=== PATIENT | female | born 1940 | race Caucasian/White ===

== ENCOUNTER 2019-03-26 15:36 | Inpatient (IN) | payer MEDICARE, MEDICAID, SELFPAY ==
[2019-03-14 10:01] VITALS: BMI 40.1
[2019-03-14 10:40] VITALS: BP 137/57; PULSE 67; RESP 18; TEMP 37.2; O2SAT 97
[2019-03-26] VITALS (13 sets, daily range): BP systolic 131–166; BP diastolic 44–82; PULSE 61–86; RESP 15–20; TEMP 36.3–37.1; O2SAT 92–100; BMI 40.1
--- NOTE | ~2019-03-26 | XR_ITS ---
EXAMINATION: XR knee RT 2V EXAM DATE: 03/26/2019 15:48 INDICATION: Postoperative total right knee replacement. TECHNIQUE: Portable frontal, crosstable lateral projections right knee obtained immediately followin g arthroplasty. Procedure performed by Stuart Beltrán MD. FINDINGS: Lateral projection is slightly obliqued. Patient is status post total knee arthroplasty. T he orthopedic hardware is in expected position. There are trena overlying the anterior aspect of t he knee. There is small amount of subcutaneous gas, gas within the knee joint space. Overlying soft tissue swelling. Correlate with procedure note. IMPRESSION: Status post total right knee arthroplasty. Reviewed, dictated and finalized at location A. COUNSELOR
[2019-03-26] MEDS: LACTATED RINGERS 1,000 ML 30 ML IV CONT ×2 (10:35→15:32)
[2019-03-26] MEDS: IBUPROFEN IV 800 MG/200 ML 800 MG/200 ML BAG 400 MG IVPB (10:35)
--- NOTE | 2019-03-26 11:19 | P.PNAN_ITS ---
Anes - Initial Pre Proc Eval Procedure: Operation Date: 03/26/19 12:00 Proposed Procedures p Right Total Knee Arthroplasty - Stuart Beltrán MD Date/Time: 03/26/19 11:19 Surgeon: Stuart Beltrán MD Pre Op Diagnosis: Right Knee DJD Patient Data Age: 78 Gender: F Height: 1.57 m Weight: 97.9 kg Last Vital Signs Temp 37.1 C 03/26/19 10:13 Pulse 77 03/26/19 10:13 Resp 18 03/26/19 10:13 BP 151/68 H 03/26/19 10:13 Pulse Ox 99 03/26/19 10:13 Allergies Allergy/AdvReac Type Severity Reaction Status Date / Time No Known Allergies Allergy Verified 03/26/19 10:40 Home Medications Medication Instructions Recorded Confirmed Type pantoprazole 40 mg tablet,delayed 40 mg PO BID #180 tablet 01/08/19 03/26/19 Rx release chlorthalidone 25 mg tablet 25 mg PO DAILY #90 tablet 02/25/19 03/26/19 Rx acetaminophen 325 mg capsule 325 mg PO Q6H PRN 03/14/19 03/26/19 History atorvastatin 40 mg tablet 40 mg PO HS 03/14/19 03/26/19 History cholecalciferol (vitamin D3) 2,000 unit PO DAILY 03/14/19 03/26/19 History cyanocobalamin (vitamin B-12) 1,000 mcg PO DAILY 03/14/19 03/26/19 History ferrous sulfate 325 mg (65 mg 325 mg PO TID 03/14/19 03/26/19 History iron) tablet,delayed release levothyroxine 25 mcg tablet 25 mcg PO DAILY 03/14/19 03/26/19 History nifedipine 60 mg PO BID 03/14/19 03/26/19 History ramipril 10 mg capsule 10 mg PO DAILY 03/14/19 03/26/19 History tramadol 50 mg tablet 50 mg PO Q6H PRN 03/14/19 03/26/19 History ECG: SINUS RHYTHM SUPRAVENTRICULAR BIGEMINY NONSPECIFIC ST & T-WAVE ABNORMALITY- INF/LAT LEADS BASELINE ARTIFACT- I, III, AVR, AVL, AVF ABNORMAL ECG Patient hx anesthesia problems: none Family hx anesthesia problems: none [facility] Past Medical History Medical History (Updated 03/25/19 @ 15:41 by Kwame Allen DO) Anemia CKD (chronic kidney disease), stage III Degenerative joint disease of knee Essential (primary) hypertension Hypothyroidism, unspecified Pure hypercholesterolemia Reflux esophagitis Right knee pain Social History Social History Smoking status: Never smoker Alcohol intake: never Anes - Eval Final PreProcedure Day of Procedure 03/26/19 11:19 Patient weight: obese Heart: regular rate and rhythm Lungs: clear to auscultation and normal air movement Airway: Mallampati scale class III Neurological: alert and oriented Last oral intake: >/= 8 hours ASA classification: III Emergent: no Anesthetic plan: proceed Anesthesia type and monitoring: general LMA and standard monitoring Informed Consent: The patient's anesthetic plan and its attendant risks and benefits were discussed with the patient/family/POA. Questions were solicited and answers provided to the satisfaction of the patient/family/POA.
--- NOTE | 2019-03-26 11:48 | WPDANESEPPF ---
Anes - Initial Pre Proc Eval Procedure: Operation Date: 03/26/19 12:00 Proposed Procedures p Right Total Knee Arthroplasty - Stuart Beltrán MD Date/Time: 03/26/19 11:48 Surgeon: Stuart Beltrán MD Pre Op Diagnosis: Right Knee DJD Patient Data Age: 78 Gender: F Height: 1.57 m Weight: 97.9 kg Last Vital Signs Temp 37.1 C 03/26/19 10:13 Pulse 77 03/26/19 10:13 Resp 18 03/26/19 10:13 BP 151/68 H 03/26/19 10:13 Pulse Ox 99 03/26/19 10:13 Allergies Allergy/AdvReac Type Severity Reaction Status Date / Time No Known Allergies Allergy Verified 03/26/19 10:40 Home Medications Medication Instructions Recorded Confirmed Type pantoprazole 40 mg tablet,delayed 40 mg PO BID #180 tablet 01/08/19 03/26/19 Rx release chlorthalidone 25 mg tablet 25 mg PO DAILY #90 tablet 02/25/19 03/26/19 Rx acetaminophen 325 mg capsule 325 mg PO Q6H PRN 03/14/19 03/26/19 History atorvastatin 40 mg tablet 40 mg PO HS 03/14/19 03/26/19 History cholecalciferol (vitamin D3) 2,000 unit PO DAILY 03/14/19 03/26/19 History cyanocobalamin (vitamin B-12) 1,000 mcg PO DAILY 03/14/19 03/26/19 History ferrous sulfate 325 mg (65 mg 325 mg PO TID 03/14/19 03/26/19 History iron) tablet,delayed release levothyroxine 25 mcg tablet 25 mcg PO DAILY 03/14/19 03/26/19 History nifedipine 60 mg PO BID 03/14/19 03/26/19 History ramipril 10 mg capsule 10 mg PO DAILY 03/14/19 03/26/19 History tramadol 50 mg tablet 50 mg PO Q6H PRN 03/14/19 03/26/19 History Patient hx anesthesia problems: none Family hx anesthesia problems: none [facility] Past Medical History Medical History (Updated 03/25/19 @ 15:41 by Kwame Allen DO) Anemia CKD (chronic kidney disease), stage III Degenerative joint disease of knee Essential (primary) hypertension Hypothyroidism, unspecified Pure hypercholesterolemia Reflux esophagitis Right knee pain Social History Social History Smoking status: Never smoker Alcohol intake: never Anes - Eval Final PreProcedure Day of Procedure 03/26/19 11:48 Patient weight: obese Heart: regular rate and rhythm Lungs: clear to auscultation and normal air movement Airway: Mallampati scale class II Neurological: alert and oriented Last oral intake: >/= 8 hours ASA classification: III Emergent: no Anesthetic plan: proceed Anesthesia type and monitoring: general LMA and standard monitoring Informed Consent: The patient's anesthetic plan and its attendant risks and benefits were discussed with the patient/family/POA. Questions were solicited and answers provided to the satisfaction of the patient/family/POA.
--- NOTE | 2019-03-26 11:49 | WPDANESPNB ---
Anes - Peripheral Nerve Block Date/Time: 03/26/19 11:49 I have discussed with the patient/family/POA the placement of a peripheral nerve block for post-operative pain management, including associated risks, benefits, complications, and side effects. Alternative methods of post-operative analgesia were detailed. Questions were solicited and answers provided to the satisfaction of the patient/family/POA. Time-Out: A pre-procedural Time-Out was completed immediately before starting the procedure and confirmed: Patient Identification, Site, Procedure, Patient Position and the Availability of Requisite Equipment. Clinical Indications: Acute post-operative pain management requested by the operative surgeon. Nerve Block Insertion Note Anes-nerve block: femoral right Patient position: supine Skin prep: chlorhexidine Needle: 22 gauge, stimulating, insulated echogenic needle. Needle length: 80 mm Technique: nerve stimulation lost at (mA) (0.3) and ultrasound Injectate: bupivacaine 0.5% with epi 5 mcg/ml (30cc) Observations: tolerated well Complications: none Procedure start time:: 1227 Procedure end time:: 1233
--- NOTE | 2019-03-26 12:20 | WPDHPUPDATE1 ---
History and Physical Update Update Date/Time: 03/26/19 12:20 History and Physical has been reviewed, including an updated exam of the patient. There are NO changes in the patient's condition. Risks, benefits, and alternatives have been discussed and questions answered. Patient agrees to proceed with procedure.
[2019-03-26] MEDS: ceFAZolin 2 GM/D5W 50 ML 2 GM/50 ML BAG IVPB ×2 (12:33→20:20)
[2019-03-26] MEDS: ONDANSETRON INJ 4 MG/2 ML VIAL IV PUSH ×2 (15:32→16:23)
--- NOTE | 2019-03-26 15:34 | PM.OP ---
Procedure Note - Brief Procedure Note - Brief Date of procedure: 03/26/19 Pre-op diagnosis: Right Knee DJD Post-op diagnosis: same Procedure performed: R TKA Anesthesia: GETA Surgeon: Stuart Beltrán MD Estimated blood loss (mL): 50 Drains: No Complications: No immediate complications Condition: stable Disposition: PACU
--- NOTE | 2019-03-26 16:18 | OP_ITS ---
DATE OF PROCEDURE: 03/26/2019 PREOPERATIVE DIAGNOSIS: Right knee DJD. POSTOPERATIVE DIAGNOSIS: Right knee DJD. PROCEDURE: Right total knee arthroplasty. ANESTHESIA: General. COMPLICATIONS: None. INDICATIONS: This is a 78-year-old female with end-stage right knee DJD. She was indicated for right total knee arthroplasty. DESCRIPTION OF PROCEDURE: The patient was taken to the operating room in stable condition and placed in supine position. General anesthesia induced and then the right lower extremity was prepped and draped sterilely from the toes to the thigh. There was a flexion contracture of approximately 20 degrees. Tourniquet was inflated. A midline incision was performed. Medial patellar arthrotomy was performed. There was severe arthrosis in all 3 compartments of the knee joint. IM nilo was placed in the femur. Distal femoral cut was made removing approximately 12 mm of bone from the high side due to flexion contracture. The knee was sized to 62.5, so cutting block was placed in line with Whitesides line and the transepicondylar axis. Anterior, posterior, and chamfer cuts were made to the femur. The cuts were flushed. Next, the IM nilo was placed in the tibia. Transtibial cut was made removing approximately 10 mm of bone from the high side of the tibia. The cut was then planed with a planer and it was very flushed. Posterior osteophytes were removed from the femur with an osteotome. A 71 tibial trial was placed in one-third medial aspect of the tibial tubercle, and then a 62.5 femoral trial was placed. A 10 CR poly trial was placed. The knee came out to full extension. There was no flexion contracture. There was good patellar tracking. There was no tilt. There was good stability in varus-valgus stress in both flexion and extension. There was no excessive rollback in flexion. The trial instrumentation was removed, and then a Biomet 71 tibial component and a 62.5 femoral component were both cemented into place and then a 10 CR poly component was secured into place. The knee came out to full extension until the cement was hardened, excess cement was removed from the periphery of the implant. The knee was well stable in varus-valgus stress and good anterior-posterior stability as well. There was no excessive rollback in flexion and there was good patellar tracking. The knee came out to full extension as well. The knee joint then was irrigated thoroughly with sterile Betadine sterile water for approximately 3 minutes, and then washed out and the tourniquet was deflated. Bleeders were cauterized. The arthrotomy was approximated with #1 Vicryl suture, subcutaneous tissues with 2-0 Vicryl and the skin with trena, and then a Prevena wound system was placed on the skin and activated and it collapsed well. The patient then was extubated and sent to recovery. Silvia I MT: Mickey
[2019-03-26] MEDS: FAMOTIDINE 20 MG/2 ML VIAL IV PUSH (16:56)
[2019-03-26] MEDS: SODIUM CHLORIDE 0.9% IV 1,000 ML 125 ML IV CONT (17:40)
[2019-03-26] MEDS: DOCUSATE SODIUM 100 MG CAPSULE PO (18:07)
[2019-03-26] MEDS: FERROUS SULFATE 324 MG TABLET PO (18:07)
--- NOTE | 2019-03-26 18:17 | ADMGEN ---
This patient, Nadiya Grimes, was admitted to [facility] Room 313-01 on 03/26/2019 @ 1700. Patient/family oriented to hospital policies and general routines including ID bracelet, bed and alarms, visiting hours, pain management, procedures, bathroom and other care routines, personal items, smoking policy, room service/diet, and visiting hours. Valuables list has been completed. Information on how to activate the Rapid Response Team has been discussed. Patient/Family are encouraged to report perceived risks to care and to ask questions if they do not understand what they are told or what they should do.
[2019-03-26 18:45] LABS: Estimated CRCL calculation 26 ml/min; Estimated Glomerular Filt Rate 27
[2019-03-26] MEDS: ATORVASTATIN 40 MG TABLET PO (20:23)
[2019-03-26] MEDS: FAMOTIDINE 20 MG TABLET PO (20:23)
[2019-03-26] MEDS: PANTOPRAZOLE 40 MG TABLET PO (20:24)
[2019-03-26] MEDS: NIFEdipine 30 MG TAB.ER.24 60 MG PO (20:24)
[2019-03-26] MEDS: MORPHINE SULFATE 4 MG/ML INJ IV PUSH (23:56)
[2019-03-27] VITALS (13 sets, daily range): BP systolic 92–134; BP diastolic 24–55; PULSE 64–114; RESP 16–20; TEMP 36.4–38.1; O2SAT 92–100
[2019-03-27] MEDS: SODIUM CHLORIDE 0.9% IV 1,000 ML 125 ML IV CONT (02:50)
[2019-03-27] MEDS: ceFAZolin 2 GM/D5W 50 ML 2 GM/50 ML BAG IVPB ×2 (03:54→12:33)
[2019-03-27] MEDS: MORPHINE SULFATE 4 MG/ML INJ IV PUSH (04:00)
[2019-03-27 06:11] LABS: Basophils Percent Auto 0.1 % (0.2-1.2); Hematocrit 26.3 % (37.0-47.0); Hemoglobin 7.9 g/dL (12.0-15.0); Immature Granulocyte Absolute 0.08 K/mm3 (0.00-0.031); Immature Granulocyte Percent A 0.5 % (0-0.5); Lymphocytes Absolute Auto 1.04 K/mm3 (0.9-3.2); Lymphocytes Percent Auto 6.9 % (18.3-44.2); Mean Corpuscular Hemoglobin 26.6 pg (26-34); Mean Corpuscular Volume 88.6 fl (80-100); Mean Platelet Volume 10.2 fl (7.4-10.4); Monocytes Absolute Auto 1.3 K/mm3 (0.1-0.6); Monocytes Percent Auto 8.8 % (2.6-8.5); Neutrophils Absolute Auto 12.6 K/mm3 (1.3-6.7); Neutrophils Percent Auto 83.7 % (45.5-73.1); Platelet Count Result 344 k/mm3 (150-375); Red Blood Count 2.97 M/mm3 (4.2-5.4); Red Cell Distribution Width 14.8 % (11.5-14.5)
[2019-03-27 06:22] LABS: Blood Urea Nitrogen 24 mg/dL (7-17); Calcium 8.5 mg/dL (8.4-10.2); Carbon Dioxide 24 mmol/L (22-30); Chloride 102 mmol/L (98-107); Estimated CRCL calculation 26 ml/min; Estimated Glomerular Filt Rate 27; Glucose 137 mg/dL (65-105); Potassium 4.2 mmol/L (3.4-5.0); Sodium 135 mmol/L (137-145)
--- NOTE | 2019-03-27 07:45 | WPDANESPN ---
Anes - Prog Note Post-Op Date/Time: 03/27/19 07:45 Cardiovascular status: normal Respiratory status: normal Airway patency: baseline Mental status: baseline Post-Op hydration status: normal Vital Signs: Last Vital Signs Temp 97.5 F L 03/27/19 06:00 Pulse 67 03/27/19 06:00 Resp 20 03/27/19 06:00 BP 96/55 L 03/27/19 06:00 Pulse Ox 100 03/27/19 06:00 Pain Score (VAS): pt having pain to posterior knee. good relief to top and sides. pt distressed due to heaviness of knee and limited motor control. reassured pt & spoke at length regarding FNB and pain management, what to expect etc. pt v/u I/O: Intake & Output 03/26/19 03/27/19 03/27/19 23:59 07:59 15:59 Intake Total 250 1550 Output Total 600 Balance 250 950 Laboratory Tests 03/27/19 05:44 03/27/19 05:44 03/26/19 03/27/19 03/27/19 18:03 05:44 05:44 WBC 15.0 H RBC 2.97 L Hgb 7.9 L Hct 26.3 L MCV 88.6 MCH 26.6 MCHC 30.0 L RDW 14.8 H Plt Count 344 MPV 10.2 Immature Gran % (Auto) 0.5 Neut % (Auto) 83.7 H Lymph % (Auto) 6.9 L [place] % (Auto) 8.8 H Eos % (Auto) 0.0 Baso % (Auto) 0.1 L Lymph # (Auto) 1.04 [place] # (Auto) 1.3 H Eos # (Auto) 0.0 Baso # (Auto) 0.0 Abs Immat Gran (auto) 0.08 H Absolute Neuts (auto) 12.6 H Absolute Nucleated RBC 0.0 Nucleated RBC % 0.0 Sodium 135 L Potassium 4.2 Chloride 102 Carbon Dioxide 24 BUN 24 H Creatinine 1.80 H 1.80 H Estim Creat Clear Calc 26 26 Estimated GFR 27 L 27 L Glucose 137 H Calcium 8.5 Transferrin Vitamin B12 Folate 03/27/19 03/27/19 05:44 05:44 WBC RBC Hgb Hct MCV MCH MCHC RDW Plt Count MPV Immature Gran % (Auto) Neut % (Auto) Lymph % (Auto) [place] % (Auto) Eos % (Auto) Baso % (Auto) Lymph # (Auto) [place] # (Auto) Eos # (Auto) Baso # (Auto) Abs Immat Gran (auto) Absolute Neuts (auto) Absolute Nucleated RBC Nucleated RBC % Sodium Potassium Chloride Carbon Dioxide BUN Creatinine Estim Creat Clear Calc Estimated GFR Glucose Calcium Transferrin 297 Vitamin B12 Pending Folate Pending Post-procedural complaints: nausea and vomiting Patient Feedback: Patient satisfied with anesthetic care.
--- NOTE | 2019-03-27 08:16 | PM.IMCN ---
Assessment and Plan Assessment and plan (1) S/P right knee arthroscopy: Code(s): Z98.890 - Other specified postprocedural states Status: Acute Assessment and Plan: Status post right total knee arthroplasty completed on 03/26/[address] Beltrán. Patient is still having a lot of pain today rated 9/10. After therapy this morning her pain was 10/10 and slowly improving. The patient and her sister have concerns with her being discharged home with home health and would like to talk with care coordination about a possible SNF placement. Continue monitoring the patient's symptoms. Pain management per Dr. Beltrán Discharge planning per Dr. Beltrán Post-op care per Dr. Beltrán DVT Prophylaxis per Dr. Beltrán (2) Iron deficiency anemia: Code(s): D50.9 - Iron deficiency anemia, unspecified Status: Acute Assessment and Plan: On review of patient's prior labs her hemoglobin is usually around 10 and her hematocrit is normally around 32-35. She does have a history of iron deficiency anemia in takes oral iron 3 times per day. She has had IV iron infusions in the past, and follows up with Dr. Richards but she has not needed an iron transfusion in while. Hemoglobin this morning was 7.9 and hematocrit was 26.3%. Most likely low secondary to her surgery yesterday. I am checking her iron panel, vitamin B12 and folic acid levels. She she may need a dose of IV iron while here. Will recheck H&H at 1:00 p.m.. Will monitor her H&H and consider IV blood transfusion if it continues to lower. (3) Essential (primary) hypertension: Code(s): I10 - Essential (primary) hypertension Status: Acute Assessment and Plan: Patient's blood pressure has been normal since surgery. This morning her blood pressure was 96/55. This could be from pain medications or from low H&H. We will continue monitoring her blood pressure, continue IV fluid hydration, and monitoring her H&H levels. (4) CKD (chronic kidney disease), stage III: Code(s): N18.3 - Chronic kidney disease, stage 3 (moderate) Status: Acute Assessment and Plan: From prior labs her creatinine was 1.4. Prior to surgery her creatinine is 1.8 in it stayed stable this morning after surgery as well. This could be her baseline. We will continue her IV fluids at this time and monitoring her renal function, urine output postop. (5) Pure hypercholesterolemia: Code(s): E78.00 - Pure hypercholesterolemia, unspecified Status: Acute Assessment and Plan: Will continue her statin medication. (6) Hypothyroidism, unspecified: Code(s): E03.9 - Hypothyroidism, unspecified Status: Acute Assessment and Plan: Her TSH this morning. Continue her levothyroxine. HPI Data of Consult Consult date: 03/27/19 Requesting Physician: Stuart Beltrán MD Primary Care Provider: Frank Ha DO Consult Narrative Narrative: Nadiya Grimes is a 78 year old female with a history of arthritis to bilateral knees, hypertension, high cholesterol, iron deficiency anemia, who presented after the patient had a scheduled right total knee arthroplasty on 03/26/2019. The patient reports having knee issues for a while and pain was not very well controlled prior to surgery. Currently, she is postop day 1 and still having a lot of discomfort to her right knee. Currently right knee discomfort is a 9/10 but she reports it is coming down . She has not really been able to eat anything since her surgery secondary to nausea and a few episodes of vomiting last night and earlier this morning. Today she is feeling better and tolerating liquids and Sloan crackers. She denies any na
[2019-03-27 08:27] LABS: Transferrin 297 mg/dL (206-381)
[2019-03-27] MEDS: DIAZEPAM 5 MG TABLET PO ×2 (08:59→21:35)
[2019-03-27] MEDS: ONDANSETRON INJ 4 MG/2 ML VIAL IV PUSH (08:59)
[2019-03-27] MEDS: FAMOTIDINE 20 MG TABLET PO ×2 (09:00→21:35)
[2019-03-27] MEDS: PANTOPRAZOLE 40 MG TABLET PO ×2 (09:00→21:35)
[2019-03-27 10:11] LABS: Folic Acid 4.1 ng/mL (2.76->20)
[2019-03-27] MEDS: CHLORTHALIDONE 25 MG TABLET PO (10:53)
[2019-03-27] MEDS: NIFEdipine 30 MG TAB.ER.24 60 MG PO (10:54)
[2019-03-27] MEDS: ramipriL 5 MG CAPSULE 10 MG PO (10:54)
[2019-03-27 12:58] LABS: Hematocrit 23.7 % (37.0-47.0); Hemoglobin 7.2 g/dL (12.0-15.0)
[2019-03-27 13:36] LABS: Iron 13 ug/dL (37-170)
[2019-03-27 13:47] LABS: Percent Iron Saturation 4 % (20-50)
--- NOTE | 2019-03-27 17:26 | WPDPN ---
Progress Note: A&P Additional Plan L TKA POD 1 DOING WELL. WILL MOST LIKELY NEED REHAB VS SNF. CONT PT. Exam Psych: Other: L KNEE DRESSING DRY NV INTCT NEG HOMANS SIGN CALF SOFT. Objective Data Vital Signs Vital Signs: Vital Signs - 24 hr 03/26/19 17:45 03/26/19 18:45 03/26/19 22:00 Temperature 36.3 C L 36.4 C L Pulse Rate 80 74 61 Respiratory Rate 18 18 20 Blood Pressure 135/61 131/68 134/44 L Pulse Oximetry 100 100 96 03/27/19 02:05 03/27/19 06:00 03/27/19 10:50 Temperature 36.4 C L 36.4 C L Pulse Rate 67 67 71 Respiratory Rate 18 20 18 Blood Pressure 115/40 L 96/55 L 104/44 L Pulse Oximetry 96 100 95 03/27/19 14:00 Temperature 36.7 C Pulse Rate 114 H Respiratory Rate 16 Blood Pressure 92/53 L Pulse Oximetry 99 Intake/Output Intake/Output: Intake & Output 03/24/19 03/25/19 03/26/19 03/27/19 23:59 23:59 23:59 23:59 Intake Total 500 1550 Output Total 600 Balance 500 950 Meds/Results Medications: Active Medications Generic Name Dose Route Start Last Admin Trade Name Freq PRN Reason Stop Dose Admin Acetaminophen 1,000 mg 03/26/19 15:35 Tylenol Tablet PO Q6H PRN Mild Pain (1-3) Acetaminophen 325 mg 03/26/19 15:41 Tylenol Tablet PO Q6H PRN Pain Atorvastatin Calcium 40 mg 03/26/19 21:00 03/26/19 20:23 Lipitor PO 40 mg HS SHAMA Administration Celecoxib 200 mg 03/26/19 17:00 Celebrex PO BIDWM SHAMA Chlorthalidone 25 mg 03/27/19 09:00 03/27/19 10:53 [place] PO 25 mg DAILY SHAMA Administration Cyanocobalamin 1,000 mcg 03/27/19 09:00 03/27/19 10:54 Vitamin B-12 Tab PO Not Given DAILY SHAMA Diazepam 5 mg 03/26/19 15:35 03/27/19 08:59 Valium Po PO 5 mg Q8H PRN Administration Spasms Docusate Sodium 100 mg 03/26/19 17:00 03/27/19 10:54 Colace Cap PO Not Given BID SHAMA Famotidine 20 mg 03/26/19 21:00 03/27/19 09:00 Pepcid PO 20 mg Q12HR SHAMA Administration Ferrous Sulfate 324 mg 03/26/19 17:00 03/27/19 12:35 Ferrous Sulfate PO Not Given TIDWM SHAMA Sodium Chloride 1,000 mls @ 125 mls/hr 03/26/19 15:35 03/27/19 05:27 Normal Saline Iv IV CONT 125 mls/hr .Q8H SHAMA Infusion Sodium Chloride 250 mls @ 30 mls/hr 03/27/19 14:05 Normal Saline Iv IV CONT 03/27/19 22:24 .Q8H20M STA Levothyroxine Sodium 25 mcg 03/27/19 06:30 03/27/19 09:11 Synthroid PO Not Given 0630 SHAMA Morphine Sulfate 4 mg 03/26/19 15:35 03/27/19 04:00 Morphine Sulfate Inj IV PUSH 4 mg Q2H PRN Administration Breakthrough pain rated 7-10 Naloxone HCl 0.1 mg 03/26/19 15:35 Narcan IV PUSH Q2M PRN Opiate Reversal Nifedipine 60 mg 03/26/19 21:00 03/27/19 10:54 Procardia Xl PO 60 mg Q12HR SHAMA Administration Ondansetron HCl 4 mg 03/25/19 15:41 03/27/19 08:59 Zofran Inj IV PUSH 4 mg ONCE PRN Administration Nausea Oxycodone/Acetaminophen 1 tablet 03/26/19 15:35 03/27/19 10:52 Percocet 5-325 Mg PO 1 tablet Q4H PRN Administration Pain Rated 4-6 Pantoprazole Sodium 40 mg 03/26/19 21:00 03/27/19 09:00 Protonix PO 40 mg Q12HR SHAMA Administration Ramipril 10 mg 03/27/19 09:00 03/27/19 10:54 Altace PO 10 mg DAILY SHAMA Administration Rivaroxaban 10 mg 03/26/19 22:00 03/27/19 08:00 Xarelto PO 04/06/19 17:01 Not Given DAILY@17 SHAMA Tramadol HCl 50 mg 03/26/19 15:41 Ultram PO Q6H PRN Pain Vitamin D 2,000 unit 03/27/19 09:00 03/27/19 10:54 Vitamin D PO Not Given DAILY SHAMA Radiology Results: ITS Impressions Knee X-Ray 03/26/19 17:39 IMPRESSION: Status post total right knee arthroplasty. Labs Labs: Laboratory Results - last 24 hr 03/26/19 03/27/19 03/27/19 18:03 05:44 05:44 WBC 15.0 H RBC 2.97 L Hgb 7.9 L Hct 26.3 L MCV 88.6 MCH 26.6 MCHC 30.0 L RDW 14.8 H Plt Count 344 MPV 10.2 Immat
[2019-03-27] MEDS: DOCUSATE SODIUM 100 MG CAPSULE PO (17:47)
[2019-03-27] MEDS: RIVAROXABAN 10 MG TABLET PO (17:47)
[2019-03-27] MEDS: SODIUM CHLORIDE 0.9% IV 250 ML 30 ML IV CONT (18:34)
[2019-03-27] MEDS: ATORVASTATIN 40 MG TABLET PO (21:35)
[2019-03-28 00:30] VITALS: BP 103/45; PULSE 75; RESP 18; TEMP 36.7; O2SAT 93
[2019-03-28 01:30] VITALS: BP 110/44; PULSE 70; RESP 18; TEMP 37.2; O2SAT 90
[2019-03-28 02:04] VITALS: BP 114/43; PULSE 70; RESP 18; TEMP 37; O2SAT 90
[2019-03-28 03:23] LABS: Hematocrit 26.7 % (37.0-47.0); Hemoglobin 8.4 g/dL (12.0-15.0); Mean Corpuscular HGB Conc 31.5 g/dl (32-36); Mean Corpuscular Hemoglobin 27.4 pg (26-34); Mean Platelet Volume 9.8 fl (7.4-10.4); Platelet Count Result 215 k/mm3 (150-375); Red Blood Count 3.07 M/mm3 (4.2-5.4); Red Cell Distribution Width 15.6 % (11.5-14.5); White Blood Count 10.8 K/mm3 (4.5-10.0)
[2019-03-28 03:39] LABS: Blood Urea Nitrogen 28 mg/dL (7-17); Calcium 7.9 mg/dL (8.4-10.2); Carbon Dioxide 24 mmol/L (22-30); Chloride 105 mmol/L (98-107); Estimated CRCL calculation 22 ml/min; Estimated Glomerular Filt Rate 23; Glucose 116 mg/dL (65-105); Sodium 136 mmol/L (137-145)
[2019-03-28] MEDS: DIAZEPAM 5 MG TABLET PO (04:35)
[2019-03-28 06:00] VITALS: BP 110/53; PULSE 68; RESP 20; TEMP 37.2; O2SAT 94
[2019-03-28] MEDS: LEVOTHYROXINE SODIUM 25 MCG TABLET PO (06:04)
--- NOTE | 2019-03-28 09:17 | PM.PNORT ---
Progress Note: A&P Assessment and Plan (1) S/P right knee arthroscopy: Code(s): Z98.890 - Other specified postprocedural states Status: Acute Assessment and Plan: POD #2: RIGHT TKA Continue PT/OT. WBAT with walker. Slow progress. Fall Risk. Continue pain control. Ice. No pillows under knee. Continue DVT prophylaxis. SCDs. Icentive spirometry. Monitor wound VAC dressing. To be changed by Dr. Beltrán prior to discharge. Dispo: Acute Rehab for further PT/OT. Subjective Subjective Date/Time Seen: 03/28/19 09:17 Post Op day: 2 Principal diagnosis: Right Knee DJD Interval history: Up in chair. No new complaints. Pain controlled. Tolerating diet. Review of Systems Review of Systems: All systems reviewed & are unremarkable except as noted in HPI and below Constitutional: Constitutional: Denies fever(s) and Denies headache(s) ENT: Denies headache(s) Cardiovascular: Cardiovascular: Denies chest pain, Denies diaphoresis, Denies palpitations and Denies dyspnea Respiratory: Respiratory: Denies dyspnea Gastrointestinal: Gastrointestinal: Denies abdominal pain, Denies constipation, Denies nausea and Denies vomiting Genitourinary: Genitourinary: Reports nocturia and Denies dysuria Musculoskeletal: Musculoskeletal: Reports arthralgias (Right Knee ) and Reports joint swelling (Right Knee ) Neurologic: Denies headache(s) Endocrine: Endocrine: Denies palpitations Exam Const: General: comfortable and no acute distress Resp: Effort & Inspection: normal respiratory effort Cardio: Rate: regular rate Rhythm: regular rhythm GI: GI Palp: Yes Soft to palpation, No Tenderness to palpation present (GI) and No Guarding due to palpation present (GI) Skin: Wounds: wounds noted Other: Incision c/d/i. No surrounding redness/warmth. No hematoma. Mild ecchymosis. No wound dehiscence Neuro: Cognition (Neuro): normal cognition Other: NV intact aside from block RLE. Moves toes. Sensation intact to light touch. +ankle dorsiflexion/plantarflexion. Extrem: Right upper extremity: normal to inspection, full ROM and normal capillary refill Left upper extremity: normal to inspection, full ROM and normal capillary refill Right lower extremity: normal to inspection, full ROM (ROM limited due to recent surgical intervention ) and knee Details: tenderness (diffuse, mild ), swelling (diffuse, mild ) and abnormal ROM (limited due to recent surgical intervention- difficulty with extension- block still intact ) Left lower extremity: normal to inspection Psych: Mental Status: mental status grossly normal Affect: normal affect Objective Data Vital Signs Vital Signs: Vital Signs - 24 hr 03/27/19 10:50 03/27/19 14:00 03/27/19 18:37 Temperature 36.7 C 36.9 C Pulse Rate 71 114 H 75 Respiratory Rate 18 16 16 Blood Pressure 104/44 L 92/53 L 112/24 L Pulse Oximetry 95 99 95 03/27/19 18:59 03/27/19 19:59 03/27/19 20:59 Temperature 36.8 C 38.1 C H 37.3 C Pulse Rate 65 73 77 Respiratory Rate 20 20 20 Blood Pressure 98/40 L 104/40 L 106/45 L Pulse Oximetry 95 92 99 03/27/19 21:59 03/27/19 22:00 03/27/19 23:10 Temperature 37.3 C 37.3 C 36.7 C Pulse Rate 77 77 108 H Respiratory Rate 20 20 20 Blood Pressure 120/37 L 120/37 L 134/44 L Pulse Oximetry 94 94 93 03/27/19 23:16 03/27/19 23:30 03/28/19 00:30 Temperature 36.7 C 36.7 C 36.7 C Pulse Rate 75 64 75 Respiratory Rate 18 18 18 Blood Pressure 134/44 L 109/33 L 103/45 L Pulse Oximetry 92 92 93 03/28/19 01:30 03/28/19 02:04 03/28/19 06:00 Temperature 37.2 C 37.0 C 37.2 C Pulse Rate 70 70 68 Respiratory Rate 18 18 20 Blood Pressure 110/44 L 114/43 L 110/53 L Pulse Oximetry 90 90 94 Intake/Output Intake/Output: Intake & Output 03/25/19 03/26/19 03/27/19 03/28/19 23:59 23:59 23:59 23:59 Intake Total 500 3636 299 Output Total 900 250 Balance 500 2736 49 Meds/Results Medications: Active Medications Generic Name Dose Route Start Las
[2019-03-28] MEDS: CYANOCOBALAMIN 1,000 MCG TABLET 1000 MCG PO (10:48)
[2019-03-28] MEDS: FAMOTIDINE 20 MG TABLET PO ×2 (10:48→21:31)
[2019-03-28] MEDS: CHOLECALCIFEROL 1,000 UNIT TABLET 2000 UNITS PO (10:48)
[2019-03-28] MEDS: ramipriL 5 MG CAPSULE 10 MG PO (10:48)
[2019-03-28] MEDS: FERROUS SULFATE 324 MG TABLET PO ×3 (10:48→18:27)
[2019-03-28] MEDS: PANTOPRAZOLE 40 MG TABLET PO ×2 (10:48→21:31)
[2019-03-28] MEDS: DOCUSATE SODIUM 100 MG CAPSULE PO ×2 (10:48→18:27)
[2019-03-28] MEDS: CHLORTHALIDONE 25 MG TABLET PO (10:48)
[2019-03-28] MEDS: NIFEdipine 30 MG TAB.ER.24 60 MG PO ×2 (10:49→21:31)
[2019-03-28] MEDS: CYANOCOBALAMIN INJ 1,000 MCG/ML VIAL 1000 MCG IM (10:52)
--- NOTE | 2019-03-28 14:12 | PM.IMPN ---
Progress Note: A&P Assessment and Plan (1) S/P right knee arthroscopy: Code(s): Z98.890 - Other specified postprocedural states Status: Acute Assessment and Plan: Status post right total knee arthroplasty completed on 03/26/[address] Beltrán. Patients pain is improved today and she was doing better with PT/OT. I talked to the patient's PT who evaluated her this morning and stated that she did not do very well secondary to pain and only took 5 steps with assistance. We are currently working [facility]. Continue monitoring the patient's symptoms. Pain management per Dr. Beltrán Discharge planning per Dr. Beltrán Post-op care per Dr. Beltrán DVT Prophylaxis per Dr. Beltrán (2) Iron deficiency anemia: Code(s): D50.9 - Iron deficiency anemia, unspecified Status: Acute Assessment and Plan: On review of patient's prior labs her hemoglobin is usually around 10 and her hematocrit is normally around 32-35. She does have a history of iron deficiency anemia in takes oral iron 3 times per day. She has had IV iron infusions in the past, and follows up with Dr. Richards but she has not needed an iron transfusion in while. Post Op her hemoglobin this morning was 7.9 and hematocrit was 26.3% and repeat Hgb was lower at 7.2 and Hct 23.7. Most likely low secondary to her surgery along with iron deficiency anemia. She received 2 Units of PRBCs yesterday. Iron panel was consistent with iron deficiency anemia. She received IV Venofer 300 mg yesterday, today and will receive a 3rd dose tomorrow along with her p.o. ferrous sulfate. Vitamin B12 was low at 195. She was given IM Cyanocobalamin 1000 mg today and will receive it tomorrow along iwth her PO Cyanocobalamin 500 mg. Will increase her dosing to 1000 mg PO daily once discharged. Folic acid level was normal. Today, Hgb was 8.4 and Hct 26.7%. Improved after 2 Units of PRBCs. Stable. Will monitor her H&H. Transfuse as needed. (3) Essential (primary) hypertension: Code(s): I10 - Essential (primary) hypertension Status: Acute Assessment and Plan: Patient's blood pressure has been normal since surgery. This morning her blood pressure was 110/53. Stable. We will continue monitoring her blood pressure, continue IV fluid hydration, and monitoring her H&H levels. (4) CKD (chronic kidney disease), stage III: Code(s): N18.3 - Chronic kidney disease, stage 3 (moderate) Status: Acute Assessment and Plan: From prior labs her creatinine was 1.4. Creatinine is 2.10 today. I am unsure of her baseline Creatinine. Will recheck in the morning. Her IV fluids were discontinued since she is eating and drinking better. Monitoring her renal function, urine output postop. (5) Pure hypercholesterolemia: Code(s): E78.00 - Pure hypercholesterolemia, unspecified Status: Acute Assessment and Plan: Will continue her statin medication. (6) Hypothyroidism, unspecified: Code(s): E03.9 - Hypothyroidism, unspecified Status: Acute Assessment and Plan: Her TSH this morning was normal. Continue her levothyroxine. Time Spent With Patient Time with patient: 25 - 35 minutes Subjective Date/time seen: 03/28/19 14:12 Interval history: Date of service 03/28/2019: The patient reports feeling better today and doing better with therapy. She is feeling better after receiving 2 units of blood yesterday. He denies any bright red blood, black or tarry stools. She is eating much better today without any nausea. She is passing gas but has not had a bowel movement. She denies any fevers, chills, alma
[2019-03-28 14:58] VITALS: BP 109/45; PULSE 67; RESP 18; TEMP 37.4; O2SAT 98
[2019-03-28] MEDS: MORPHINE SULFATE 4 MG/ML INJ IV PUSH (18:26)
[2019-03-28] MEDS: RIVAROXABAN 10 MG TABLET PO (18:27)
[2019-03-28] MEDS: ATORVASTATIN 40 MG TABLET PO (21:31)
[2019-03-28 22:00] VITALS: BP 105/48; PULSE 73; RESP 18; TEMP 36.9; O2SAT 88
[2019-03-29] MEDS: DIAZEPAM 5 MG TABLET PO (05:28)
[2019-03-29] MEDS: LEVOTHYROXINE SODIUM 25 MCG TABLET PO (05:28)
[2019-03-29 05:59] LABS: Hematocrit 28.9 % (37.0-47.0); Hemoglobin 8.8 g/dL (12.0-15.0); Mean Corpuscular HGB Conc 30.4 g/dl (32-36); Mean Corpuscular Volume 88.7 fl (80-100); Mean Platelet Volume 10.3 fl (7.4-10.4); Platelet Count Result 232 k/mm3 (150-375); Red Blood Count 3.26 M/mm3 (4.2-5.4); Red Cell Distribution Width 16.3 % (11.5-14.5); White Blood Count 13.3 K/mm3 (4.5-10.0)
[2019-03-29 06:00] VITALS: BP 115/49; PULSE 71; RESP 18; TEMP 37.3; O2SAT 91
[2019-03-29 07:43] LABS: Blood Urea Nitrogen 32 mg/dL (7-17); Calcium 8.5 mg/dL (8.4-10.2); Carbon Dioxide 25 mmol/L (22-30); Chloride 103 mmol/L (98-107); Estimated CRCL calculation 23 ml/min; Estimated Glomerular Filt Rate 24; Glucose 113 mg/dL (65-105); Potassium 3.9 mmol/L (3.4-5.0); Sodium 136 mmol/L (137-145)
[2019-03-29 09:17] LABS: Add Urine Microscopic? YES; Amorphous Sediment Urine Few; Appearance Urine Cloudy (Clear); Bacteria Urine Trace /hpf; Bilirubin Urine Negative (Negative); Blood Urine 2+ (Negative); Color Urine Yellow (Yellow); Glucose Urine UA Negative (Negative); Hyaline Casts Urine 15-19 /lpf; Ketones Urine Negative (Negative); Leukocyte Esterase Ur 2+ LEU/UL (Negative); Mucus Urine Few /lpf; Nitrate Urine Negative (Negative); Protein Urine 2+ mg/dL (Negative); RBC Urine 21-50 /hpf (0-2); Specific Grav Ur 1.018 (1.001-1.035); Squamous Epithelial Cell Urine Many /hpf (Few); Transitional Epi Cells Urine Rare /hpf (None Seen); Urobilinogen Urine Negative mg/dL (<2.0); WBC Urine >75 /hpf
[2019-03-29] MEDS: PANTOPRAZOLE 40 MG TABLET PO ×2 (09:26→20:24)
[2019-03-29] MEDS: ramipriL 5 MG CAPSULE 10 MG PO (09:26)
[2019-03-29] MEDS: NIFEdipine 30 MG TAB.ER.24 60 MG PO ×2 (09:26→20:23)
[2019-03-29] MEDS: FERROUS SULFATE 324 MG TABLET PO ×3 (09:26→18:08)
[2019-03-29] MEDS: FAMOTIDINE 20 MG TABLET PO ×2 (09:26→20:24)
[2019-03-29] MEDS: DOCUSATE SODIUM 100 MG CAPSULE PO ×2 (09:26→18:08)
[2019-03-29] MEDS: CHLORTHALIDONE 25 MG TABLET PO (09:26)
[2019-03-29] MEDS: CHOLECALCIFEROL 1,000 UNIT TABLET 2000 UNITS PO (09:26)
[2019-03-29] MEDS: CYANOCOBALAMIN INJ 1,000 MCG/ML VIAL 1000 MCG IM (09:26)
[2019-03-29] MEDS: CYANOCOBALAMIN 1,000 MCG TABLET 1000 MCG PO (09:26)
--- NOTE | 2019-03-29 10:54 | PM.PNORT ---
Progress Note: A&P Assessment and Plan (1) S/P right knee arthroscopy: Code(s): Z98.890 - Other specified postprocedural states Status: Acute Assessment and Plan: POD #3: RIGHT TKA Continue PT/OT. WBAT with walker. Slow progress. Fall Risk. Continue pain control. Ice. No pillows under knee. Continue DVT prophylaxis. SCDs. Icentive spirometry. Monitor wound VAC dressing. To be changed by Dr. Beltrán prior to discharge. Dispo: Acute Rehab for further PT/OT. Subjective Subjective Date/Time Seen: 03/29/19 10:54 Post Op day: 3 Principal diagnosis: Right TKA Interval history: POD #3: Right TKA Patient doing well. Pain well-controlled. Slow progress with PT/OT. Will benefit from Acute Rehab Review of Systems Review of Systems: All systems reviewed & are unremarkable except as noted in HPI and below Constitutional: Constitutional: Denies fever(s) and Denies headache(s) ENT: Denies headache(s) Cardiovascular: Cardiovascular: Denies chest pain, Denies diaphoresis, Denies palpitations and Denies dyspnea Respiratory: Respiratory: Denies dyspnea Gastrointestinal: Gastrointestinal: Denies abdominal pain, Denies constipation, Denies nausea and Denies vomiting Genitourinary: Genitourinary: Reports nocturia and Denies dysuria Musculoskeletal: Musculoskeletal: Reports arthralgias (Right Knee ) and Reports joint swelling (Right Knee ) Neurologic: Denies headache(s) Endocrine: Endocrine: Denies palpitations Exam Const: General: comfortable and no acute distress Resp: Effort & Inspection: normal respiratory effort Cardio: Rate: regular rate Rhythm: regular rhythm GI: GI Palp: Yes Soft to palpation, No Tenderness to palpation present (GI) and No Guarding due to palpation present (GI) Skin: Wounds: wounds noted Other: Incision c/d/i. No surrounding redness/warmth. No hematoma. Mild ecchymosis. No wound dehiscence Neuro: Cognition (Neuro): normal cognition Other: NV intact. Moves toes. Sensation intact to light touch. +ankle dorsiflexion/plantarflexion. Extrem: Right upper extremity: normal to inspection, full ROM and normal capillary refill Left upper extremity: normal to inspection, full ROM and normal capillary refill Right lower extremity: normal to inspection, full ROM (ROM limited due to recent surgical intervention ) and knee Details: tenderness (diffuse, mild ), swelling (diffuse, mild ) and abnormal ROM (limited due to recent surgical intervention- difficulty with extension-improving ) Left lower extremity: normal to inspection Psych: Mental Status: mental status grossly normal Affect: normal affect Objective Data Vital Signs Vital Signs: Vital Signs - 24 hr 03/28/19 14:58 03/28/19 22:00 03/29/19 06:00 Temperature 37.4 C 36.9 C 37.3 C Pulse Rate 67 73 71 Respiratory Rate 18 18 18 Blood Pressure 109/45 L 105/48 L 115/49 L Pulse Oximetry 98 88 L 91 Intake/Output Intake/Output: Intake & Output 03/26/19 03/27/19 03/28/19 03/29/19 23:59 23:59 23:59 23:59 Intake Total 500 3636 1484 790 Output Total 900 250 Balance 500 2736 1234 790 Meds/Results Medications: Active Medications Generic Name Dose Route Start Last Admin Trade Name Freq PRN Reason Stop Dose Admin Acetaminophen 325 mg 03/27/19 19:28 Tylenol Tablet PO Q6H PRN Mild Pain (1-3) Atorvastatin Calcium 40 mg 03/26/19 21:00 03/28/19 21:31 Lipitor PO 40 mg HS SHAMA Administration Celecoxib 200 mg 03/26/19 17:00 Celebrex PO BIDWM SHAMA Chlorthalidone 25 mg 03/27/19 09:00 03/29/19 09:26 Hygroton PO 25 mg DAILY SHAMA Administration Cyanocobalamin 1,000 mcg 03/27/19 09:00 03/29/19 09:26 Vitamin B-12 Tab PO 1,000 mcg DAILY SHAMA Administration Cyanocobalamin 1,000 mcg 03/28/19 09:00 03/29/19 09:26 Vitamin B-12 Inj IM 1,000 mcg DAILY SHAMA Administration Diazepam 5 mg 03/26/19 15:35 03/29/19 05:28 Valium Po PO 5 mg Q8H PRN Ad
[2019-03-29 14:38] VITALS: BP 108/49; PULSE 78; RESP 18; TEMP 36.4; O2SAT 96
--- NOTE | 2019-03-29 17:28 | PM.IMPN ---
Progress Note: A&P Assessment and Plan (1) S/P right knee arthroscopy: Code(s): Z98.890 - Other specified postprocedural states Status: Acute Assessment and Plan: Status post right total knee arthroplasty completed on 03/26/[address] Beltrán. Patients pain is improved today and she was doing better with PT/OT. We are currently working on getting the patient into a [facility] facility versus acute rehab upon discharge. We are still waiting for a insurance authorization for discharge. Continue monitoring the patient's symptoms. Pain management per Dr. Beltrán Discharge planning per Dr. Beltrán Post-op care per Dr. Beltrán DVT Prophylaxis per Dr. Beltrán (2) Iron deficiency anemia: Code(s): D50.9 - Iron deficiency anemia, unspecified Status: Acute Assessment and Plan: On review of patient's prior labs her hemoglobin is usually around 10 and her hematocrit is normally around 32-35. She does have a history of iron deficiency anemia in takes oral iron 3 times per day. She has had IV iron infusions in the past, and follows up with Dr. Richards but she has not needed an iron transfusion in while. Post Op her hemoglobin this morning was 7.9 and hematocrit was 26.3% and repeat Hgb was lower at 7.2 and Hct 23.7. Most likely low secondary to her surgery along with iron deficiency anemia. She received 2 Units of PRBCs yesterday. Iron panel was consistent with iron deficiency anemia. She received IV Venofer 300 mg x3 (last dose was today) will continue with her p.o. ferrous sulfate at this time. Vitamin B12 was low at 195. She was given IM Cyanocobalamin 1000 mg (2/3) today along with her PO Cyanocobalamin 500 mg. Will increase her dosing to 1000 mg PO daily once discharged. Folic acid level was normal. Today, Hgb was 8.8 and Hct 28.9%. Improved. Will monitor her H&H. Transfuse as needed. (3) Leukocytosis: Code(s): D72.829 - Elevated white blood cell count, unspecified Status: Acute Assessment and Plan: The patient had normal leukocytosis after surgery. Yesterday the patient's leukocytosis decreased to almost normal. This morning the patient's leukocytosis increased to 13,300. I ordered a urinalysis which showed cloudy urine, 2+ leukocyte esterase, greater than 75 WBCs, many squamous cells and few mucus. I talked to the patient who denies any urinary symptoms in all, fever, chills. She states prior to her surgery she was diagnosed with a urinary tract infection and was given oral antibiotics which she took but caused her to have nausea and abdominal pain. She states at this time she does not want to take any antibiotics and would like to wait until the urine culture results return. Will continue monitoring for the patient's symptoms and monitor urine culture results. (4) Essential (primary) hypertension: Code(s): I10 - Essential (primary) hypertension Status: Acute Assessment and Plan: Patient's blood pressure has been normal since surgery. This morning her blood pressure was 108/49. Stable. We will continue monitoring her blood pressure, continue IV fluid hydration, and monitoring her H&H levels. (5) CKD (chronic kidney disease), stage III: Code(s): N18.3 - Chronic kidney disease, stage 3 (moderate) Status: Acute Assessment and Plan: From prior labs her creatinine was 1.4. Creatinine is 2.00 today. I called patient's primary care provider which shows that her creatinine normally ranges between 1.4-1.7. I informed the patient that her creatinine is slightly elevated, her urine is a little bit dark and that she needs to drink more fluids. At this time she denies any IV fluids and would like to try drinking more water today. I will recheck her creatinine in the
[2019-03-29] MEDS: RIVAROXABAN 10 MG TABLET PO (18:08)
[2019-03-29] MEDS: ATORVASTATIN 40 MG TABLET PO (20:24)
[2019-03-29 22:00] VITALS: BP 114/48; PULSE 76; RESP 20; TEMP 36.6; O2SAT 96
[2019-03-30 06:00] VITALS: BP 122/48; PULSE 70; RESP 20; TEMP 36.6; O2SAT 96
[2019-03-30] MEDS: LEVOTHYROXINE SODIUM 25 MCG TABLET PO (06:24)
[2019-03-30 06:25] LABS: Basophils Percent Auto 0.1 % (0.2-1.2); Eosinophils Absolute Auto 0.1 K/mm3 (0-0.3); Eosinophils Percent Auto 0.7 % (0-4.4); Hematocrit 27.5 % (37.0-47.0); Hemoglobin 8.5 g/dL (12.0-15.0); Immature Granulocyte Absolute 0.07 K/mm3 (0.00-0.031); Immature Granulocyte Percent A 0.6 % (0-0.5); Lymphocytes Absolute Auto 1.04 K/mm3 (0.9-3.2); Lymphocytes Percent Auto 9.3 % (18.3-44.2); Mean Corpuscular HGB Conc 30.9 g/dl (32-36); Mean Corpuscular Hemoglobin 26.9 pg (26-34); Mean Platelet Volume 10.1 fl (7.4-10.4); Monocytes Absolute Auto 1.6 K/mm3 (0.1-0.6); Monocytes Percent Auto 14.6 % (2.6-8.5); Neutrophils Absolute Auto 8.4 K/mm3 (1.3-6.7); Neutrophils Percent Auto 74.7 % (45.5-73.1); Platelet Count Result 274 k/mm3 (150-375); Red Blood Count 3.16 M/mm3 (4.2-5.4); Red Cell Distribution Width 16.1 % (11.5-14.5); White Blood Count 11.2 K/mm3 (4.5-10.0)
[2019-03-30 06:51] LABS: Blood Urea Nitrogen 38 mg/dL (7-17); Calcium 8.5 mg/dL (8.4-10.2); Carbon Dioxide 23 mmol/L (22-30); Chloride 100 mmol/L (98-107); Estimated CRCL calculation 21 ml/min; Estimated Glomerular Filt Rate 22; Glucose 103 mg/dL (65-105); Potassium 3.9 mmol/L (3.4-5.0); Sodium 134 mmol/L (137-145)
[2019-03-30] MEDS: SODIUM CHLORIDE 0.9% IV 1,000 ML 100 ML IV CONT (09:59)
[2019-03-30] MEDS: CYANOCOBALAMIN INJ 1,000 MCG/ML VIAL 1000 MCG IM (10:01)
[2019-03-30] MEDS: ramipriL 5 MG CAPSULE 10 MG PO (10:01)
[2019-03-30] MEDS: FERROUS SULFATE 324 MG TABLET PO ×2 (10:02→17:31)
[2019-03-30] MEDS: CYANOCOBALAMIN 1,000 MCG TABLET 1000 MCG PO (10:02)
[2019-03-30] MEDS: CHOLECALCIFEROL 1,000 UNIT TABLET 2000 UNITS PO (10:02)
[2019-03-30] MEDS: CHLORTHALIDONE 25 MG TABLET PO (10:02)
[2019-03-30] MEDS: PANTOPRAZOLE 40 MG TABLET PO ×2 (10:03→20:13)
[2019-03-30] MEDS: NIFEdipine 30 MG TAB.ER.24 60 MG PO ×2 (10:03→20:13)
[2019-03-30] MEDS: FAMOTIDINE 20 MG TABLET PO ×2 (10:03→20:13)
[2019-03-30] MEDS: DOCUSATE SODIUM 100 MG CAPSULE PO ×2 (10:05→17:40)
--- NOTE | 2019-03-30 13:28 | PM.PNORT ---
Subjective Subjective Date/Time Seen: 03/30/19 13:28 Post Op day: 4 Interval history: Objective Data Vital Signs Vital Signs: Vital Signs - 24 hr 03/29/19 14:38 03/29/19 22:00 03/30/19 06:00 Temperature 36.4 C 36.6 C 36.6 C Pulse Rate 78 76 70 Respiratory Rate 18 20 20 Blood Pressure 108/49 L 114/48 L 122/48 L Pulse Oximetry 96 96 96 Intake/Output Intake/Output: Intake & Output 03/27/19 03/28/19 03/29/19 03/30/19 23:59 23:59 23:59 23:59 Intake Total 3636 1484 1615 300 Output Total 900 250 300 550 Balance 2736 1234 1315 -250 Meds/Results Medications: Active Medications Generic Name Dose Route Start Last Admin Trade Name Freq PRN Reason Stop Dose Admin Acetaminophen 325 mg 03/27/19 19:28 Tylenol Tablet PO Q6H PRN Mild Pain (1-3) Atorvastatin Calcium 40 mg 03/26/19 21:00 03/29/19 20:24 Lipitor PO 40 mg HS SHAMA Administration Celecoxib 200 mg 03/26/19 17:00 Celebrex PO BIDWM SHAMA Chlorthalidone 25 mg 03/27/19 09:00 03/30/19 10:02 Hygroton PO 25 mg DAILY SHAMA Administration Cyanocobalamin 1,000 mcg 03/27/19 09:00 03/30/19 10:02 Vitamin B-12 Tab PO 1,000 mcg DAILY SHAMA Administration Cyanocobalamin 1,000 mcg 03/28/19 09:00 03/30/19 10:01 Vitamin B-12 Inj IM 1,000 mcg DAILY SHAMA Administration Diazepam 5 mg 03/26/19 15:35 03/29/19 05:28 Valium Po PO 5 mg Q8H PRN Administration Spasms Docusate Sodium 100 mg 03/26/19 17:00 03/30/19 10:05 Colace Cap PO 100 mg BID SHAMA Administration Famotidine 20 mg 03/26/19 21:00 03/30/19 10:03 Pepcid PO 20 mg Q12HR SHAMA Administration Ferrous Sulfate 324 mg 03/26/19 17:00 03/30/19 10:02 Ferrous Sulfate PO 324 mg TIDWM SHAMA Administration Iron Sucrose 300 mg/ Sodium 115 mls @ 76.667 mls/hr 03/28/19 09:00 03/30/19 10:06 Chloride IVPB 77 mls/hr Q24H SHAMA Administration Dextrose/Lactated Ringer's 1,000 mls @ 100 mls/hr 03/29/19 17:50 Dextrose 5%/Lactated Ringers IV CONT .Q10H SHAMA Sodium Chloride 1,000 mls @ 100 mls/hr 03/30/19 07:25 03/30/19 09:59 Normal Saline Iv IV CONT 100 mls/hr .Q10H [facility]AMA Administration Levothyroxine Sodium 25 mcg 03/27/19 06:30 03/30/19 06:24 Synthroid PO 25 mcg 0630 [facility] Administration Morphine Sulfate 4 mg 03/26/19 15:35 03/28/19 18:26 Morphine Sulfate Inj IV PUSH 4 mg Q2H PRN Administration Breakthrough pain rated 7-10 Naloxone HCl 0.1 mg 03/26/19 15:35 Narcan IV PUSH Q2M PRN Opiate Reversal Nifedipine 60 mg 03/26/19 21:00 03/30/19 10:03 Procardia Xl PO 60 mg Q12HR [facility] Administration Ondansetron HCl 4 mg 03/25/19 15:41 03/27/19 08:59 Zofran Inj IV PUSH 4 mg ONCE PRN Administration Nausea Oxycodone/Acetaminophen 1 tablet 03/26/19 15:35 03/30/19 06:24 Percocet 5-325 Mg PO 1 tablet Q4H PRN Administration Pain Rated 4-6 Pantoprazole Sodium 40 mg 03/26/19 21:00 03/30/19 10:03 Protonix PO 40 mg Q12HR [facility] Administration Ramipril 10 mg 03/27/19 09:00 03/30/19 10:01 Altace PO 10 mg DAILY [facility] Administration Rivaroxaban 10 mg 03/26/19 22:00 03/29/19 18:08 Xarelto PO 04/06/19 17:01 10 mg DAILY@17 [facility] Administration Tramadol HCl 50 mg 03/26/19 19:32 Ultram PO Q6H PRN PAIN 4-6 Vitamin D 2,000 unit 03/27/19 09:00 03/30/19 10:02 Vitamin D PO 2,000 unit DAILY SHAMA Administration Radiology Results: ITS Impressions Knee X-Ray 03/26/19 17:39 IMPRESSION: Status post total right knee arthroplasty. Labs Labs: Laboratory Results - last 24 hr 03/30/19 03/30/19 05:52 05:52 WBC 11.2 H RBC 3.16 L Hgb 8.5 L Hct 27.5 L MCV 87.0 MCH 26.9 MCHC 30.9 L RDW 16.1 H Plt Count 274 MPV 10.1 Immature Gran % (Auto) 0.6 H Neut % (Auto) 74.7 H Lymph % (Auto) 9.3 L [place] % (Auto) 14.6 H Eos % (Auto) 0.7 Baso % (Auto)
--- NOTE | 2019-03-30 13:30 | PM.PNORT ---
Progress Note: A&P Additional Plan POD 4 IMPROVING. CONTINUE PT. Subjective Subjective Date/Time Seen: 03/30/19 13:30 Interval history: POD 4 DOING WELL. IMPROVING WITH PT. STILL WITH SLOW PROGRESS. 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 Objective Data Vital Signs Vital Signs: Vital Signs - 24 hr 03/29/19 14:38 03/29/19 22:00 03/30/19 06:00 Temperature 36.4 C 36.6 C 36.6 C Pulse Rate 78 76 70 Respiratory Rate 18 20 20 Blood Pressure 108/49 L 114/48 L 122/48 L Pulse Oximetry 96 96 96 Intake/Output Intake/Output: Intake & Output 03/27/19 03/28/19 03/29/19 03/30/19 23:59 23:59 23:59 23:59 Intake Total 3636 1484 1615 300 Output Total 900 250 300 550 Balance 2736 1234 1315 -250 Meds/Results Medications: Active Medications Generic Name Dose Route Start Last Admin Trade Name Freq PRN Reason Stop Dose Admin Acetaminophen 325 mg 03/27/19 19:28 Tylenol Tablet PO Q6H PRN Mild Pain (1-3) Atorvastatin Calcium 40 mg 03/26/19 21:00 03/29/19 20:24 Lipitor PO 40 mg HS SHAMA Administration Celecoxib 200 mg 03/26/19 17:00 Celebrex PO BIDWM SHAMA Chlorthalidone 25 mg 03/27/19 09:00 03/30/19 10:02 Hygroton PO 25 mg DAILY SHAMA Administration Cyanocobalamin 1,000 mcg 03/27/19 09:00 03/30/19 10:02 Vitamin B-12 Tab PO 1,000 mcg DAILY SHAMA Administration Cyanocobalamin 1,000 mcg 03/28/19 09:00 03/30/19 10:01 Vitamin B-12 Inj IM 1,000 mcg DAILY SHAMA Administration Diazepam 5 mg 03/26/19 15:35 03/29/19 05:28 Valium Po PO 5 mg Q8H PRN Administration Spasms Docusate Sodium 100 mg 03/26/19 17:00 03/30/19 10:05 Colace Cap PO 100 mg BID SHAMA Administration Famotidine 20 mg 03/26/19 21:00 03/30/19 10:03 Pepcid PO 20 mg Q12HR SHAMA Administration Ferrous Sulfate 324 mg 03/26/19 17:00 03/30/19 10:02 Ferrous Sulfate PO 324 mg TIDWM SHAMA Administration Iron Sucrose 300 mg/ Sodium 115 mls @ 76.667 mls/hr 03/28/19 09:00 03/30/19 10:06 Chloride IVPB 77 mls/hr Q24H SHAMA Administration Dextrose/Lactated Ringer's 1,000 mls @ 100 mls/hr 03/29/19 17:50 Dextrose 5%/Lactated Ringers IV CONT .Q10H SHAMA Sodium Chloride 1,000 mls @ 100 mls/hr 03/30/19 07:25 03/30/19 09:59 Normal Saline Iv IV CONT 100 mls/hr .Q10H [facility] Administration Levothyroxine Sodium 25 mcg 03/27/19 06:30 03/30/19 06:24 Synthroid PO 25 mcg 0630 [facility] Administration Morphine Sulfate 4 mg 03/26/19 15:35 03/28/19 18:26 Morphine Sulfate Inj IV PUSH 4 mg Q2H PRN Administration Breakthrough pain rated 7-10 Naloxone HCl 0.1 mg 03/26/19 15:35 Narcan IV PUSH Q2M PRN Opiate Reversal Nifedipine 60 mg 03/26/19 21:00 03/30/19 10:03 Procardia Xl PO 60 mg Q12HR [facility] Administration Ondansetron HCl 4 mg 03/25/19 15:41 03/27/19 08:59 Zofran Inj IV PUSH 4 mg ONCE PRN Administration Nausea Oxycodone/Acetaminophen 1 tablet 03/26/19 15:35 03/30/19 06:24 Percocet 5-325 Mg PO 1 tablet Q4H PRN Administration Pain Rated 4-6 Pantoprazole Sodium 40 mg 03/26/19 21:00 03/30/19 10:03 Protonix PO 40 mg Q12HR [facility] Administration Ramipril 10 mg 03/27/19 09:00 03/30/19 10:01 Altace PO 10 mg DAILY [facility] Administration Rivaroxaban 10 mg 03/26/19 22:00 03/29/19 18:08 Xarelto PO 04/06/19 17:01 10 mg DAILY@17 [facility] Administration Tramadol HCl 50 mg 03/26/19 19:32 Ultram PO Q6H PRN PAIN 4-6 Vitamin D 2,000 unit 03/27/19 09:00 03/30/19 10:02 Vitamin D PO 2,000 unit DAILY SHAMA Administration Radiology Results: ITS Impressions Knee X-Ray 03/26/19 17:39 IMPRESSION: Status post total right knee arthroplasty. Labs Labs: Laboratory Results - last 24 hr 03/30/19 03/30/19 05:52 05:52 WBC 11.2 H RBC 3.16 L Hgb 8.5 L Hct 27.5 L MCV 87.0 MCH 26.9
[2019-03-30 14:37] VITALS: BP 128/41; PULSE 58; RESP 16; TEMP 36.6; O2SAT 97
--- NOTE | 2019-03-30 15:41 | PM.IMPN ---
Progress Note: A&P Assessment and Plan (1) Discharge planning issues: Code(s): Z02.9 - Encounter for administrative examinations, unspecified Status: Acute Assessment and Plan: The patient has been medically stable for the last few days. We are currently waiting on the patient's insurance company to authorize her placement into a half-way rehab versus an acute rehab facility. Will continue waiting for her insurance authorization. (2) S/P right knee arthroscopy: Code(s): Z98.890 - Other specified postprocedural states Status: Acute Assessment and Plan: Status post right total knee arthroplasty completed on 03/26/[address] Beltrán. Patient is doing better with PT/OT. We are currently working on getting the patient into a half-way rehab facility versus acute rehab upon discharge. We are still waiting for a insurance authorization for discharge. Continue monitoring the patient's symptoms. Pain management per Dr. Beltrán Discharge planning per Dr. Beltrán Post-op care per Dr. Beltrán DVT Prophylaxis per Dr. Beltrán (3) Iron deficiency anemia: Code(s): D50.9 - Iron deficiency anemia, unspecified Status: Acute Assessment and Plan: On review of patient's prior labs her hemoglobin is usually around 10 and her hematocrit is normally around 32-35. She does have a history of iron deficiency anemia in takes oral iron 3 times per day. She has had IV iron infusions in the past, and follows up with Dr. Richards but she has not needed an iron transfusion in while. Post Op day 1 (03/27/2019) her hemoglobin was 7.9 and hematocrit was 26.3% and repeat Hgb was lower at 7.2 and Hct 23.7. Most likely low secondary to her surgery along with iron deficiency anemia. She received 2 Units of PRBCs at this time. Iron panel was consistent with iron deficiency anemia. She received IV Venofer 300 mg x3 (last dose was today) will continue with her p.o. ferrous sulfate at this time. Vitamin B12 was low at 195. She was given IM Cyanocobalamin 1000 mg (3/) today along with her PO Cyanocobalamin 500 mg. Will increase her dosing to 1000 mg PO daily. Folic acid level was normal. Today, Hgb was 8.5 and Hct 27.5%. Stable. Will monitor her H&H. Transfuse as needed. (4) Leukocytosis: Code(s): D72.829 - Elevated white blood cell count, unspecified Status: Acute Assessment and Plan: The patient had normal leukocytosis after surgery. Yesterday morning the patient's leukocytosis increased to 13,300 but is improved to 11,200 today. I ordered a urinalysis which showed cloudy urine, 2+ leukocyte esterase, greater than 75 WBCs, many squamous cells and few mucus. I talked to the patient who denies any urinary symptoms in all, fever, chills. The patient's urinary culture came back negative for a UTI. Will continue monitoring for the patient's leukocytosis. (5) Essential (primary) hypertension: Code(s): I10 - Essential (primary) hypertension Status: Acute Assessment and Plan: Patient's blood pressure has been normal since surgery. This morning her blood pressure was 122/48. Stable. We will continue monitoring her blood pressure, and monitoring her H&H levels. (6) CKD (chronic kidney disease), stage III: Code(s): N18.3 - Chronic kidney disease, stage 3 (moderate) Status: Acute Assessment and Plan: I called patient's primary care provider which shows that her creatinine normally ranges between 1.4-1.7. Creatinine is 2.20 today. Due to the elevation in her creatinine I am going to start IV fluids 1 Liter administration today for some dehydration. I also to the patient to drink more water and her friend is going to bring some fl
[2019-03-30] MEDS: RIVAROXABAN 10 MG TABLET PO (17:38)
[2019-03-30] MEDS: ATORVASTATIN 40 MG TABLET PO (20:13)
[2019-03-30 22:00] VITALS: BP 131/53; PULSE 73; RESP 16; TEMP 37.3; O2SAT 92
[2019-03-31 06:00] VITALS: BP 129/55; PULSE 69; RESP 16; TEMP 36.7; O2SAT 93
[2019-03-31] MEDS: LEVOTHYROXINE SODIUM 25 MCG TABLET PO (06:06)
[2019-03-31 06:22] LABS: Basophils Percent Auto 0.3 % (0.2-1.2); Eosinophils Absolute Auto 0.1 K/mm3 (0-0.3); Eosinophils Percent Auto 1.1 % (0-4.4); Hematocrit 29.6 % (37.0-47.0); Hemoglobin 9.1 g/dL (12.0-15.0); Immature Granulocyte Percent A 0.9 % (0-0.5); Lymphocytes Absolute Auto 0.91 K/mm3 (0.9-3.2); Lymphocytes Percent Auto 8.2 % (18.3-44.2); Mean Corpuscular HGB Conc 30.7 g/dl (32-36); Mean Corpuscular Hemoglobin 27.5 pg (26-34); Mean Corpuscular Volume 89.4 fl (80-100); Mean Platelet Volume 10.4 fl (7.4-10.4); Monocytes Absolute Auto 1.6 K/mm3 (0.1-0.6); Monocytes Percent Auto 14.1 % (2.6-8.5); Neutrophils Absolute Auto 8.4 K/mm3 (1.3-6.7); Neutrophils Percent Auto 75.4 % (45.5-73.1); Platelet Count Result 338 k/mm3 (150-375); Red Blood Count 3.31 M/mm3 (4.2-5.4); Red Cell Distribution Width 16.3 % (11.5-14.5); White Blood Count 11.1 K/mm3 (4.5-10.0)
[2019-03-31 06:47] LABS: Blood Urea Nitrogen 36 mg/dL (7-17); Calcium 8.5 mg/dL (8.4-10.2); Carbon Dioxide 24 mmol/L (22-30); Chloride 102 mmol/L (98-107); Estimated CRCL calculation 23 ml/min; Estimated Glomerular Filt Rate 24; Glucose 106 mg/dL (65-105); Potassium 3.9 mmol/L (3.4-5.0); Sodium 135 mmol/L (137-145)
[2019-03-31] MEDS: FERROUS SULFATE 324 MG TABLET PO ×3 (08:53→18:35)
[2019-03-31] MEDS: CHOLECALCIFEROL 1,000 UNIT TABLET 2000 UNITS PO (08:53)
[2019-03-31] MEDS: CYANOCOBALAMIN 1,000 MCG TABLET 1000 MCG PO (08:54)
[2019-03-31] MEDS: CHLORTHALIDONE 25 MG TABLET PO (08:54)
[2019-03-31] MEDS: DOCUSATE SODIUM 100 MG CAPSULE PO ×2 (08:56→18:35)
[2019-03-31] MEDS: PANTOPRAZOLE 40 MG TABLET PO ×2 (08:56→21:10)
[2019-03-31] MEDS: NIFEdipine 30 MG TAB.ER.24 60 MG PO ×2 (08:56→21:10)
[2019-03-31] MEDS: FAMOTIDINE 20 MG TABLET PO ×2 (08:57→21:10)
[2019-03-31] MEDS: ramipriL 5 MG CAPSULE 10 MG PO (08:57)
[2019-03-31] MEDS: DEXTROSE 5%/LACTATED RINGERS 1,000 ML 100 ML IV CONT (08:59)
[2019-03-31 09:43] VITALS: O2SAT 95
--- NOTE | 2019-03-31 12:40 | PM.IMPN ---
Progress Note: A&P Assessment and Plan (1) Discharge planning issues: Code(s): Z02.9 - Encounter for administrative examinations, unspecified Status: Acute Assessment and Plan: The patient has been medically stable for the last few days. We are currently waiting on the patient's insurance company to authorize her placement into a care home rehab versus an acute rehab facility. Will continue waiting for her insurance authorization. (2) S/P right knee arthroscopy: Code(s): Z98.890 - Other specified postprocedural states Status: Acute Assessment and Plan: Status post right total knee arthroplasty completed on 03/26/[address] Beltrán. Patient is doing better with PT/OT. We are currently working on getting the patient into a care home rehab facility versus acute rehab upon discharge. We are still waiting for a insurance authorization for discharge. Continue monitoring the patient's symptoms. Pain management per Dr. Beltrán Discharge planning per Dr. Beltrán Post-op care per Dr. Beltrná DVT Prophylaxis per Dr. Beltrán (3) Iron deficiency anemia: Code(s): D50.9 - Iron deficiency anemia, unspecified Status: Acute Assessment and Plan: On review of patient's prior labs her hemoglobin is usually around 10 and her hematocrit is normally around 32-35. She does have a history of iron deficiency anemia in takes oral iron 3 times per day. She has had IV iron infusions in the past, and follows up with Dr. Richards but she has not needed an iron transfusion in while. Post Op day 1 (03/27/2019) her hemoglobin was 7.9 and hematocrit was 26.3% and repeat Hgb was lower at 7.2 and Hct 23.7. Most likely low secondary to her surgery along with iron deficiency anemia. She received 2 Units of PRBCs at this time. Iron panel was consistent with iron deficiency anemia. She received IV Venofer 300 mg x3. Will continue with her p.o. ferrous sulfate at this time. Vitamin B12 was low at 195. She was given IM Cyanocobalamin 1000 mg (3/) today along with her PO Cyanocobalamin 500 mg. Will increase her dosing to 1000 mg PO daily. Folic acid level was normal. Today, Hgb was 9.1 and Hct 29.6%. Stable. Will monitor her H&H. Transfuse as needed. (4) Leukocytosis: Code(s): D72.829 - Elevated white blood cell count, unspecified Status: Acute Assessment and Plan: The patient had normal leukocytosis after surgery. Patient still has leukocytosis at 11,100. Urine culture was negative for UTI. I talked to the patient who denies any urinary symptoms in all, fever, chills. She denies having any shortness of breath or cough at this time. Will continue monitoring for the patient's leukocytosis. (5) Essential (primary) hypertension: Code(s): I10 - Essential (primary) hypertension Status: Acute Assessment and Plan: Patient's blood pressure has been normal since surgery. This morning her blood pressure was 129/55. Stable. We will continue monitoring her blood pressure, and monitoring her H&H levels. (6) CKD (chronic kidney disease), stage III: Code(s): N18.3 - Chronic kidney disease, stage 3 (moderate) Status: Acute Assessment and Plan: I called patient's primary care provider which shows that her creatinine normally ranges between 1.4-1.7. Creatinine is 2.0 today after she received IV fluids, 1 L. Since the IV fluids improved after IV fluid hydration and she is still not at her baseline creatinine, I am going to give her one more liter of IV fluid and monitor her renal function tomorrow. I also educated her to the patient to drink more water and her friend is going to bring some flavoring to place in her water to make it taste be
--- NOTE | 2019-03-31 13:24 | PM.PNORT ---
Progress Note: A&P Additional Plan POD 5 DOING WELL AWAITING TRANSFER TO SNF. CONTINUE PT. Subjective Subjective Date/Time Seen: 03/31/19 13:24 POD 5 DOING WELL. AWAITING TRANSFER. NO NEW COMPLAINTS. 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 Objective Data Vital Signs Vital Signs: Vital Signs - 24 hr 03/30/19 14:37 03/30/19 22:00 03/31/19 06:00 Temperature 36.6 C 37.3 C 36.7 C Pulse Rate 58 L 73 69 Respiratory Rate 16 16 16 Blood Pressure 128/41 L 131/53 L 129/55 L Pulse Oximetry 97 92 93 03/31/19 09:43 Temperature Pulse Rate Respiratory Rate Blood Pressure Pulse Oximetry 95 Intake/Output Intake/Output: Intake & Output 03/28/19 03/29/19 03/30/19 03/31/19 23:59 23:59 23:59 23:59 Intake Total 1484 9645 980 3549 Output Total 250 300 700 800 Balance 1234 1315 -60 990 Meds/Results Medications: Active Medications Generic Name Dose Route Start Last Admin Trade Name Freq PRN Reason Stop Dose Admin Acetaminophen 325 mg 03/27/19 19:28 Tylenol Tablet PO Q6H PRN Mild Pain (1-3) Atorvastatin Calcium 40 mg 03/26/19 21:00 03/30/19 20:13 Lipitor PO 40 mg HS SHAMA Administration Celecoxib 200 mg 03/26/19 17:00 Celebrex PO BIDWM SHAMA Chlorthalidone 25 mg 03/27/19 09:00 03/31/19 08:54 Hygroton PO 25 mg DAILY SHAMA Administration Cyanocobalamin 1,000 mcg 03/27/19 09:00 03/31/19 08:54 Vitamin B-12 Tab PO 1,000 mcg DAILY SHAMA Administration Diazepam 5 mg 03/26/19 15:35 03/29/19 05:28 Valium Po PO 5 mg Q8H PRN Administration Spasms Docusate Sodium 100 mg 03/26/19 17:00 03/31/19 08:56 Colace Cap PO 100 mg BID SHAMA Administration Famotidine 20 mg 03/26/19 21:00 03/31/19 08:57 Pepcid PO 20 mg Q12HR SHAMA Administration Ferrous Sulfate 324 mg 03/26/19 17:00 03/31/19 12:06 Ferrous Sulfate PO 324 mg TIDWM SHAMA Administration Dextrose/Lactated Ringer's 1,000 mls @ 100 mls/hr 03/29/19 17:50 03/31/19 08:59 Dextrose 5%/Lactated Ringers IV CONT 100 mls/hr .Q10H SHAMA Administration Levothyroxine Sodium 25 mcg 03/27/19 06:30 03/31/19 06:06 Synthroid PO 25 mcg 0630 SHAMA Administration Morphine Sulfate 4 mg 03/26/19 15:35 03/28/19 18:26 Morphine Sulfate Inj IV PUSH 4 mg Q2H PRN Administration Breakthrough pain rated 7-10 Naloxone HCl 0.1 mg 03/26/19 15:35 Narcan IV PUSH Q2M PRN Opiate Reversal Nifedipine 60 mg 03/26/19 21:00 03/31/19 08:56 Procardia Xl PO 60 mg Q12HR SHAMA Administration Ondansetron HCl 4 mg 03/25/19 15:41 03/27/19 08:59 Zofran Inj IV PUSH 4 mg ONCE PRN Administration Nausea Oxycodone/Acetaminophen 1 tablet 03/26/19 15:35 03/30/19 06:24 Percocet 5-325 Mg PO 1 tablet Q4H PRN Administration Pain Rated 4-6 Pantoprazole Sodium 40 mg 03/26/19 21:00 03/31/19 08:56 Protonix PO 40 mg Q12HR SHAMA Administration Ramipril 10 mg 03/27/19 09:00 03/31/19 08:57 Altace PO 10 mg DAILY SHAMA Administration Rivaroxaban 10 mg 03/26/19 22:00 03/30/19 17:38 Xarelto PO 04/06/19 17:01 10 mg DAILY@17 [facility] Administration Tramadol HCl 50 mg 03/26/19 19:32 Ultram PO Q6H PRN PAIN 4-6 Vitamin D 2,000 unit 03/27/19 09:00 03/31/19 08:53 Vitamin D PO 2,000 unit DAILY SHAMA Administration Radiology Results: ITS Impressions Knee X-Ray 03/26/19 17:39 IMPRESSION: Status post total right knee arthroplasty. Labs Labs: Laboratory Results - last 24 hr 03/31/19 03/31/19 05:46 05:46 WBC 11.1 H RBC 3.31 L Hgb 9.1 L Hct 29.6 L MCV 89.4 MCH 27.5 MCHC 30.7 L RDW 16.3 H Plt Count 338 MPV 10.4 Immature Gran % (Auto) 0.9 H Neut % (Auto) 75.4 H Lymph % (Auto) 8.2 L [place] % (Auto) 14.1 H Eos % (Auto) 1.1 Baso % (Auto) 0.3 Lymph # (Auto) 0.91 Elk # (Auto) 1.6 H Eos #
[2019-03-31 14:32] VITALS: BP 128/53; PULSE 64; RESP 14; TEMP 36.6; O2SAT 96
[2019-03-31] MEDS: RIVAROXABAN 10 MG TABLET PO (18:35)
[2019-03-31] MEDS: ATORVASTATIN 40 MG TABLET PO (21:10)
[2019-03-31 22:00] VITALS: BP 125/48; PULSE 71; RESP 16; TEMP 37.1; O2SAT 95
[2019-03-31] MEDS: DIAZEPAM 5 MG TABLET PO (22:47)
[2019-04-01 06:00] VITALS: BP 134/45; PULSE 68; RESP 16; TEMP 36.9; O2SAT 100
[2019-04-01 06:24] LABS: Basophils Percent Auto 0.2 % (0.2-1.2); Eosinophils Absolute Auto 0.2 K/mm3 (0-0.3); Eosinophils Percent Auto 1.8 % (0-4.4); Hematocrit 30.5 % (37.0-47.0); Hemoglobin 9.3 g/dL (12.0-15.0); Immature Granulocyte Absolute 0.09 K/mm3 (0.00-0.031); Immature Granulocyte Percent A 0.8 % (0-0.5); Lymphocytes Absolute Auto 1.21 K/mm3 (0.9-3.2); Lymphocytes Percent Auto 11.4 % (18.3-44.2); Mean Corpuscular HGB Conc 30.5 g/dl (32-36); Mean Corpuscular Hemoglobin 27.3 pg (26-34); Mean Corpuscular Volume 89.4 fl (80-100); Mean Platelet Volume 9.9 fl (7.4-10.4); Monocytes Absolute Auto 1.4 K/mm3 (0.1-0.6); Monocytes Percent Auto 13.3 % (2.6-8.5); Neutrophils Absolute Auto 7.7 K/mm3 (1.3-6.7); Neutrophils Percent Auto 72.5 % (45.5-73.1); Platelet Count Result 324 k/mm3 (150-375); Red Blood Count 3.41 M/mm3 (4.2-5.4); Red Cell Distribution Width 16.7 % (11.5-14.5); White Blood Count 10.6 K/mm3 (4.5-10.0)
[2019-04-01 06:44] LABS: Blood Urea Nitrogen 32 mg/dL (7-17); Calcium 8.7 mg/dL (8.4-10.2); Carbon Dioxide 25 mmol/L (22-30); Chloride 102 mmol/L (98-107); Estimated CRCL calculation 31 ml/min; Estimated Glomerular Filt Rate 34; Glucose 101 mg/dL (65-105); Sodium 135 mmol/L (137-145)
[2019-04-01] MEDS: LEVOTHYROXINE SODIUM 25 MCG TABLET PO (06:55)
[2019-04-01] MEDS: FERROUS SULFATE 324 MG TABLET PO ×3 (08:53→17:39)
[2019-04-01] MEDS: DIAZEPAM 5 MG TABLET PO (08:53)
[2019-04-01] MEDS: CHOLECALCIFEROL 1,000 UNIT TABLET 2000 UNITS PO (08:54)
[2019-04-01] MEDS: PANTOPRAZOLE 40 MG TABLET PO ×2 (08:56→20:57)
[2019-04-01] MEDS: CHLORTHALIDONE 25 MG TABLET PO (08:56)
[2019-04-01] MEDS: CYANOCOBALAMIN 1,000 MCG TABLET 1000 MCG PO (08:56)
[2019-04-01] MEDS: ramipriL 5 MG CAPSULE 10 MG PO (08:57)
[2019-04-01] MEDS: FAMOTIDINE 20 MG TABLET PO ×2 (08:58→20:57)
[2019-04-01] MEDS: NIFEdipine 30 MG TAB.ER.24 60 MG PO ×2 (08:58→20:57)
--- NOTE | 2019-04-01 09:47 | PM.PNORT ---
Progress Note: A&P Assessment and Plan (1) Total knee replacement status: Qualifiers: Laterality: right Qualified Code(s): Z96.651 - Presence of right artificial knee joint Code(s): Z96.659 - Presence of unspecified artificial knee joint Status: Acute Assessment and Plan: POD #5: RIGHT TKA Continue PT/OT. WBAT with walker. Fall Risk. Slow progress. Continue pain control. Ice. No pillows under knee. Continue DVT prophylaxis with Xarelto. SCDs. Incentive spirometry. Dispo: SNF for rehab when medically stable/insurance approval. Subjective Subjective Date/Time Seen: 04/01/19 0830 POD #5: RIGHT TKA Patient doing well. No new complaints. Awaiting transfer to rehab. Review of Systems Review of Systems: All systems reviewed & are unremarkable except as noted in HPI and below Constitutional: Constitutional: Denies fever(s) and Denies headache(s) ENT: Denies headache(s) Cardiovascular: Cardiovascular: Denies chest pain, Denies diaphoresis, Denies palpitations and Denies dyspnea Respiratory: Respiratory: Denies dyspnea Gastrointestinal: Gastrointestinal: Denies abdominal pain, Denies constipation, Denies nausea and Denies vomiting Genitourinary: Genitourinary: Reports nocturia and Denies dysuria Musculoskeletal: Musculoskeletal: Reports arthralgias (Right Knee ) and Reports joint swelling (Right Knee ) Neurologic: Denies headache(s) Endocrine: Endocrine: Denies palpitations Exam Const: General: comfortable and no acute distress Resp: Effort & Inspection: normal respiratory effort Cardio: Rate: regular rate Rhythm: regular rhythm GI: GI Palp: Yes Soft to palpation, No Tenderness to palpation present (GI) and No Guarding due to palpation present (GI) Skin: Wounds: wounds noted Other: Wound VAC TKA dressing c/d/i. No surrounding redness/warmth. No hematoma. Mild ecchymosis. No wound dehiscence Neuro: Cognition (Neuro): normal cognition Other: NV intact. Moves toes. Sensation intact to light touch. +ankle dorsiflexion/plantarflexion. Extrem: Right upper extremity: normal to inspection, full ROM and normal capillary refill Left upper extremity: normal to inspection, full ROM and normal capillary refill Right lower extremity: normal to inspection, full ROM (ROM limited due to recent surgical intervention ) and knee Details: tenderness (diffuse, mild ) and swelling (diffuse, mild ) Left lower extremity: normal to inspection Psych: Mental Status: mental status grossly normal Objective Data Vital Signs Vital Signs: Vital Signs - 24 hr 03/31/19 14:32 03/31/19 22:00 04/01/19 06:00 Temperature 36.6 C 37.1 C 36.9 C Pulse Rate 64 71 68 Respiratory Rate 14 16 16 Blood Pressure 128/53 L 125/48 L 134/45 L Pulse Oximetry 96 95 100 Intake/Output Intake/Output: Intake & Output 03/29/19 03/30/19 03/31/19 04/01/19 23:59 23:59 23:59 23:59 Intake Total 0607 872 7582 240 Output Total 582 766 4596 400 Balance 1315 -60 1180 -160 Meds/Results Medications: Active Medications Generic Name Dose Route Start Last Admin Trade Name Freq PRN Reason Stop Dose Admin Acetaminophen 325 mg 03/27/19 19:28 Tylenol Tablet PO Q6H PRN Mild Pain (1-3) Atorvastatin Calcium 40 mg 03/26/19 21:00 03/31/19 21:10 Lipitor PO 40 mg HS SHAMA Administration Celecoxib 200 mg 03/26/19 17:00 Celebrex PO BIDWM SHAMA Chlorthalidone 25 mg 03/27/19 09:00 04/01/19 08:56 Hygroton PO 25 mg DAILY SHAMA Administration Cyanocobalamin 1,000 mcg 03/27/19 09:00 04/01/19 08:56 Vitamin B-12 Tab PO 1,000 mcg DAILY SHAMA Administration Diazepam 5 mg 03/26/19 15:35 04/01/19 08:53 Valium Po PO 5 mg Q8H PRN Administration Spasms Docusate Sodium 100 mg 03/26/19 17:00 03/31/19 18:35 Colace Cap PO 100 mg BID SHAMA Administration Famotidine 20 mg 03/26/19 21:00 04/01/19 08:58 Pepcid PO 20 mg Q12HR SHAMA Administrati
[2019-04-01] MEDS: DOCUSATE SODIUM 100 MG CAPSULE PO ×2 (10:12→17:45)
--- NOTE | 2019-04-01 13:19 | PM.IMPN ---
Progress Note: A&P Assessment and Plan (1) Discharge planning issues: Code(s): Z02.9 - Encounter for administrative examinations, unspecified Status: Acute Assessment and Plan: The patient has been medically stable for the last few days. We are currently waiting on the patient's insurance company to authorize her placement into a long term rehab versus an acute rehab facility. Will continue waiting for her insurance authorization. (2) S/P right knee arthroscopy: Code(s): Z98.890 - Other specified postprocedural states Status: Acute Assessment and Plan: Status post right total knee arthroplasty completed on 03/26/[address] Beltrán. Patient is doing better with PT/OT. We are currently working on getting the patient into a long term rehab facility versus acute rehab upon discharge. We are still waiting for a insurance authorization for discharge. She is stable for discharge by the Hospitalist team. Pain management per Dr. Beltrán Discharge planning per Dr. Beltrán Post-op care per Dr. Beltrán DVT Prophylaxis per Dr. Beltrán (3) Iron deficiency anemia: Code(s): D50.9 - Iron deficiency anemia, unspecified Status: Acute Assessment and Plan: On review of patient's prior labs her hemoglobin is usually around 10 and her hematocrit is normally around 32-35. She does have a history of iron deficiency anemia in takes oral iron 3 times per day. She has had IV iron infusions in the past, and follows up with Dr. Richards but she has not needed an iron transfusion in while. Post Op day 1 (03/27/2019) her hemoglobin was 7.9 and hematocrit was 26.3% and repeat Hgb was lower at 7.2 and Hct 23.7. Most likely low secondary to her surgery along with iron deficiency anemia. She received 2 Units of PRBCs at this time. Iron panel was consistent with iron deficiency anemia. She received IV Venofer 300 mg x3. Will continue with her p.o. ferrous sulfate at this time. Vitamin B12 was low at 195. She was given IM Cyanocobalamin 1000 mg (3/3). Will increase her dosing to 1000 mg PO daily and she may need IM injections weekly but will need to follow up with PCP. Folic acid level was normal. Today, Hgb was 9.3 and Hct 30.5%. Improved. Will check CBC in 1 week. (4) Leukocytosis: Code(s): D72.829 - Elevated white blood cell count, unspecified Status: Acute Assessment and Plan: The patient had normal leukocytosis after surgery. Patient still has leukocytosis at 10,600. She is feeling well, asymptomatic. Urine culture was negative for UTI. I talked to the patient who denies any urinary symptoms in all, fever, chills. She denies having any shortness of breath or cough at this time. (5) Essential (primary) hypertension: Code(s): I10 - Essential (primary) hypertension Status: Acute Assessment and Plan: Patient's blood pressure has been normal since surgery. This morning her blood pressure was 134/45. Stable. (6) CKD (chronic kidney disease), stage III: Code(s): N18.3 - Chronic kidney disease, stage 3 (moderate) Status: Acute Assessment and Plan: I called patient's primary care provider which shows that her creatinine normally ranges between 1.4-1.7. Creatinine is 1.5 today after she received IV fluids, 2 L of fluid the last 2 days. I also educated her to the patient to drink more water. Will check BMP 1 week after discharge. (7) Pure hypercholesterolemia: Code(s): E78.00 - Pure hypercholesterolemia, unspecified Status: Acute Assessment and Plan: Will continue her statin medication. (8) Hypothyro
[2019-04-01 14:00] VITALS: BP 131/46; PULSE 63; RESP 18; TEMP 37.7; O2SAT 98
--- NOTE | 2019-04-01 17:16 | PM.PNORT ---
Progress Note: A&P Additional Plan POD 6 DOING WELL. AWAITING TRANSFER TO SNF. 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 CONTINUE. PT Subjective Subjective Date/Time Seen: 04/01/19 17:16 POD 6 DOING WELL. STILL AWAITING INSURANCE CO FOR TRANSFER. 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 Objective Data Vital Signs Vital Signs: Vital Signs - 24 hr 03/31/19 22:00 04/01/19 06:00 04/01/19 14:00 Temperature 37.1 C 36.9 C 37.7 C H Pulse Rate 71 68 63 Respiratory Rate 16 16 18 Blood Pressure 125/48 L 134/45 L 131/46 L Pulse Oximetry 95 100 98 Intake/Output Intake/Output: Intake & Output 03/29/19 03/30/19 03/31/19 04/01/19 23:59 23:59 23:59 23:59 Intake Total 3758 789 3392 780 Output Total 000 356 1064 400 Balance 1315 -60 1180 380 Meds/Results Medications: Active Medications Generic Name Dose Route Start Last Admin Trade Name Freq PRN Reason Stop Dose Admin Acetaminophen 325 mg 03/27/19 19:28 Tylenol Tablet PO Q6H PRN Mild Pain (1-3) Atorvastatin Calcium 40 mg 03/26/19 21:00 03/31/19 21:10 Lipitor PO 40 mg HS SHAMA Administration Celecoxib 200 mg 03/26/19 17:00 Celebrex PO BIDWM SHAMA Chlorthalidone 25 mg 03/27/19 09:00 04/01/19 08:56 Hygroton PO 25 mg DAILY SHAMA Administration Cyanocobalamin 1,000 mcg 03/27/19 09:00 04/01/19 08:56 Vitamin B-12 Tab PO 1,000 mcg DAILY SHAMA Administration Diazepam 5 mg 03/26/19 15:35 04/01/19 08:53 Valium Po PO 5 mg Q8H PRN Administration Spasms Docusate Sodium 100 mg 03/26/19 17:00 04/01/19 10:12 Colace Cap PO 100 mg BID SHAMA Administration Famotidine 20 mg 03/26/19 21:00 04/01/19 08:58 Pepcid PO 20 mg Q12HR SHAMA Administration Ferrous Sulfate 324 mg 03/26/19 17:00 04/01/19 12:02 Ferrous Sulfate PO 324 mg TIDWM SHAMA Administration Levothyroxine Sodium 25 mcg 03/27/19 06:30 04/01/19 06:55 Synthroid PO 25 mcg 0630 SHAMA Administration Morphine Sulfate 4 mg 03/26/19 15:35 03/28/19 18:26 Morphine Sulfate Inj IV PUSH 4 mg Q2H PRN Administration Breakthrough pain rated 7-10 Naloxone HCl 0.1 mg 03/26/19 15:35 Narcan IV PUSH Q2M PRN Opiate Reversal Nifedipine 60 mg 03/26/19 21:00 04/01/19 08:58 Procardia Xl PO 60 mg Q12HR SHAMA Administration Ondansetron HCl 4 mg 03/25/19 15:41 03/27/19 08:59 Zofran Inj IV PUSH 4 mg ONCE PRN Administration Nausea Oxycodone/Acetaminophen 1 tablet 03/26/19 15:35 04/01/19 06:55 Percocet 5-325 Mg PO 1 tablet Q4H PRN Administration Pain Rated 4-6 Pantoprazole Sodium 40 mg 03/26/19 21:00 04/01/19 08:56 Protonix PO 40 mg Q12HR SHAMA Administration Ramipril 10 mg 03/27/19 09:00 04/01/19 08:57 Altace PO 10 mg DAILY SHAMA Administration Rivaroxaban 10 mg 03/26/19 22:00 03/31/19 18:35 Xarelto PO 04/06/19 17:01 10 mg DAILY@17 [facility]AMA Administration Tramadol HCl 50 mg 03/26/19 19:32 Ultram PO Q6H PRN PAIN 4-6 Vitamin D 2,000 unit 03/27/19 09:00 04/01/19 08:54 Vitamin D PO 2,000 unit DAILY SHAMA Administration Radiology Results: ITS Impressions Knee X-Ray 03/26/19 17:39 IMPRESSION: Status post total right knee arthroplasty. Labs Labs: Laboratory Results - last 24 hr 04/01/19 04/01/19 05:55 05:55 WBC 10.6 H RBC 3.41 L Hgb 9.3 L Hct 30.5 L MCV 89.4 MCH 27.3 MCHC 30.5 L RDW 16.7 H Plt Count 324 MPV 9.9 Immature Gran % (Auto) 0.8 H Neut % (Auto) 72.5 Lymph % (Auto) 11.4 L [place] % (Auto) 13.3 H Eos % (Auto) 1.8 Baso % (Auto) 0.2 Lymph # (Auto) 1.21 [place] # (Auto) 1.4 H Eos # (Auto) 0.2 Baso # (Auto) 0.0 Abs Immat Gran (auto) 0.09 H Absolute Neuts (auto) 7.7 H Absolute Nucleated RBC 0.0 Nucleated RBC % 0.0 Sodium 135 L Potassium 4.0 Chloride 102 Carbon Dioxide 25 B
[2019-04-01] MEDS: RIVAROXABAN 10 MG TABLET PO (17:39)
[2019-04-01] MEDS: ATORVASTATIN 40 MG TABLET PO (20:57)
[2019-04-01] MEDS: ACETAMINOPHEN 325 MG TABLET PO (20:59)
[2019-04-01 22:00] VITALS: BP 122/49; PULSE 59; RESP 20; TEMP 37; O2SAT 94
[2019-04-02 06:00] VITALS: BP 127/49; PULSE 74; RESP 20; TEMP 37.1; O2SAT 95
[2019-04-02 06:07] LABS: Basophils Percent Auto 0.1 % (0.2-1.2); Eosinophils Absolute Auto 0.3 K/mm3 (0-0.3); Eosinophils Percent Auto 2.3 % (0-4.4); Hemoglobin 8.8 g/dL (12.0-15.0); Immature Granulocyte Absolute 0.13 K/mm3 (0.00-0.031); Immature Granulocyte Percent A 1.2 % (0-0.5); Lymphocytes Absolute Auto 1.03 K/mm3 (0.9-3.2); Lymphocytes Percent Auto 9.7 % (18.3-44.2); Mean Corpuscular HGB Conc 30.3 g/dl (32-36); Mean Platelet Volume 9.7 fl (7.4-10.4); Monocytes Absolute Auto 1.4 K/mm3 (0.1-0.6); Monocytes Percent Auto 12.9 % (2.6-8.5); Neutrophils Absolute Auto 7.9 K/mm3 (1.3-6.7); Neutrophils Percent Auto 73.8 % (45.5-73.1); Platelet Count Result 348 k/mm3 (150-375); Red Blood Count 3.26 M/mm3 (4.2-5.4); Red Cell Distribution Width 16.5 % (11.5-14.5); White Blood Count 10.6 K/mm3 (4.5-10.0)
[2019-04-02] MEDS: LEVOTHYROXINE SODIUM 25 MCG TABLET PO (06:07)
[2019-04-02 06:17] LABS: Blood Urea Nitrogen 27 mg/dL (7-17); Calcium 8.7 mg/dL (8.4-10.2); Carbon Dioxide 29 mmol/L (22-30); Chloride 101 mmol/L (98-107); Estimated CRCL calculation 31 ml/min; Estimated Glomerular Filt Rate 34; Glucose 108 mg/dL (65-105); Potassium 3.9 mmol/L (3.4-5.0); Sodium 137 mmol/L (137-145)
[2019-04-02 08:00] VITALS: PULSE 74; RESP 20; O2SAT 95
[2019-04-02] MEDS: CHOLECALCIFEROL 1,000 UNIT TABLET 2000 UNITS PO (08:49)
[2019-04-02] MEDS: CHLORTHALIDONE 25 MG TABLET PO (08:49)
[2019-04-02] MEDS: FERROUS SULFATE 324 MG TABLET PO ×3 (08:49→17:29)
[2019-04-02] MEDS: FAMOTIDINE 20 MG TABLET PO ×2 (08:49→20:24)
[2019-04-02] MEDS: ramipriL 5 MG CAPSULE 10 MG PO (08:50)
[2019-04-02] MEDS: CYANOCOBALAMIN 1,000 MCG TABLET 1000 MCG PO (08:51)
[2019-04-02] MEDS: PANTOPRAZOLE 40 MG TABLET PO ×2 (08:51→20:24)
[2019-04-02] MEDS: DOCUSATE SODIUM 100 MG CAPSULE PO ×2 (08:54→17:28)
[2019-04-02] MEDS: TRAMADOL HCL 50 MG TABLET PO (09:04)
[2019-04-02] MEDS: NIFEdipine 30 MG TAB.ER.24 60 MG PO ×2 (09:32→20:24)
[2019-04-02 14:00] VITALS: BP 137/62; PULSE 71; RESP 16; TEMP 36.8; O2SAT 93
--- NOTE | 2019-04-02 16:18 | PM.PNORT ---
Progress Note: A&P Assessment and Plan (1) Total knee replacement status: Qualifiers: Laterality: right Qualified Code(s): Z96.651 - Presence of right artificial knee joint Code(s): Z96.659 - Presence of unspecified artificial knee joint Status: Acute Assessment and Plan: POD #7: RIGHT TKA Continue PT/OT. WBAT with walker. Fall Risk. Slow progress. Continue pain control. Ice. No pillows under knee. Continue DVT prophylaxis with Xarelto. SCDs. Incentive spirometry. Dispo: SNF for rehab pending insurance approval. Difficulty with insurance authorization at this time. Care coordination following. Patient will be due for dressing change tomorrow by Dr. Beltrán. Subjective Subjective Date/Time Seen: 04/02/19 16:18 POD #7: RIGHT TKA Patient doing well, pain well-controlled. No new complaints. Review of Systems Review of Systems: All systems reviewed & are unremarkable except as noted in HPI and below Constitutional: Constitutional: Denies fever(s) and Denies headache(s) ENT: Denies headache(s) Cardiovascular: Cardiovascular: Denies chest pain, Denies diaphoresis, Denies palpitations and Denies dyspnea Respiratory: Respiratory: Denies dyspnea Gastrointestinal: Gastrointestinal: Denies abdominal pain, Denies constipation, Denies nausea and Denies vomiting Genitourinary: Genitourinary: Reports nocturia and Denies dysuria Musculoskeletal: Musculoskeletal: Reports arthralgias (Right Knee-IMPROVING ) and Reports joint swelling (Right Knee-IMPROVING ) Neurologic: Denies headache(s) Endocrine: Endocrine: Denies palpitations Exam Const: General: comfortable and no acute distress Resp: Effort & Inspection: normal respiratory effort Cardio: Rate: regular rate Rhythm: regular rhythm GI: GI Palp: Yes Soft to palpation, No Tenderness to palpation present (GI) and No Guarding due to palpation present (GI) Skin: Wounds: wounds noted Other: Wound VAC TKA dressing c/d/i. No surrounding redness/warmth. No hematoma. Mild ecchymosis. No wound dehiscence Neuro: Cognition (Neuro): normal cognition Other: NV intact. Moves toes. Sensation intact to light touch. +ankle dorsiflexion/plantarflexion. Extrem: Right upper extremity: normal to inspection, full ROM and normal capillary refill Left upper extremity: normal to inspection, full ROM and normal capillary refill Right lower extremity: normal to inspection, full ROM (ROM limited due to recent surgical intervention ) and knee Details: tenderness (diffuse, mild ) and swelling (diffuse, mild ) Left lower extremity: normal to inspection Psych: Mental Status: mental status grossly normal Objective Data Vital Signs Vital Signs: Vital Signs - 24 hr 04/01/19 22:00 04/02/19 06:00 04/02/19 08:00 Temperature 37.0 C 37.1 C Pulse Rate 59 L 74 74 Respiratory Rate 20 20 20 Blood Pressure 122/49 L 127/49 L Pulse Oximetry 94 95 95 04/02/19 14:00 Temperature 36.8 C Pulse Rate 71 Respiratory Rate 16 Blood Pressure 137/62 Pulse Oximetry 93 Intake/Output Intake/Output: Intake & Output 03/30/19 03/31/19 04/01/19 04/02/19 23:59 23:59 23:59 23:59 Intake Total 640 3240 1560 590 Output Total 700 2060 1500 700 Balance -60 1180 60 -110 Meds/Results Medications: Active Medications Generic Name Dose Route Start Last Admin Trade Name Giorgioq PRN Reason Stop Dose Admin Acetaminophen 325 mg 03/27/19 19:28 04/01/19 20:59 Tylenol Tablet PO 325 mg Q6H PRN Administration Mild Pain (1-3) Atorvastatin Calcium 40 mg 03/26/19 21:00 04/01/19 20:57 Lipitor PO 40 mg HS SHAMA Administration Celecoxib 200 mg 03/26/19 17:00 Celebrex PO BIDWM SHAMA Chlorthalidone 25 mg 03/27/19 09:00 04/02/19 08:49 Hygroton PO 25 mg DAILY SHAMA Administration Cyanocobalamin 1,000 mcg 03/27/19 09:00 04/02/19 08:51 Vitamin B-12 Tab PO 1,000 mcg DAILY SHAMA Administration Diazepam 5 mg
--- NOTE | 2019-04-02 16:51 | P.PNIM_ITS ---
Progress Note: A&P Assessment and Plan (1) Discharge planning issues: Code(s): Z02.9 - Encounter for administrative examinations, unspecified Status: Acute Assessment and Plan: The patient has been medically stable for the last few days. We are currently waiting on the patient's insurance company to authorize her placement into a [facility] versus an acute rehab facility. * Will continue waiting for her insurance authorization vs other arrangements (2) S/P right knee arthroscopy: Code(s): Z98.890 - Other specified postprocedural states Status: Acute Assessment and Plan: Status post right total knee arthroplasty POD [address] Beltrán. * Continue PT/OT * We are currently working on getting the patient insurance authorization for discharge for [facility] facility vs acute rehab upon discharge vs other arrangements * She is stable for discharge by the Hospitalist team. * Pain management, Discharge planning, Post-op care, and DVT Prophylaxis per Dr. Beltrán (3) Iron deficiency anemia: Code(s): D50.9 - Iron deficiency anemia, unspecified Status: Acute Assessment and Plan: On review of patient's prior labs her hemoglobin is usually around 10 and her hematocrit is normally around 32-35. She does have a history of iron deficiency anemia in takes oral iron 3 times per day. She has had IV iron infusions in the past, and follows up with Dr. Richards but she has not needed an iron transfusion in while. She received 2 Units of PRBCs post operatively. Iron panel was consistent with iron deficiency anemia. She received IV Venofer 300 mg x3. * Will continue with her p.o. ferrous sulfate at this time. * Vitamin B12 was low at 195. She was given IM Cyanocobalamin 1000 mg (3/3). * Continue 1000 mg PO daily and she may need IM injections weekly but will need to follow up with PCP. * Today, Hgb was 8.8 and Hct 29.0%. Stable * Will likely check CBC in 1 week. (4) Leukocytosis: Code(s): D72.829 - Elevated white blood cell count, unspecified Status: Acute Assessment and Plan: The patient had leukocytosis after surgery; WBC 10.6k today; stable. Urine culture was negative for UTI. * She is feeling well, asymptomatic. * Monitor (5) Essential (primary) hypertension: Code(s): I10 - Essential (primary) hypertension Status: Acute Assessment and Plan: Patient's blood pressure has been reasonablel since surgery. BP 137/62 this evening. Stable. * Monitor (6) CKD (chronic kidney disease), stage III: Code(s): N18.3 - Chronic kidney disease, stage 3 (moderate) Status: Acute Assessment and Plan: PCP's office showed that her creatinine normally ranges between 1.4-1.7. * Creatinine is 1.5 today; stable and improved after IVF * Monitor during stay * Will check BMP 1 week after discharge. (7) Pure hypercholesterolemia: Code(s): E78.00 - Pure hypercholesterolemia, unspecified Status: Acute Assessment and Plan: No acute issues * Will continue her statin medication. (8) Hypothyroidism, unspecified: Code(s): E03.9 - Hypothyroidism, unspecified Status: Acute Assessment and Plan: Her TSH 2.37 during stay. No acute issues. * Continue her levothyroxine.
--- NOTE | 2019-04-02 16:51 | PM.IMPN ---
Progress Note: A&P Assessment and Plan (1) Discharge planning issues: Code(s): Z02.9 - Encounter for administrative examinations, unspecified Status: Acute Assessment and Plan: The patient has been medically stable for the last few days. We are currently waiting on the patient's insurance company to authorize her placement into a senior care rehab versus an acute rehab facility. Will continue waiting for her insurance authorization vs other arrangements (2) S/P right knee arthroscopy: Code(s): Z98.890 - Other specified postprocedural states Status: Acute Assessment and Plan: Status post right total knee arthroplasty POD [address] Beltrán. Continue PT/OT We are currently working on getting the patient insurance authorization for discharge for senior care rehab facility vs acute rehab upon discharge vs other arrangements She is stable for discharge by the Hospitalist team. Pain management, Discharge planning, Post-op care, and DVT Prophylaxis per Dr. Beltrán (3) Iron deficiency anemia: Code(s): D50.9 - Iron deficiency anemia, unspecified Status: Acute Assessment and Plan: On review of patient's prior labs her hemoglobin is usually around 10 and her hematocrit is normally around 32-35. She does have a history of iron deficiency anemia in takes oral iron 3 times per day. She has had IV iron infusions in the past, and follows up with Dr. Richards but she has not needed an iron transfusion in while. She received 2 Units of PRBCs post operatively. Iron panel was consistent with iron deficiency anemia. She received IV Venofer 300 mg x3. Will continue with her p.o. ferrous sulfate at this time. Vitamin B12 was low at 195. She was given IM Cyanocobalamin 1000 mg (3/3). Continue 1000 mg PO daily and she may need IM injections weekly but will need to follow up with PCP. Today, Hgb was 8.8 and Hct 29.0%. Stable Will likely check CBC in 1 week. (4) Leukocytosis: Code(s): D72.829 - Elevated white blood cell count, unspecified Status: Acute Assessment and Plan: The patient had leukocytosis after surgery; WBC 10.6k today; stable. Urine culture was negative for UTI. She is feeling well, asymptomatic. Monitor (5) Essential (primary) hypertension: Code(s): I10 - Essential (primary) hypertension Status: Acute Assessment and Plan: Patient's blood pressure has been reasonablel since surgery. BP 137/62 this evening. Stable. Monitor (6) CKD (chronic kidney disease), stage III: Code(s): N18.3 - Chronic kidney disease, stage 3 (moderate) Status: Acute Assessment and Plan: PCP's office showed that her creatinine normally ranges between 1.4-1.7. Creatinine is 1.5 today; stable and improved after IVF Monitor during stay Will check BMP 1 week after discharge. (7) Pure hypercholesterolemia: Code(s): E78.00 - Pure hypercholesterolemia, unspecified Status: Acute Assessment and Plan: No acute issues Will continue her statin medication. (8) Hypothyroidism, unspecified: Code(s): E03.9 - Hypothyroidism, unspecified Status: Acute Assessment and Plan: Her TSH 2.37 during stay. No acute issues. Continue her levothyroxine. Additional Plan Thank you for allowing the Hospitalist team to care for this patient during their stay. We will continue to follow with you. Please call with any questions Subjective Date/time seen: 04/02/19 16:51 This is a Hospitalist Consult Progress Note Interval history: Patient is a 78 yo F with history of OA of b/l knees, HTN, high cholesterol, and iron de
[2019-04-02] MEDS: RIVAROXABAN 10 MG TABLET PO (17:29)
[2019-04-02] MEDS: ATORVASTATIN 40 MG TABLET PO (20:24)
[2019-04-02] MEDS: ACETAMINOPHEN 325 MG TABLET PO (20:26)
[2019-04-02 22:00] VITALS: BP 116/52; PULSE 62; RESP 20; TEMP 36.8; O2SAT 94
[2019-04-03] MEDS: LEVOTHYROXINE SODIUM 25 MCG TABLET PO (05:34)
[2019-04-03 06:15] LABS: Basophils Absolute Auto 0.1 K/mm3 (0.0-0.1); Basophils Percent Auto 0.4 % (0.2-1.2); Eosinophils Absolute Auto 0.3 K/mm3 (0-0.3); Eosinophils Percent Auto 2.4 % (0-4.4); Immature Granulocyte Absolute 0.15 K/mm3 (0.00-0.031); Immature Granulocyte Percent A 1.2 % (0-0.5); Lymphocytes Absolute Auto 1.45 K/mm3 (0.9-3.2); Mean Corpuscular HGB Conc 30.3 g/dl (32-36); Mean Corpuscular Hemoglobin 27.2 pg (26-34); Mean Corpuscular Volume 89.7 fl (80-100); Mean Platelet Volume 9.8 fl (7.4-10.4); Monocytes Absolute Auto 1.1 K/mm3 (0.1-0.6); Monocytes Percent Auto 9.5 % (2.6-8.5); Neutrophils Percent Auto 74.5 % (45.5-73.1); Platelet Count Result 416 k/mm3 (150-375); Red Blood Count 3.68 M/mm3 (4.2-5.4); Red Cell Distribution Width 16.9 % (11.5-14.5)
[2019-04-03 06:17] VITALS: BP 124/48; PULSE 64; RESP 20; TEMP 36.8; O2SAT 93
[2019-04-03 06:41] LABS: Blood Urea Nitrogen 24 mg/dL (7-17); Calcium 9.2 mg/dL (8.4-10.2); Carbon Dioxide 27 mmol/L (22-30); Chloride 98 mmol/L (98-107); Estimated CRCL calculation 33 ml/min; Estimated Glomerular Filt Rate 36; Glucose 100 mg/dL (65-105); Sodium 138 mmol/L (137-145)
[2019-04-03] MEDS: FERROUS SULFATE 324 MG TABLET PO (08:15)
[2019-04-03] MEDS: DOCUSATE SODIUM 100 MG CAPSULE PO (08:16)
[2019-04-03] MEDS: CYANOCOBALAMIN 1,000 MCG TABLET 1000 MCG PO (08:16)
[2019-04-03] MEDS: CHOLECALCIFEROL 1,000 UNIT TABLET 2000 UNITS PO (08:16)
[2019-04-03] MEDS: CHLORTHALIDONE 25 MG TABLET PO (08:16)
[2019-04-03] MEDS: FAMOTIDINE 20 MG TABLET PO (08:16)
[2019-04-03] MEDS: ramipriL 5 MG CAPSULE 10 MG PO (08:17)
[2019-04-03] MEDS: PANTOPRAZOLE 40 MG TABLET PO (08:17)
[2019-04-03] MEDS: NIFEdipine 30 MG TAB.ER.24 60 MG PO (08:18)
--- NOTE | 2019-04-03 11:22 | PCNWS ---
Weekly nutritional screen. Patient is tolerating current diet with adequate intake. No weight loss reported. No nutritional needs at this time.
--- NOTE | 2019-04-03 11:40 | PM.PNORT ---
Progress Note: A&P Additional Plan POD 7 IMPROVING. OK TO DC HOME WITH HOME HEALTH. SHE WILL F/U IN 3 WEEKS Time Spent With Patient Time with patient: 15 - 25 minutes Subjective Subjective Date/Time Seen: 04/03/19 11:40POD 7 DOING WELL IMPROVED WITH PT. STILL HAVING SOME DIFFICULTY GETTING IN TO BED. ACCORDING TO PT SHE IS STAND BY ASSIST AND IS ABLE TO BE DC'D. 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 CHANGED TODAY. WOUND HEALING VERY WELL. NO DRAINAGE.NV INTACT CALF SOFT NON TENDER NEG HOMANS SIGN Objective Data Vital Signs Vital Signs: Vital Signs - 24 hr 04/02/19 14:00 04/02/19 22:00 04/03/19 06:17 Temperature 36.8 C 36.8 C 36.8 C Pulse Rate 71 62 64 Respiratory Rate 16 20 20 Blood Pressure 137/62 116/52 L 124/48 L Pulse Oximetry 93 94 93 Intake/Output Intake/Output: Intake & Output 03/31/19 04/01/19 04/02/19 04/03/19 23:59 23:59 23:59 23:59 Intake Total 3240 1560 1115 590 Output Total 2060 1500 1440 1000 Balance 1180 60 -325 -410 Meds/Results Medications: Active Medications Generic Name Dose Route Start Last Admin Trade Name Freq PRN Reason Stop Dose Admin Acetaminophen 325 mg 03/27/19 19:28 04/02/19 20:26 Tylenol Tablet PO 325 mg Q6H PRN Administration Mild Pain (1-3) Atorvastatin Calcium 40 mg 03/26/19 21:00 04/02/19 20:24 Lipitor PO 40 mg HS SHAMA Administration Celecoxib 200 mg 03/26/19 17:00 Celebrex PO BIDWM SHAMA Chlorthalidone 25 mg 03/27/19 09:00 04/03/19 08:16 Hygroton PO 25 mg DAILY SHAMA Administration Cyanocobalamin 1,000 mcg 03/27/19 09:00 04/03/19 08:16 Vitamin B-12 Tab PO 1,000 mcg DAILY SHAMA Administration Diazepam 5 mg 03/26/19 15:35 04/01/19 08:53 Valium Po PO 5 mg Q8H PRN Administration Spasms Docusate Sodium 100 mg 03/26/19 17:00 04/03/19 08:16 Colace Cap PO 100 mg BID SHAMA Administration Famotidine 20 mg 03/26/19 21:00 04/03/19 08:16 Pepcid PO 20 mg Q12HR [facility] Administration Ferrous Sulfate 324 mg 03/26/19 17:00 04/03/19 08:15 Ferrous Sulfate PO 324 mg TIDWM SHAMA Administration Levothyroxine Sodium 25 mcg 03/27/19 06:30 04/03/19 05:34 Synthroid PO 25 mcg 0630 [facility] Administration Morphine Sulfate 4 mg 03/26/19 15:35 03/28/19 18:26 Morphine Sulfate Inj IV PUSH 4 mg Q2H PRN Administration Breakthrough pain rated 7-10 Naloxone HCl 0.1 mg 03/26/19 15:35 Narcan IV PUSH Q2M PRN Opiate Reversal Nifedipine 60 mg 03/26/19 21:00 04/03/19 08:18 Procardia Xl PO 60 mg Q12HR [facility] Administration Ondansetron HCl 4 mg 03/25/19 15:41 03/27/19 08:59 Zofran Inj IV PUSH 4 mg ONCE PRN Administration Nausea Oxycodone/Acetaminophen 1 tablet 03/26/19 15:35 04/03/19 09:19 Percocet 5-325 Mg PO 1 tablet Q4H PRN Administration Pain Rated 4-6 Pantoprazole Sodium 40 mg 03/26/19 21:00 04/03/19 08:17 Protonix PO 40 mg Q12HR [facility] Administration Ramipril 10 mg 03/27/19 09:00 04/03/19 08:17 Altace PO 10 mg DAILY [facility] Administration Rivaroxaban 10 mg 03/26/19 22:00 04/02/19 17:29 Xarelto PO 04/06/19 17:01 10 mg DAILY@17 [facility] Administration Tramadol HCl 50 mg 03/26/19 19:32 04/02/19 09:04 Ultram PO 50 mg Q6H PRN Administration PAIN 4-6 Vitamin D 2,000 unit 03/27/19 09:00 04/03/19 08:16 Vitamin D PO 2,000 unit DAILY [facility] Administration Radiology Results: ITS Impressions Knee X-Ray 03/26/19 17:39 IMPRESSION: Status post total right knee arthroplasty. Labs Labs: Laboratory Results - last 24 hr 04/03/19 04/03/19 05:46 05:46 WBC 12.0 H RBC 3.68 L Hgb 10.0 L Hct 33.0 L MCV 89.7 MCH 27.2 MCHC 30.3 L RDW 16.9 H Plt Count 416 H MPV 9.8 Immature Gran % (Auto) 1.2 H Neut % (Auto) 74.5 H Lymph % (Auto) 12.0 L [place] % (Auto) 9.5 H Eos % (Auto) 2.4 Baso % (Auto)
--- NOTE | 2019-04-03 11:55 | PM.DS ---
DS: Diagnosis Admitting Diagnosis Admitting Diagnosis: Unilateral primary osteoarthritis, unspecified knee DS: Summary Time Spent with Patient Time attestation: Total time spent providing and/or coordinating discharge services: 20 min DS: Data Data Completed and Pending Labs on day of discharge: Labs from last 24 hours 04/03/19 04/03/19 05:46 05:46 WBC 12.0 H RBC 3.68 L Hgb 10.0 L Hct 33.0 L MCV 89.7 MCH 27.2 MCHC 30.3 L RDW 16.9 H Plt Count 416 H MPV 9.8 Immature Gran % (Auto) 1.2 H Neut % (Auto) 74.5 H Lymph % (Auto) 12.0 L [place] % (Auto) 9.5 H Eos % (Auto) 2.4 Baso % (Auto) 0.4 Lymph # (Auto) 1.45 [place] # (Auto) 1.1 H Eos # (Auto) 0.3 Baso # (Auto) 0.1 Abs Immat Gran (auto) 0.15 H Absolute Neuts (auto) 9.0 H Absolute Nucleated RBC 0.0 Nucleated RBC % 0.0 Sodium 138 Potassium 4.0 Chloride 98 Carbon Dioxide 27 BUN 24 H Creatinine 1.40 H Estim Creat Clear Calc 33 Estimated GFR 36 L Glucose 100 Calcium 9.2 Discharge Plan Discharge Attending physician on discharge: Stuart Beltrán Consulting providers: Jayson Gilmore ; Charles Prakash Discharging Clinician: Heather Flores Patient Disposition: Home Health Service Activity: may shower, no driving and follow weight bearing status Diet: as tolerated Wound Care Instructions: follow printed instructions Discharge Instructions: Orthopedic Discharge Instructions: Your dressing will be changed prior to your discharge. The Prevena dressing can then stay in place for 7 days. Keep dressing dry. Your dressing will stay on for one more week then your trena will be removed by the home nurse. You can shower with this dressing but do not submerge in the bath tub. Your trena will be removed on the 14th day after surgery and steri-strips placed. Please walk with a walker at all times until released by Dr. Beltrán. Do not drive until released by Dr. Beltrán. Continue use of your ice machine. Protect your skin with a sheet/towel prior to applying ice machine. Your medications have been called into your pharmacy. Follow up as previously scheduled, your appointment is also indicated in these instructions. Contact our office with any questions or concerns at [phone]. Emma Calle PA-C Hospitalist You were admitted after your right knee replacement. You are doing much better with therapy at this time. While you were here you received some IV fluid hydrated for your kidney weakness but now your kidneys are back to baseline and you need to ensure you are drinking plenty of water to remain hydrated. We will recheck your kidney labs in 1 week. Your anemia is also improved after your received a blood transfusion, IV iron and IM Vitamin B12 injections. You will need to continue your Iron three times per day, vitamin B12 daily and we will recheck some labs in 1 week. Follow up with your Primary Care Provider within 1 week of discharge to further evaluate you on your recovery. Return to the ER if you have any new or worsening symptoms of chest pain, shortness of breath, fever, chills, abdominal pain, vomiting, diarrhea or any other concerning symptoms. Good luck with your recovery! Per Care Coordination: [facility] is arranged at discharge. [facility] will follow for nursing and PT/OT eval and treat. [facility] can be contacted at [phone]. Patient Instructions: Antibiotic Form, Pain Management Older Adults (DC), Knee Replacement (DC) Stand Alone Forms: General Discharge Information Follow-up/Referrals: Stuart Beltrán MD [Physician] - 04/18/19 2:30 pm Frank Ha DO [Primary Care Provider] - 1 Week Discharge Medications: New oxycodone-acetaminophen 5-325 mg Tablet 1 - 2 tablet PO Q4-6H PRN (Reason: Pain Rated
--- NOTE | 2019-04-03 12:31 | P.PNIM_ITS ---
Progress Note: A&P Assessment and Plan (1) Discharge planning issues: Code(s): Z02.9 - Encounter for administrative examinations, unspecified Status: Acute Assessment and Plan: The patient has been medically stable for the last few days. We are currently waiting on the patient's insurance company to authorize her placement into a [facility] versus an acute rehab facility vs. Home with HH * Will continue waiting for her insurance authorization vs other arrangements (2) S/P right knee arthroscopy: Code(s): Z98.890 - Other specified postprocedural states Status: Acute Assessment and Plan: Status post right total knee arthroplasty POD [address] Beltrán. * Continue PT/OT * We are currently working on getting the patient insurance authorization for discharge for [facility] facility vs acute rehab upon discharge vs other arrangements * She is stable for discharge by the Hospitalist team. * Pain management, Discharge planning, Post-op care, and DVT Prophylaxis per Dr. Beltrán (3) Iron deficiency anemia: Code(s): D50.9 - Iron deficiency anemia, unspecified Status: Acute Assessment and Plan: On review of patient's prior labs her hemoglobin is usually around 10 and her hematocrit is normally around 32-35. She does have a history of iron deficiency anemia in takes oral iron 3 times per day. She has had IV iron infusions in the past, and follows up with Dr. Richards but she has not needed an iron transfusion in while. She received 2 Units of PRBCs post operatively. Iron panel was consistent with iron deficiency anemia. She received IV Venofer 300 mg x3. * Will continue with her p.o. ferrous sulfate at this time. * Vitamin B12 was low at 195. She was given IM Cyanocobalamin 1000 mg (3/3). * Continue 1000 mg PO daily and she may need IM injections weekly but will need to follow up with PCP. * Today, Hgb was 10.0 and Hct 33.0%. Stable * Will check CBC in 1 week. * F/u with pcp (4) Leukocytosis: Code(s): D72.829 - Elevated white blood cell count, unspecified Status: Acute Assessment and Plan: The patient had leukocytosis after surgery; WBC 12.0k today; stable, slightly elevated. Urine culture was negative for UTI. * She is feeling well, asymptomatic. * CBC in one week (5) Essential (primary) hypertension: Code(s): I10 - Essential (primary) hypertension Status: Acute Assessment and Plan: Patient's blood pressure has been reasonable since surgery. BP 124/48 this morning. Stable. * F/u with PCP (6) CKD (chronic kidney disease), stage III: Code(s): N18.3 - Chronic kidney disease, stage 3 (moderate) Status: Acute Assessment and Plan: PCP's office showed that her creatinine normally ranges between 1.4-1.7. * Creatinine is 1.4 today; stable and improved after IVF * Will check BMP 1 week after discharge. * F/u with PCP (7) Pure hypercholesterolemia: Code(s): E78.00 - Pure hypercholesterolemia, unspecified Status: Acute Assessment and Plan: No acute issues * Will continue her statin medication. (8) Hypothyroidism, unspecified: Code(s): E03.9 - Hypothyroidism, unspecified Status: Acute Assessment and Plan: Her TSH 2.37 during stay. No acute issues. * Continue her levothyrox
--- NOTE | 2019-04-03 12:31 | PM.IMPN ---
Progress Note: A&P Assessment and Plan (1) Discharge planning issues: Code(s): Z02.9 - Encounter for administrative examinations, unspecified Status: Acute Assessment and Plan: The patient has been medically stable for the last few days. We are currently waiting on the patient's insurance company to authorize her placement into a [facility] versus an acute rehab facility vs. Home with HH Will continue waiting for her insurance authorization vs other arrangements (2) S/P right knee arthroscopy: Code(s): Z98.890 - Other specified postprocedural states Status: Acute Assessment and Plan: Status post right total knee arthroplasty POD [address] Beltrán. Continue PT/OT We are currently working on getting the patient insurance authorization for discharge for [facility] re[facility] facility vs acute rehab upon discharge vs other arrangements She is stable for discharge by the Hospitalist team. Pain management, Discharge planning, Post-op care, and DVT Prophylaxis per Dr. Beltrán (3) Iron deficiency anemia: Code(s): D50.9 - Iron deficiency anemia, unspecified Status: Acute Assessment and Plan: On review of patient's prior labs her hemoglobin is usually around 10 and her hematocrit is normally around 32-35. She does have a history of iron deficiency anemia in takes oral iron 3 times per day. She has had IV iron infusions in the past, and follows up with Dr. Richards but she has not needed an iron transfusion in while. She received 2 Units of PRBCs post operatively. Iron panel was consistent with iron deficiency anemia. She received IV Venofer 300 mg x3. Will continue with her p.o. ferrous sulfate at this time. Vitamin B12 was low at 195. She was given IM Cyanocobalamin 1000 mg (3/3). Continue 1000 mg PO daily and she may need IM injections weekly but will need to follow up with PCP. Today, Hgb was 10.0 and Hct 33.0%. Stable Will check CBC in 1 week. F/u with pcp (4) Leukocytosis: Code(s): D72.829 - Elevated white blood cell count, unspecified Status: Acute Assessment and Plan: The patient had leukocytosis after surgery; WBC 12.0k today; stable, slightly elevated. Urine culture was negative for UTI. She is feeling well, asymptomatic. CBC in one week (5) Essential (primary) hypertension: Code(s): I10 - Essential (primary) hypertension Status: Acute Assessment and Plan: Patient's blood pressure has been reasonable since surgery. BP 124/48 this morning. Stable. F/u with PCP (6) CKD (chronic kidney disease), stage III: Code(s): N18.3 - Chronic kidney disease, stage 3 (moderate) Status: Acute Assessment and Plan: PCP's office showed that her creatinine normally ranges between 1.4-1.7. Creatinine is 1.4 today; stable and improved after IVF Will check BMP 1 week after discharge. F/u with PCP (7) Pure hypercholesterolemia: Code(s): E78.00 - Pure hypercholesterolemia, unspecified Status: Acute Assessment and Plan: No acute issues Will continue her statin medication. (8) Hypothyroidism, unspecified: Code(s): E03.9 - Hypothyroidism, unspecified Status: Acute Assessment and Plan: Her TSH 2.37 during stay. No acute issues. Continue her levothyroxine. Additional Plan Thank you for allowing the Hospitalist team to care for this patient during their stay. We will continue to follow with you. Please call with any questions Subjective Date/time seen: 04/03/19 12:31 This is a Hospitalist Consult Progress Note Interval history: Patient is a 78 yo F with history of OA
--- NOTE | 2019-05-21 14:45 | PM.DS ---
DS: Diagnosis Admitting Diagnosis Admitting Diagnosis: Unilateral primary osteoarthritis, right knee Discharge Diagnosis (1) Degenerative joint disease of knee: Qualifiers: Osteoarthritis type: primary Laterality: right Qualified Code(s): M17.11 - Unilateral primary osteoarthritis, right knee Code(s): M17.10 - Unilateral primary osteoarthritis, unspecified knee Status: Acute DS: Summary Time Spent with Patient Time attestation: Total time spent providing and/or coordinating discharge services: Discharge Plan Discharge Attending physician on discharge: Sutart Beltrán Consulting providers: Charles Prakash ; Warren Walker ; Emma Calle ; Heather Flores ; Arnulfo Hussein Discharging Clinician: Heather Flores Patient Disposition: Home Health Service Activity: may shower, no driving and follow weight bearing status Diet: as tolerated Wound Care Instructions: follow printed instructions Discharge Instructions: Orthopedic Discharge Instructions: Your dressing will be changed prior to your discharge. The Prevena dressing can then stay in place for 7 days. Keep dressing dry. Your dressing will stay on for one more week then your trena will be removed by the home nurse. You can shower with this dressing but do not submerge in the bath tub. Your trena will be removed on the 14th day after surgery and steri-strips placed. Please walk with a walker at all times until released by Dr. Beltrán. Do not drive until released by Dr. Beltrán. Continue use of your ice machine. Protect your skin with a sheet/towel prior to applying ice machine. Your medications have been called into your pharmacy. Follow up as previously scheduled, your appointment is also indicated in these instructions. Contact our office with any questions or concerns at [phone]. Discharge instructions per Hospitalist Charles Prakash PA-C: You were admitted after your right knee replacement. While you were here you received some IV fluid hydrated for your kidney weakness but now your kidneys are back to baseline and you need to ensure you are drinking plenty of water to remain hydrated. We will recheck your kidney labs in 1 week. Your anemia is also improved after your received a blood transfusion, IV iron and IM Vitamin B12 injections. You will need to continue your Iron three times per day, vitamin B12 daily and we will recheck some labs in 1 week. I recommend you call your Primary Care Provider within 1 week of discharge and let them know about your recent hospital stay and your lab work to be done. See if they would like to see you in the office sooner than June 2019. Return to the ER if you have any new or worsening symptoms of chest pain, shortness of breath, fever, chills, abdominal pain, vomiting, diarrhea or any other concerning symptoms. Good luck with your recovery! Per Care Coordination: [facility] is arranged at discharge. [facility] will follow for nursing and PT/OT eval and treat. [facility] can be contacted at [phone]. Patient Instructions: Antibiotic Form, Pain Management in Older Adults (DC), Knee Replacement (DC) Stand Alone Forms: General Discharge Information Follow-up/Referrals: Stuart Beltrán MD [Physician] - 04/18/19 2:30 pm Frank Ha DO [Primary Care Provider] - 1 Week Discharge Medications: New oxycodone-acetaminophen 5-325 mg Tablet 1 - 2 tablet PO Q4-6H PRN (Reason: Pain Rated 4-6) Qty: 56 RF: 0 docusate sodium 100 mg Capsule 100 mg PO BID 30 Days Qty: 60 RF: 0 diazepam 5 mg Tablet 5 mg PO Q8H PRN (Reason: Spasms) 14 Days Qty: 30 RF: 0 Xarelto 10 mg Tablet 10 mg PO DAILY@17 21 Days Qty: 21 RF: 0 Continued ramipril 10 mg capsule 10 mg PO DAILY RF: 0 levothyroxine 25 mcg tablet 25 mcg PO
== END 2019-04-03 11:46 | disposition home health service (06) | DRG 470 ==
LOC: ANH3MEDSUR 03-27 06:54 → ANHSURGERY 04-05 13:24 → ANH3MEDSUR 04-05 13:27
PROVIDERS: Physician Assistant; Admitting Provider Orthopaedic Surgery; PCP Internal Medicine; Visit Provider Orthopaedic Surgery
PROC: 0SRC0J9 Replacement of Right Knee Joint with Synthetic Substitute, Cemented, Open Approach (ICD-10-PCS; CPT 27447; principal; 2019-03-26 12:00)
DX: M17.11 Unilateral primary osteoarthritis, right knee (principal); I12.9 Hypertensive chronic kidney disease with stage 1 through stage 4 chronic kidney disease, or unspecified chronic kidney disease; N18.3 Chronic kidney disease, stage 3 (moderate); D50.9 Iron deficiency anemia, unspecified; E03.9 Hypothyroidism, unspecified; E78.00 Pure hypercholesterolemia, unspecified; K44.9 Diaphragmatic hernia without obstruction or gangrene; D72.829 Elevated white blood cell count, unspecified; E66.9 Obesity, unspecified; Z68.39 Body mass index [BMI] 39.0-39.9, adult
CPT/HCPCS: 36415; 36430; 73560; 80048; 81001; 82565; 82607; 82728; 82746; 83540; 83550; 84443; 84466; 85014; 85018; 85025; 85027; 86850; 86900; 86901; 86923; 87086; 97110; 97116; 97161; 97165; 97530; 97535; A9270; C1713; C1776; G0378; J0171; J0690; J1100; J1170; J1741; J1756; J2250; J2270; J2370; J2405; J2704; J2795; J3010; J3420; J7030; J7050; J7120; J7121; P9016

== ENCOUNTER 2019-06-30 10:21 | Observation (INO) | payer MEDICARE, MEDICAID, SELFPAY ==
--- NOTE | ~2019-06-30 | US_ITS ---
EXAMINATION: US venous doppler LE RT DATE: 06/30/2019 11:51 INDICATION: Right lower limb swelling TECHNIQUE: Gomez scale images without and with compression and Doppler images of the right lower extre mity veins were obtained. COMPARISON: None. FINDINGS: The right common femoral vein, profunda femoral vein, femoral vein, popliteal vein, peronea l trunk, posterior tibial veins, and greater saphenous vein are patent. IMPRESSION: 1. Patent right lower extremity veins. No evidence of deep venous thrombosis. Reviewed, dictated and finalized at location A.
--- NOTE | ~2019-06-30 | XR_ITS ---
EXAMINATION: XR foot RT min 3V DATE: 06/30/2019 11:04 INDICATION: Right foot pain TECHNIQUE: Dorsoplantar, lateral, and 2 oblique views of the right foot were obtained. COMPARISON: None. FINDINGS: There is no fracture, dislocation, or subluxation. Bone alignment is normal. There is mild- to-moderate osteoarthritis involving multiple interphalangeal joints. No radiopaque foreign body is i dentified. IMPRESSION: 1. No acute osseous abnormality or evidence of radiopaque foreign body. Reviewed, dictated and finalized at location A.
[2019-06-30 10:28] VITALS: BP 165/73; PULSE 73; RESP 16; TEMP 37.4; O2SAT 97
--- NOTE | 2019-06-30 11:41 | ED.GENADULT ---
HPI - General Adult General Chief complaint: Skin/Abscess/Foreign Body <VIBHA Alston Last Filed: 06/30/19 12:55> Stated complaint: Splinter in foot <VIBHA Alston Last Filed: 06/30/19 12:55> Time Seen by Provider: 06/30/19 10:27 <VIBHA Alston Last Filed: 06/30/19 12:55> Source: patient <VIBHA Alston Last Filed: 06/30/19 12:55> Mode of arrival: ambulatory <VIBHA Alston Last Filed: 06/30/19 12:55> Limitations: no limitations <VIBHA Alston Last Filed: 06/30/19 12:55> History of Present Illness HPI narrative: Patient is a 79-year-old female who presents with red tender swollen right foot noting that she believes she stepped on a splinter on Monday and has since developed redness swelling and increasing pain. Patient notes that she thought she had removed the majority of the splinter but but was concerned that there may still be some residual splinter. Patient on arrival is in the room in no distress denies any fever chills nausea vomiting . Patient had right total knee replacement in March by Dr. Beltrán. Patient is unsure as to tetanus status, records reveal that she had one in 2018 <VIBHA Alston Last Filed: 06/30/19 12:55> Related Data Home medications: Home Medications Medication Instructions Recorded Confirmed atorvastatin 40 mg tablet 40 mg PO HS 03/14/19 03/26/19 cholecalciferol (vitamin D3) 2,000 unit PO DAILY 03/14/19 03/26/19 cyanocobalamin (vitamin B-12) 1,000 mcg PO DAILY 03/14/19 03/26/19 ferrous sulfate 325 mg (65 mg 325 mg PO TID 03/14/19 03/26/19 iron) tablet,delayed release levothyroxine 25 mcg tablet 25 mcg PO DAILY 03/14/19 03/26/19 nifedipine 60 mg PO BID 03/14/19 03/26/19 tramadol 50 mg tablet 50 mg PO Q6H PRN 06/10/19 <VIBHA Alston Last Filed: 06/30/19 12:55> Allergies/adverse reactions: Allergies Allergy/AdvReac Type Severity Reaction Status Date / Time No Known Allergies Allergy Verified 06/30/19 12:46 <Aaron Griffin PA-C - Last Filed: 06/30/19 12:55> Review of Systems Review of Systems: All systems reviewed & are unremarkable except as noted in HPI and below <Aaron Griffin PA-C - Last Filed: 06/30/19 12:55> [facility] Past Medical History Medical History: Medical History Arthritis CKD (chronic kidney disease), stage III Degenerative joint disease of knee Esophageal ulcer Essential (primary) hypertension Gastric polyp Hiatal hernia Hypothyroidism, unspecified Iron deficiency anemia Pure hypercholesterolemia Reflux esophagitis Right knee pain <Aaron Griffin PA-C - Last Filed: 06/30/19 12:55> Surgical History Surgical History: Surgical History H/O right wrist surgery Repair of right wrist fracture History of esophagogastroduodenoscopy (EGD) Last one 12/[address] Parker. Prior EGD 2013 and 2014 which showed persistent esophageal ulcers, moderate hiatal hernia and gastric polyps S/P carpal tunnel release Left S/P colonoscopy with polypectomy At [facility] 09/2017 and reports polypectomy S/P right knee arthroscopy 03/26/[address] Beltrán Total knee replacement status <Aaron Griffin PA-C - Last Filed: 06/30/19 12:55> Social History Social History: Social History Smoking status: Never smoker Alcohol intake: never Substance use: never Substance use type: does not use Additional living arrangements comments: She lives in [place], [place]. 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 Spiritual care concerns: No Agree to blood products: Yes <Aaron Griffin PA-C - Last Filed: 06/30/19 12:55> Exam [facility]
[2019-06-30] MEDS: ceFAZolin 2 GM/D5W 50 ML 2 GM/50 ML BAG IVPB (12:00)
[2019-06-30] MEDS: SODIUM CHLORIDE 0.9% IV 500 ML 999 ML IV CONT (12:00)
[2019-06-30 12:22] LABS: Basophils Percent Auto 0.2 % (0.2-1.2); Eosinophils Absolute Auto 0.1 K/mm3 (0-0.3); Eosinophils Percent Auto 0.7 % (0-4.4); Immature Granulocyte Absolute 0.03 K/mm3 (0.00-0.031); Immature Granulocyte Percent A 0.3 % (0-0.5); Lymphocytes Absolute Auto 1.15 K/mm3 (0.9-3.2); Lymphocytes Percent Auto 10.9 % (18.3-44.2); Mean Corpuscular HGB Conc 30.6 g/dl (32-36); Mean Corpuscular Hemoglobin 28.6 pg (26-34); Mean Corpuscular Volume 93.8 fl (80-100); Mean Platelet Volume 10.1 fl (7.4-10.4); Monocytes Absolute Auto 0.8 K/mm3 (0.1-0.6); Monocytes Percent Auto 7.1 % (2.6-8.5); Neutrophils Absolute Auto 8.6 K/mm3 (1.3-6.7); Neutrophils Percent Auto 80.8 % (45.5-73.1); Platelet Count Result 293 k/mm3 (150-375); Red Blood Count 3.84 M/mm3 (4.2-5.4); Red Cell Distribution Width 14.9 % (11.5-14.5); White Blood Count 10.6 K/mm3 (4.5-10.0)
[2019-06-30 12:34] LABS: Blood Urea Nitrogen 19 mg/dL (7-17); Calcium 8.9 mg/dL (8.4-10.2); Carbon Dioxide 30 mmol/L (22-30); Chloride 104 mmol/L (98-107); Estimated CRCL calculation 40 ml/min; Estimated Glomerular Filt Rate 43; Glucose 99 mg/dL (65-105); Potassium 4.3 mmol/L (3.4-5.0); Sodium 139 mmol/L (137-145)
[2019-06-30 12:38] LABS: CRP 1.2 mg/dL (<1.0)
[2019-06-30 13:35] VITALS: BP 149/64; PULSE 68; RESP 16; O2SAT 96
--- NOTE | 2019-06-30 14:59 | ADMGEN ---
This patient, Nadiya Grimes, was admitted to 2 Medical Room 243-01. Patient/family oriented to hospital policies and general routines including ID bracelet, bed and alarms, visiting hours, pain management, procedures, bathroom and other care routines, personal items, smoking policy, room service/diet, and visiting hours. Valuables list has been completed. Information on how to activate the Rapid Response Team has been discussed. Patient/Family are encouraged to report perceived risks to care and to ask questions if they do not understand what they are told or what they should do. Report received from PRANAY Brooks.
[2019-06-30 15:34] VITALS: BP 162/79; PULSE 67; RESP 20; TEMP 36.4; O2SAT 98
[2019-06-30] MEDS: LACTATED RINGERS 1,000 ML 75 ML IV CONT (15:46)
[2019-06-30 15:56] VITALS: BMI 35.1
--- NOTE | 2019-06-30 19:41 | PM.IMHP ---
H&P: HPI History of Present Illness Chief complaint: Cellulitis foot right Narrative: Nadiya Grimes is a 79 year old female who had a right total knee performed March 26 of this year. She had had a severe discomfort since that time. The patient stated that she had it x-rayed and was found have right kneecap fracture. She has had to have her leg in some type of brace. She is having difficulty moving around and was walking around her house barefoot. On Monday she felt that she had gotten a splinter in her foot because she has hardwood floors. She had a couple people come to look at her foot and tried to dig out the splinter but they were not able to get anything out. She developed redness and swelling and severe pain. Today she wanted to go to an urgent care but it was closed down so her family member took her to the hospital instead. She had no fevers or chills no cough. ED provider attempted to find a splinter in her foot and was unable to find it. X-ray was read as no acute osseous abnormality or evidence of radiopaque foreign body. The patient was started on Ancef. Her right foot was wrapped. Date of service 06/30/2019 Review of Systems Review of Systems: All systems reviewed & are unremarkable except as noted in HPI and below Constitutional: Constitutional: Reports as per HPI and Reports no additional constitutional complaints Eyes: Eyes: Reports as per HPI and Reports no additional eye complaints ENT: Reports system reviewed and no additional complaints, except as documented and Reports Normal hearing present Cardiovascular: Cardiovascular: Reports no additional cardiovascular complaints Respiratory: Respiratory: Reports no additional respiratory complaints and Reports no additional respiratory complaints Gastrointestinal: Gastrointestinal: Reports as per HPI and Reports no additional gastrointestinal complaints Musculoskeletal: Musculoskeletal: Reports no additional musculoskeletal complaints Integumentary/Breasts: Skin/Breast: Reports system reviewed and no additional complaints, except as docu and Reports as per HPI Neurologic: Reports system reviewed and no additional complaints, except as documented, Reports as per HPI and Reports Normal hearing present Psychiatric: Psychiatric: Reports no additional psychiatric complaints and Reports as per HPI Endocrine: Endocrine: Reports no additional endocrine complaints Hematologic/Lymphatic: Hematologic/Lymphatic: Reports no additional hematologic/lymphatic complaints Allergic/Immunologic: Allergic/Immunologic: Reports no additional allergic/immunologic complaints [facility] Past Medical History Medical History (Updated 06/30/19 @ 19:52 by Jossy Chacon NP) Arthritis CKD (chronic kidney disease), stage III Degenerative joint disease of knee Esophageal ulcer Essential (primary) hypertension Gastric polyp Hiatal hernia Hypothyroidism, unspecified Iron deficiency anemia Pure hypercholesterolemia Reflux esophagitis Right arm fracture Casted Right knee pain Surgical History Surgical History H/O right wrist surgery Repair of right wrist fracture History of esophagogastroduodenoscopy (EGD) Last one 12/[address] Parker. Prior EGD 2013 and 2014 which showed persistent esophageal ulcers, moderate hiatal hernia and gastric polyps S/P carpal tunnel release Left S/P colonoscopy with polypectomy At [facility] 09/2017 and reports polypectomy S/P right knee arthroscopy 03/26/[address] Beltrán Total knee replacement status Family History Family History Mother CHF (congestive heart failure) Cerebrovascular accident Family history of arthritis Hypertension Father Leukemia Sibling Family history of malignant neoplasm Sibling Dementia Diabetes mellitus Sibling Dementia Diabetes mellitus Social History Social History (Updated 06/29
[2019-06-30 20:00] VITALS: BP 168/69; PULSE 100; RESP 20; TEMP 35.9; O2SAT 96
[2019-06-30] MEDS: FAMOTIDINE 20 MG/2 ML VIAL IV PUSH (22:24)
[2019-06-30] MEDS: NIFEdipine 30 MG TAB.ER.24 60 MG PO (22:24)
[2019-06-30] MEDS: ATORVASTATIN 40 MG TABLET PO (22:24)
[2019-07-01] MEDS: LACTATED RINGERS 1,000 ML 75 ML IV CONT (03:56)
[2019-07-01 04:00] VITALS: BP 143/52; PULSE 56; RESP 20; TEMP 36.3; O2SAT 94
[2019-07-01 05:36] LABS: Basophils Percent Auto 0.2 % (0.2-1.2); Eosinophils Absolute Auto 0.1 K/mm3 (0-0.3); Eosinophils Percent Auto 1.2 % (0-4.4); Hematocrit 33.8 % (37.0-47.0); Hemoglobin 10.6 g/dL (12.0-15.0); Immature Granulocyte Absolute 0.02 K/mm3 (0.00-0.031); Immature Granulocyte Percent A 0.2 % (0-0.5); Lymphocytes Absolute Auto 1.32 K/mm3 (0.9-3.2); Mean Corpuscular HGB Conc 31.4 g/dl (32-36); Mean Corpuscular Hemoglobin 28.9 pg (26-34); Mean Corpuscular Volume 92.1 fl (80-100); Mean Platelet Volume 10.1 fl (7.4-10.4); Monocytes Absolute Auto 0.8 K/mm3 (0.1-0.6); Monocytes Percent Auto 9.6 % (2.6-8.5); Neutrophils Percent Auto 72.8 % (45.5-73.1); Platelet Count Result 260 k/mm3 (150-375); Red Blood Count 3.67 M/mm3 (4.2-5.4); Red Cell Distribution Width 14.8 % (11.5-14.5); White Blood Count 8.3 K/mm3 (4.5-10.0)
[2019-07-01 05:46] LABS: Alanine Aminotransferase 10 U/L (4-35); Albumin Level 3.6 g/dL (3.5-5.1); Alkaline Phosphatase 81 U/L (38-126); Aspartate Amino Transferase 20 U/L (14-36); Bilirubin,Total 0.3 mg/dL (0.2-1.3); Blood Urea Nitrogen 18 mg/dL (7-17); Calcium 9.1 mg/dL (8.4-10.2); Carbon Dioxide 28 mmol/L (22-30); Chloride 106 mmol/L (98-107); Estimated CRCL calculation 43 ml/min; Estimated Glomerular Filt Rate 48; Glucose 102 mg/dL (65-105); Potassium 4.1 mmol/L (3.4-5.0); Sodium 136 mmol/L (137-145)
[2019-07-01] MEDS: LEVOTHYROXINE SODIUM 25 MCG TABLET PO (06:11)
[2019-07-01] MEDS: FAMOTIDINE 20 MG/2 ML VIAL IV PUSH ×2 (08:41→20:12)
[2019-07-01] MEDS: PANTOPRAZOLE 40 MG TABLET PO ×2 (08:42→20:12)
[2019-07-01] MEDS: CHOLECALCIFEROL 1,000 UNIT TABLET 2000 UNITS PO (08:42)
[2019-07-01] MEDS: CYANOCOBALAMIN 1,000 MCG TABLET 1000 MCG PO (08:42)
[2019-07-01] MEDS: FERROUS SULFATE 324 MG TABLET PO ×3 (08:42→17:20)
[2019-07-01] MEDS: NIFEdipine 30 MG TAB.ER.24 60 MG PO ×2 (08:43→20:12)
[2019-07-01] MEDS: CHLORTHALIDONE 25 MG TABLET PO (08:43)
[2019-07-01 13:38] VITALS: BP 135/54; PULSE 51; RESP 18; TEMP 36.4; O2SAT 97
--- NOTE | 2019-07-01 15:45 | PM.IMPN ---
Progress Note: A&P Assessment and Plan (1) Cellulitis of foot, right: Code(s): L03.115 - Cellulitis of right lower limb Status: Acute Assessment and Plan: Patient states her foot seems to be improving. Wound gram stain showed no organisms or WBCs seen; culture pending. BC pending. Foot x-ray was performed and was negative for any foreign body Will continue with Ancef. If continued improvement and pending BC, consider discharge in 1-2 days on oral antibiotics Monitor daily (2) Patella fracture: Code(s): S82.009A - Unspecified fracture of unspecified patella, initial encounter for closed fracture Status: Acute Assessment and Plan: Patient has a splint for her right knee and is seeing Dr. Beltrán as an outpatient. Further follow up as outpatient (3) Iron deficiency anemia: Code(s): D50.9 - Iron deficiency anemia, unspecified Status: Acute Assessment and Plan: Chronic and stable today Continue with ferrous sulfate (4) CKD (chronic kidney disease), stage III: Code(s): N18.3 - Chronic kidney disease, stage 3 (moderate) Status: Acute Assessment and Plan: Patient is improved above her baseline. Cr 1.10 Monitor daily (5) Hypothyroidism, unspecified: Code(s): E03.9 - Hypothyroidism, unspecified Status: Chronic Assessment and Plan: TSH 2.780 Continue with levothyroxine (6) Essential (primary) hypertension: Code(s): I10 - Essential (primary) hypertension Status: Acute Assessment and Plan: BP 130s sys this afternoon Continue with nifedipine and chlorthalidone (7) Pure hypercholesterolemia: Code(s): E78.00 - Pure hypercholesterolemia, unspecified Status: Acute Assessment and Plan: Continue with atorvastatin Subjective Date/time seen: 07/01/19 15:45 Interval history: Patient is a 79 yo F with history of CKDIII, DJD (s/p right knee replacement in 03/2019), HTN, and Iron deficiency anemia among other comorbidities who is here for treatment of cellulitis of the right foot after apparently stepping on a splinter. Patient states she feels better today, but still has some pain in her right foot, particularly with ambulation. Otherwise she has no complaints. Denies f/c/s, cp/palpitations, sob/cough, n/v/d/c, abd pain, changes in BMs, melena, BRBPR, dysuria, hematuria, cloudy urine, calf pain/swelling. Review of Systems Review of Systems: All systems reviewed & are unremarkable except as noted in HPI and below Exam Narrative: Exam Narrative: Patient lying in semi-bowman's position in bed Const: General: cooperative, comfortable, no acute distress, well developed, alert and awake Nutritional Appearance: well nourished and obese Orientation/consciousness: patient oriented x3 HENMT: Head: normocephalic and atraumatic General nose exam: Normal nares present Face and sinus: face symmetric Mouth: Yes moist mucous membranes Eyes: General: appearance normal, both eyes and all related structures EOM: EOMs intact bilaterally Neck: Neck: trachea midline and supple Resp: Effort & Inspection: normal respiratory effort Auscultation: clear to auscultation bilaterally Cardio: Rate: regular rate Rhythm: regular rhythm Heart sounds: no murmurs GI: Inspection: non-distended and obesity GI Palp: No abdominal tenderness and Yes Soft to palpation Auscultation: normal bowel sounds and normoactive bowel sounds Skin: General skin exam: normal color and no rashes or lesions noted Neuro: General: patient oriented x3, moves all extremities and no focal motor deficits Speech: normal speech Sensory Exam: normal sensation Extrem: Right lower extremity
[2019-07-01] MEDS: ATORVASTATIN 40 MG TABLET PO (20:12)
[2019-07-01 22:00] VITALS: BP 131/52; PULSE 69; RESP 20; TEMP 36.3; O2SAT 95
[2019-07-02 05:46] VITALS: BP 148/56; PULSE 71; RESP 20; TEMP 36.4; O2SAT 95
[2019-07-02] MEDS: LEVOTHYROXINE SODIUM 25 MCG TABLET PO (06:10)
[2019-07-02 06:21] LABS: Basophils Percent Auto 0.2 % (0.2-1.2); Eosinophils Absolute Auto 0.2 K/mm3 (0-0.3); Hematocrit 34.6 % (37.0-47.0); Hemoglobin 10.8 g/dL (12.0-15.0); Immature Granulocyte Absolute 0.02 K/mm3 (0.00-0.031); Immature Granulocyte Percent A 0.2 % (0-0.5); Lymphocytes Absolute Auto 1.34 K/mm3 (0.9-3.2); Mean Corpuscular HGB Conc 31.2 g/dl (32-36); Mean Platelet Volume 10.1 fl (7.4-10.4); Monocytes Absolute Auto 0.9 K/mm3 (0.1-0.6); Monocytes Percent Auto 8.9 % (2.6-8.5); Neutrophils Absolute Auto 7.2 K/mm3 (1.3-6.7); Neutrophils Percent Auto 74.7 % (45.5-73.1); Platelet Count Result 281 k/mm3 (150-375); Red Blood Count 3.72 M/mm3 (4.2-5.4); White Blood Count 9.6 K/mm3 (4.5-10.0)
[2019-07-02 06:31] LABS: Blood Urea Nitrogen 17 mg/dL (7-17); Calcium 9.2 mg/dL (8.4-10.2); Carbon Dioxide 29 mmol/L (22-30); Chloride 103 mmol/L (98-107); Estimated CRCL calculation 43 ml/min; Estimated Glomerular Filt Rate 48; Glucose 108 mg/dL (65-105); Sodium 138 mmol/L (137-145)
[2019-07-02] MEDS: CHOLECALCIFEROL 1,000 UNIT TABLET 2000 UNITS PO (09:04)
[2019-07-02] MEDS: PANTOPRAZOLE 40 MG TABLET PO (09:04)
[2019-07-02] MEDS: NIFEdipine 30 MG TAB.ER.24 60 MG PO (09:04)
[2019-07-02] MEDS: CYANOCOBALAMIN 1,000 MCG TABLET 1000 MCG PO (09:04)
[2019-07-02] MEDS: FERROUS SULFATE 324 MG TABLET PO ×2 (09:04→11:17)
[2019-07-02] MEDS: CHLORTHALIDONE 25 MG TABLET PO (09:04)
[2019-07-02] MEDS: FAMOTIDINE 20 MG/2 ML VIAL IV PUSH (09:04)
--- NOTE | 2019-07-02 12:59 | PM.DS ---
DS: Diagnosis Admitting Diagnosis Admitting Diagnosis: Cellulitis of right lower limb Discharge Diagnosis (1) Cellulitis of foot, right: Code(s): L03.115 - Cellulitis of right lower limb Status: Acute Assessment and Plan: Patient states her foot seems to be improving. She denies any pain to her foot and she walked up and down the [place] today with physical therapy without any issues. Wound gram stain showed no organisms or WBCs. Blood cultures are negative at this point. Foot x-ray was performed and was negative for any foreign body She was started on IV Ancef on arrival and reports improvement. She is feeling much better today and getting around without any issues. She will be discharged home to continue oral Keflex for total of 10 days. Have her take a probiotic to prevent diarrhea associated with antibiotic use. Have her follow-up with her primary care provider for further evaluation. Patient understands and agrees the plan all questions answered. (2) Patella fracture: Code(s): S82.009A - Unspecified fracture of unspecified patella, initial encounter for closed fracture Status: Acute Assessment and Plan: Patient has a splint for her right knee and is seeing Dr. Beltrán as an outpatient. Further follow up as outpatient (3) Iron deficiency anemia: Code(s): D50.9 - Iron deficiency anemia, unspecified Status: Acute Assessment and Plan: Chronic and stable today Continue with ferrous sulfate (4) CKD (chronic kidney disease), stage III: Code(s): N18.3 - Chronic kidney disease, stage 3 (moderate) Status: Acute Assessment and Plan: Patient is improved above her baseline. Cr 1.10 (5) Hypothyroidism, unspecified: Code(s): E03.9 - Hypothyroidism, unspecified Status: Chronic Assessment and Plan: TSH 2.780 Continue with levothyroxine (6) Essential (primary) hypertension: Code(s): I10 - Essential (primary) hypertension Status: Acute Assessment and Plan: BP 130s sys this afternoon Continue with nifedipine and chlorthalidone (7) Pure hypercholesterolemia: Code(s): E78.00 - Pure hypercholesterolemia, unspecified Status: Acute Assessment and Plan: Continue with atorvastatin DS: Summary Hospital Course Reason for hospitalization: Patient is a 79-year-old woman with a history of right total knee replacement March 2019, recent right patellar fracture, who presented to the emergency department with increased pain, swelling, redness and unable to bear weight on her right foot after she believed she stepped on a splinter and her family tried to remove it. Patient's vital signs have remained stable, initial temp was 99.4?, blood pressure 165/73, heart rate 73, respiratory rate 16, 97% on room air. Initial labs showed slight leukocytosis at 10,600 with a left shift, slight normocytic anemia with a hemoglobin of 11, hematocrit 36%, BMP showed creatinine 1.2, BUN 19 which is her baseline. X-ray right foot shows no acute osseous abnormality or evidence of radiopaque foreign body. Venous Doppler showed patent right lower extremity veins with no evidence of DVT. The emergency department ordered wound cultures of her right foot, blood cultures and admitted her for acute cellulitis and started her on IV Ancef for infection. Over the last few days patient has felt much better, improvement of leukocytosis, able to ambulate without any issues with physical and occupational therapy. Wound gram stain shows no white blood cells or organisms visualized. Blood cultures are negative at this point. Patient is otherwise feeling better and would like to be discharged ho
--- NOTE | 2019-07-05 11:19 | PC.NURSE ---
Wound cx is negative.
--- NOTE | 2019-07-08 07:20 | PC.NURSE ---
Blood and wound cultures are negative.
== END 2019-07-02 14:24 | disposition home or self-care (01) ==
LOC: ANHED 13:15 → ANH2MED 13:36
PROVIDERS: Emergency Medicine Emergency Medical Services; Nurse Practitioner; Physician Assistant; Admitting Provider Hospitalist; Emergency Provider Emergency Medicine; PCP Internal Medicine; Visit Provider Physician Assistant
DX: L03.115 Cellulitis of right lower limb (principal); S82.001A Unspecified fracture of right patella, initial encounter for closed fracture; D50.9 Iron deficiency anemia, unspecified; E03.9 Hypothyroidism, unspecified; I12.9 Hypertensive chronic kidney disease with stage 1 through stage 4 chronic kidney disease, or unspecified chronic kidney disease; N18.3 Chronic kidney disease, stage 3 (moderate); E78.00 Pure hypercholesterolemia, unspecified; M79.89 Other specified soft tissue disorders; Z79.899 Other long term (current) drug therapy; Z96.651 Presence of right artificial knee joint
CPT/HCPCS: 36415; 73630; 80048; 80053; 83735; 84443; 85025; 86140; 87040; 87070; 87205; 93971; 96361; 96365; 96375; 96376; 97110; 97116; 97161; 97165; 97530; 99285; A9270; G0378; J0690; J7040; J7120

== ENCOUNTER 2019-07-09 07:55 | Outpatient (CLI) | payer MEDICARE, MEDICAID, SELFPAY ==
[2019-07-09 08:25] LABS: Blood Urea Nitrogen 26 mg/dL (7-17); Calcium 9.2 mg/dL (8.4-10.2); Carbon Dioxide 31 mmol/L (22-30); Chloride 101 mmol/L (98-107); Estimated Glomerular Filt Rate 43; Glucose 106 mg/dL (65-105); Potassium 4.3 mmol/L (3.4-5.0); Sodium 138 mmol/L (137-145)
== END 2019-07-09 07:56 | disposition home or self-care (01) ==
PROVIDERS: PCP Internal Medicine; Visit Provider Physician Assistant
DX: N18.3 Chronic kidney disease, stage 3 (moderate) (principal); L03.115 Cellulitis of right lower limb
CPT/HCPCS: 36415; 80048

== ENCOUNTER 2019-11-05 07:23 | Outpatient (CLI) | payer MEDICARE, MEDICAID, SELFPAY ==
--- NOTE | ~2019-11-05 | DEXA_ITS ---
Bone Density Report Name: Nadiya Grimes Age: 79 Sex: Female Ethnicity: White Date of : 1940 Indication: postmenopausal; parental hip fracture; prior fracture; Referring Provider: Isadora Park Study: Bone densitometry was performed. Exam Date: November 05, 2019 Accession number: [id number] Bone Density: Region BMD T-score Z-score Classification AP Spine (L1-L4) 0.975 -0.7 1.9 Normal Femoral Neck (Left) 0.640 -1.9 0.3 Osteopenia Total Hip (Left) 0.776 -1.4 0.6 Osteopenia Total Hip Bilateral Avg 0.800 -1.2 0.8 Osteopenia Femoral Neck (Right) 0.619 -2.1 0.2 Osteopenia Total Hip (Right) 0.822 -1.0 1.0 Normal World Health Organization criteria for BMD impression classify patients as: Normal (T-score at or above -1.0), Osteopenia (T-score between -1.0 and -2.5), or Osteoporosis (T-score at or below -2.5). 10-year Fracture Risk(1): Major Osteoporotic Fracture 33% Hip Fracture 19% Reported Risk Factors: [place] (), Neck BMD=0.619, BMI=39.0, previous fracture, parental fracture (1) FRAX(R) Version 3.08. Fracture probability calculated for an untreated patient. Fracture probability may be lower if the patient has received treatment. Previous Exams: Region Exam Age BMD T-score BMD Change BMD Change Date g/cm2 vs Baseline vs Previous AP Spine(L1-L4) 11/05/2019 79 0.975 -0.7 -0.040(-4.0%)# -0.019(-1.9%)# 02/11/2009 68 0.994 -0.5 -0.021(-2.1%) -0.021(-2.1%) 10/24/2006 66 1.016 -0.3 Total Hip(Left) 11/05/2019 79 0.776 -1.4 -0.101(-11.6%) -0.106(-12.0%) 02/11/2009 68 0.882 -0.5 0.004(0.5%) 0.004(0.5%) 10/24/2006 66 0.877 -0.5 Total Hip(Right) 11/05/2019 79 0.822 -1.0 -0.030(-3.5%)# -0.085(-9.4%)# 02/11/2009 68 0.907 -0.3 0.055(6.4%)* 0.055(6.4%)* 10/24/2006 66 0.853 -0.7 *Denotes significance at 95% confidence level, LSC for AP Spine = 0.022 g/cm2, LSC for Total Hip = 0.027 g/cm2 Clinical Information Provided by Patient: Has had a low trauma fracture Parent has had a hip fracture Has used the following medications: Vitamin D Patient maximum height was 63 Menopause Age: 49 No regular weight bearing exercise Onset of menses at age 17 Number of children 0 Impression: The patient has low bone mass, based on the Right Femoral Neck T-score. The patient has an estimated ten-year risk of hip fracture of 19% and an estimated ten-year risk of major fracture of 33%, based on
--- NOTE | ~2019-11-05 | MM_ITS ---
EXAMINATION: MM screening delvis BI w beth HISTORY: Screening TECHNIQUE: Craniocaudal and mediolateral oblique 3-D tomosynthesis images were obtained and synthetic 2-D images were generated. CAD analysis was submitted and interpreted. COMPARISON: Comparison to multiple prior studies sequentially, with oldest reviewed study dated 03/2012. BREAST PARENCHYMAL COMPOSITION: There are scattered areas of fibroglandular density. FINDINGS: There is no evidence of suspicious mass, calcification, or architectural distortion to sugg est malignancy in either breast. There has been no suspicious interval change. IMPRESSION: 1. No mammographic evidence of malignancy. 2. Recommend routine screening mammography in one year. BI-RADS Category 1: Negative Reviewed, dictated and finalized at location A.
== END 2019-11-05 07:24 | disposition home or self-care (01) ==
LOC: ANHIMG 07:29
PROVIDERS: PCP Internal Medicine; Visit Provider Nurse Practitioner
DX: Z12.31 Encounter for screening mammogram for malignant neoplasm of breast (principal); Z78.0 Asymptomatic menopausal state; M85.852 Other specified disorders of bone density and structure, left thigh; M85.851 Other specified disorders of bone density and structure, right thigh
CPT/HCPCS: 77063; 77067; 77080

== ENCOUNTER 2021-03-19 10:11 | Outpatient (CLI) | payer MEDICARE, MEDICAID, SELFPAY ==
--- NOTE | 2021-03-22 12:40 | WPDHOLTEREM ---
Holter/Event Monitor Holter/Event Monitor Date of procedure: 03/19/21 Holter/Event Procedure: 24 Hr Holter Monitor Indications: Cardiac arrhythmias Conclusion: 1. 24 hour holter monitor on 03/19/21. 2. Predominant rhythm is sinus rhythm. HR range 47-104 bpm; average HR 73 bpm. 3. There are 4,671 premature supraventricular complexes, 205 supraventricular couplets, 5,291 supraventricular bigeminy, and 203 supraventricular trigeminy. There are 29 episodes of atrial tachycardia, fastest at 133 bpm and longest lasting 13 beats. 4. There are 10 premature ventricular complexes. No ventricular tachycardia. 5. No sinoatrial or atrioventricular blocks. No significant pauses greater than 2 seconds. 6. Patient reports symptoms of shortness of breath which demonstrate sinus rhythm at 78 bpm.
== END 2021-03-19 10:12 | disposition home or self-care (01) ==
PROVIDERS: PCP Internal Medicine; Visit Provider Nurse Practitioner
DX: I49.9 Cardiac arrhythmia, unspecified (principal)
CPT/HCPCS: 93225; 93226

== ENCOUNTER → 2021-03-25 10:01 | Outpatient (CLI) | payer MEDICARE, MEDICAID, SELFPAY ==
[2021-03-25 14:37] LABS: Influenza A QL RT-PCR Negative (Negative); Influenza B QL RT-PCR Negative (Negative)
[2021-03-25 21:12] LABS: SARS-CoV-2 RNA PCR Negative
== END ==
PROVIDERS: PCP Internal Medicine; Visit Provider Internal Medicine
DX: Z20.822 Contact with and (suspected) exposure to COVID-19 (principal)
CPT/HCPCS: 87502; C9803; U0003; U0005

== ENCOUNTER 2021-09-27 07:14 | Outpatient (CLI) | payer OTHER, SELFPAY ==
--- NOTE | ~2021-09-27 | NM_ITS ---
EXAMINATION: NM sincere stress w perfusion DATE: 09/27/2021 10:21 INDICATION: Chest pain TECHNIQUE: Rest images were obtained following intravenous administration of 10.65 mCi Tc99m tetrofos min (Myoview). The patient was infused intravenously with Lexiscan (Regadenoson). Then, 32.0 mCi Tc99 m tetrofosmin (Myoview) was administered intravenously, and stress images were obtained. Data was rec onstructed into short axis and horizontal and vertical long axis SPECT images. Gated SPECT images wer e also obtained. COMPARISON: None. FINDINGS: There is no definite reversible or fixed perfusion abnormality to suggest ischemia or infar ction. There is normal left ventricular chamber size, wall motion and ejection fraction. Left ventr icular ejection fraction measures 61%. IMPRESSION: 1. Normal myocardial perfusion at rest and during stress. 2. Left ventricular ejection fraction measuring 61%. Reviewed, dictated and finalized at location A.
--- NOTE | 2021-09-27 07:51 | ECHO_ITS ---
Patient Info Name: Nadiya Grimes Age: 81 years : 1940 Gender: Female Ht: 61 in Wt: 230 lbs BSA: 2.18 m2 HR: 75 bpm BP: 162 / 88 mmHg Technical Quality: Fair Exam Date: 09/27/2021 8:33 AM Exam Location: [facility] Patient Status: Outpatient Admit Date: 09/27/2021 Staff Ordering Physician: Didier Jimenez DO Checkman: Ortiz Stevenson RDCS, RT Attending Provider: Didier Jimenez DO Referring Physician: Tony RICARDO; Exam Type: CA echo doppler color flow Study Info Indications R01.1 - Cardiac murmur, unspecified Complete two-dimensional, color flow and Doppler transthoracic echocardiogram is performed. Strain analysis performed. Summary 1. Complete two-dimensional, color flow and Doppler transthoracic echocardiogram is performed. 2. Left ventricular chamber dimension is normal. 3. Left ventricular systolic function is normal, estimated at 55-60%. 4. There is mildly increased left ventricular wall thickness. 5. The left ventricular diastolic function is grade I diastolic dysfunction. 6. E/e' 16 is elevated. 7. Global longitudinal strain is normal at -17.4%. 8. Left atrial chamber dimension is moderately enlarged. 9. Right atrial chamber dimension is mildly enlarged. 10. There is mild aortic valve sclerosis. 11. The mitral valve has moderately calcified annulus. 12. There is mild mitral valve regurgitation. 13. There is mild tricuspid valve regurgitation. 14. No pulmonary hypertension, estimated pulmonary arterial systolic pressure is 39 mmHg. 15. Dilated inferior vena cava with >50% collapse upon inspiration consistent with elevated right atrial pressure, 10 mmHg. Left Ventricle E/e' 16 is elevated. Global longitudinal strain is normal at -17.4%. Left ventricular chamber dimension is normal. Left ventricular systolic function is normal, estimated at 55-60%. There is mildly increased left ventricular wall thickness. The left ventricular diastolic function is grade I diastolic dysfunction. Right Ventricle Right ventricular systolic function is normal and with normal TAPSE 2.4 cm. Right ventricular chamber dimension is normal. Left Atria Left atrial chamber dimension is moderately enlarged. Right Atria Right atrial chamber dimension is mildly enlarged. Aortic Valve The aortic valve is trileaflet. There is mild aortic valve sclerosis. There is no aortic valve stenosis. There is no aortic valve regurgitation. Pulmonic Valve There is no pulmonic regurgitation. Mitral Valve The mitral valve has moderately calcified annulus. There is no mitral valve stenosis. There is mild mitral valve regurgitation. Tricuspid Valve There is mild tricuspid valve regurgitation. No pulmonary hypertension, estimated pulmonary arterial systolic pressure is 39 mmHg. Pericardium/Pleural There is no pericardial effusion. Inferior Vena Cava Dilated inferior vena cava with >50% collapse upon inspiration consistent with elevated right atrial pressure, 10 mmHg. Aorta The aortic root size at the sinus of Valsalva is normal. Left Ventricular Outflow Tract Name Value Normal LVOT 2D LVOT Diameter 2.0 cm LVOT Doppler
--- NOTE | 2021-09-27 07:52 | EST_ITS ---
Patient Info Name: Nadiya Grimes Age: 81 years : 1940 Gender: Female Ht: 61 in Wt: 230 lbs BSA: 2.18 m2 Exam Date: 09/27/2021 9:11 AM Exam Location: [facility] Stress Patient Status: Outpatient Admit Date: 09/27/2021 Staff Ordering Physician: Didier Jimenez DO Attending Provider: Didier Jimenez DO Exercise Technologist: Bev Akhtar RDCS Exam Type: CA stress sincere w NM Study Info Indications R06.00 - Dyspnea, unspecified R07.9 - Chest pain, unspecified A regadenoson stress test was performed. Summary 1. 1. Negative lexiscan stress test for ischemic ST changes by ECG criteria. 2. 2. Baseline hypertension. 3. 3. Nuclear scan to follow and will be reported separately. Please correlate with it. 4. 4. Patient informed of the above results. Protocol: Lexiscan Stress ECG Details Stage: REST Duration (min): 5 min : 38 sec HR (bpm): 81 SBP (mmHg): 165 DBP (mmHg): 72 Stage: REST Duration (min): 14 min : 15 sec HR (bpm): 76 SBP (mmHg): 165 DBP (mmHg): 72 Stage: STAGE 1 Duration (min): 0 min : 59 sec HR (bpm): 90 SBP (mmHg): 162 DBP (mmHg): 68 Stage: RECOVERY Duration (min): 1 min : 0 sec HR (bpm): 84 SBP (mmHg): 155 DBP (mmHg): 68 Stage: RECOVERY Duration (min): 2 min : 0 sec HR (bpm): 81 SBP (mmHg): 155 DBP (mmHg): 68 Stage: RECOVERY Duration (min): 3 min : 0 sec HR (bpm): 83 SBP (mmHg): 153 DBP (mmHg): 69 Stage: RECOVERY Duration (min): 3 min : 2 sec HR (bpm): 82 SBP (mmHg): 153 DBP (mmHg): 69 Rest HR: 76 bpm Peak HR: 90 bpm Rest Sys BP: 165 mmHg Peak Sys BP: 162 mmHg Max Pred HR: 140 bpm % Max Pred HR: 64 % Target HR: 119 bpm Max RPP: 14,580 bpm*mmHg Termination Reason: Completed protocol Cardiac Symptoms: Shortness of breath Total Time: 1 min : 0 sec Rest Haskins BP: 72 mmHg Peak Haskins BP: 68 mmHg Total Dose: 0.4 mg Resting ECG Sinus rhythm, borderline ST-T wave in inf/lat leads. Stress ECG No ST changes. Arrhythmias None. Report Signatures
== END 2021-09-27 07:15 | disposition home or self-care (01) ==
PROVIDERS: PCP Internal Medicine; Visit Provider Internal Medicine Cardiovascular Disease
DX: R06.00 Dyspnea, unspecified (principal); R07.9 Chest pain, unspecified; I34.0 Nonrheumatic mitral (valve) insufficiency; I35.1 Nonrheumatic aortic (valve) insufficiency; I36.1 Nonrheumatic tricuspid (valve) insufficiency
CPT/HCPCS: 78452; 93017; 93306; A9502; J2785

== ENCOUNTER 2021-10-12 13:36 | Outpatient (CLI) | payer OTHER, SELFPAY ==
--- NOTE | 2021-10-18 23:23 | WPDHOMESLEEP ---
Sleep Study - Home Unattended Date of Study: 10/12/21 Ordering Provider: Didier Jimenez DO Interpreting Provider: Danielle Recinos DO Home Sleep Study Type: Apnea Link Air Height: 1.55 m Weight: 106.594 kg Body Mass Index: 44.4 Neck Circumference (inches): 16 [place]: 8 Reason for Sleep Study Nocturia, daytime hypersomnia Sleep History The patient is an 81-year-old female with hypertension, GERD, hypothyroidism, hyperlipidemia and paroxysmal atrial tachycardia that had a sleep study ordered by her manager administrative for evaluation of sleep apnea. The patient rarely awakens from sleep short of breath. She denies awakening at night with heartburn, belching or cough. He denies snoring. She occasionally has trouble sleeping when she has a cold. She denies waking up gasping for air throughout the night. She denies having breathing problems at night observed by herself or others. She denies sweating excessively at night. She denies having heart palpitations or irregular heartbeats during the night. He occasionally falls asleep during the day but never while driving. She denies sleep paralysis and cataplexy. She denies having trouble at school or work due to sleepiness. She occasionally experiences vivid dreamlike scenes upon awakening or falling asleep. She denies having nightmares. She occasionally remembers her dreams. She frequently has thoughts racing through her mind. She rarely feels sad or depressed. She occasionally has anxiety. She denies having muscular tension. She denies noticing parts of her body jerk. She denies kicking during the night. She occasionally has crawling and aching feelings in her legs and occasionally has leg pain during the night. She denies grinding her teeth during sleep and awakening with morning jaw pain. She is occasionally bothered by pain during the day but rarely awakened by pain during the night. She rarely wakes up feeling stiff in the morning. She rarely wakes up with sore achy muscles. She denies waking up with pain in the neck, spine and other joints. She goes to bed between 9-10 p.m. on both weekdays and weekends. She is able to fall asleep shortly. She is unsure how many times she wakes up throughout the night. When she does awaken, she will use the restroom and get a drink. She wakes up at 7:00 a.m. on both weekdays and weekends. She typically gets 8 hours of sleep per night. She will stay in bed for up to an hour after waking up in the morning. She currently lives alone. She does not consume any caffeinated beverages within 2 hours of bedtime. She does not engage in physical exercise before bedtime. She will read and watch television before falling asleep. She will take naps in the afternoon of the evening and they are refreshing. She denies caffeine, alcohol, tobacco and recreational drug use. [facility] Past Medical History Medical History (Updated 10/18/21 @ 23:33 by Danielle Recinos DO) Arthritis CKD (chronic kidney disease), stage III Degenerative joint disease of knee Esophageal ulcer Essential (primary) hypertension Gastric polyp Hiatal hernia Hypothyroidism, unspecified Iron deficiency anemia Postmenopausal Pure hypercholesterolemia Reflux esophagitis Right arm fracture Casted Right knee pain Screening for breast cancer Surgical History Surgical History H/O right wrist surgery Repair of right wrist fracture History of esophagogastroduodenoscopy (EGD) Last one 12/[address] Parker. Prior EGD 2013 and 2014 which showed persistent esophageal ulcers, moderate hiatal hernia and gastric polyps S/P carpal tunnel release Left S/P colonoscopy with polypectomy At [facility] 09/2017 and reports polypectomy S/P right knee arthroscopy 03/26/[address] Beltrán Total knee replacement status Family History Family History Mother CHF (congestive
[2021-10-18 23:29] VITALS: BMI 44.4
--- NOTE | 2021-12-21 13:36 | SLEEP ---
pt unsure if she is wanting to use pap therapy she is waiting until her follow up appt to speak w on 02/14
== END 2021-10-13 11:41 | disposition home or self-care (01) ==
LOC: ANHCSM 13:37
PROVIDERS: PCP Internal Medicine; Visit Provider Internal Medicine Cardiovascular Disease
DX: G47.33 Obstructive sleep apnea (adult) (pediatric) (principal)
CPT/HCPCS: 95806

== ENCOUNTER 2022-11-23 12:59 | Outpatient (CLI) | payer OTHER, SELFPAY ==
[2022-11-23 13:18] LABS: Basophils Percent Auto 0.2 % (0.2-1.2); Eosinophils Absolute Auto 0.3 K/mm3 (0-0.3); Eosinophils Percent Auto 3.6 % (0-4.4); Hematocrit 37.9 % (37.0-47.0); Hemoglobin 11.6 g/dL (12.0-15.0); Immature Granulocyte Absolute 0.02 K/mm3 (0.00-0.031); Immature Granulocyte Percent A 0.2 % (0-0.5); Lymphocytes Absolute Auto 1.55 K/mm3 (0.9-3.2); Lymphocytes Percent Auto 16.3 % (18.3-44.2); Mean Corpuscular HGB Conc 30.6 g/dl (32-36); Mean Corpuscular Hemoglobin 27.4 pg (26-34); Mean Corpuscular Volume 89.4 fl (80-100); Mean Platelet Volume 8.7 fl (7.4-10.4); Monocytes Absolute Auto 0.8 K/mm3 (0.1-0.6); Monocytes Percent Auto 8.2 % (2.6-8.5); Neutrophils Absolute Auto 6.8 K/mm3 (1.3-6.7); Neutrophils Percent Auto 71.5 % (45.5-73.1); Platelet Count Result 335 k/mm3 (150-375); Red Blood Count 4.24 M/mm3 (4.2-5.4); Red Cell Distribution Width 15.5 % (11.5-14.5); White Blood Count 9.5 K/mm3 (4.5-10.0)
[2022-11-23 13:22] LABS: Blood Urea Nitrogen 28 mg/dL (8-26); Carbon Dioxide 28 mmol/L (22-30); Chloride 103 mmol/L (98-109); Estimated Glomerular Filt Rate 33; Glucose 104 mg/dL (70-105); Ionized Calcium (POC) 1.19 mmol/L (1.11-1.31); Potassium 4.3 mmol/L (3.5-4.9); Sodium 140 mmol/L (138-146)
== END 2022-11-23 13:00 | disposition home or self-care (01) ==
LOC: ANHLAB 13:01
PROVIDERS: PCP Family Medicine; Visit Provider Internal Medicine Hematology & Oncology
DX: D64.9 Anemia, unspecified (principal)
CPT/HCPCS: 36415; 80047; 85025

== ENCOUNTER 2023-02-25 11:09 | Emergency (ER) | payer OTHER, SELFPAY ==
[2023-02-25 12:41] VITALS: BP 153/90; PULSE 81; RESP 18; TEMP 36.3; O2SAT 97
--- NOTE | 2023-02-25 12:59 | ED.NAVMDI ---
HPI - Nausea/Vomiting/Diarrhea General Chief complaint: Nausea/Vomiting/Diarrhea Stated complaint: nausea,vomiting Time Seen by Provider: 02/25/23 12:50 Source: patient Mode of arrival: ambulatory Limitations: no limitations History of Present Illness HPI Narrative: Nadiya is an 82-year-old female patient presenting to the clinic today with complaints of nausea, vomiting, upper abdominal discomfort, and chest pain when she vomits. Symptoms have been going on for 3 weeks. Reports that she has seen her primary care provider twice and they have order her Zofran and promethazine. Reports that the Zofran helped but the promethazine done. States that they have not done any blood work or diagnostic test for her. Related Data Home Medications Medication Instructions Recorded Confirmed atorvastatin 40 mg tablet 40 mg PO HS 03/14/19 02/21/23 ferrous sulfate 325 mg (65 mg 325 mg PO TID 03/14/19 02/21/23 iron) tablet,delayed release nifedipine 60 mg tablet,extended 60 mg PO BID 03/14/19 02/21/23 release acetaminophen 500 mg tablet 500 mg PO Q6H PRN Pain 09/13/19 02/21/23 (Tylenol Extra Strength) cyanocobalamin (vitamin B-12) 1,000 mcg PO BID 02/15/22 02/21/23 1,000 mcg capsule Allergies Allergy/AdvReac Type Severity Reaction Status Date / Time No Known Allergies Allergy Verified 02/21/23 14:34 Review of Systems Review of Systems: Pertinent positives per HPI. Patient denies any fever, chills, rash, headache, visual changes, dizziness, cough, runny nose, sore throat, shortness of breath, chest pain, palpitations, constipation, abdominal pain, or any urinary issues. [facility] Past Medical History Medical History Anemia Arthritis CKD (chronic kidney disease), stage III Degenerative joint disease of knee Esophageal ulcer Essential (primary) hypertension Gastric polyp Hiatal hernia Hypothyroidism, unspecified Iron deficiency anemia Postmenopausal Pure hypercholesterolemia Reflux esophagitis Right arm fracture Casted Right knee pain Screening for breast cancer Surgical History Surgical History H/O right wrist surgery Repair of right wrist fracture History of esophagogastroduodenoscopy (EGD) Last one 12/[address] Parker. Prior EGD 2013 and 2014 which showed persistent esophageal ulcers, moderate hiatal hernia and gastric polyps S/P carpal tunnel release Left S/P colonoscopy with polypectomy At [facility] 09/2017 and reports polypectomy S/P right knee arthroscopy 03/26/[address] 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 Her last job she worked for [employer] she was on unemployment for couple years and then just retired. She has never been nor does she have any children. Smoking status: Never smoker Second hand tobacco smoke exposure: No Alcohol intake: never Substance use: never Substance use type: does not use Lack of Transportation: No Lack of Food: Never True Current Housing: I Have Housing Concerned About Future Housing: No Difficulty Paying Gas/Electric Bills: No Difficulty Paying for Meds: No Currently Unemployed: No Education: High School Diploma/GED Difficulty w/ Childcare or Family Care: No Living arrangements: alone Additional living arrangements comments: She lives in [place], [place]. Occupation/Education: retired Additional occupation/education comments: She had multi
--- NOTE | 2023-02-25 13:00 | ECG_ITS ---
Measurements Intervals [place] Rate: 88 P: 61 DC: 190 QRS: -16 QRSD: 105 T: 27 QT: 397 QTc: 483 Interpretive Statements SINUS RHYTHM WITH OCCASIONAL VENTRICULAR PREMATURE COMPLEXES WITH OCCASIONAL SUPRAVENTRICULAR PREMATURE COMPLEXES NONSPECIFIC ST & T-WAVE ABNORMALITY COMPARED TO ECG 03/14/2019 11:17:22 T-WAVE ABNORMALITY NOW PRESENT Electronically Signed On 02-25-2023 19:53:34 CELL CHANGER by Mary Kate Fuentes M.D.
== END 2023-02-25 13:15 | disposition short-term general hospital (02) ==
PROVIDERS: Emergency Provider Nurse Practitioner Family; PCP Family Medicine
DX: R10.13 Epigastric pain (principal); R11.2 Nausea with vomiting, unspecified; I12.9 Hypertensive chronic kidney disease with stage 1 through stage 4 chronic kidney disease, or unspecified chronic kidney disease; N18.30 Chronic kidney disease, stage 3 unspecified; E03.9 Hypothyroidism, unspecified; D50.9 Iron deficiency anemia, unspecified; M19.90 Unspecified osteoarthritis, unspecified site
CPT/HCPCS: 93005; 99213; G0463

== ENCOUNTER 2023-02-25 13:55 | Emergency (ER) | payer OTHER, SELFPAY ==
--- NOTE | ~2023-02-25 | CT_ITS ---
EXAMINATION: CT abdomen pelvis wo con DATE: 02/25/2023 19:36 INDICATION: Abdominal pain TECHNIQUE: Computed tomography (CT) of the abdomen and pelvis was performed with 100 cc Omnipaque 350 intravenous contrast. The dose-length product was 806.13 mGy-cm. Automated exposure control and iter ative reconstruction technique were employed. COMPARISON: None. FINDINGS: Lung bases are unremarkable. Heart size normal. Large hiatal hernia. No significant vascula r abnormality. No lymphadenopathy. Nonobstructive bowel gas pattern. Colonic diverticulosis without e vidence for diverticulitis. Small fat-containing umbilical hernia. No abnormal pelvic masses or fluid collections. The liver, spleen, pancreas, adrenal glands and left kidney are unremarkable. There is a 3 cm right r enal cyst. There is a smaller subcentimeter hypodensity of the right kidney posteriorly, most likely a cyst. Gallbladder is present with possible subtle gallbladder wall calcifications. No evidence for appendicitis. No acute osseous abnormality. Severe lower thoracic and lumbar spondylosis with grade 1 spondylolisthesis at L4-5. IMPRESSION: 1. No acute abdominal abnormality. 2: Large hiatal hernia. Reviewed, dictated and finalized at location A. OUND WORKER
[2023-02-25 13:58] VITALS: BP 150/80; PULSE 82; RESP 18; TEMP 36.7; O2SAT 96
[2023-02-25 17:28] VITALS: BP 148/52; PULSE 69; RESP 16; O2SAT 97
[2023-02-25 17:43] LABS: Basophils Percent Auto 0.2 % (0.2-1.2); Eosinophils Percent Auto 0.2 % (0-4.4); Hematocrit 40.6 % (37.0-47.0); Hemoglobin 12.2 g/dL (12.0-15.0); Immature Granulocyte Absolute 0.02 K/mm3 (0.00-0.031); Immature Granulocyte Percent A 0.2 % (0-0.5); Lymphocytes Percent Auto 13.6 % (18.3-44.2); Mean Corpuscular Hemoglobin 25.6 pg (26-34); Mean Corpuscular Volume 85.3 fl (80-100); Mean Platelet Volume 10.1 fl (7.4-10.4); Monocytes Percent Auto 9.6 % (2.6-8.5); Neutrophils Absolute Auto 7.9 K/mm3 (1.3-6.7); Neutrophils Percent Auto 76.2 % (45.5-73.1); Platelet Count Result 393 k/mm3 (150-375); Red Blood Count 4.76 M/mm3 (4.2-5.4); Red Cell Distribution Width 15.4 % (11.5-14.5); White Blood Count 10.3 K/mm3 (4.5-10.0)
[2023-02-25 17:58] LABS: Alanine Aminotransferase 26 U/L (6-35); Alkaline Phosphatase 126 U/L (38-126); Aspartate Amino Transferase 54 U/L (14-36); Bilirubin,Total 1.1 mg/dL (0.2-1.3); Blood Urea Nitrogen 41 mg/dL (7-17); Calcium 9.3 mg/dL (8.4-10.2); Carbon Dioxide > 40 mmol/L (22-30); Chloride 88 mmol/L (98-107); Estimated CRCL calculation 21 ml/min; Estimated Glomerular Filt Rate 23; Glucose 114 mg/dL (65-110); Lipase 187 U/L (23-300); Potassium 3.3 mmol/L (3.4-5.0); Sodium 138 mmol/L (137-145)
--- NOTE | 2023-02-25 19:11 | ED.ABDPAIN ---
HPI - Abdominal Pain General Chief Complaint: Abdominal Pain Stated Complaint: abd pain Time Seen by Provider: 02/25/23 18:59 History of Present Illness HPI narrative: Patient is an 82-year-old female who presents to the emergency department at this evening complaining of abdominal pain, nausea and vomiting that has been ongoing for the past 3-4 weeks. Patient states that the pain is mild and intermittent, however, it since it has persisted for almost 4 weeks he decided to come to the emergency department for further evaluation. Patient initially went to an urgent care and then was sent to our facility for CT scan. Patient has been following up with her PCP regarding her abdominal pain and vomiting and he recommended that she eat smaller meals and limit her milk intake. Patient states that the pain is in the mid epigastric region. Patient admits that has not been eating or drinking much as she does not have a great appetite. Patient denies any chest pain, shortness of breath, dysuria, hematuria, constipation, diarrhea, melena, hematochezia, fevers or chills. Patient also denies any headaches, dizziness, lightheadedness, blurry visions, focal weakness, numbness and or tingling. There are no other modifying, alleviating, or precipitating factors at this time. Related Data Home Medications Medication Instructions Recorded Confirmed atorvastatin 40 mg tablet 40 mg PO HS 03/14/19 02/21/23 ferrous sulfate 325 mg (65 mg 325 mg PO TID 03/14/19 02/21/23 iron) tablet,delayed release nifedipine 60 mg tablet,extended 60 mg PO BID 03/14/19 02/21/23 release acetaminophen 500 mg tablet 500 mg PO Q6H PRN Pain 09/13/19 02/21/23 (Tylenol Extra Strength) cyanocobalamin (vitamin B-12) 1,000 mcg PO BID 02/15/22 02/21/23 1,000 mcg capsule Allergies Allergy/AdvReac Type Severity Reaction Status Date / Time No Known Allergies Allergy Verified 02/21/23 14:34 Review of Systems Review of Systems: All systems are reviewed and are negative unless stated otherwise in the HPI. [facility] Past Medical History Medical History Anemia Arthritis CKD (chronic kidney disease), stage III Degenerative joint disease of knee Esophageal ulcer Essential (primary) hypertension Gastric polyp Hiatal hernia Hypothyroidism, unspecified Iron deficiency anemia Postmenopausal Pure hypercholesterolemia Reflux esophagitis Right arm fracture Casted Right knee pain Screening for breast cancer Surgical History Surgical History H/O right wrist surgery Repair of right wrist fracture History of esophagogastroduodenoscopy (EGD) Last one 12/[address] Parker. Prior EGD 2013 and 2014 which showed persistent esophageal ulcers, moderate hiatal hernia and gastric polyps S/P carpal tunnel release Left S/P colonoscopy with polypectomy At [facility] 09/2017 and reports polypectomy S/P right knee arthroscopy 03/26/[address] 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 She has never been nor does she have any children. Smoking status: Never smoker Second hand tobacco smoke exposure: No Alcohol intake: never Substance use: never Substance use type: does not use Lack of Transportation: No Lack of Food: Never True Current Housing: I Have Housing
[2023-02-25 19:15] VITALS: BP 137/77; PULSE 78; RESP 14; O2SAT 95
--- NOTE | 2023-02-25 19:21 | ECG_ITS ---
Measurements Intervals [place] Rate: 80 P: 71 RI: 203 QRS: 2 QRSD: 110 T: 124 QT: 427 QTc: 495 Interpretive Statements SINUS RHYTHM WITH OCCASIONAL SUPRAVENTRICULAR PREMATURE COMPLEXES ST DEVIATION AND MODERATE T-WAVE ABNORMALITY, CONSIDER LATERAL ISCHEMIA THOUGH LIKELY NONSPECIFIC COMPARED TO ECG 02/25/2023 13:10:48 NO SIGNIFICANT CHANGES Electronically Signed On 02-25-2023 19:56:47 SIGNAL TIMER by Mary Kate Fuentes M.D.
[2023-02-25 20:14] LABS: Appearance Urine Cloudy (Clear); Bacteria Urine None Seen /hpf; Bilirubin Urine 3+ (Negative); Blood Urine Negative (Negative); Color Urine Dark Yellow (Yellow); Glucose Urine UA Negative (Negative); Ketones Urine 1+ mg/dL (Negative); Leukocyte Esterase Ur 1+ LEU/UL (Negative); Need Manual Microscopic Reviewed; Nitrate Urine Negative (Negative); Non Pathogenic Casts >20; Protein Urine 1+ mg/dL (Negative); Specific Grav Ur 1.028 (1.001-1.035); Squamous Epithelial Cell Urine Few /hpf (Few); WBC Urine 21-50 /hpf
[2023-02-25 20:17] LABS: Add Urine Microscopic? YES
--- NOTE | 2023-02-25 20:26 | PC.NURSE ---
Patient given water per order from doctor
[2023-02-25 20:34] LABS: Influenza A QL RT-PCR Negative (Negative); Influenza B QL RT-PCR Negative (Negative); SARS-CoV-2 RNA PCR Negative (Negative)
[2023-02-25 21:23] LABS: Troponin I 0.054 ng/mL (0.000-0.034)
[2023-02-25] MEDS: SODIUM CHLORIDE 0.9% IV 1,000 ML 999 ML IV CONT (22:24)
[2023-02-25 22:54] VITALS: BP 140/78; PULSE 77; RESP 17; O2SAT 96
[2023-02-25] MEDS: POTASSIUM CHLORIDE 20 MEQ ER TABLET PO (22:54)
== END 2023-02-25 23:06 | disposition left against medical advice (07) ==
PROVIDERS: Emergency Medicine; Emergency Provider Emergency Medicine; PCP Family Medicine
DX: R11.2 Nausea with vomiting, unspecified (principal); R10.13 Epigastric pain; I12.9 Hypertensive chronic kidney disease with stage 1 through stage 4 chronic kidney disease, or unspecified chronic kidney disease; N18.30 Chronic kidney disease, stage 3 unspecified; M19.90 Unspecified osteoarthritis, unspecified site; E03.9 Hypothyroidism, unspecified
CPT/HCPCS: 36415; 74176; 80053; 81001; 83690; 84484; 85025; 87086; 87636; 93005; 96360; 99284; A9270; J7030

== ENCOUNTER 2023-04-18 10:00 | Outpatient (CLI) | payer OTHER, SELFPAY ==
--- NOTE | ~2023-04-18 | XR_ITS ---
EXAMINATION: XR UGI w barium swallow DATE: 04/18/2023 11:52 INDICATION: Nausea and vomiting. TECHNIQUE: The patient drank thick barium, gas-producing crystals, and thin barium. Fluoroscopy of th e esophagus, stomach, and proximal small bowel was performed. Fluoroscopy exposure time was 0.6 minut es. The total number of images was 18. COMPARISON: CT abdomen and pelvis 02/25/2023 FINDINGS: There is no mass or stricture of the esophagus. There is decreased primary and secondary es ophageal peristalsis. Abnormal tertiary waves. There is a large sliding hiatal hernia. There was freq uent spontaneous gastroesophageal reflux. The stomach did not empty during one hour of monitoring. IMPRESSION: 1. Severe esophageal dysmotility. 2. Large sliding hiatal hernia. 3. Frequent spontaneous gastroesophageal reflux. 4. Delayed gastric emptying. No contrast passed beyond the stomach during one hour of monitoring. Thi s finding may be secondary to gastroparesis or gastric outlet obstruction. Reviewed, dictated and finalized at location A. FINISHER IMPRESSION: 1. Severe esophageal dysmotility. 2. Large sliding hiatal hernia. 3. Frequent spontaneous gastroesophageal reflux. 4. Delayed gastric emptying. No contrast passed beyond the stomach during one h our of monitoring. This finding may be secondary to gastroparesis or gastric ou tlet obstruction.
== END 2023-04-18 10:01 | disposition home or self-care (01) ==
LOC: ANHIMG 10:00
PROVIDERS: PCP Family Medicine; Visit Provider Nurse Practitioner
DX: R11.2 Nausea with vomiting, unspecified (principal); K44.9 Diaphragmatic hernia without obstruction or gangrene; K30 Functional dyspepsia
CPT/HCPCS: 74240

== ENCOUNTER 2023-06-28 00:56 | Day surgery (SDC) | payer OTHER, SELFPAY ==
[2023-06-16 10:17] VITALS: BMI 33.7
[2023-06-28 09:58] VITALS: BP 162/84; PULSE 92; RESP 18; TEMP 36.6; O2SAT 96
[2023-06-28] MEDS: LACTATED RINGERS 1,000 ML 150 ML IV CONT (10:01)
--- NOTE | 2023-06-28 10:33 | PM.HPGS ---
History of Present Illness History of Present Illness Consent: Risks, benefits, and alternatives have been discussed and questions answered. Patient agrees to proceed with procedure. Chief complaint: Nausea with vomiting unspecified, GERD with esopha Narrative: Nadiya Grimes is a 83 year old female with post prandial emesis for few months but lately better, on ppi. CT scan showed large hiatal hernia. Review of Systems Review of Systems: All systems reviewed & are unremarkable except as noted in HPI and below PMFSH Past Medical History Medical History (Updated 06/28/23 @ 10:34 by Dane Rangel MD) Abnormal finding on imaging Anemia Arthritis CKD (chronic kidney disease), stage III Degenerative joint disease of knee Esophageal ulcer Essential (primary) hypertension Gastric polyp Hiatal hernia Hypothyroidism, unspecified Iron deficiency anemia Postmenopausal Pure hypercholesterolemia Reflux esophagitis Right arm fracture Casted Right knee pain Screening for breast cancer Surgical History Surgical History H/O right wrist surgery Repair of right wrist fracture History of esophagogastroduodenoscopy (EGD) Last one 12/[address] Parker. Prior EGD 2013 and 2014 which showed persistent esophageal ulcers, moderate hiatal hernia and gastric polyps S/P carpal tunnel release Left S/P colonoscopy with polypectomy At [facility] 09/2017 and reports polypectomy S/P right knee arthroscopy 03/26/[address] 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 Her last job she worked for the [employer] she was on unemployment for couple years and then just retired. She has never been nor does she have any children. Smoking status: Never smoker Second hand tobacco smoke exposure: No Alcohol intake: never Substance use: never Substance use type: does not use Do You Feel Safe in your Home?: Yes Lack of Transportation: No Lack of Food: Never True Current Housing: I Have Housing Concerned About Future Housing: No Difficulty Paying Gas/Electric Bills: No Difficulty Paying for Meds: No Currently Unemployed: No Education: High School Diploma/GED Difficulty w/ Childcare or Family Care: No Living arrangements: alone Additional living arrangements comments: She lives in [place], [place]. Occupation/Education: retired Additional occupation/education comments: She had multiple jobs at a [employer], [employer], [employer] which have all since closed down. Gender identity (if verbalized by the patient): Female Spiritual care concerns: No Agree to blood products: Yes Meds Home Medications and Allergies Home Medications Medication Instructions Recorded Confirmed Type atorvastatin 40 mg tablet 40 mg PO HS 03/14/19 06/21/23 History ferrous sulfate 325 mg (65 mg 325 mg PO TID 03/14/19 06/21/23 History iron) tablet,delayed release nifedipine 60 mg tablet,extended 60 mg PO BID 03/14/19 06/21/23 History release acetaminophen 500 mg tablet 500 mg PO Q6H PRN Pain 09/13/19 06/21/23 History (Tylenol Extra Strength) cholecalciferol (vitamin D3) 250 250 mcg PO DAILY #30 caps 02/01/21 06/21/23 Rx mcg (10,000 unit) capsule carvedilol 6.25 mg tablet 6.25 mg PO Q12H #60 tabs 10/13/21 06/21/23 Rx pantoprazole 40 mg tablet,delayed 40 mg PO DAILY #90 tabs 05/12/22 06/21/23 Rx release levothyroxine 75 mcg tablet 75 mcg PO DAILY #90 tabs
[2023-06-28 10:48] VITALS: BP 84/37; PULSE 68; RESP 22; O2SAT 97
[2023-06-28 10:58] VITALS: BP 116/51; PULSE 64; RESP 26; O2SAT 93
[2023-06-28 11:08] VITALS: BP 162/51; PULSE 68; RESP 22; O2SAT 94
--- NOTE | 2023-06-30 09:35 | WPDANESEPPF ---
Anes - Initial Pre Proc Eval Procedure: Operation Date: 06/28/23 14:00 Proposed Procedures p Esophagogastroduodenoscopy - Dane Rangel MD Date/Time: 06/30/23 09:35 Surgeon: Dane Rangel MD Pre Op Diagnosis: Nausea with vomiting unspecified, GERD with esopha Patient Data Age: 83 Gender: F Height: 1.65 m Weight: 89 kg Last Vital Signs Temp 97.9 F 06/28/23 09:58 Pulse 68 06/28/23 11:08 Resp 22 H 06/28/23 11:08 BP 162/51 H 06/28/23 11:08 Pulse Ox 94 06/28/23 11:08 O2 Del Method Room Air 06/28/23 11:08 Allergies Allergy/AdvReac Type Severity Reaction Status Date / Time No Known Allergies Allergy Verified 06/28/23 09:49 Home Medications Medication Instructions Recorded Confirmed Type atorvastatin 40 mg tablet 40 mg PO HS 03/14/19 06/21/23 History ferrous sulfate 325 mg (65 mg 325 mg PO TID 03/14/19 06/21/23 History iron) tablet,delayed release nifedipine 60 mg tablet,extended 60 mg PO BID 03/14/19 06/21/23 History release acetaminophen 500 mg tablet 500 mg PO Q6H PRN Pain 09/13/19 06/21/23 History (Tylenol Extra Strength) cholecalciferol (vitamin D3) 250 250 mcg PO DAILY #30 caps 02/01/21 06/21/23 Rx mcg (10,000 unit) capsule carvedilol 6.25 mg tablet 6.25 mg PO Q12H #60 tabs 10/13/21 06/21/23 Rx levothyroxine 75 mcg tablet 75 mcg PO DAILY #90 tabs 05/24/22 06/21/23 Rx ramipril 10 mg capsule 10 mg PO BID #180 caps 09/26/22 06/21/23 Rx tramadol 50 mg tablet 50 mg PO Q8H PRN pain #30 tabs 04/03/23 06/21/23 Rx pantoprazole 40 mg tablet,delayed 40 mg PO Q12H #180 tabs 06/28/23 06/28/23 Rx release sucralfate 1 gram tablet (Carafate) 1 g PO Q8H #90 tabs 06/28/23 06/28/23 Rx Patient hx anesthesia problems: none Family hx anesthesia problems: none Results Review: All pre-operative results and documents have been reviewed as part of the pre-operative evaluation. [facility] Past Medical History Medical History (Updated 06/28/23 @ 10:34 by Dane Rangel MD) Abnormal finding on imaging Anemia Arthritis CKD (chronic kidney disease), stage III Degenerative joint disease of knee Esophageal ulcer Essential (primary) hypertension Gastric polyp Hiatal hernia Hypothyroidism, unspecified Iron deficiency anemia Postmenopausal Pure hypercholesterolemia Reflux esophagitis Right arm fracture Casted Right knee pain Screening for breast cancer Surgical History Surgical History H/O right wrist surgery Repair of right wrist fracture History of esophagogastroduodenoscopy (EGD) Last one 12/[address] Parker. Prior EGD 2013 and 2014 which showed persistent esophageal ulcers, moderate hiatal hernia and gastric polyps S/P carpal tunnel release Left S/P colonoscopy with polypectomy At [facility] 09/2017 and reports polypectomy S/P right knee arthroscopy 03/26/[address] 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 Her last job she worked for the [employer] she was on unemployment for couple years and then just retired. She has never been nor does she have any children. Smoking status: Never smoker Second hand tobacco smoke exposure: No Alcohol intake: never Substance use: never Substance use type: does not use Do You Feel Safe in your Home?: Yes Lack of Transportation: No Lack of Food: Never True Current Housing: I Have Housing Concerned About Future Housing: No Difficu
== END 2023-06-28 11:17 | disposition home or self-care (01) ==
PROVIDERS: PCP Nurse Practitioner; Visit Provider Internal Medicine Gastroenterology
PROC: 0DJ08ZZ Inspection of Upper Intestinal Tract, Via Natural or Artificial Opening Endoscopic (ICD-10-PCS; CPT 43235; principal; 2023-06-28 14:00)
DX: K22.70 Barrett's esophagus without dysplasia (principal); K29.50 Unspecified chronic gastritis without bleeding; K21.00 Gastro-esophageal reflux disease with esophagitis, without bleeding; K44.9 Diaphragmatic hernia without obstruction or gangrene; K31.7 Polyp of stomach and duodenum
CPT/HCPCS: 43239; 88305; J2704; J7120

== ENCOUNTER 2024-01-18 13:04 | Outpatient (CLI) | payer OTHER, SELFPAY ==
--- NOTE | ~2024-01-18 | US_ITS ---
EXAMINATION: US venous doppler [facility] DATE: 01/18/2024 14:13 INDICATION: Other specified soft tissue disorders. Left lower limb pain and swelling. TECHNIQUE: Grayscale ultrasound images without and with compression and Doppler ultrasound images of the left lower extremity veins were obtained. COMPARISON: None. FINDINGS: The visualized portions of left common femoral vein, profunda (deep) femoral vein, femoral vein, popl iteal vein, peroneal veins, posterior tibial veins, and greater saphenous vein outflow are patent. IMPRESSION: 1. No deep venous thrombosis. Reviewed, dictated and finalized at location A. [facility]
== END 2024-01-18 13:05 | disposition home or self-care (01) ==
PROVIDERS: PCP Family Medicine; Visit Provider Nurse Practitioner Family
DX: M79.89 Other specified soft tissue disorders (principal); R09.89 Other specified symptoms and signs involving the circulatory and respiratory systems; L53.9 Erythematous condition, unspecified
CPT/HCPCS: 93971

== ENCOUNTER 2024-02-14 11:52 | Outpatient (CLI) | payer OTHER, SELFPAY ==
--- NOTE | ~2024-02-14 | XR_ITS ---
XR tibia fibula RT 2V Ordering provider: Ani Em APRN History: . M79.661 - Pain in right lower leg X MONDAY NKI . Comparison: None. FINDINGS: BONES: No acute fracture . JOINT SPACES: Anterior lateral Dislocated right total knee arthroplasty is noted. SOFT TISSUES: Normal. IMPRESSION: Dislocation seen in the right total knee arthroplasty. Reviewed, dictated and finalized at location A. VIBRATOR OPERATOR
--- NOTE | ~2024-02-14 | XR_ITS ---
XR_[id number]_CR 02/14/2024 12:20 Indication: Right knee pain Procedure: 2 views right knee Comparison: No prior studies for comparison. Findings: There is right knee dislocation with posterior dislocation of the tibia with respect to the femur. There is a left knee arthroplasty. There is fragmentation of the patella, consistent with age -indeterminate fracture. Moderate joint effusion. Osteopenia. Moderate soft tissue swelling surroundi ng the knee. Impression: 1: Right knee dislocation with age-indeterminate patellar fracture. Reviewed, dictated and finalized at location B. RMATION SYSTEMS CONSULTANT Impression: 1: Right knee dislocation with age-indeterminate patellar fracture.
== END 2024-02-14 11:53 | disposition home or self-care (01) ==
PROVIDERS: PCP Nurse Practitioner Family; Visit Provider Nurse Practitioner Family
DX: M25.461 Effusion, right knee (principal); S82.041D Displaced comminuted fracture of right patella, subsequent encounter for closed fracture with routine healing; M97 Periprosthetic fracture around internal prosthetic joint; X58.XXXD Exposure to other specified factors, subsequent encounter
CPT/HCPCS: 73560; 73590

== ENCOUNTER 2024-02-14 12:56 | Inpatient (IN) | payer OTHER, SELFPAY ==
[2024-02-14] VITALS (9 sets, daily range): BP systolic 122–151; BP diastolic 53–92; PULSE 65–77; RESP 15–20; TEMP 36.4–37.3; O2SAT 93–100; BMI 32.2
--- NOTE | ~2024-02-14 | XR_ITS ---
EXAMINATION: XR surgery orthopedic DATE: 02/16/2024 11:32 INDICATION: Closed reduction of a bracelet dislocated right total knee arthroplasty. TECHNIQUE: 2 fluoroscopic images of the right knee were obtained during procedure performed by Dr. Chuck velez. Radiologist was not present for the imaging or procedure. The amount of fluoroscopy time us ed during this procedure was 0.4 minutes. COMPARISON: 02/15/2024 FINDINGS: Successful reduction to essentially anatomic alignment of the. See dislocated right total knee arthro plasty. There is persistent patella baja with unchanged separation of the cranial and caudal portions of a chronic nonunited patellar fracture. No acute fracture. No evident periprosthetic lucency to davis ggest loosening although assessment is significantly more limited than with standard radiographs. IMPRESSION: 1. Successful reduction of the previously dislocated right total knee arthroplasty. 2. Unchanged chronic nonunited patellar fracture with distraction of the cranial and caudal fragments . Reviewed, dictated and finalized at location A. [facility] IMPRESSION: 1. Successful reduction of the previously dislocated right total knee arthropla sty. 2. Unchanged chronic nonunited patellar fracture with distraction of the crania l and caudal fragments .
--- NOTE | ~2024-02-14 | XR_ITS ---
EXAMINATION: XR_[id number]_CR DATE: 02/15/2024 15:36 INDICATION: Unstable total right knee arthroplasty. TECHNIQUE: 2 views of right knee were obtained. COMPARISON: Right knee radiographs 02/14/2024 FINDINGS: There is a total right knee arthroplasty. There is posterior dislocation of the tibial comp onent with respect to the femoral component. There is a nondisplaced periprosthetic fracture of later al aspect of lateral tibial condyle. There is a chronic comminuted fracture of patella with displacem ent and nonunion. IMPRESSION: 1. Dislocated total right knee arthroplasty. 2. Nondisplaced periprosthetic fracture of lateral aspect of lateral tibial condyle. 3. 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 Reviewed, dictated and finalized at location A. MA DIRECTOR IMPRESSION: 1. Dislocated total right knee arthroplasty. 2. Nondisplaced periprosthetic fracture of lateral aspect of lateral tibial con dyle. 3. 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
--- NOTE | ~2024-02-14 | XR_ITS ---
EXAMINATION: XR_KNEE1-2VRT_CR DATE: 02/14/2024 16:14 INDICATION: Right knee dislocation status post reduction. TECHNIQUE: 2 views of right knee were obtained. COMPARISON: Right knee radiographs at 12:15 PM and on 05/28/2020 FINDINGS: There is a total right knee arthroplasty in near-anatomic alignment. There is a nondisplace d periprosthetic fracture of lateral aspect of lateral tibial condyle. There is a chronic displaced c omminuted fracture of patella with nonunion. There is a large knee joint effusion. IMPRESSION: 1. Total right knee arthroplasty in near-anatomic alignment. 2. Nondisplaced periprosthetic fracture of lateral aspect of lateral tibial condyle. 3. 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 4. Large knee joint effusion. Reviewed, dictated and finalized at location A. TIC BUBBLE PACKER IMPRESSION: 1. Total right knee arthroplasty in near-anatomic alignment. 2. Nondisplaced periprosthetic fracture of lateral aspect of lateral tibial con dyle. 3. 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 4. Large knee joint effusion.
[2024-02-14 14:06] LABS: Basophils Percent Auto 0.3 % (0.2-1.2); Eosinophils Absolute Auto 0.1 K/mm3 (0-0.3); Hematocrit 35.9 % (37.0-47.0); Hemoglobin 10.8 g/dL (12.0-15.0); Immature Granulocyte Absolute 0.05 K/mm3 (0.00-0.031); Immature Granulocyte Percent A 0.5 % (0-0.5); Lymphocytes Absolute Auto 1.03 K/mm3 (0.9-3.2); Lymphocytes Percent Auto 9.4 % (18.3-44.2); Mean Corpuscular HGB Conc 30.1 g/dl (32-36); Mean Corpuscular Hemoglobin 26.3 pg (26-34); Mean Corpuscular Volume 87.3 fl (80-100); Mean Platelet Volume 9.2 fl (7.4-10.4); Monocytes Absolute Auto 0.9 K/mm3 (0.1-0.6); Monocytes Percent Auto 7.8 % (2.6-8.5); Neutrophils Absolute Auto 8.9 K/mm3 (1.3-6.7); Platelet Count Result 374 k/mm3 (150-375); Red Blood Count 4.11 M/mm3 (4.2-5.4); Red Cell Distribution Width 15.2 % (11.5-14.5)
[2024-02-14 14:14] LABS: Alanine Aminotransferase 15 U/L (6-35); Albumin Level 3.7 g/dL (3.5-5.1); Alkaline Phosphatase 119 U/L (38-126); Anion Gap 3 mmol/L (4-12); Aspartate Amino Transferase 34 U/L (14-36); Bilirubin,Total 0.6 mg/dL (0.2-1.3); Blood Urea Nitrogen 21 mg/dL (7-17); Calcium 9.4 mg/dL (8.4-10.2); Carbon Dioxide 30 mmol/L (22-30); Chloride 105 mmol/L (98-107); Estimated CRCL calculation 29 ml/min; Estimated Glomerular Filt Rate 39; Glucose 99 mg/dL (65-110); Potassium 4.5 mmol/L (3.4-5.0); Sodium 138 mmol/L (137-145)
[2024-02-14 14:17] LABS: Prothrombin Time 13.9 Seconds (11.1-14.7)
[2024-02-14] MEDS: SODIUM CHLORIDE 0.9% IV 1,000 ML 999 ML IV CONT (15:45)
--- NOTE | 2024-02-14 15:47 | PC.NURSE ---
Dr. Hutton at bedside along with EDP Dr. Monroy & Tammi Maya PA-C. Providers aware of pt high stop bang score during time out. Pt received 80mg of IVP propofol from Dr. Monroy @ [facility] running. Dr. Hutton reduced pt R knee. Knee immobilizer applied by EDP. Post-reduction xray obtained. Pt tolerated procedure well.
[2024-02-14] MEDS: PROPOFOL IV EMULSION 200 MG/20 ML VIAL 100 MG IV PUSH (15:52)
--- NOTE | 2024-02-14 16:17 | P.CONOP_ITS ---
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 Complicated by chronic patella fracture. No trauma or inciting event. Dislocation likely due to chronic attrition and imbalance caused by the chronic extensor mechanism disruption. Closed reduction performed in the ED. The knee is highly unstable and subluxes with minimal flexion. She is in a knee immobilizer. Return to the clinic in a day or two for a hinged knee brace. She will need a tertiary care referral as an outpatient. History of Present Illness HPI Consult date: 02/14/24 Requesting physician: Alfredo Monroy MD Consult reason: joint pain Chief complaint: right leg injury Narrative: Asked to see patient in the ED with dislocation of right total knee. Patient unable to walk for several days. States that previously she was ambulatory; despite history of displaced transverse patella fracture s/p total knee arthroplasty several years ago. She was advised to have a revision at [place], but was first managing chronic lymphedema and obesity. No numbness, tingling, or other associated symptoms. Review of Systems 2 Review of Systems: All systems reviewed & are unremarkable except as noted in HPI and below PMFSH Past Medical History Medical History (Reviewed 12/08/23 @ 13:47 by Janiya Barry, [facility]) Abnormal heart rhythm Anemia in chronic kidney disease Arthritis Barretts esophagus Cellulitis of foot, right Chest pain Chronic kidney disease, stage 3a Chronic kidney disease, stage 3b CKD (chronic kidney disease), stage III Discharge planning issues RED (dyspnea on exertion) Esophageal ulcer Essential (primary) hypertension Foot callus Gastric polyp Hiatal hernia Hypersomnia Hypothyroidism, unspecified Impacted cerumen of both ears Impaired glucose tolerance Iron deficiency anemia Long toenail Nausea and vomiting in adult Pain of left heel Paresthesias in right hand Patella fracture Primary osteoarthritis of both knees Pure hypercholesterolemia Restless legs syndrome Right arm fracture Casted Vitiligo Surgical History Surgical History (Reviewed 12/08/23 @ 13:47 by Janiya Barry [facility]) H/O right wrist surgery Repair of right wrist fracture History of esophagogastroduodenoscopy (EGD) Last one 12/[address] Parker. Prior EGD 2013 and 2014 which showed persistent esophageal ulcers, moderate hiatal hernia and gastric polyps S/P carpal tunnel release Left S/P colonoscopy with polypectomy At [facility] 09/2017 and reports polypectomy Family History Family History (Reviewed 12/08/23 @ 13:47 by Janiya Barry [facility]) Mother CHF (congestive heart failure) Cerebrovascular accident Family history of arthritis Hypertension Father Leukemia Sibling Family history of malignant neoplasm Sibling Dementia Diabetes mellitus Sibling Dementia Diabetes mellitus Social History Social History (Reviewed 12/08/23 @ 13:47 by Janiya Barry [facility]) Social History: 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 Her last job she worked for the [email or web address] she was on unemployment for couple years and then just retired. She has never been nor does she have any children. Smoking status: Never smoker Second hand tobacco smoke exposure: No Alcohol intake: never Substance use: never Substance use type: does not use Do You Feel Safe in your Home?: Yes Lack of Transportation: No Lack of Food: Never True Current Housing: I Have Housing Concerned About Future Housing: No Difficulty Paying Gas/Electric Bills: No Difficulty Paying for Meds: No Currently Unemployed: No Education: High School Diploma/GED Difficulty w/ Childcare or Family Care: No Living arrangements: alone Additional living arrangements comments: She lives in [place], [place]. Occupation/Education: retired Additional occupation/education comments: She had multiple jobs at a [email or web address], [employer], [employer] which have all since closed down. Gender identity (if verbalized by the patient): Female Spiritual care concerns: No Agree to blood products: Yes Meds Home Medications and Allergies Home Medications ?Medication ?Instructions ?Recorded ?Confirmed ?Type atorvastatin 40 mg tablet 40 mg PO HS 03/14/19 02/14/24 History ferrous sulfate 325 mg (65 mg 325 mg PO TID 03/14/19 02/14/24 History iron) tablet,delayed release nifedipine 60 mg tablet,extended 60 mg PO BID 03/14/19 02/14/24 History release acetaminophen 500 mg tablet 500 mg PO Q6H PRN Pain 09/13/19 02/14/24 History (Tylenol Extra Strength) cholecalciferol (vitamin D3) 250 250 mcg PO DAILY #30 caps 02/01/21 02/14/24 Rx mcg (10,000 unit) capsule ramipril 10 mg capsule 10 mg PO BID #180 caps 09/26/22 02/14/24 Rx pantoprazole 40 mg tablet,delayed 40 mg PO Q12H #180 tabs 06/28/23 02/14/24 Rx release levothyroxine 75 mcg tablet 75 mcg PO DAILY #90 tabs 10/25/23 02/14/24 Rx tramadol 50 mg tablet 50 mg PO Q8H PRN pain #30 tabs 11/13/23 02/14/24 Rx chlorthalidone 25 mg tablet 25 mg PO DAILY 12/08/23 02/14/24 History mecobalamin (vitamin B12) 1,000 1,000 mcg PO DAILY 12/08/23 02/14/24 History mcg chewable tablet Allergies Allergy/AdvReac Type Severity Reaction Status Date / Time No Known Allergies Allergy Verified 02/14/24 10:59 Vital Signs Vital Signs - 24 hr 02/14/24 13:35 02/14/24 15:28 02/14/24 15:50 Temperature 36.8 C 36.8 C Pulse Rate 66 69 Pulse Rate [Monitor] 71 Respiratory Rate 20 15 17 Blood Pressure 146/56 H 141/85 H Blood Pressure [Left Arm] Pulse Oximetry 99 96 97 Oxygen Delivery Room Air Oxygen Flow Rate 02/14/24 15:52 02/14/24 15:52 02/14/24 16:07 Temperature 36.8 C 36.7 C 36.4 C Pulse Rate Pulse Rate [Monitor] 67 65 74 Respiratory Rate 18 20 15 Blood Pressure Blood Pressure [Left Arm] 138/78 126/75 122/92 H Pulse Oximetry 97 97 99 Oxygen Delivery Room Air Nasal Cannula Room Air Oxygen Flow Rate 2 Exam 2 Narrative: Obese. No distress. Non weight bearing. Apparent subtle deformity is obscured by adipose tissue. Venous stasis changes and flaking skin on the feet. No erythema. Tenderness diffusely. Patella fragments are palpable. The tibia is posteriorly subluxed. Pedal pulse palpable and symmetric. Light touch sensation intact. Results Labs 02/14/24 13:50 02/14/24 13:50 Labs: Abnormal lab results 02/14/24 Range/Units 13:50 WBC 11.0 H (4.5-10.0) K/mm3 RBC 4.11 L (4.2-5.4) M/mm3 Hgb 10.8 L (12.0-15.0) g/dL Hct 35.9 L (37.0-47.0) % MCHC 30.1 L (32-36) g/dl RDW 15.2 H (11.5-14.5) % Neut % (Auto) 81.0 H (45.5-73.1) % Lymph % (Auto) 9.4 L (18.3-44.2) % [place] # (Auto) 0.9 H (0.1-0.6) K/mm3 Abs Immat Gran (auto) 0.05 H (0.00-0.031) K/mm3 Absolute Neuts (auto) 8.9 H (1.3-6.7) K/mm3 Anion Gap 3 L (4-12) mmol/L BUN 21 H (7-17) mg/dL Creatinine 1.30 H (0.7-1.0) mg/dL Estimated GFR 39 L (59 - ) H & H 02/14/24 Range/Units 13:50 Hgb 10.8 L (12.0-15.0) g/dL Hct 35.9 L (37.0-47.0) % Coagulation 02/14/24 Range/Units 13:50 INR 1.0 All other labs normal. Diagnostic results Knee x-ray: image reviewed (Posterior tibia dislocation of a cruciate retaining total knee without loosening. Chronic displaced patella fracture.)
--- NOTE | 2024-02-14 16:37 | P.OP_ITS ---
Procedure Note - Detailed Date of Procedure 02/14/24 Pre-op Diagnosis Right knee dislocation, status post total knee arthroplasty Post-op Diagnosis Same Procedure Performed Closed reduction right knee, status post total knee arthroplasty. Surgeon Miguel Angel Hutton MD Anesthesia General (Propofol monitored in the ED) Indications Acute dislocation of the right total knee arthroplasty previously performed by Dr. Beltrán. Findings Highly unstable knee. Complicated by chronic displaced patella fracture that occurred early in the postoperative period. Hamstring co contraction cause significant residual instability with flexion beyond 25?. Once the knee was s traight the knee felt stable. Description of Procedure Propofol anesthetic was given by the ED staff. The right knee was flexed. Using traction upward on the thigh an anterior drawer was performed to the tibia. The knee was slowly straight and to allow for engagement of the tibia on femur. A persistent anterior force was required to counteract the pull of the hamstrings during the maneuver. Once the knee was fully straightened the joint felt stable and out to length. Examination was made difficult by the significant adipose tissue. The distal patellar fragment was palpable but did not tent the skin. A knee immobilizer was placed. Care was taken to protect the Achilles tendon. Post reduction x-rays confirmed reduction. Complications No immediate complications Condition Stable Disposition Same day [facility] Billing Surgery - Charge Forward: Surgery Billing (closed reduction of knee dislocation, modifier for initial care only (depending on global duration) due to plan for referral.)
--- NOTE | 2024-02-14 16:41 | ED_ITS ---
HPI - Extremity Problem General Chief complaint: Extremity Problem,Nontraumatic Stated complaint: right leg injury Time Seen by Provider: 02/14/24 13:09 Source: patient Mode of arrival: wheelchair Limitations: no limitations History of Present Illness HPI Narrative: 83-year-old with a history of hypertension, hyperlipidemia status post right knee replacement Few years ago here with a complaint of having difficulty walking for past 3 days. She denies a fall. She states that she works with walker shoe Complaint: joint paint (right) Onset (ago): day(s) (3) Pain Consistency: constant Associated symptoms: denies other symptoms Related Data Home Medications ?Medication ?Instructions ?Recorded ?Confirmed ?Last Taken ?Type atorvastatin 40 mg tablet 40 mg PO HS 03/14/19 02/14/24 06/27/23 History ferrous sulfate 325 mg (65 mg 325 mg PO TID 03/14/19 02/14/24 06/27/23 History iron) tablet,delayed release nifedipine 60 mg tablet,extended 60 mg PO BID 03/14/19 02/14/24 06/27/23 History release acetaminophen 500 mg tablet 500 mg PO Q6H PRN Pain 09/13/19 02/14/24 06/27/23 History (Tylenol Extra Strength) chlorthalidone 25 mg tablet 25 mg PO DAILY 12/08/23 02/14/24 Unknown History mecobalamin (vitamin B12) 1,000 1,000 mcg PO DAILY 12/08/23 02/14/24 Unknown History mcg chewable tablet Allergies Allergy/AdvReac Type Severity Reaction Status Date / Time No Known Allergies Allergy Verified 02/14/24 10:59 Review of Systems 2 Review of Systems: All systems reviewed & are unremarkable except as noted in HPI and below Constitutional: Constitutional: Reports no additional constitutional complaints Eyes: Eyes: Reports no additional eye complaints ENT: Reports system reviewed and no additional complaints, except as documented Cardiovascular: Cardiovascular: Reports no additional cardiovascular complaints Respiratory: Respiratory: Reports no additional respiratory complaints Gastrointestinal: Gastrointestinal: Reports no additional gastrointestinal complaints Musculoskeletal: Musculoskeletal: Reports as per HPI Neurologic: Reports system reviewed and no additional complaints, except as documented Psychiatric: Psychiatric: Reports no additional psychiatric complaints PMFSH Past Medical History Medical History Barretts esophagus Nausea and vomiting in adult Chronic kidney disease, stage 3b Paresthesias in right hand Long toenail Pain of left heel Foot callus Chronic kidney disease, stage 3a Restless legs syndrome Impaired glucose tolerance RED (dyspnea on exertion) Chest pain Hypersomnia Abnormal heart rhythm Impacted cerumen of both ears Right arm fracture Casted Cellulitis of foot, right Patella fracture Discharge planning issues Iron deficiency anemia Arthritis Gastric polyp Hiatal hernia Esophageal ulcer Anemia in chronic kidney disease CKD (chronic kidney disease), stage III Essential (primary) hypertension Hypothyroidism, unspecified Primary osteoarthritis of both knees Pure hypercholesterolemia Vitiligo Surgical History Surgical History H/O right wrist surgery Repair of right wrist fracture S/P carpal tunnel release Left History of esophagogastroduodenoscopy (EGD) Last one 12/[address] Parker. 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 Her last job she worked for the [employer] she was on unemployment for couple years and then just retired. She has never been nor does she have any children. Smoking status: Never smoker Second hand tobacco smoke exposure: No Alcohol intake: never Substance use: never Substance use type: does not use Do You Feel Safe in your Home?: Yes Lack of Transportation: No Lack of Food: Never True Current Housing: I Have Housing Concerned About Future Housing: No Difficulty Paying Gas/Electric Bills: No Difficulty Paying for Meds: No Currently Unemployed: No Education: High School Diploma/GED Difficulty w/ Childcare or Family Care: No Living arrangements: alone Additional living arrangements comments: She lives in [place], [place]. Occupation/Education: retired Additional occupation/education comments: She had multiple jobs at a [employer], [employer], [employer] which have all since closed down. Gender identity (if verbalized by the patient): Female Spiritual care concerns: No Agree to blood products: Yes Exam 2 Narrative: GENERAL: Well-appearing, well-nourished, and in no acute distress. HEAD: Normocephalic, atraumatic. EYES: PERRLA and EOMI. ENT: Nares clear, no rhinorrhea or epistaxis. Mucous membranes moist. NECK: Supple. CHEST: Clear to auscultation. No respiratory distress. HEART: Regular rate and rhythm. No murmur heard. Normal peripheral pulses. ABDOMEN: Soft, nontender, nondistended, normal active bowel sounds. EXTREMITIES: Normal range of motion. No edema. limited ROM of the right knee SKIN: Warm, dry, no rash. NEURO: No focal deficits. Alert and oriented x3. PSYCH: Normal mood and affect. Course Course Emergency Course: Notified patient about an x-ray findings. I discussed with , was here to see the pt and reduced the knee and was placed in a knee immobilizer. will follow up in the office tomorrow . pt is feeling better does feel comfortable going home. Vital Signs Vital signs: Vital Signs Temperature 36.8 C 02/14/24 13:35 Pulse Rate 66 02/14/24 13:35 Respiratory Rate 20 02/14/24 13:35 Blood Pressure 146/56 H 02/14/24 13:35 Pulse Oximetry 99 02/14/24 13:35 Temperature 36.4 C L 02/14/24 16:22 Pulse Rate 77 02/14/24 16:22 Respiratory Rate 15 02/14/24 16:22 Blood Pressure 146/65 H 02/14/24 16:22 Pulse Oximetry 98 02/14/24 16:22 Oxygen Delivery Room Air 02/14/24 16:22 Oxygen Flow Rate 2 02/14/24 15:52 Procedures Procedural Sedation Procedural Sedation #1: Procedural Sedation Date: 02/14/24 Presedation Evaluation: patient is awake and alert answered all the questions is not and history is mom agreed for sedation Procedure: joint Provider Performed: sedation only Informed Consent Obtained: yes Equipment in Room: bag and mask, capnography, monitoring coordinator, crash cart, oxygen, pulse oximeter and suction Plan for Sedation: moderate sedation ASA Class: II Mallampati Classification: class I NPO Status: last solid food (hours ago) (last night) Explanation to Patient/Family: Risk/Benefits/Alternatives Pt. Educated on Procedural Sedation: Yes Re-evaluated immediately prior: Yes Preparation: monitoring coordinator applied and pulse oximeter IV Propofol dose (mg): 80 Patient Tolerated Procedure: well Complications: none Total Sedation Time (min): 15 MDM - Extremity (Nontraumatic) Lab Data 02/14/24 13:50 02/14/24 13:50 Labs: Lab Results 02/14/24 Range/Units 13:50 WBC 11.0 H (4.5-10.0) K/mm3 RBC 4.11 L (4.2-5.4) M/mm3 Hgb 10.8 L (12.0-15.0) g/dL Hct 35.9 L (37.0-47.0) % MCV 87.3 (80-100) fl MCH 26.3 (26-34) pg MCHC 30.1 L (32-36) g/dl RDW 15.2 H (11.5-14.5) % Plt Count 374 (150-375) k/mm3 MPV 9.2 (7.4-10.4) fl Immature Gran % (Auto) 0.5 (0-0.5) % Neut % (Auto) 81.0 H (45.5-73.1) % Lymph % (Auto) 9.4 L (18.3-44.2) % Potter % (Auto) 7.8 (2.6-8.5) % Eos % (Auto) 1.0 (0-4.4) % Baso % (Auto) 0.3 (0.2-1.2) % Lymph # (Auto) 1.03 (0.9-3.2) K/mm3 Potter # (Auto) 0.9 H (0.1-0.6) K/mm3 Eos # (Auto) 0.1 (0-0.3) K/mm3 Baso # (Auto) 0.0 (0.0-0.1) K/mm3 Abs Immat Gran (auto) 0.05 H (0.00-0.031) K/mm3 Absolute Neuts (auto) 8.9 H (1.3-6.7) K/mm3 Absolute Nucleated RBC 0.000 (0.0-0.012) K/mm3 Nucleated RBC % 0.0 (0.0-0.2) % PT 13.9 (11.1-14.7) Seconds INR 1.0 Sodium 138 (137-145) mmol/L Potassium 4.5 (3.4-5.0) mmol/L Chloride 105 (98-107) mmol/L Carbon Dioxide 30 (22-30) mmol/L Anion Gap 3 L (4-12) mmol/L BUN 21 H (7-17) mg/dL Creatinine 1.30 H (0.7-1.0) mg/dL Estim Creat Clear Calc 29 ml/min Estimated GFR 39 L (59 - ) Glucose 99 (65-110) mg/dL Calcium 9.4 (8.4-10.2) mg/dL Total Bilirubin 0.6 (0.2-1.3) mg/dL AST 34 (14-36) U/L ALT 15 (6-35) U/L Alkaline Phosphatase 119 (38-126) U/L Total Protein 7.0 (6.3-8.2) g/dL Albumin 3.7 (3.5-5.1) g/dL Discharge Plan Discharge Clinical Impression: Dislocated knee Qualifiers: Encounter type: initial encounter Laterality: right Qualified Code(s): S83.104A - Unspecified dislocation of right knee, initial encounter Patient Disposition: Home, Self-Care Condition: Stable Instructions: Moderate Sedation (ED), Knee Dislocation (ED), Knee Immobilizer (ED) Additional Instructions: continue home medication, DO NOT REMOVE YOUR KNEE IMMOBILIZER TILL YOU SEE DR. AKINS Patient Language: Khmer Prescriptions: No Action ferrous sulfate 325 mg (65 mg iron) tablet,delayed release (DR/EC) 325 mg PO TID atorvastatin 40 mg tablet 40 mg PO HS cholecalciferol (vitamin D3) 250 mcg (10,000 unit) capsule 250 mcg PO DAILY Qty: 30 8RF chlorthalidone 25 mg tablet 25 mg PO DAILY mecobalamin (vitamin B12) 1,000 mcg tablet,chewable 1,000 mcg PO DAILY acetaminophen [Tylenol Extra Strength] 500 mg tablet 500 mg PO Q6H PRN (Reason: Pain) ramipril 10 mg capsule 10 mg PO BID Qty: 180 3RF Rx Instructions: patient will finish her supply on hand then get the new script when running low nifedipine 60 mg tablet extended release 60 mg PO BID pantoprazole 40 mg tablet,delayed release (DR/EC) 40 mg PO Q12H Qty: 180 3RF levothyroxine 75 mcg tablet 75 mcg PO DAILY Qty: 90 1RF tramadol 50 mg tablet 50 mg PO Q8H PRN (Reason: pain) Qty: 30 0RF Follow-up/Referrals: LUCRECIA [Other] - 02/15/24 Time of Disposition: 16:56
--- NOTE | 2024-02-14 17:44 | P.HP_ITS ---
H&P: HPI History of Present Illness Date/Time: 02/14/24 17:44 Chief Complaint: Abnormal Imaging, Knee Pain Narrative: 83 y/o F presents here with knee pain and abnormal imaging with PMH of Willett's esophagus, CKD stage III, RLS, iron deficiency anemia, arthritis, esophageal ulcer, anemia in CKD, hypertension, hypothyroidism, vitiligo, sleep apnea (intolerant of CPAP) and HLD. The patient presents here from the [facility] for further evaluation of knee pain and abnormal imaging. She reports that she was unable to walk since 02/08, has been progressively worsening, and pain in her right knee. No precipitating trauma or injury to her right knee. At baseline she is ambulatory with walker. She has a history of a displaced transverse patellar fracture and a total knee arthroplasty, right knee done in 2019. Plan eventually for a left TKA. She initially sought care with her PCP today who ordered a knee XR and a tib/fib XR which showed a right knee dislocation with an age indeterm inate patellar fracture. She was then directed to the emergency department from the radiology department. Orthopedist (Anni MEEK) saw the patient in the ED and was able to complete a closed reduction there. A knee immobilizer was place and plan was made for follow-up in their clinic and 1-2 days for a hinged knee brace. However, the patient is not currently able to ambulate despite knee im mobilizer and currently lives at home alone, does have help from her sister once a day. Now requiring admission for rehab/placement. Initial VS at presentation: 98.3? F, HR 66, RR 20, 146/56, and 99% on RA. ED workup showed: WBC 11.0, hemoglobin 10.8 (near baseline), INR 1.0, creatinine 1.3 and GFR 39 (previously 1.4 and GFR 36 on 01/02/2024). Knee/tibia/fibula XR showed a right knee dislocation with age indeterminate patellar fracture. Review of Systems Review of Systems: All systems reviewed & are unremarkable except as noted in HPI and below [facility] Past Medical History Medical History (Updated 02/14/24 @ 17:56 by Madelaine Dennis, BRITTANY) FLEX (obstructive sleep apnea) Barretts esophagus Nausea and vomiting in adult Chronic kidney disease, stage 3b Paresthesias in right hand Long toenail Pain of left heel Foot callus Chronic kidney disease, stage 3a Restless legs syndrome Impaired glucose tolerance RED (dyspnea on exertion) Chest pain Hypersomnia Abnormal heart rhythm Impacted cerumen of both ears Right arm fracture Casted Cellulitis of foot, right Patella fracture Discharge planning issues Iron deficiency anemia Arthritis Gastric polyp Hiatal hernia Esophageal ulcer Anemia in chronic kidney disease CKD (chronic kidney disease), stage III Essential (primary) hypertension Hypothyroidism, unspecified Primary osteoarthritis of both knees Pure hypercholesterolemia Vitiligo Surgical History Surgical History H/O right wrist surgery Repair of right wrist fracture S/P carpal tunnel release Left History of esophagogastroduodenoscopy (EGD) Last one 12/[address] Parker. 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 Her last job she worked for the [employer] she was on unemployment for couple years and then just retired. She has never been nor does she have any children. Smoking status: Never smoker Second hand tobacco smoke exposure: No Alcohol intake: never Substance use: never Substance use type: does not use Do You Feel Safe in your Home?: Yes Lack of Transportation: No Lack of Food: Never True Current Housing: I Have Housing Concerned About Future Housing: No Difficulty Paying Gas/Electric Bills: No Difficulty Paying for Meds: No Currently Unemployed: No Education: High School Diploma/GED Difficulty w/ Childcare or Family Care: No Living arrangements: alone Additional living arrangements comments: She lives in [place], [place]. Occupation/Education: retired Additional occupation/education comments: She had multiple jobs at a [employer], [employer], [employer] which have all since closed down. Gender identity (if verbalized by the patient): Female Spiritual care concerns: No Agree to blood products: Yes Meds Home Medications and Allergies Home Medications ?Medication ?Instructions ?Recorded ?Confirmed ?Type atorvastatin 40 mg tablet 40 mg PO HS 03/14/19 02/14/24 History ferrous sulfate 325 mg (65 mg 325 mg PO TID 03/14/19 02/14/24 History iron) tablet,delayed release nifedipine 60 mg tablet,extended 60 mg PO BID 03/14/19 02/14/24 History release acetaminophen 500 mg tablet 500 mg PO Q6H PRN Pain 09/13/19 02/14/24 History (Tylenol Extra Strength) cholecalciferol (vitamin D3) 250 250 mcg PO DAILY #30 caps 02/01/21 02/14/24 Rx mcg (10,000 unit) capsule ramipril 10 mg capsule 10 mg PO BID #180 caps 09/26/22 02/14/24 Rx pantoprazole 40 mg tablet,delayed 40 mg PO Q12H #180 tabs 06/28/23 02/14/24 Rx release levothyroxine 75 mcg tablet 75 mcg PO DAILY #90 tabs 10/25/23 02/14/24 Rx tramadol 50 mg tablet 50 mg PO Q8H PRN pain #30 tabs 11/13/23 02/14/24 Rx chlorthalidone 25 mg tablet 25 mg PO DAILY 12/08/23 02/14/24 History mecobalamin (vitamin B12) 1,000 1,000 mcg PO DAILY 12/08/23 02/14/24 History mcg chewable tablet Allergies Allergy/AdvReac Type Severity Reaction Status Date / Time No Known Allergies Allergy Verified 02/14/24 20:13 Vital Signs Vital Signs - 24 hr 02/14/24 13:35 02/14/24 15:28 02/14/24 15:50 Temperature 98.3 F 98.3 F Pulse Rate 66 69 Pulse Rate [Monitor] 71 Respiratory Rate 20 15 17 Blood Pressure 146/56 H 141/85 H Blood Pressure [Left Arm] Pulse Oximetry 99 96 97 Oxygen Delivery Room Air Oxygen Flow Rate 02/14/24 15:52 02/14/24 15:52 02/14/24 16:07 Temperature 98.3 F 98.1 F 97.6 F Pulse Rate Pulse Rate [Monitor] 67 65 74 Respiratory Rate 18 20 15 Blood Pressure Blood Pressure [Left Arm] 138/78 126/75 122/92 H Pulse Oximetry 97 97 99 Oxygen Delivery Room Air Nasal Cannula Room Air Oxygen Flow Rate 2 02/14/24 16:22 02/14/24 16:56 Temperature 97.5 F L Pulse Rate 68 Pulse Rate [Monitor] 77 Respiratory Rate 15 17 Blood Pressure 151/67 H Blood Pressure [Left Arm] 146/65 H Pulse Oximetry 98 100 Oxygen Delivery Room Air Oxygen Flow Rate Exam Const: General: comfortable and no acute distress Other: , female, obese body habitus, nontoxic appearance HENMT: Face/Nose/Sinus: Normal nares present Mouth: Yes moist mucous membranes Eyes: General: appearance normal, both eyes and all related structures Sclera: sclerae normal Pupils: Equal, round and reactive pupils present EOM: EOMs intact bilaterally Resp: Effort & Inspection: normal respiratory effort Auscultation: clear to auscultation bilaterally Cardio: Rate: regular rate Rhythm: regular rhythm Other: S1-S2 present without murmur, rub, ectopy GI: Other: Abdomen rounded, soft, nontender. Normoactive bowel sounds in all quadrants. Skin: General skin exam: normal color and no rashes or lesions noted Wounds: no wounds Neuro: Speech: normal speech Sensory Exam: normal sensation Other: +generalized weakness, A&O x4. Extrem: Other: Lymphedema to left lower extremity with SANDRO/lena wrap in place. Knee immobilizer to RLE. Moderate swelling to knee with mild tenderness. DP pulses 2+ bilaterally. Psych: Mental Status: mental status grossly normal Affect: normal affect Other: Good insight and judgment, pleasant H&P: Results Labs Labs: Short CBC 02/14/24 Range/Units 13:50 WBC 11.0 H (4.5-10.0) K/mm3 Hgb 10.8 L (12.0-15.0) g/dL Hct 35.9 L (37.0-47.0) % Plt Count 374 (150-375) k/mm3 BMP 02/14/24 13:50 Sodium 138 Potassium 4.5 Chloride 105 Carbon Dioxide 30 BUN 21 H Creatinine 1.30 H Glucose 99 Calcium 9.4 Liver Function 02/14/24 Range/Units 13:50 Total Bilirubin 0.6 (0.2-1.3) mg/dL AST 34 (14-36) U/L ALT 15 (6-35) U/L Alkaline Phosphatase 119 (38-126) U/L Albumin 3.7 (3.5-5.1) g/dL Assessment and Plan Assessment and plan (1) Right knee dislocation: Qualifiers: Encounter type: initial encounter Qualified Code(s): S83.104A - Unspecified dislocation of right knee, initial encounter Code(s): S83.104A - Unspecified dislocation of right knee, initial encounter Status: Acute Assessment and Plan: - knee/tib/fib XRs: Dislocation seen in the right total knee arthroplasty. Age indeterminate patellar fracture. - knee XR, post reduction: 1. Total right knee arthroplasty in near-anatomic alignment. 2. Nondisplaced periprosthetic fracture of lateral aspect of lateral tibial condyle. 3. 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 4. Large knee joint effusion. - orthopedics consulted, Anni MEEK. provided the following recs: closed reduction of right knee in ED with post-reduction films patellar fx is chronic knee immobilizer placed, will need outpatient f/u for hinged brace previously advised to undergo a revision of her total knee arthroplasty at [facility], however was managing her chronic lymphedema and obesity. will need tertiary care referral as an outpatient. - analgesics p.r.n. 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: Qualifiers: Fracture morphology: other fracture Qualified Code(s): S82.091K - Other fracture of right patella, subsequent encounter for closed fracture with nonunion Code(s): S82.001K - Unspecified fracture of right patella, subsequent encounter for closed fracture with nonunion Status: Chronic Assessment and Plan: - see above (3) CKD (chronic kidney disease), stage III: Qualifiers: Chronic kidney disease stage 3 subtype: stage 3a (GFR 45-59) Qualified Code(s): N18.31 - Chronic kidney disease, stage 3a Code(s): N18.3 - Chronic kidney disease, stage 3 (moderate) Status: Chronic Assessment and Plan: - creatinine 1.3 and GFR 39, previously 1.4 and GFR 36 on 01/02/2024 - hx of CKD stage 3 - trend renal function - trend electrolytes, correct as needed (4) Iron deficiency anemia: Qualifiers: Iron deficiency anemia type: unspecified iron deficiency Qualified Code(s): D50.9 - Iron deficiency anemia, unspecified Code(s): D50.9 - Iron deficiency anemia, unspecified Status: Acute Assessment and Plan: - Hgb 10.8, previously 11.1 on 01/02/2024 - range in 2023 thus far: 9.3-11.5 - MCV WNL, MCHC 30.1 - continue iron supplement - monitor (5) Essential (primary) hypertension: Code(s): I10 - Essential (primary) hypertension Status: Acute Assessment and Plan: - chronic, currently 151/67 - continue home medications: Nifedipine 60 mg b.i.d., ramipril 10 mg b.i.d. - monitor (6) FLEX (obstructive sleep apnea): Code(s): G47.33 - Obstructive sleep apnea (adult) (pediatric) Status: Acute Assessment and Plan: - intolerant of CPAP Plan Diet: Heart healthy GI Prophylaxis: Not currently indicated DVT Prophylaxis: Lovenox Lines: Peripheral Code Status: Full code Quality VTE Prophylaxis VTE prophylaxis: pharmacologic ordered Hospitalist MIPS Advance Care Plan I have confirmed that the patient's Advanced Care Plan is present, code status is documented, or surrogate decision maker is listed in patient medical record.: Yes Medication Reconciliation I have utilized all available resources to obtain, update and review the patients current medications (includes all prescriptions, OTC, herbals, cannabis, and nutritional supplements).: Yes
[2024-02-14] MEDS: HYDROcodone/acetaminophen (*CRX) 5-325 MG TABLET 1 TAB PO (19:00)
--- NOTE | 2024-02-14 19:54 | ADMGEN ---
This patient, Nadiya Grimes, was admitted to [address] [place] [address] Room 306-01. Patient/family oriented to hospital policies and general routines including ID bracelet, bed and alarms, visiting hours, pain management, procedures, bathroom and other care routines, personal items, smoking policy, room service/diet, and visiting hours. Information on how to activate the Rapid Response Team has been discussed. Patient/Family are encouraged to report perceived risks to care and to ask questions if they do not understand what they are told or what they should do.
[2024-02-15] MEDS: PANTOPRAZOLE 40 MG TABLET PO ×3 (00:50→22:15)
[2024-02-15] MEDS: ATORVASTATIN 40 MG TABLET PO ×2 (00:50→22:16)
[2024-02-15] MEDS: HYDROcodone/acetaminophen (*CRX) 5-325 MG TABLET 1 TAB PO (01:08)
[2024-02-15 06:00] VITALS: BP 144/54; PULSE 70; RESP 20; TEMP 36.4; O2SAT 94
[2024-02-15] MEDS: LEVOTHYROXINE SODIUM 75 MCG TABLET PO (06:14)
[2024-02-15] MEDS: NIFEdipine 30 MG TAB.ER.24 60 MG PO ×2 (08:04→22:15)
[2024-02-15] MEDS: CHOLECALCIFEROL 5,000 UNITS TABLET 10000 UNITS PO (08:05)
[2024-02-15] MEDS: CYANOCOBALAMIN 1,000 MCG TABLET 1000 MCG PO (08:05)
[2024-02-15] MEDS: FERROUS SULFATE 325 MG TABLET DR PO ×3 (08:05→16:43)
[2024-02-15] MEDS: ENOXAPARIN 30 MG/0.3 ML SYRINGE SUB-Q (08:05)
[2024-02-15] MEDS: ACETAMINOPHEN 325 MG TABLET 650 MG PO (08:15)
[2024-02-15] MEDS: ramipriL 5 MG CAPSULE 10 MG PO ×2 (08:21→22:16)
[2024-02-15] MEDS: ONDANSETRON INJ 4 MG/2 ML VIAL IV PUSH (13:41)
--- NOTE | 2024-02-15 13:59 | P.PNIM_ITS ---
Progress Note: A&P Assessment and Plan (1) Right knee dislocation: Qualifiers: Encounter type: initial encounter Qualified Code(s): S83.104A - Unspecified dislocation of right knee, initial encounter Code(s): S83.104A - Unspecified dislocation of right knee, initial encounter Status: Acute Assessment and Plan: - knee/tib/fib XRs: Dislocation seen in the right total knee arthroplasty. Age indeterminate patellar fracture. - knee XR, post reduction: 1. Total right knee arthroplasty in near-anatomic alignment. 2. Nondisplaced periprosthetic fracture of lateral aspect of lateral tibial condyle. 3. 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 4. Large knee joint effusion. - orthopedics following, Anni MEEK. provided the following recs: closed reduction of right knee in ED with post-reduction films patellar fx is chronic knee immobilizer placed, will need outpatient f/u for hinged brace previously advised to undergo a revision of her total knee arthroplasty at [facility], however was managing her chronic lymphedema and obesity. will need tertiary care referral as an outpatient. - analgesics p.r.n. 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: Qualifiers: Fracture morphology: other fracture Qualified Code(s): S82.091K - Other fracture of right patella, subsequent encounter for closed fracture with nonunion Code(s): S82.001K - Unspecified fracture of right patella, subsequent encounter for closed fracture with nonunion Status: Chronic Assessment and Plan: - see above (3) CKD (chronic kidney disease), stage III: Qualifiers: Chronic kidney disease stage 3 subtype: stage 3a (GFR 45-59) Qualified Code(s): N18.31 - Chronic kidney disease, stage 3a Code(s): N18.3 - Chronic kidney disease, stage 3 (moderate) Status: Chronic Assessment and Plan: - Kidney function appears baseline. - hx of CKD stage 3. - Continue to monitor closely. - trend electrolytes, correct as needed. - Meds dosing per renal function. (4) Iron deficiency anemia: Qualifiers: Iron deficiency anemia type: unspecified iron deficiency Qualified Code(s): D50.9 - Iron deficiency anemia, unspecified Code(s): D50.9 - Iron deficiency anemia, unspecified Status: Acute Assessment and Plan: - Hgb 10.8, previously 11.1 on 01/02/2024 - Appears stable. - continue iron supplement - No obvious signs of bleeding. (5) Essential (primary) hypertension: Code(s): I10 - Essential (primary) hypertension Status: Acute Assessment and Plan: - Appears fairly well controlled. - continue home medications: Nifedipine 60 mg b.i.d., ramipril 10 mg b.i.d. - monitor (6) FLEX (obstructive sleep apnea): Code(s): G47.33 - Obstructive sleep apnea (adult) (pediatric) Status: Acute Assessment and Plan: - intolerant of CPAP. - Supplemental O2 bedtime if needed. Plan Diet: Heart healthy GI Prophylaxis: Not currently indicated DVT Prophylaxis: Lovenox Lines: Peripheral Code Status: Full code Time Spent With Patient Time with patient: 15 - 25 minutes Subjective Date/time seen: 02/15/24 13:59 Patient states she feels alright and currently has no pain or other distressful symptoms. Interval history: Patient calm on bedrest and looks to be in no acute distress. Review of Systems Review of Systems: All systems reviewed & are unremarkable except as noted in HPI and below Exam Narrative: General: Well appearing, no acute distress. HEENT: Atraumatic, PERRL, EOM, moist mucosa. NECK: Supple. Lungs: Clear bilaterally. Heart: RRR, no murmurs. Abdomen: Soft, non-tender, non-distended, +ve bowel sounds X4 quadrants. Extremities: Moderate swelling to Right Knee. Knee immobilizer in place to Right Knee. SKin: Warm and dry. Surgical dressing intact to Right Knee. Neuro: Well oriented, CN II-XII grossly intact. Psych: Pleasant and co-operative. Objective Data Vital Signs Vital Signs: Vital Signs - 24 hr 02/14/24 15:28 02/14/24 15:50 02/14/24 15:52 Temperature 98.3 F 98.3 F Pulse Rate 69 Pulse Rate [Monitor] 71 67 Respiratory Rate 15 17 18 Blood Pressure 141/85 H Blood Pressure [Left Arm] 138/78 Pulse Oximetry 96 97 97 Oxygen Delivery Room Air Room Air Oxygen Flow Rate 02/14/24 15:52 02/14/24 16:07 02/14/24 16:22 Temperature 98.1 F 97.6 F 97.5 F L Pulse Rate Pulse Rate [Monitor] 65 74 77 Respiratory Rate 20 15 15 Blood Pressure Blood Pressure [Left Arm] 126/75 122/92 H 146/65 H Pulse Oximetry 97 99 98 Oxygen Delivery Nasal Cannula Room Air Room Air Oxygen Flow Rate 2 02/14/24 16:56 02/14/24 18:19 02/14/24 21:04 Temperature 99.2 F Pulse Rate 68 69 76 Pulse Rate [Monitor] Respiratory Rate 17 20 18 Blood Pressure 151/67 H 145/54 H 132/53 L Blood Pressure [Left Arm] Pulse Oximetry 100 94 93 Oxygen Delivery Oxygen Flow Rate 02/14/24 21:57 02/15/24 06:00 Temperature 97.5 F L Pulse Rate 70 Pulse Rate [Monitor] Respiratory Rate 20 Blood Pressure 144/54 H Blood Pressure [Left Arm] Pulse Oximetry 94 Oxygen Delivery Room Air Oxygen Flow Rate Intake/Output Intake/Output: Intake & Output 02/12/24 02/13/24 02/14/24 02/15/24 23:59 23:59 23:59 23:59 Intake Total 1000 340 Balance 1000 340 Meds/Results Medications: Active Medications Generic Name Dose Route Start Last Admin Trade Name Freq PRN Reason Stop Dose Admin Acetaminophen 650 mg 02/14/24 17:43 02/15/24 08:15 Acetaminophen 325 Mg Tablet PO 650 mg Q4H PRN Administration Mild Pain (1-3) or Fever Hydrocodone Bitart/Acetaminophen 1 tab 02/14/24 17:43 02/15/24 01:08 Hydrocodone/Acetaminophen (*Crx) 5-325 Mg Tablet PO 1 tab Q4H PRN Administration Pain Rated 7-10 Atorvastatin Calcium 40 mg 02/14/24 23:35 02/15/24 00:50 Atorvastatin 40 Mg Tablet PO 40 mg HS SHAMA Administration Cyanocobalamin 1,000 mcg 02/15/24 09:00 02/15/24 08:05 Cyanocobalamin 1,000 Mcg Tablet PO 1,000 mcg QAM SHAMA Administration Enoxaparin Sodium 30 mg 02/15/24 09:00 02/15/24 08:05 Enoxaparin 30 Mg/0.3 Ml Syringe SUB-Q 30 mg DAILY SHAMA Administration Ferrous Sulfate 325 mg 02/15/24 09:00 02/15/24 13:38 Ferrous Sulfate [address] PO 325 mg TID SHAMA Administration Levothyroxine Sodium 75 mcg 02/15/24 06:30 02/15/24 06:14 Levothyroxine Sodium 75 Mcg Tablet PO 75 mcg DAILY@0630 SHAMA Administration Nifedipine 60 mg 02/15/24 09:00 02/15/24 08:04 Nifedipine 30 Mg Tab.Er.24 PO 60 mg Q12HR SHAMA Administration Ondansetron HCl 4 mg 02/14/24 17:43 02/15/24 13:41 Ondansetron Inj 4 Mg/2 Ml Vial IV PUSH 4 mg Q4H PRN Administration Nausea Pantoprazole Sodium 40 mg 02/14/24 23:35 02/15/24 08:05 Pantoprazole 40 Mg Tablet PO 40 mg Q12HR SHAMA Administration Ramipril 10 mg 02/15/24 09:00 02/15/24 08:21 Ramipril 5 Mg Capsule PO 10 mg Q12HR SHAMA Administration Tramadol HCl 50 mg 02/14/24 23:28 Tramadol Hcl (*Crx) 50 Mg Tablet PO Q8H PRN pain 4-6 Vitamin D 10,000 units 02/15/24 09:00 02/15/24 08:05 Cholecalciferol 5,000 Units Tablet PO 10,000 units DAILY SHAMA Administration Radiology Results: ITS Impressions Knee X-Ray 02/14/24 16:16 IMPRESSION: 1. Total right knee arthroplasty in near-anatomic alignment. 2. Nondisplaced periprosthetic fracture of lateral aspect of lateral tibial condyle. 3. 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 4. Large knee joint effusion. Labs Labs: Laboratory Results - last 24 hr 02/14/24 13:50 WBC 11.0 H RBC 4.11 L Hgb 10.8 L Hct 35.9 L MCV 87.3 MCH 26.3 MCHC 30.1 L RDW 15.2 H Plt Count 374 MPV 9.2 Immature Gran % (Auto) 0.5 Neut % (Auto) 81.0 H Lymph % (Auto) 9.4 L Crenshaw % (Auto) 7.8 Eos % (Auto) 1.0 Baso % (Auto) 0.3 Lymph # (Auto) 1.03 Crenshaw # (Auto) 0.9 H Eos # (Auto) 0.1 Baso # (Auto) 0.0 Abs Immat Gran (auto) 0.05 H Absolute Neuts (auto) 8.9 H Absolute Nucleated RBC 0.000 Nucleated RBC % 0.0 PT 13.9 INR 1.0 Sodium 138 Potassium 4.5 Chloride 105 Carbon Dioxide 30 Anion Gap 3 L BUN 21 H Creatinine 1.30 H Estim Creat Clear Calc 29 Estimated GFR 39 L Glucose 99 Calcium 9.4 Total Bilirubin 0.6 AST 34 ALT 15 Alkaline Phosphatase 119 Total Protein 7.0 Albumin 3.7 Quality VTE Prophylaxis VTE prophylaxis: pharmacologic ordered Hospitalist [facility] Advance Care Plan I have confirmed that the patient's Advanced Care Plan is present, code status is documented, or surrogate decision maker is listed in patient medical record.: Yes Medication Reconciliation I have utilized all available resources to obtain, update and review the patients current medications (includes all prescriptions, OTC, herbals, cannabis, and nutritional supplements).: Yes
[2024-02-15 14:00] VITALS: BP 118/40; PULSE 78; RESP 16; TEMP 36.8; O2SAT 90
--- NOTE | 2024-02-15 16:39 | PM.PNORT ---
Progress Note: A&P Assessment and Plan (1) Right knee dislocation: Qualifiers: Encounter type: initial encounter Qualified Code(s): S83.104A - Unspecified dislocation of right knee, initial encounter Code(s): S83.104A - Unspecified dislocation of right knee, initial encounter Status: Acute (2) Status post right knee replacement: Code(s): Z96.651 - Presence of right artificial knee joint Status: Acute (3) Closed fracture of right patella with nonunion: Qualifiers: Fracture morphology: other fracture Qualified Code(s): S82.091K - Other fracture of right patella, subsequent encounter for closed fracture with nonunion Code(s): S82.001K - Unspecified fracture of right patella, subsequent encounter for closed fracture with nonunion Status: Chronic Plan Closed reduction performed in the ED yesterday. The patient was admitted. She is comfortable. The knee again has a mild deformity consistent with recurrent dislocation. The foot is warm. Pedal pulses are strong and symmetrical. Wiggles her toes. Brisk capillary refill. I removed the knee immobilizer and applied a locked rehab type hinged brace at the bedside. X-rays taken at the bedside show recurrent dislocation of the total knee prosthesis. Very difficult situation. A brace is not adequate to maintain the reduction. I will reduce the knee in the operating room tomorrow and apply a cast. I have reached out to [facility] for possible transfer or outpatient evaluation. The patient may need senior care placement if she is not able to mobilize safely with the knee in a long leg cast. Subjective Subjective Date/Time Seen: 02/15/24 16:39 Objective Data Vital Signs Vital Signs: Vital Signs - 24 hr 02/14/24 16:56 02/14/24 18:19 02/14/24 21:04 Temperature 37.3 C Pulse Rate 68 69 76 Respiratory Rate 17 20 18 Blood Pressure 151/67 H 145/54 H 132/53 L Pulse Oximetry 100 94 93 Oxygen Delivery 02/14/24 21:57 02/15/24 06:00 02/15/24 14:00 Temperature 36.4 C L 36.8 C Pulse Rate 70 78 Respiratory Rate 20 16 Blood Pressure 144/54 H 118/40 L Pulse Oximetry 94 90 Oxygen Delivery Room Air Intake/Output Intake/Output: Intake & Output 12/11/2702/13/24 02/14/24 02/15/24 23:59 23:59 23:59 23:59 Intake Total 1000 580 Balance 1000 580 Meds/Results Medications: Active Medications Generic Name Dose Route Start Last Admin Trade Name Freq PRN Reason Stop Dose Admin Acetaminophen 650 mg 02/14/24 17:43 02/15/24 08:15 Acetaminophen 325 Mg Tablet PO 650 mg Q4H PRN Administration Mild Pain (1-3) or Fever Hydrocodone Bitart/Acetaminophen 1 tab 02/14/24 17:43 02/15/24 01:08 Hydrocodone/Acetaminophen (*Crx) 5-325 Mg Tablet PO 1 tab Q4H PRN Administration Pain Rated 7-10 Atorvastatin Calcium 40 mg 02/14/24 23:35 02/15/24 00:50 Atorvastatin 40 Mg Tablet PO 40 mg HS SHAMA Administration Cyanocobalamin 1,000 mcg 02/15/24 09:00 02/15/24 08:05 Cyanocobalamin 1,000 Mcg Tablet PO 1,000 mcg QAM SHAMA Administration Enoxaparin Sodium 30 mg 02/15/24 09:00 02/15/24 08:05 Enoxaparin 30 Mg/0.3 Ml Syringe SUB-Q 30 mg DAILY SHAMA Administration Ferrous Sulfate 325 mg 02/15/24 09:00 02/15/24 13:38 Ferrous Sulfate [address] PO 325 mg TID SHAMA Administration Levothyroxine Sodium 75 mcg 02/15/24 06:30 02/15/24 06:14 Levothyroxine Sodium 75 Mcg Tablet PO 75 mcg DAILY@0630 SHAMA Administration Nifedipine 60 mg 02/15/24 09:00 02/15/24 08:04 Nifedipine 30 Mg Tab.Er.24 PO 60 mg Q12HR SHAMA Administration Ondansetron HCl 4 mg 02/14/24 17:43 02/15/24 13:41 Ondansetron Inj 4 Mg/2 Ml Vial IV PUSH 4 mg Q4H PRN Administration Nausea Pantoprazole Sodium 40 mg 02/14/24 23:35 02/15/24 08:05 Pantoprazole 40 Mg Tablet PO 40 mg Q12HR SHAMA Administration Ramipril 10 mg 02/15/24 09:00 02/15/24 08:21 Ramipril 5 Mg Capsule PO 10 mg Q12HR SHAMA Administration Tramadol HCl 50 mg 02/14/24 23:28 Tramadol Hcl (*Crx) 50 Mg Tablet PO Q8H PRN pain 4-6 Vitamin D 10,000 units 02/15/24 09:00 02/15/24 08:05 Cholecalciferol 5,000 Units Tablet PO 10,000 units DAILY SHAMA Administration Radiology Results: ITS Impressions Knee X-Ray 02/15/24 15:40 IMPRESSION: 1. Dislocated total right knee arthroplasty. 2. Nondisplaced periprosthetic fracture of lateral aspect of lateral tibial condyle. 3. 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
[2024-02-15 22:00] VITALS: BP 96/61; PULSE 55; RESP 16; TEMP 37.1; O2SAT 92
[2024-02-15 22:23] VITALS: BP 124/43; PULSE 68
[2024-02-16] VITALS (10 sets, daily range): BP systolic 112–132; BP diastolic 46–58; PULSE 56–75; RESP 12–18; TEMP 36.2–36.6; O2SAT 90–100
--- NOTE | 2024-02-16 07:39 | PCPTNOTE ---
Pt to get long leg cast this date prior to initiating therapy. Will follow.
--- NOTE | 2024-02-16 09:05 | PC.NURSE ---
pt to surgery via bed
[2024-02-16] MEDS: LACTATED RINGERS 1,000 ML 30 ML IV CONT (09:30)
--- NOTE | 2024-02-16 10:36 | WPDHPUPDATE1 ---
History and Physical Update Update Date/Time: 02/16/24 10:36 History and Physical has been reviewed, including an updated exam of the patient. There are NO changes in the patient's condition. Risks, benefits, and alternatives have been discussed and questions answered. Patient agrees to proceed with procedure.
--- NOTE | 2024-02-16 10:37 | P.OP_ITS ---
Procedure Note - Detailed Date of Procedure 02/16/24 Pre-op Diagnosis Right knee dislocation, s/p total knee arthroplasty. Post-op Diagnosis Same Procedure Performed Closed reduction, under general anesthesia in the operating room, of right knee dislocation with application of a long leg cast Surgeon Miguel Angel Hutton MD Supervisor [employer] Amanda Joaquin PA-C Anesthesia General Indications Recurrent posterior knee joint instability. Initial closed reduction not maintained with a knee immobilizer. Description of Procedure General anesthetic was administered. The knee was gently manipulated with an anterior drawer and extended. Biplanar fluoroscopy confirmed that the knee was congruent. After about 20? of flexion the knee was observed to slowly rolled back, and subluxate closer to dislocation. Was elected to proceed with long leg casting in full extension. Appropriate padding was placed and a long leg cast was applied with fiberglass cast material. A gentle anterior drawer at the posterior leg and molding of the anterior thigh was performed to secure the knee. Biplanar fluoroscopy again confirmed appropriate reduction. The patient was extubated and brought to the recovery room in stable condition. I discussed the challenge of the situation with the patient and her family. I will work on a consultation or transfer to a tertiary care center equipped to handle this difficult situation with extensor mechanism disruption and gross knee instability. Because of the long-leg cast, she is unable to go home and manage the stairs in her home. She will need either direct transfer or fci in the meantime. I spoke with the on-call physician at [facility]. Due to their staffing restraints, there were unable to accept a direct transfer at this time. Now we will work on mobilizing as able with physical therapy. She may bear weight as tolerated. Complications No immediate complications Condition Stable Disposition PACU [facility] Billing Surgery - Charge Forward: Surgery Billing
--- NOTE | 2024-02-16 10:38 | P.PNAN_ITS ---
Anes - Initial Pre Proc Eval Procedure: Operation Date: 02/16/24 10:30 Proposed Procedures p Closed Reduction Right Knee with Application of Long Leg Cast(Right) - Miguel Angel Hutton MD Date/Time: 02/16/24 10:38 Surgeon: Greta Sandhu MD Pre Op Diagnosis: Right knee dislocation Patient Data Age: 83 Gender: F Height: 1.57 m Weight: 79.9 kg Last Vital Signs Temp 97.2 F L 02/16/24 05:47 Pulse 59 L 02/16/24 05:47 Resp 12 02/16/24 05:47 BP 115/58 L 02/16/24 05:47 Pulse Ox 96 02/16/24 05:47 O2 Del Method Room Air 02/14/24 21:57 O2 Flow Rate 2 02/14/24 15:52 Allergies Allergy/AdvReac Type Severity Reaction Status Date / Time No Known Allergies Allergy Verified 02/16/24 09:41 Home Medications ?Medication ?Instructions ?Recorded ?Confirmed ?Type atorvastatin 40 mg tablet 40 mg PO HS 03/14/19 02/14/24 History ferrous sulfate 325 mg (65 mg 325 mg PO TID 03/14/19 02/14/24 History iron) tablet,delayed release nifedipine 60 mg tablet,extended 60 mg PO BID 03/14/19 02/14/24 History release acetaminophen 500 mg tablet 500 mg PO Q6H PRN Pain 09/13/19 02/14/24 History (Tylenol Extra Strength) cholecalciferol (vitamin D3) 250 250 mcg PO DAILY #30 caps 02/01/21 02/14/24 Rx mcg (10,000 unit) capsule ramipril 10 mg capsule 10 mg PO BID #180 caps 09/26/22 02/14/24 Rx pantoprazole 40 mg tablet,delayed 40 mg PO Q12H #180 tabs 06/28/23 02/14/24 Rx release levothyroxine 75 mcg tablet 75 mcg PO DAILY #90 tabs 10/25/23 02/14/24 Rx tramadol 50 mg tablet 50 mg PO Q8H PRN pain #30 tabs 11/13/23 02/14/24 Rx chlorthalidone 25 mg tablet 25 mg PO DAILY 12/08/23 02/14/24 History mecobalamin (vitamin B12) 1,000 1,000 mcg PO DAILY 12/08/23 02/14/24 History mcg chewable tablet Laboratory Tests 02/15/24 16:24 Blood Type O Positive Antibody Screen Negative Patient hx anesthesia problems: none Family hx anesthesia problems: none Results Review: All pre-operative results and documents have been reviewed as part of the pre- operative evaluation. [facility] Past Medical History Medical History (Updated 02/14/24 @ 17:56 by Madelaine Dennis APRN) FLEX (obstructive sleep apnea) Barretts esophagus Nausea and vomiting in adult Chronic kidney disease, stage 3b Paresthesias in right hand Long toenail Pain of left heel Foot callus Chronic kidney disease, stage 3a Restless legs syndrome Impaired glucose tolerance RED (dyspnea on exertion) Chest pain Hypersomnia Abnormal heart rhythm Impacted cerumen of both ears Right arm fracture Casted Cellulitis of foot, right Patella fracture Discharge planning issues Iron deficiency anemia Arthritis Gastric polyp Hiatal hernia Esophageal ulcer Anemia in chronic kidney disease CKD (chronic kidney disease), stage III Essential (primary) hypertension Hypothyroidism, unspecified Primary osteoarthritis of both knees Pure hypercholesterolemia Vitiligo Surgical History Surgical History H/O right wrist surgery Repair of right wrist fracture S/P carpal tunnel release Left History of esophagogastroduodenoscopy (EGD) Last one 12/[address] Parker. 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 Her last job she worked for the [employer] she was on unemployment for couple years and then just retired. She has never been nor does she have any children. Smoking status: Never smoker Second hand tobacco smoke exposure: No Alcohol intake: never Substance use: never Substance use type: does not use Do You Feel Safe in your Home?: Yes Lack of Transportation: No Lack of Food: Never True Current Housing: I Have Housing Concerned About Future Housing: No Difficulty Paying Gas/Electric Bills: No Difficulty Paying for Meds: No Currently Unemployed: No Education: High School Diploma/GED Difficulty w/ Childcare or Family Care: No Living arrangements: alone Additional living arrangements comments: She lives in [place], [place]. Occupation/Education: retired Additional occupation/education comments: She had multiple jobs at a [employer], [employer] which have all since closed down. Gender identity (if verbalized by the patient): Female Spiritual care concerns: No Agree to blood products: Yes Anes - Eval Final PreProcedure Day of Procedure 02/16/24 10:38 Patient weight: obese Heart: regular rate and rhythm Lungs: clear to auscultation Airway: Mallampati scale class III Neurological: alert and oriented Last oral intake: >/= 8 hours ASA classification: III Emergent: no Anesthetic plan: proceed Anesthesia type and monitoring: general LMA and standard monitoring Results Review: All pre-operative results and documents have been reviewed as part of the pre- operative evaluation. Informed Consent: The patient's anesthetic plan and its attendant risks and benefits were discussed with the patient/family/POA. Questions were solicited and answers provided to the satisfaction of the patient/family/POA.
--- NOTE | 2024-02-16 12:40 | PC.NURSE ---
pt returned from surgery via bed, resting comfortably, reviewed plan of care
[2024-02-16] MEDS: HYDROcodone/acetaminophen (*CRX) 5-325 MG TABLET 1 TAB PO ×2 (12:45→23:57)
--- NOTE | 2024-02-16 15:48 | P.PNIM_ITS ---
Progress Note: A&P Assessment and Plan (1) Right knee dislocation: Qualifiers: Encounter type: initial encounter Qualified Code(s): S83.104A - Unspecified dislocation of right knee, initial encounter Code(s): S83.104A - Unspecified dislocation of right knee, initial encounter Status: Acute Assessment and Plan: - knee/tib/fib XRs on presentation: Dislocation seen in the right total knee arthroplasty. Age indeterminate patellar fracture. - knee XR, post reduction: 1. Total right knee arthroplasty in near-anatomic alignment. 2. Nondisplaced periprosthetic fracture of lateral aspect of lateral tibial condyle. 3. 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 4. Large knee joint effusion. - Patient s/p Closed reduction right knee dislocation with application of a long leg cast 02/16/24 - orthopedics following, Anni MEEK. provided the following recs: - Patient with chronic patellar fx. - Long-leg cast placed. - analgesics p.r.n. - PT/OT eval and treatment with Ortho restrictions. - care coordination for possible placement. 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: Qualifiers: Fracture morphology: other fracture Qualified Code(s): S82.091K - Other fracture of right patella, subsequent encounter for closed fracture with nonunion Code(s): S82.001K - Unspecified fracture of right patella, subsequent encounter for closed fracture with nonunion Status: Chronic Assessment and Plan: - see above (3) CKD (chronic kidney disease), stage III: Qualifiers: Chronic kidney disease stage 3 subtype: stage 3a (GFR 45-59) Qualified Code(s): N18.31 - Chronic kidney disease, stage 3a Code(s): N18.3 - Chronic kidney disease, stage 3 (moderate) Status: Chronic Assessment and Plan: - Kidney function appears baseline. - hx of CKD stage 3. - Continue to monitor closely. - trend electrolytes, correct as needed. - Meds dosing per renal function. (4) Iron deficiency anemia: Qualifiers: Iron deficiency anemia type: unspecified iron deficiency Qualified Code(s): D50.9 - Iron deficiency anemia, unspecified Code(s): D50.9 - Iron deficiency anemia, unspecified Status: Acute Assessment and Plan: - Hgb 10.8, previously 11.1 on 01/02/2024 - Appears stable. - continue iron supplement - No obvious signs of bleeding. (5) Essential (primary) hypertension: Code(s): I10 - Essential (primary) hypertension Status: Acute Assessment and Plan: - Appears fairly well controlled. - continue home medications: Nifedipine 60 mg b.i.d., ramipril 10 mg b.i.d. - monitor (6) FLEX (obstructive sleep apnea): Code(s): G47.33 - Obstructive sleep apnea (adult) (pediatric) Status: Acute Assessment and Plan: - intolerant of CPAP. - Supplemental O2 bedtime if needed. Plan Diet: Heart healthy GI Prophylaxis: Not currently indicated DVT Prophylaxis: Lovenox Lines: Peripheral Code Status: Full code Time Spent With Patient Time with patient: 15 - 25 minutes Subjective Date/time seen: 02/16/24 13:48 Patient states she feels alright post-op and has no pain but wants to rest a little bit. Interval history: Patient calm on bedrest post- Closed reduction right knee dislocation with application of a long leg cast. Appears to be in no acute distress. Review of Systems Review of Systems: All systems reviewed & are unremarkable except as noted in HPI and below Exam Narrative: General: Well appearing, no acute distress. HEENT: Atraumatic, PERRL, EOM, moist mucosa. NECK: Supple. Lungs: Clear bilaterally. Heart: RRR, no murmurs. Abdomen: Soft, non-tender, non-distended, +ve bowel sounds X4 quadrants. Extremities: Right knee with long-leg cast. 1+ edema LLE with teds and Isai-wrap in place. SKin: Warm and dry. Right LE with long-leg cast. Neuro: Well oriented, CN II-XII grossly intact. Psych: Pleasant and co-operative. Extrem: Other: Lymphedema to left lower extremity with SANDRO/isai wrap in place. Psych: Mental Status: mental status grossly normal Affect: normal affect Other: Good insight and judgment, pleasant Objective Data Vital Signs Vital Signs: Vital Signs - 24 hr 02/15/24 22:00 02/15/24 22:23 02/16/24 05:47 Temperature 98.8 F 97.2 F L Pulse Rate 55 L 68 59 L Respiratory Rate 16 12 Blood Pressure 96/61 L 124/43 L 115/58 L Pulse Oximetry 92 96 Oxygen Delivery Oxygen Flow Rate 12/13/24 11:25 02/16/24 11:40 02/16/24 11:55 Temperature 97.5 F L Pulse Rate 69 70 69 Respiratory Rate 14 18 18 Blood Pressure 123/52 L 132/57 L 128/48 L Pulse Oximetry 100 100 94 Oxygen Delivery Simple Face Mask Simple Face Mask Room Air Oxygen Flow Rate 8 8 02/16/24 12:10 02/16/24 12:47 02/16/24 13:17 Temperature 97.4 F L 97.7 F Pulse Rate 75 72 68 Respiratory Rate 16 18 18 Blood Pressure 127/58 L 132/53 L 118/56 L Pulse Oximetry 93 93 90 Oxygen Delivery Room Air Oxygen Flow Rate 02/16/24 14:17 Temperature 97.7 F Pulse Rate 56 L Respiratory Rate 18 Blood Pressure 124/48 L Pulse Oximetry 91 Oxygen Delivery Oxygen Flow Rate Intake/Output Intake/Output: Intake & Output 02/13/24 02/14/24 02/15/24 02/16/24 23:59 23:59 23:59 23:59 Intake Total 1000 1130 250 Balance 1000 1130 250 Meds/Results Medications: Active Medications Generic Name Dose Route Start Last Admin Trade Name Freq PRN Reason Stop Dose Admin Acetaminophen 650 mg 02/14/24 17:43 02/15/24 08:15 Acetaminophen 325 Mg Tablet PO 650 mg Q4H PRN Administration Mild Pain (1-3) or Fever Hydrocodone Bitart/Acetaminophen 1 tab 02/14/24 17:43 02/16/24 12:45 Hydrocodone/Acetaminophen (*Crx) 5-325 Mg Tablet PO 1 tab Q4H PRN Administration Pain Rated 7-10 Atorvastatin Calcium 40 mg 02/14/24 23:35 02/15/24 22:16 Atorvastatin 40 Mg Tablet PO 40 mg HS SHAMA Administration Cyanocobalamin 1,000 mcg 02/15/24 09:00 02/15/24 08:05 Cyanocobalamin 1,000 Mcg Tablet PO 1,000 mcg QAM SHAMA Administration Enoxaparin Sodium 30 mg 02/15/24 09:00 02/15/24 08:05 Enoxaparin 30 Mg/0.3 Ml Syringe SUB-Q 30 mg DAILY SHAMA Administration Ferrous Sulfate 325 mg 02/15/24 09:00 02/15/24 16:43 Ferrous Sulfate [address] PO 325 mg TID SHAMA Administration Sodium Chloride 1,000 mls @ 125 mls/hr 02/16/24 12:32 Normal Saline Iv IV CONT 02/16/24 20:31 .Q8H SHAMA Levothyroxine Sodium 75 mcg 02/15/24 06:30 02/16/24 06:25 Levothyroxine Sodium 75 Mcg Tablet PO Not Given DAILY@0630 [facility] Nifedipine 60 mg 02/15/24 09:00 02/15/24 22:15 Nifedipine 30 Mg Tab.Er.24 PO 60 mg Q12HR SHAMA Administration Ondansetron HCl 4 mg 02/14/24 17:43 02/15/24 13:41 Ondansetron Inj 4 Mg/2 Ml Vial IV PUSH 4 mg Q4H PRN Administration Nausea Ondansetron HCl 4 mg 02/16/24 12:32 Ondansetron Inj 4 Mg/2 Ml Vial IV PUSH Q4H PRN Nausea And Vomiting Pantoprazole Sodium 40 mg 02/14/24 23:35 02/15/24 22:15 Pantoprazole 40 Mg Tablet PO 40 mg Q12HR SHAMA Administration Ramipril 10 mg 02/15/24 09:00 02/15/24 22:16 Ramipril 5 Mg Capsule PO 10 mg Q12HR SHAMA Administration Tramadol HCl 50 mg 02/14/24 23:28 Tramadol Hcl (*Crx) 50 Mg Tablet PO Q8H PRN pain 4-6 Vitamin D 10,000 units 02/15/24 09:00 02/15/24 08:05 Cholecalciferol 5,000 Units Tablet PO 10,000 units DAILY SHAMA Administration Radiology Results: ITS Impressions Knee X-Ray 02/15/24 15:40 IMPRESSION: 1. Dislocated total right knee arthroplasty. 2. Nondisplaced periprosthetic fracture of lateral aspect of lateral tibial condyle. 3. 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 Intraoperative X-Ray 02/16/24 12:35 IMPRESSION: 1. Successful reduction of the previously dislocated right total knee arthroplasty. 2. Unchanged chronic nonunited patellar fracture with distraction of the cranial and caudal fragments . Labs Labs: Laboratory Results - last 24 hr 02/15/24 16:24 Blood Type O Positive Antibody Screen Negative Quality VTE Prophylaxis VTE prophylaxis: pharmacologic ordered Hospitalist MIPS Advance Care Plan I have confirmed that the patient's Advanced Care Plan is present, code status is documented, or surrogate decision maker is listed in patient medical record.: Yes Medication Reconciliation I have utilized all available resources to obtain, update and review the patients current medications (includes all prescriptions, OTC, herbals, cannabis, and nutritional supplements).: Yes
[2024-02-16] MEDS: ONDANSETRON INJ 4 MG/2 ML VIAL IV PUSH (18:45)
--- NOTE | 2024-02-16 21:56 | PC.NURSE ---
pt refused all PO meds due to ongoing nausea. vital signs reviewed, blood pressure stable. education provided
[2024-02-16] MEDS: PANTOPRAZOLE 40 MG TABLET PO (23:57)
[2024-02-17 01:32] VITALS: BP 111/53; PULSE 55; RESP 14; TEMP 36.8; O2SAT 97
[2024-02-17] MEDS: LEVOTHYROXINE SODIUM 75 MCG TABLET PO (04:55)
[2024-02-17] MEDS: traMADol HCL (*CRX) 50 MG TABLET PO (04:56)
[2024-02-17] MEDS: ACETAMINOPHEN 325 MG TABLET 650 MG PO ×2 (04:59→08:45)
[2024-02-17] MEDS: HYDROcodone/acetaminophen (*CRX) 5-325 MG TABLET 1 TAB PO ×2 (05:28→09:59)
[2024-02-17 05:39] VITALS: BP 117/43; PULSE 93; RESP 14; TEMP 36.4; O2SAT 94
--- NOTE | 2024-02-17 06:43 | PC.NURSE ---
administered tramadol for pain to patient who is calmly requesting pain medication. within 30 minutes of taking tramadol, patient became extremely restless and agitated and started screaming out loudly for the first time during my shift that she was in pain. patient was screaming for help while staff was in room. i administered norco, and within 20 minutes patient is resting quietly in bed. norco seems to have worked much better for pain than tramadol.
[2024-02-17] MEDS: NIFEdipine 30 MG TAB.ER.24 60 MG PO ×2 (08:43→22:04)
[2024-02-17] MEDS: ramipriL 5 MG CAPSULE 10 MG PO ×2 (08:43→22:04)
[2024-02-17] MEDS: PANTOPRAZOLE 40 MG TABLET PO ×2 (08:43→22:04)
[2024-02-17] MEDS: FERROUS SULFATE 325 MG TABLET DR PO ×2 (08:43→12:48)
[2024-02-17] MEDS: CHOLECALCIFEROL 5,000 UNITS TABLET 10000 UNITS PO (08:43)
[2024-02-17] MEDS: ENOXAPARIN 30 MG/0.3 ML SYRINGE SUB-Q (08:43)
[2024-02-17] MEDS: CYANOCOBALAMIN 1,000 MCG TABLET 1000 MCG PO (08:43)
[2024-02-17 10:17] VITALS: BP 113/47; PULSE 58; RESP 18; TEMP 36.5; O2SAT 98
--- NOTE | 2024-02-17 12:18 | PM.IMPN ---
Progress Note: A&P Assessment and Plan (1) Right knee dislocation: Qualifiers: Encounter type: initial encounter Qualified Code(s): S83.104A - Unspecified dislocation of right knee, initial encounter Code(s): S83.104A - Unspecified dislocation of right knee, initial encounter Status: Acute Assessment and Plan: - knee/tib/fib XRs on presentation: Dislocation seen in the right total knee arthroplasty. Age indeterminate patellar fracture. - knee XR, post reduction: 1. Total right knee arthroplasty in near-anatomic alignment. 2. Nondisplaced periprosthetic fracture of lateral aspect of lateral tibial condyle. 3. 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 4. Large knee joint effusion. - Patient s/p Closed reduction right knee dislocation with application of a long leg cast 02/16/24 - orthopedics following, Anni MEEK. - Patient with chronic patellar fx per ortho. - Long-leg cast placed 02/16/24. - Continue analgesics p.r.n. - PT/OT eval and treatment with Ortho restrictions. - care coordination for possible placement. 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: Qualifiers: Fracture morphology: other fracture Qualified Code(s): S82.091K - Other fracture of right patella, subsequent encounter for closed fracture with nonunion Code(s): S82.001K - Unspecified fracture of right patella, subsequent encounter for closed fracture with nonunion Status: Chronic Assessment and Plan: - see above (3) CKD (chronic kidney disease), stage III: Qualifiers: Chronic kidney disease stage 3 subtype: stage 3a (GFR 45-59) Qualified Code(s): N18.31 - Chronic kidney disease, stage 3a Code(s): N18.3 - Chronic kidney disease, stage 3 (moderate) Status: Chronic Assessment and Plan: - Kidney function appears baseline currently. - hx of CKD stage 3. - Continue to monitor closely. - trend electrolytes, correct as needed. - Meds dosing per renal function. - IVF discontinued. (4) Iron deficiency anemia: Qualifiers: Iron deficiency anemia type: unspecified iron deficiency Qualified Code(s): D50.9 - Iron deficiency anemia, unspecified Code(s): D50.9 - Iron deficiency anemia, unspecified Status: Acute Assessment and Plan: - Hgb 10.8, previously 11.1 on 01/02/2024 - Appears stable. - continue iron supplement - No obvious signs of bleeding. (5) Essential (primary) hypertension: Code(s): I10 - Essential (primary) hypertension Status: Acute Assessment and Plan: - Appears fairly well controlled. - continue home medications: Nifedipine 60 mg b.i.d., ramipril 10 mg b.i.d. - monitor (6) FLEX (obstructive sleep apnea): Code(s): G47.33 - Obstructive sleep apnea (adult) (pediatric) Status: Acute Assessment and Plan: - intolerant of CPAP. - Supplemental O2 bedtime if needed. Plan Diet: Heart healthy GI Prophylaxis: Not currently indicated DVT Prophylaxis: Lovenox Lines: Peripheral Code Status: Full code Time Spent With Patient Time with patient: 15 - 25 minutes Subjective Date/time seen: 02/17/24 11:18 Patient states she's doing well. Walked with PT in the room and tolerated well. States had some pain earlier on his leg but pain meds helped. Interval history: Patient had a right knee dislocation, as well as closed Right patella fracture. Patient placed on a long-cast yesterday per ortho, pending rehab placement and referral to tertiary facility for treatment of fractured patella. Review of Systems Review of Systems: All systems reviewed & are unremarkable except as noted in HPI and below Exam Narrative: General: Well appearing, no acute distress. HEENT: Atraumatic, PERRL, EOM, moist mucosa. NECK: Supple. Lungs: Clear bilaterally. Heart: RRR, no murmurs. Abdomen: Soft, non-tender, non-distended, +ve bowel sounds X4 quadrants. Extremities: Right knee with long-leg cast. 1+ edema LLE with teds and Isai-wrap in place. SKin: Warm and dry. Right LE with long-leg cast. Neuro: Well oriented, CN II-XII grossly intact. Psych: Vary pleasant and co-operative. Objective Data Vital Signs Vital Signs: Vital Signs - 24 hr 02/16/24 12:47 02/16/24 13:17 02/16/24 14:17 Temperature 97.4 F L 97.7 F 97.7 F Pulse Rate 72 68 56 L Respiratory Rate 18 18 18 Blood Pressure 132/53 L 118/56 L 124/48 L Pulse Oximetry 93 90 91 Oxygen Delivery 02/16/24 18:05 02/16/24 20:00 02/16/24 22:04 Temperature 97.4 F L 97.9 F Pulse Rate 65 56 L Respiratory Rate 18 17 Blood Pressure 112/46 L 118/50 L Pulse Oximetry 94 92 Oxygen Delivery Room Air 02/17/24 01:32 02/17/24 05:39 02/17/24 08:00 Temperature 98.2 F 97.6 F Pulse Rate 55 L 93 Respiratory Rate 14 14 Blood Pressure 111/53 L 117/43 L Pulse Oximetry 97 94 Oxygen Delivery Room Air 02/17/24 08:41 02/17/24 10:09 Temperature Pulse Rate Respiratory Rate Blood Pressure Pulse Oximetry Oxygen Delivery Room Air Room Air Intake/Output Intake/Output: Intake & Output 02/14/24 02/15/24 02/16/24 02/17/24 23:59 23:59 23:59 23:59 Intake Total 1000 1130 1150 740 Balance 1000 1130 1150 740 Meds/Results Medications: Active Medications Generic Name Dose Route Start Last Admin Trade Name Freq PRN Reason Stop Dose Admin Acetaminophen 650 mg 02/14/24 17:43 02/17/24 08:45 Acetaminophen 325 Mg Tablet PO 650 mg Q4H PRN Administration Mild Pain (1-3) or Fever Hydrocodone Bitart/Acetaminophen 1 tab 02/14/24 17:43 02/17/24 09:59 Hydrocodone/Acetaminophen (*Crx) 5-325 Mg Tablet PO 1 tab Q4H PRN Administration Pain Rated 7-10 Atorvastatin Calcium 40 mg 02/14/24 23:35 02/16/24 21:49 Atorvastatin 40 Mg Tablet PO Not Given HS SHAMA Cyanocobalamin 1,000 mcg 02/15/24 09:00 02/17/24 08:43 Cyanocobalamin 1,000 Mcg Tablet PO 1,000 mcg QAM SHAMA Administration Enoxaparin Sodium 30 mg 02/15/24 09:00 02/17/24 08:43 Enoxaparin 30 Mg/0.3 Ml Syringe SUB-Q 30 mg DAILY SHAMA Administration Ferrous Sulfate 325 mg 02/15/24 09:00 02/17/24 08:43 Ferrous Sulfate [address] PO 325 mg TID SHAMA Administration Levothyroxine Sodium 75 mcg 02/15/24 06:30 02/17/24 04:55 Levothyroxine Sodium 75 Mcg Tablet PO 75 mcg DAILY@0630 SHAMA Administration Nifedipine 60 mg 02/15/24 09:00 02/17/24 08:43 Nifedipine 30 Mg Tab.Er.24 PO 60 mg Q12HR SHAMA Administration Ondansetron HCl 4 mg 02/14/24 17:43 02/16/24 18:45 Ondansetron Inj 4 Mg/2 Ml Vial IV PUSH 4 mg Q4H PRN Administration Nausea Ondansetron HCl 4 mg 02/16/24 12:32 Ondansetron Inj 4 Mg/2 Ml Vial IV PUSH Q4H PRN Nausea And Vomiting Pantoprazole Sodium 40 mg 02/14/24 23:35 02/17/24 08:43 Pantoprazole 40 Mg Tablet PO 40 mg Q12HR SHAMA Administration Ramipril 10 mg 02/15/24 09:00 02/17/24 08:43 Ramipril 5 Mg Capsule PO 10 mg Q12HR SHAMA Administration Tramadol HCl 50 mg 02/14/24 23:28 02/17/24 04:56 Tramadol Hcl (*Crx) 50 Mg Tablet PO 50 mg Q8H PRN Administration pain 4-6 Vitamin D 10,000 units 02/15/24 09:00 02/17/24 08:43 Cholecalciferol 5,000 Units Tablet PO 10,000 units DAILY SHAMA Administration Radiology Results: ITS Impressions Knee X-Ray 02/15/24 15:40 IMPRESSION: 1. Dislocated total right knee arthroplasty. 2. Nondisplaced periprosthetic fracture of lateral aspect of lateral tibial condyle. 3. 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 Intraoperative X-Ray 02/16/24 12:35 IMPRESSION: 1. Successful reduction of the previously dislocated right total knee arthroplasty. 2. Unchanged chronic nonunited patellar fracture with distraction of the cranial and caudal fragments . Quality VTE Prophylaxis VTE prophylaxis: pharmacologic ordered Hospitalist MIPS Advance Care Plan I have confirmed that the patient's Advanced Care Plan is present, code status is documented, or surrogate decision maker is listed in patient medical record.: Yes Medication Reconciliation I have utilized all available resources to obtain, update and review the patients current medications (includes all prescriptions, OTC, herbals, cannabis, and nutritional supplements).: Yes
[2024-02-17 14:17] VITALS: BP 119/53; PULSE 86; RESP 18; TEMP 36.4; O2SAT 94
[2024-02-17] MEDS: ONDANSETRON INJ 4 MG/2 ML VIAL IV PUSH (20:49)
[2024-02-17 21:26] VITALS: BP 139/65; PULSE 64; RESP 13; TEMP 36.9; O2SAT 94
[2024-02-17] MEDS: ATORVASTATIN 40 MG TABLET PO (22:04)
[2024-02-18] MEDS: HYDROcodone/acetaminophen (*CRX) 5-325 MG TABLET 1 TAB PO ×2 (00:42→09:59)
[2024-02-18] MEDS: LEVOTHYROXINE SODIUM 75 MCG TABLET PO (05:47)
[2024-02-18 06:00] VITALS: BP 140/50; PULSE 57; RESP 16; TEMP 36.2; O2SAT 94
[2024-02-18 08:27] VITALS: O2SAT 94
[2024-02-18] MEDS: ramipriL 5 MG CAPSULE 10 MG PO ×2 (08:57→21:19)
[2024-02-18] MEDS: ENOXAPARIN 30 MG/0.3 ML SYRINGE SUB-Q (08:57)
[2024-02-18] MEDS: NIFEdipine 30 MG TAB.ER.24 60 MG PO ×2 (08:58→21:16)
[2024-02-18] MEDS: CHOLECALCIFEROL 5,000 UNITS TABLET 10000 UNITS PO (08:58)
[2024-02-18] MEDS: CYANOCOBALAMIN 1,000 MCG TABLET 1000 MCG PO (08:58)
[2024-02-18] MEDS: PANTOPRAZOLE 40 MG TABLET PO ×2 (08:58→21:17)
--- NOTE | 2024-02-18 09:43 | PC.NURSE ---
Patient was resting in bed during BSR. She is exicited to sit in the chair for breakfast and to work with therapy today. Call light within reach. No needs at this time.
--- NOTE | 2024-02-18 12:08 | PM.IMPN ---
Progress Note: A&P Assessment and Plan (1) Right knee dislocation: Qualifiers: Encounter type: initial encounter Qualified Code(s): S83.104A - Unspecified dislocation of right knee, initial encounter Code(s): S83.104A - Unspecified dislocation of right knee, initial encounter Status: Acute Assessment and Plan: - knee/tib/fib XRs on presentation: Dislocation seen in the right total knee arthroplasty. Age indeterminate patellar fracture. - knee XR, post reduction: 1. Total right knee arthroplasty in near-anatomic alignment. 2. Nondisplaced periprosthetic fracture of lateral aspect of lateral tibial condyle. 3. 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 4. Large knee joint effusion. - Patient s/p Closed reduction right knee dislocation with application of a long leg cast 02/16/24 - orthopedics following, Anni MEEK. - Patient with chronic patellar fx per ortho. - Long-leg cast placed 02/16/24. - Continue analgesics p.r.n. - Continue PT/OT treatment with Ortho restrictions. - care coordination for possible placement. 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: Qualifiers: Fracture morphology: other fracture Qualified Code(s): S82.091K - Other fracture of right patella, subsequent encounter for closed fracture with nonunion Code(s): S82.001K - Unspecified fracture of right patella, subsequent encounter for closed fracture with nonunion Status: Chronic Assessment and Plan: - see above (3) CKD (chronic kidney disease), stage III: Qualifiers: Chronic kidney disease stage 3 subtype: stage 3a (GFR 45-59) Qualified Code(s): N18.31 - Chronic kidney disease, stage 3a Code(s): N18.3 - Chronic kidney disease, stage 3 (moderate) Status: Chronic Assessment and Plan: - Kidney function appears baseline currently. - hx of CKD stage 3. - Continue to monitor closely. - trend electrolytes, correct as needed. - Meds dosing per renal function. - IVF discontinued. (4) Iron deficiency anemia: Qualifiers: Iron deficiency anemia type: unspecified iron deficiency Qualified Code(s): D50.9 - Iron deficiency anemia, unspecified Code(s): D50.9 - Iron deficiency anemia, unspecified Status: Acute Assessment and Plan: - Hgb 10.8, previously 11.1 on 01/02/2024 - Appears stable. - continue iron supplement - No obvious signs of bleeding. (5) Essential (primary) hypertension: Code(s): I10 - Essential (primary) hypertension Status: Acute Assessment and Plan: - Appears fairly well controlled. - continue home medications: Nifedipine 60 mg b.i.d., ramipril 10 mg b.i.d. - monitor (6) FLEX (obstructive sleep apnea): Code(s): G47.33 - Obstructive sleep apnea (adult) (pediatric) Status: Acute Assessment and Plan: - intolerant of CPAP. - Supplemental O2 bedtime if needed. Plan Diet: Heart healthy GI Prophylaxis: Not currently indicated DVT Prophylaxis: Lovenox Lines: Peripheral Code Status: Full code Time Spent With Patient Time with patient: less than 15 minutes Subjective Date/time seen: 02/18/24 10:08 Patient states she feels alright, just waiting to go to rehab. States she has no pain currently and she's comfortable. Interval history: Patient calm on bedrest and looks to be in no acute distress. Patient s/p Closed reduction right knee dislocation with application of a long leg cast. Patient currently awaiting placement. Review of Systems Review of Systems: All systems reviewed & are unremarkable except as noted in HPI and below Exam Narrative: General: Well appearing, no acute distress. HEENT: Atraumatic, PERRL, EOM, moist mucosa. NECK: Supple. Lungs: Clear bilaterally. Heart: RRR, no murmurs. Abdomen: Soft, non-tender, non-distended, +ve bowel sounds X4 quadrants. Extremities: Right knee with long-leg cast. 1+ edema LLE with teds and Isai-wrap in place. SKin: Warm and dry. Right LE with long-leg cast. Neuro: Well oriented, CN II-XII grossly intact. Psych: Very pleasant and co-operative. Objective Data Vital Signs Vital Signs: Vital Signs - 24 hr 02/17/24 14:17 02/17/24 21:26 02/18/24 06:00 Temperature 97.6 F 98.5 F 97.1 F L Pulse Rate 86 64 57 L Respiratory Rate 18 13 16 Blood Pressure 119/53 L 139/65 140/50 L Pulse Oximetry 94 94 94 Oxygen Delivery Fraction of Inspired Oxygen 02/18/24 08:22 02/18/24 08:27 Temperature Pulse Rate Respiratory Rate Blood Pressure Pulse Oximetry 94 Oxygen Delivery Room Air Room Air Fraction of Inspired Oxygen 21 Intake/Output Intake/Output: Intake & Output 02/15/24 02/16/24 02/17/24 02/18/24 23:59 23:59 23:59 23:59 Intake Total 1130 7656 868 9665 Balance 1130 5984 087 9234 Meds/Results Medications: Active Medications Generic Name Dose Route Start Last Admin Trade Name Freq PRN Reason Stop Dose Admin Acetaminophen 650 mg 02/14/24 17:43 02/17/24 08:45 Acetaminophen 325 Mg Tablet PO 650 mg Q4H PRN Administration Mild Pain (1-3) or Fever Hydrocodone Bitart/Acetaminophen 1 tab 02/14/24 17:43 02/18/24 09:59 Hydrocodone/Acetaminophen (*Crx) 5-325 Mg Tablet PO 1 tab Q4H PRN Administration Pain Rated 7-10 Atorvastatin Calcium 40 mg 02/14/24 23:35 02/17/24 22:04 Atorvastatin 40 Mg Tablet PO 40 mg HS SHAMA Administration Cyanocobalamin 1,000 mcg 02/15/24 09:00 02/18/24 08:58 Cyanocobalamin 1,000 Mcg Tablet PO 1,000 mcg QAM SHAMA Administration Enoxaparin Sodium 30 mg 02/15/24 09:00 02/18/24 08:57 Enoxaparin 30 Mg/0.3 Ml Syringe SUB-Q 30 mg DAILY SHAMA Administration Ferrous Sulfate 325 mg 02/15/24 09:00 02/18/24 09:06 Ferrous Sulfate [address] PO Not Given TID SHAMA Levothyroxine Sodium 75 mcg 02/15/24 06:30 02/18/24 05:47 Levothyroxine Sodium 75 Mcg Tablet PO 75 mcg DAILY@0630 SHAMA Administration Nifedipine 60 mg 02/15/24 09:00 02/18/24 08:58 Nifedipine 30 Mg Tab.Er.24 PO 60 mg Q12HR SHAMA Administration Ondansetron HCl 4 mg 02/14/24 17:43 02/17/24 20:49 Ondansetron Inj 4 Mg/2 Ml Vial IV PUSH 4 mg Q4H PRN Administration Nausea Ondansetron HCl 4 mg 02/16/24 12:32 Ondansetron Inj 4 Mg/2 Ml Vial IV PUSH Q4H PRN Nausea And Vomiting Pantoprazole Sodium 40 mg 02/14/24 23:35 02/18/24 08:58 Pantoprazole 40 Mg Tablet PO 40 mg Q12HR SHAMA Administration Ramipril 10 mg 02/15/24 09:00 02/18/24 08:57 Ramipril 5 Mg Capsule PO 10 mg Q12HR SHAMA Administration Vitamin D 10,000 units 02/15/24 09:00 02/18/24 08:58 Cholecalciferol 5,000 Units Tablet PO 10,000 units DAILY SHAMA Administration Radiology Results: ITS Impressions Knee X-Ray 02/15/24 15:40 IMPRESSION: 1. Dislocated total right knee arthroplasty. 2. Nondisplaced periprosthetic fracture of lateral aspect of lateral tibial condyle. 3. 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 Intraoperative X-Ray 02/16/24 12:35 IMPRESSION: 1. Successful reduction of the previously dislocated right total knee arthroplasty. 2. Unchanged chronic nonunited patellar fracture with distraction of the cranial and caudal fragments . Quality VTE Prophylaxis VTE prophylaxis: pharmacologic ordered Hospitalist MIPS Advance Care Plan I have confirmed that the patient's Advanced Care Plan is present, code status is documented, or surrogate decision maker is listed in patient medical record.: Yes Medication Reconciliation I have utilized all available resources to obtain, update and review the patients current medications (includes all prescriptions, OTC, herbals, cannabis, and nutritional supplements).: Yes
[2024-02-18] MEDS: FERROUS SULFATE 325 MG TABLET DR PO ×2 (12:24→17:44)
[2024-02-18 14:00] VITALS: BP 112/65; PULSE 69; RESP 18; TEMP 36.4; O2SAT 95
[2024-02-18] MEDS: ACETAMINOPHEN 325 MG TABLET 650 MG PO (18:37)
[2024-02-18 21:07] VITALS: BP 111/61; PULSE 64; RESP 18; TEMP 36.9; O2SAT 94
[2024-02-18] MEDS: ATORVASTATIN 40 MG TABLET PO (21:17)
[2024-02-19] MEDS: ACETAMINOPHEN 325 MG TABLET 650 MG PO ×2 (00:38→05:30)
[2024-02-19] MEDS: LEVOTHYROXINE SODIUM 75 MCG TABLET PO (05:31)
[2024-02-19 05:49] VITALS: BP 131/56; PULSE 69; RESP 18; TEMP 36.8; O2SAT 95
[2024-02-19] MEDS: ramipriL 5 MG CAPSULE 10 MG PO ×2 (08:47→20:35)
[2024-02-19] MEDS: NIFEdipine 30 MG TAB.ER.24 60 MG PO ×2 (08:47→20:35)
[2024-02-19] MEDS: CHOLECALCIFEROL 5,000 UNITS TABLET 10000 UNITS PO (08:47)
[2024-02-19] MEDS: FERROUS SULFATE 325 MG TABLET DR PO (08:47)
[2024-02-19] MEDS: PANTOPRAZOLE 40 MG TABLET PO ×2 (08:48→20:35)
[2024-02-19] MEDS: ENOXAPARIN 30 MG/0.3 ML SYRINGE SUB-Q (08:48)
[2024-02-19] MEDS: HYDROcodone/acetaminophen (*CRX) 5-325 MG TABLET 1 TAB PO ×2 (08:50→18:29)
[2024-02-19] MEDS: ONDANSETRON INJ 4 MG/2 ML VIAL IV PUSH (08:52)
[2024-02-19] MEDS: CYANOCOBALAMIN 1,000 MCG TABLET 1000 MCG PO (09:46)
--- NOTE | 2024-02-19 13:21 | PM.IMPN ---
Progress Note: A&P Assessment and Plan (1) Right knee dislocation: Qualifiers: Encounter type: initial encounter Qualified Code(s): S83.104A - Unspecified dislocation of right knee, initial encounter Code(s): S83.104A - Unspecified dislocation of right knee, initial encounter Status: Acute Assessment and Plan: - knee/tib/fib XRs on presentation: Dislocation seen in the right total knee arthroplasty. Age indeterminate patellar fracture. - knee XR, post reduction: 1. Total right knee arthroplasty in near-anatomic alignment. 2. Nondisplaced periprosthetic fracture of lateral aspect of lateral tibial condyle. 3. 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 4. Large knee joint effusion. - Patient s/p Closed reduction right knee dislocation with application of a long leg cast 02/16/24 - orthopedics following, Anni MEEK. - Patient with chronic patellar fx per ortho that needs to be repaired at a tertiary hospital. - Long-leg cast placed 02/16/24. - Continue analgesics p.r.n. - Continue PT/OT treatment with Ortho restrictions. - care coordination for possible placement. 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: Qualifiers: Fracture morphology: other fracture Qualified Code(s): S82.091K - Other fracture of right patella, subsequent encounter for closed fracture with nonunion Code(s): S82.001K - Unspecified fracture of right patella, subsequent encounter for closed fracture with nonunion Status: Chronic Assessment and Plan: - see above (3) CKD (chronic kidney disease), stage III: Qualifiers: Chronic kidney disease stage 3 subtype: stage 3a (GFR 45-59) Qualified Code(s): N18.31 - Chronic kidney disease, stage 3a Code(s): N18.3 - Chronic kidney disease, stage 3 (moderate) Status: Chronic Assessment and Plan: - Kidney function appears baseline currently. - hx of CKD stage 3. - Continue to monitor closely. - trend electrolytes, correct as needed. - Meds dosing per renal function. - IVF discontinued. (4) Iron deficiency anemia: Qualifiers: Iron deficiency anemia type: unspecified iron deficiency Qualified Code(s): D50.9 - Iron deficiency anemia, unspecified Code(s): D50.9 - Iron deficiency anemia, unspecified Status: Acute Assessment and Plan: - Hgb 10.8, previously 11.1 on 01/02/2024 - Appears stable now. - continue iron supplement - No obvious signs of bleeding. (5) Essential (primary) hypertension: Code(s): I10 - Essential (primary) hypertension Status: Acute Assessment and Plan: - Appears fairly well controlled. - continue home medications: Nifedipine 60 mg b.i.d., ramipril 10 mg b.i.d. - monitor (6) FLEX (obstructive sleep apnea): Code(s): G47.33 - Obstructive sleep apnea (adult) (pediatric) Status: Acute Assessment and Plan: - intolerant of CPAP. - Supplemental O2 bedtime if needed. Plan Diet: Heart healthy GI Prophylaxis: Not currently indicated DVT Prophylaxis: Lovenox Lines: Peripheral Code Status: Full code Time Spent With Patient Time with patient: less than 15 minutes Subjective Date/time seen: 02/19/24 13:21 Patient states she feels well and currently has no pain or other distress. States Interval history: Patient calm on bedrest and looks to be in no acute distress. Patient s/p Closed reduction right knee dislocation with application of a long leg cast. Patient currently awaiting placement or transfer to [facility] for patella fracture repair. Review of Systems Review of Systems: All systems reviewed & are unremarkable except as noted in HPI and below Exam Narrative: General: Well appearing, no acute distress. HEENT: Atraumatic, PERRL, EOM, moist mucosa. NECK: Supple. Lungs: Clear bilaterally. Heart: RRR, no murmurs. Abdomen: Soft, non-tender, non-distended, +ve bowel sounds X4 quadrants. Extremities: Right knee with long-leg cast. 1+ edema LLE with teds and Isai-wrap in place. SKin: Warm and dry. Right LE with long-leg cast. Neuro: Well oriented, CN II-XII grossly intact. Psych: Very pleasant and co-operative. Objective Data Vital Signs Vital Signs: Vital Signs - 24 hr 02/18/24 14:00 02/18/24 21:07 02/19/24 05:49 Temperature 97.6 F 98.5 F 98.3 F Pulse Rate 69 64 69 Respiratory Rate 18 18 18 Blood Pressure 112/65 111/61 131/56 L Pulse Oximetry 95 94 95 Oxygen Delivery 02/19/24 08:00 Temperature Pulse Rate Respiratory Rate Blood Pressure Pulse Oximetry Oxygen Delivery Room Air Intake/Output Intake/Output: Intake & Output 02/16/24 02/17/24 02/18/24 02/19/24 23:59 23:59 23:59 23:59 Intake Total 2103 959 0060 830 Balance 1505 919 1115 830 Meds/Results Medications: Active Medications Generic Name Dose Route Start Last Admin Trade Name Freq PRN Reason Stop Dose Admin Acetaminophen 650 mg 02/14/24 17:43 02/19/24 05:30 Acetaminophen 325 Mg Tablet PO 650 mg Q4H PRN Administration Mild Pain (1-3) or Fever Hydrocodone Bitart/Acetaminophen 1 tab 02/14/24 17:43 02/19/24 08:50 Hydrocodone/Acetaminophen (*Crx) 5-325 Mg Tablet PO 1 tab Q4H PRN Administration Pain Rated 7-10 Atorvastatin Calcium 40 mg 02/14/24 23:35 02/18/24 21:17 Atorvastatin 40 Mg Tablet PO 40 mg HS SHAMA Administration Cyanocobalamin 1,000 mcg 02/15/24 09:00 02/19/24 09:46 Cyanocobalamin 1,000 Mcg Tablet PO 1,000 mcg QAM SHAMA Administration Enoxaparin Sodium 30 mg 02/15/24 09:00 02/19/24 08:48 Enoxaparin 30 Mg/0.3 Ml Syringe SUB-Q 30 mg DAILY SHAMA Administration Ferrous Sulfate 325 mg 02/15/24 09:00 02/19/24 08:47 Ferrous Sulfate [address] PO 325 mg TID SHAMA Administration Levothyroxine Sodium 75 mcg 02/15/24 06:30 02/19/24 05:31 Levothyroxine Sodium 75 Mcg Tablet PO 75 mcg DAILY@0630 SHAMA Administration Nifedipine 60 mg 02/15/24 09:00 02/19/24 08:47 Nifedipine 30 Mg Tab.Er.24 PO 60 mg Q12HR SHAMA Administration Ondansetron HCl 4 mg 02/14/24 17:43 02/19/24 08:52 Ondansetron Inj 4 Mg/2 Ml Vial IV PUSH 4 mg Q4H PRN Administration Nausea Ondansetron HCl 4 mg 02/16/24 12:32 Ondansetron Inj 4 Mg/2 Ml Vial IV PUSH Q4H PRN Nausea And Vomiting Pantoprazole Sodium 40 mg 02/14/24 23:35 02/19/24 08:48 Pantoprazole 40 Mg Tablet PO 40 mg Q12HR SHAMA Administration Ramipril 10 mg 02/15/24 09:00 02/19/24 08:47 Ramipril 5 Mg Capsule PO 10 mg Q12HR SHAMA Administration Vitamin D 10,000 units 02/15/24 09:00 02/19/24 08:47 Cholecalciferol 5,000 Units Tablet PO 10,000 units DAILY SHAMA Administration Radiology Results: ITS Impressions Knee X-Ray 02/15/24 15:40 IMPRESSION: 1. Dislocated total right knee arthroplasty. 2. Nondisplaced periprosthetic fracture of lateral aspect of lateral tibial condyle. 3. 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 Intraoperative X-Ray 02/16/24 12:35 IMPRESSION: 1. Successful reduction of the previously dislocated right total knee arthroplasty. 2. Unchanged chronic nonunited patellar fracture with distraction of the cranial and caudal fragments . Quality VTE Prophylaxis VTE prophylaxis: pharmacologic ordered Hospitalist MIPS Advance Care Plan I have confirmed that the patient's Advanced Care Plan is present, code status is documented, or surrogate decision maker is listed in patient medical record.: Yes Medication Reconciliation I have utilized all available resources to obtain, update and review the patients current medications (includes all prescriptions, OTC, herbals, cannabis, and nutritional supplements).: Yes
[2024-02-19 14:00] VITALS: BP 95/82; PULSE 62; RESP 18; TEMP 35.8; O2SAT 93
--- NOTE | 2024-02-19 14:23 | PM.PNORT ---
Subjective Subjective Date/Time Seen: 02/19/24 14:23 Objective Data Vital Signs Vital Signs: Vital Signs - 24 hr 02/18/24 21:07 02/19/24 05:49 02/19/24 08:00 Temperature 98.5 F 98.3 F Pulse Rate 64 69 Respiratory Rate 18 18 Blood Pressure 111/61 131/56 L Pulse Oximetry 94 95 Oxygen Delivery Room Air Intake/Output Intake/Output: Intake & Output 02/16/24 02/17/24 02/18/24 02/19/24 23:59 23:59 23:59 23:59 Intake Total 3965 524 9258 830 Balance 4059 462 1351 830 Meds/Results Medications: Active Medications Generic Name Dose Route Start Last Admin Trade Name Freq PRN Reason Stop Dose Admin Acetaminophen 650 mg 02/14/24 17:43 02/19/24 05:30 Acetaminophen 325 Mg Tablet PO 650 mg Q4H PRN Administration Mild Pain (1-3) or Fever Hydrocodone Bitart/Acetaminophen 1 tab 02/14/24 17:43 02/19/24 08:50 Hydrocodone/Acetaminophen (*Crx) 5-325 Mg Tablet PO 1 tab Q4H PRN Administration Pain Rated 7-10 Atorvastatin Calcium 40 mg 02/14/24 23:35 02/18/24 21:17 Atorvastatin 40 Mg Tablet PO 40 mg HS SHAMA Administration Cyanocobalamin 1,000 mcg 02/15/24 09:00 02/19/24 09:46 Cyanocobalamin 1,000 Mcg Tablet PO 1,000 mcg QAM SHAMA Administration Enoxaparin Sodium 30 mg 02/15/24 09:00 02/19/24 08:48 Enoxaparin 30 Mg/0.3 Ml Syringe SUB-Q 30 mg DAILY SHAMA Administration Ferrous Sulfate 325 mg 02/15/24 09:00 02/19/24 13:54 Ferrous Sulfate [address] PO Not Given TID SHAMA Levothyroxine Sodium 75 mcg 02/15/24 06:30 02/19/24 05:31 Levothyroxine Sodium 75 Mcg Tablet PO 75 mcg DAILY@0630 SHAMA Administration Nifedipine 60 mg 02/15/24 09:00 02/19/24 08:47 Nifedipine 30 Mg Tab.Er.24 PO 60 mg Q12HR SHAMA Administration Ondansetron HCl 4 mg 02/14/24 17:43 02/19/24 08:52 Ondansetron Inj 4 Mg/2 Ml Vial IV PUSH 4 mg Q4H PRN Administration Nausea Ondansetron HCl 4 mg 02/16/24 12:32 Ondansetron Inj 4 Mg/2 Ml Vial IV PUSH Q4H PRN Nausea And Vomiting Pantoprazole Sodium 40 mg 02/14/24 23:35 02/19/24 08:48 Pantoprazole 40 Mg Tablet PO 40 mg Q12HR SHAMA Administration Ramipril 10 mg 02/15/24 09:00 02/19/24 08:47 Ramipril 5 Mg Capsule PO 10 mg Q12HR SHAMA Administration Vitamin D 10,000 units 02/15/24 09:00 02/19/24 08:47 Cholecalciferol 5,000 Units Tablet PO 10,000 units DAILY SHAMA Administration Radiology Results: ITS Impressions Knee X-Ray 02/15/24 15:40 IMPRESSION: 1. Dislocated total right knee arthroplasty. 2. Nondisplaced periprosthetic fracture of lateral aspect of lateral tibial condyle. 3. 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 Intraoperative X-Ray 02/16/24 12:35 IMPRESSION: 1. Successful reduction of the previously dislocated right total knee arthroplasty. 2. Unchanged chronic nonunited patellar fracture with distraction of the cranial and caudal fragments .
--- NOTE | 2024-02-19 15:55 | P.PNOP_ITS ---
Progress Note: A&P Assessment and Plan (1) Right knee dislocation: Qualifiers: Encounter type: initial encounter Qualified Code(s): S83.104A - Unspecified dislocation of right knee, initial encounter Code(s): S83.104A - Unspecified dislocation of right knee, initial encounter Status: Acute 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: Qualifiers: Fracture morphology: other fracture Qualified Code(s): S82.091K - Other fracture of right patella, subsequent encounter for closed fracture with nonunion Code(s): S82.001K - Unspecified fracture of right patella, subsequent encounter for adelia sed fracture with nonunion Status: Chronic (3) Status post right knee replacement: Code(s): Z96.651 - Presence of right artificial knee joint Status: Acute Plan Knee dislocation of total knee arthroplasty stable in long leg cast. Closed reduction with cast application in the OR on Monday02/16/24. She was having recurrent dislocations and failed treatment with knee immobilizer and hinged brace. She has a chronic patellar fracture. She has been transferring and ambulating with formal physical therapy. Patient complains that the cast is very uncomfortable. Cast was padded well at the time of application. Wiggles toes. Toes are pink and blanchable. I recommend she keep the leg elevated to help with swelling. She can also use ice. Spoke with Dr. Hutton who spoke with both the hospitalist and the home care giver. Plan to try to get the patient transferred for definitive care. Patient will need a reconstruction of the total knee. Possible discharge to intermediate with outpatient follow up to tertiary care center. Continue PT/OT. Patient and her family are unable to manage the cast and she has stairs up into her home. Spoke with the patient, her family and multiple of her friends who were in the room. Patient is upset but agreeable. Will continue to follow. Subjective Subjective Date/Time Seen: 02/19/24 15:56 Interval history: Patient notes that the cast is very uncomfortable. She has been able to ambulate. She notes discomfort in the foot. She does not have much feeling in her toes but did not have feeling in the toes prior. Toes are warm and swollen. Review of Systems Review of Systems: All systems reviewed & are unremarkable except as noted in HPI and below Exam Narrative: Obese. 83 y/o female. No distress. Sitting in chair with leg down. Long leg cast in place. Toes are warm and pink. Toes rufus. Unable to feel pulses due to the cast. Toes are swollen. Wiggles toes. Objective Data Vital Signs Vital Signs: Vital Signs - 24 hr 02/18/24 21:07 02/19/24 05:49 02/19/24 08:00 Temperature 98.5 F 98.3 F Pulse Rate 64 69 Respiratory Rate 18 18 Blood Pressure 111/61 131/56 L Pulse Oximetry 94 95 Oxygen Delivery Room Air 02/19/24 14:00 Temperature 96.4 F L Pulse Rate 62 Respiratory Rate 18 Blood Pressure 95/82 L Pulse Oximetry 93 Oxygen Delivery Intake/Output Intake/Output: Intake & Output 02/16/24 02/17/24 02/18/24 02/19/24 23:59 23:59 23:59 23:59 Intake Total 9100 478 3973 830 Balance 9882 484 0555 830 Meds/Results Medications: Active Medications Generic Name Dose Route Start Last Admin Trade Name Freq PRN Reason Stop Dose Admin Acetaminophen 650 mg 02/14/24 17:43 02/19/24 05:30 Acetaminophen 325 Mg Tablet PO 650 mg Q4H PRN Administration Mild Pain (1-3) or Fever Hydrocodone Bitart/Acetaminophen 1 tab 02/14/24 17:43 02/19/24 08:50 Hydrocodone/Acetaminophen (*Crx) 5-325 Mg Tablet PO 1 tab Q4H PRN Administration Pain Rated 7-10 Atorvastatin Calcium 40 mg 02/14/24 23:35 02/18/24 21:17 Atorvastatin 40 Mg Tablet PO 40 mg HS SHAMA Administration Cyanocobalamin 1,000 mcg 02/15/24 09:00 02/19/24 09:46 Cyanocobalamin 1,000 Mcg Tablet PO 1,000 mcg QAM SHAMA Administration Enoxaparin Sodium 30 mg 02/15/24 09:00 02/19/24 08:48 Enoxaparin 30 Mg/0.3 Ml Syringe SUB-Q 30 mg DAILY SHAMA Administration Ferrous Sulfate 325 mg 02/15/24 09:00 02/19/24 13:54 Ferrous Sulfate [address] PO Not Given TID SHAMA Levothyroxine Sodium 75 mcg 02/15/24 06:30 02/19/24 05:31 Levothyroxine Sodium 75 Mcg Tablet PO 75 mcg DAILY@0630 SHAMA Administration Nifedipine 60 mg 02/15/24 09:00 02/19/24 08:47 Nifedipine 30 Mg Tab.Er.24 PO 60 mg Q12HR SHAMA Administration Ondansetron HCl 4 mg 02/14/24 17:43 02/19/24 08:52 Ondansetron Inj 4 Mg/2 Ml Vial IV PUSH 4 mg Q4H PRN Administration Nausea Ondansetron HCl 4 mg 02/16/24 12:32 Ondansetron Inj 4 Mg/2 Ml Vial IV PUSH Q4H PRN Nausea And Vomiting Pantoprazole Sodium 40 mg 02/14/24 23:35 02/19/24 08:48 Pantoprazole 40 Mg Tablet PO 40 mg Q12HR SHAMA Administration Ramipril 10 mg 02/15/24 09:00 02/19/24 08:47 Ramipril 5 Mg Capsule PO 10 mg Q12HR SHAMA Administration Vitamin D 10,000 units 02/15/24 09:00 02/19/24 08:47 Cholecalciferol 5,000 Units Tablet PO 10,000 units DAILY SHAMA Administration Radiology Results: ITS Impressions Knee X-Ray 02/15/24 15:40 IMPRESSION: 1. Dislocated total right knee arthroplasty. 2. Nondisplaced periprosthetic fracture of lateral aspect of lateral tibial condyle. 3. 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 Intraoperative X-Ray 02/16/24 12:35 IMPRESSION: 1. Successful reduction of the previously dislocated right total knee arth roplasty. 2. Unchanged chronic nonunited patellar fracture with distraction of the cranial and caudal fragments .
[2024-02-19] MEDS: ATORVASTATIN 40 MG TABLET PO (20:35)
[2024-02-19 21:54] VITALS: BP 125/59; PULSE 65; RESP 16; TEMP 36.8; O2SAT 94
[2024-02-20] MEDS: HYDROcodone/acetaminophen (*CRX) 5-325 MG TABLET 1 TAB PO ×3 (01:03→18:00)
[2024-02-20 06:00] VITALS: BP 110/75; PULSE 68; RESP 16; TEMP 36.7; O2SAT 94
[2024-02-20] MEDS: LEVOTHYROXINE SODIUM 75 MCG TABLET PO (06:17)
[2024-02-20] MEDS: NIFEdipine 30 MG TAB.ER.24 60 MG PO (09:26)
[2024-02-20] MEDS: CHOLECALCIFEROL 5,000 UNITS TABLET 10000 UNITS PO (09:26)
[2024-02-20] MEDS: ramipriL 5 MG CAPSULE 10 MG PO (09:26)
[2024-02-20] MEDS: PANTOPRAZOLE 40 MG TABLET PO (09:26)
[2024-02-20] MEDS: FERROUS SULFATE 325 MG TABLET DR PO ×3 (09:27→18:01)
[2024-02-20] MEDS: ENOXAPARIN 30 MG/0.3 ML SYRINGE SUB-Q (09:27)
[2024-02-20] MEDS: CYANOCOBALAMIN 1,000 MCG TABLET 1000 MCG PO (09:27)
--- NOTE | 2024-02-20 14:01 | P.DS_ITS ---
DS: Admitting Diagnosis Discharge Date 02/20/24 Admitting Diagnosis Dislocation of Right Knee DS: Discharge Diagnosis Discharge Diagnosis (1) Right knee dislocation: Qualifiers: Encounter type: initial encounter Qualified Code(s): S83.104A - Unspecified dislocation of right knee, initial encounter Code(s): S83.104A - Unspecified dislocation of right knee, initial encounter Status: Acute Assessment and Plan: - knee/tib/fib XRs on presentation: Dislocation seen in the right total knee arthroplasty. Age indeterminate patellar fracture. - knee XR, post reduction: 1. Total right knee arthroplasty in near-anatomic alignment. 2. Nondisplaced periprosthetic fracture of lateral aspect of lateral tibial condyle. 3. 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 4. Large knee joint effusion. - Patient s/p Closed reduction right knee dislocation with application of a long leg cast 02/16/24 - Orthopedics following, Anni MEEK. - Patient with chronic patellar fx per ortho that needs to be repaired at a tertiary hospital. - Long-leg cast placed 02/16/24. - [facility] contacted for possible transfer for reconstruction of the total knee and they state earliest pt can have surgery in Mar 2024 as schedule is busy. - Patient to be discharged to SNF and surgery arranged from SNF. - Continue analgesics p.r.n. - Continue PT/OT treatment with Ortho restrictions at SNF. 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: Qualifiers: Fracture morphology: other fracture Qualified Code(s): S82.091K - Other fracture of right patella, subsequent encounter for closed fracture with nonunion Code(s): S82.001K - Unspecified fracture of right patella, subsequent encounter for closed fracture with nonunion Status: Chronic Assessment and Plan: - see above (3) CKD (chronic kidney disease), stage III: Qualifiers: Chronic kidney disease stage 3 subtype: stage 3a (GFR 45-59) Qualified Code(s): N18.31 - Chronic kidney disease, stage 3a Code(s): N18.3 - Chronic kidney disease, stage 3 (moderate) Status: Chronic Assessment and Plan: - Kidney function baseline prior to surgery. (4) Iron deficiency anemia: Qualifiers: Iron deficiency anemia type: unspecified iron deficiency Qualified Code(s): D50.9 - Iron deficiency anemia, unspecified Code(s): D50.9 - Iron deficiency anemia, unspecified Status: Acute Assessment and Plan: - Hgb remained stable baseline during her inpatient stay. (5) Essential (primary) hypertension: Code(s): I10 - Essential (primary) hypertension Status: Acute Assessment and Plan: - Remained well controlled inpatient. (6) FLEX (obstructive sleep apnea): Code(s): G47.33 - Obstructive sleep apnea (adult) (pediatric) Status: Acute Assessment and Plan: - intolerant of CPAP. - Supplemental O2 bedtime if needed. (7) Dislocated knee: Qualifiers: Encounter type: initial encounter Laterality: right Qualified Code(s): S83.104A - Unspecified dislocation of right knee, initial encounter Code(s): S83.106A - Unspecified dislocation of unspecified knee, initial encounter Status: Acute (8) Status post right knee replacement: Code(s): Z96.651 - Presence of right artificial knee joint Status: Acute (9) Dislocated knee: Qualifiers: Encounter type: initial encounter Laterality: right Qualified Code(s): S83.104A - Unspecified dislocation of right knee, initial encounter Code(s): S83.106A - Unspecified dislocation of unspecified knee, initial encounter Status: Acute Plan Discharge Home. DS: Summary Hospital Course Reason for hospitalization: Right knee Dislocation. Hospital Course: Patient presented to the ER with Right Knee spontaneous dislocation at home. She was seen by the orthopedic and underwent Closed reduction with application of a long leg cast. Patient high risk for dislocation and required total knee reconstruction to be done at a tertiary facility. [facility] were contacted but stated they could only do the procedure as an outpatient otherwise their schedule was busy until Mar 2024. Pt has stairs at home and unable go up and down the stairs in the house. She has been working with PT and inpatient Rehab recommended. Pt has been cleared for discharge to rehab and surgery plans to be made at rehab. Pt is medically stable for discharge with no acute distress noted or reported prior to discharge. All her other chronic conditions remained stable inpatient. Status at Discharge Functional status at discharge: uses cane/walker Overall status at discharge: patient is progressing back to baseline Time Spent with Patient Time attestation: Total time spent providing and/or coordinating discharge services: Time spent: Greater than 30 minutes Exam Narrative: General: Well appearing, no acute distress. HEENT: Atraumatic, PERRL, EOM, moist mucosa. NECK: Supple. Lungs: Clear bilaterally. Heart: RRR, no murmurs. Abdomen: Soft, non-tender, non-distended, +ve bowel sounds X4 quadrants. Extremities: Right LE with long-leg cast. 1+ edema LLE with teds and Isai-wrap in place. SKin: Warm and dry. Right LE with long-leg cast. Neuro: Well oriented, CN II-XII grossly intact. Psych: Very pleasant and co-operative. Discharge Plan Discharge Attending physician on discharge: Greta Sandhu Consulting providers: Miguel Angel Hutton Discharging Clinician: Corine Marmolejo Anticipated Discharge Date/Time: 02/20/24 14:30 Patient Disposition: Inpatient Rehab Facility Activity: as tolerated Diet: heart healthy Patient Language: Luxembourgish Stand Alone Forms: General Discharge Information Follow-up/Referrals: Ani Em APRN [Primary Care Provider] - 1 Week Miguel Angel Hutton MD [Physician] - 2 Weeks Discharge Medications: New hydrocodone-acetaminophen 5-325 mg Tablet 1 tablet PO Q4H PRN (Reason: Pain Rated 7-10) Qty: 10 0RF Continued ferrous sulfate 325 mg (65 mg iron) tablet,delayed release (DR/EC) 325 mg PO TID atorvastatin 40 mg tablet 40 mg PO HS cholecalciferol (vitamin D3) 250 mcg (10,000 unit) capsule 250 mcg PO DAILY Qty: 30 8RF chlorthalidone 25 mg tablet 25 mg PO DAILY mecobalamin (vitamin B12) 1,000 mcg tablet,chewable 1,000 mcg PO DAILY acetaminophen [Tylenol Extra Strength] 500 mg tablet 500 mg PO Q6H PRN (Reason: Pain) ramipril 10 mg capsule 10 mg PO BID Qty: 180 3RF Rx Instructions: patient will finish her supply on hand then get the new script when running low nifedipine 60 mg tablet extended release 60 mg PO BID pantoprazole 40 mg tablet,delayed release (DR/EC) 40 mg PO Q12H Qty: 180 3RF levothyroxine 75 mcg tablet 75 mcg PO DAILY Qty: 90 1RF tramadol 50 mg tablet 50 mg PO Q8H PRN (Reason: pain) Qty: 30 0RF Date of admission: 02/16/24 12:07 Primary Care Provider: Ani Em Admitting Provider: Greta Sandhu Attending physician on admission: Miguel Angel Hutton Condition: Stable Quality If No VTE Prophylaxis Answer both mechanical and pharmacologic: Reason no mechanical VTE proph: low risk/not indicated Reason no pharmacologic proph: low risk/not indicated Hospitalist MIPS Heart Failure (Exclusion) Patient has history of Heart Transplant or Left Ventricular Assistive Device?: No IF YES, STOP HERE Heart Failure (Qualifier) Patient has current or prior documentation of LVEF less than or equal to 40%, or mod/servere depressed LVSF?: No IF NO, STOP HERE
--- NOTE | 2024-02-20 17:10 | PCCCNOTE ---
Pt's nurse called, stated she attempted to call report into [facility] the accepting facility today. Stated the nurse answering the phone declined to accept the pt until 02/21/24. Called Bella with [facility] in which she apologized and clarified this was an error on their part. Please have the hospital nurse call and ask for [facility]. They will accept the pt today 02/20/24. Pt's nurse is aware of who to ask for when returning the call today. No further needs noted for this discharge at this time.-azar.
== END 2024-02-20 18:25 | DRG 560 ==
LOC: ANHED 17:42 → ANH3MEDSUR 18:58
PROVIDERS: Orthopaedic Surgery; Admitting Provider Hospitalist; Emergency Provider Family Medicine; PCP Nurse Practitioner Family; Visit Provider Nurse Practitioner Adult Health
PROC: 0SWCXJZ Revision of Synthetic Substitute in Right Knee Joint, External Approach (ICD-10-PCS; principal; 2024-02-16 10:30)
DX: T84.022A Instability of internal right knee prosthesis, initial encounter (principal); S82.091K Other fracture of right patella, subsequent encounter for closed fracture with nonunion; M97.11XA Periprosthetic fracture around internal prosthetic right knee joint, initial encounter; I12.9 Hypertensive chronic kidney disease with stage 1 through stage 4 chronic kidney disease, or unspecified chronic kidney disease; X58.XXXA Exposure to other specified factors, initial encounter; N18.32 Chronic kidney disease, stage 3b; D63.1 Anemia in chronic kidney disease; M17.0 Bilateral primary osteoarthritis of knee; E03.9 Hypothyroidism, unspecified; G25.81 Restless legs syndrome; K22.70 Barrett's esophagus without dysplasia; K44.9 Diaphragmatic hernia without obstruction or gangrene; G47.33 Obstructive sleep apnea (adult) (pediatric); D50.9 Iron deficiency anemia, unspecified; M19.90 Unspecified osteoarthritis, unspecified site; I89.0 Lymphedema, not elsewhere classified; E66.9 Obesity, unspecified; Z68.32 Body mass index [BMI] 32.0-32.9, adult; Z96.651 Presence of right artificial knee joint
CPT/HCPCS: 27560; 36415; 73560; 73590; 80053; 85025; 85610; 86850; 86900; 86901; 96361; 96374; 97110; 97116; 97162; 97165; 97530; 97535; 99199; 99285; A9270; G0378; J1100; J1596; J1650; J2003; J2405; J2704; J3010; J7030; J7120

== ENCOUNTER 2024-03-19 13:31 | Outpatient (CLI) | payer OTHER, SELFPAY ==
--- NOTE | ~2024-03-19 | XR_ITS ---
XR knee RT 3V Ordering provider: Miguel Angel Hutton MD History: . Z96.651 - Presence of right artificial knee joint . Comparison: None. FINDINGS: BONES: Fracture of the patella with a fragment seen superiorly and inferiorly to the femoral prosthes is JOINT SPACES: Anterior dislocation is seen in the knee arthroplasty. SOFT TISSUES: Normal. IMPRESSION: Fracture of the patella with a fragment seen superiorly and inferiorly to the femoral prosthesis. Anterior displacement of the femoral prosthesis compared to the tibial prosthesis. Reviewed, dictated and finalized at location A. CTION PREVENTION COORDINATOR IMPRESSION: Fracture of the patella with a fragment seen superiorly and inferiorly to the f emoral prosthesis. Anterior displacement of the femoral prosthesis compared to the tibial prosthes is.
== END 2024-03-19 13:32 | disposition home or self-care (01) ==
LOC: ANHIMG 13:32
PROVIDERS: PCP Nurse Practitioner Family; Visit Provider Orthopaedic Surgery
DX: S83.104A Unspecified dislocation of right knee, initial encounter (principal); X58.XXXA Exposure to other specified factors, initial encounter; Z96.651 Presence of right artificial knee joint; T84.022A Instability of internal right knee prosthesis, initial encounter
CPT/HCPCS: 73562

== ENCOUNTER 2024-11-19 11:43 | Inpatient (IN) | payer MEDICARE, MEDICAID, SELFPAY ==
[2024-11-19] VITALS (12 sets, daily range): BP systolic 146–177; BP diastolic 50–71; PULSE 45–70; RESP 18–27; TEMP 36.3–36.6; O2SAT 95–99; BMI 29.7
--- NOTE | ~2024-11-19 | CT_ITS ---
CTA abdomen pelvis Clinical History: gi bleed Technique: Helical images lung bases to pelvic outlet IV contrast information not listed in PACS Coronal, sagittal reformats. Multiplanar MIPS CT images acquired with automatic exposure control for dose reduction DLP: 754 mGy-cm Comparison: CT abdomen and pelvis without contrast 02/25/2023 Findings: CTA Findings: Abdominal aorta: No aneurysm or dissection. Common iliac arteries: Patent. External iliac arteries: Patent. Hypogastric arteries: Patent. CFAs: Patent. Proximal visualized SFAs and profundas: Patent. Celiac: Patent. Left hepatic replaced to left gastric SMA: Patent. TANIA: Patent. Renal arteries: Patent. Non-CTA findings: Lung bases: Clear. Visualized heart and pericardium: Cardiomegaly. Liver: Unremarkable. Gallbladder: Unremarkable. Spleen: Unremarkable. Pancreas: Unremarkable. Adrenal glands: Unremarkable. Kidneys: Cortical thinning. Right kidney- No renal stones. No hydronephrosis. Cortical cyst. Left kidney- No renal stones. No hydronephrosis. Distal esophagus/stomach: Large hiatal hernia. Small bowel loops: Normal caliber and wall thickness. Colon: Diverticula. Normal caliber and wall thickness. Normal RLQ appendix. No enteric intraluminal extravasation of intravascular contrast. Nodes: No enlarged nodes. Peritoneum: No ascites. No free air. Urinary bladder: Unremarkable. Uterus: Unremarkable. Adnexa: No masses. Bones: No acute bony abnormality. Soft tissues: Unremarkable. IMPRESSION: 1. No evidence of active GI bleed or other acute abnormality. Reviewed, dictated and finalized at location R.
[2024-11-19 12:06] LABS: Hematocrit 24.6 % (37.0-47.0); Immature Granulocyte Percent A 0.3 % (0-0.5); Lymphocytes Absolute Auto 1.26 K/mm3 (0.9-3.2); Mean Corpuscular HGB Conc 27.6 g/dl (32-36); Mean Corpuscular Hemoglobin 19.7 pg (26-34); Mean Corpuscular Volume 71.1 fl (80-100); Nucleated Red Blood Cells Absolute Auto 0.000 K/mm3 (0.0-0.012); Nucleated Red Blood Cells Perc 0.0 % (0.0-0.2); Platelet Count Result 280 k/mm3 (150-375); Red Blood Count 3.46 M/mm3 (4.2-5.4); White Blood Count 7.9 K/mm3 (4.5-10.0)
[2024-11-19 12:17] LABS: Hemoglobin 6.8 g/dL (12.0-15.0)
[2024-11-19 12:28] LABS: Alanine Aminotransferase 22 U/L (6-35); Albumin Level 3.5 g/dL (3.5-5.1); Alkaline Phosphatase 136 U/L (38-126); Anion Gap 6 mmol/L (4-12); Anisocytosis 1+; Aspartate Amino Transferase 33 U/L (14-36); Bilirubin,Total 0.4 mg/dL (0.2-1.3); Blood Urea Nitrogen 16 mg/dL (7-17); Calcium 8.6 mg/dL (8.4-10.2); Carbon Dioxide 28 mmol/L (22-30); Chloride 105 mmol/L (98-107); Estimated CRCL calculation 34 ml/min; Estimated Glomerular Filt Rate 47; Glucose 108 mg/dL (65-110); Hypochromasia 1+; Ovalocytes 1+; Potassium 4.1 mmol/L (3.4-5.0); Schistocytes None Seen; Sodium 139 mmol/L (137-145); Total Protein 7.4 g/dL (6.3-8.2)
[2024-11-19 13:29] LABS: Iron 27 ug/dL (37-170)
[2024-11-19 13:38] LABS: Percent Iron Saturation 7 % (20-50)
--- OUTSIDE RECORDS SUMMARY | 2024-11-19 14:05 | XMS_ITS | Clinical Summary ---
Author Organization [facility] Address [address] [place] [address] Care Team Providers Care Underwriting Sales Representative Name Role Phone Yosvany Encarnacion MD Primary Care Provider [phone] Source Comments [facility],non-owned Affiliates and Associated Physician Practices is amultiple site organization consisting of ambulatory clinics and hospital sitesin [place], [place] and [place]. This disclosure is being madepursuant to the Care Everywhere program and may not contain all information available regarding this patient. Last updated 17.[employer] [facility] Allergies No known active allergies Medications * Be aware that medications may not be up to date on this document. Alwaysverify current medications with the patient. atorvastatin (Lipitor) 40 MG tablet Take 1 (one) tablet by mouth at bedtime Active ferrous sulfate 325 (65 FE) MG tablet Take 1 (one) tablet by mouth once daily Active acetaminophen (Tylenol) 500 MG tablet Take 1 (one) tablet by mouth every 6 hours as needed for Fever or Pain Maximum allowable Acetaminophen amount = 4 Grams (4000 mg) / 24 hours. Active Cholecalcifero l 250 MCG (65545 UT) TABS Take 1 (one) tablet by mouth once daily Active ramipril (Altace) 10 MG capsule Take 1 (one) capsule by mouth once daily Active pantoprazole EC (Protonix) 40 MG tablet Take 1 (one) tablet by mouth 2 times daily Active levothyroxine (Synthroid) 75 MCG tablet Take 1 (one) tablet by mouth daily before breakfast Active traMADol (Ultram) 50 MG tablet Take 1 (one) tablet by mouth every 6 hours as needed for Pain Active cyanocobalamin (Vitamin B-12) 1000 MCG tablet Take 1 (one) tablet by mouth once daily Active apixaban (Eliquis) 2.5 MG tablet Take 1 (one) tablet by mouth 2 times daily for 35 days 5 Active lactulose (Chronulac) 10 GM/15ML solution Take 30 mL by mouth 3 times daily as needed for Constipation 5 Active polyethylene glycol 3350 (Miralax) 17 g packet Take 17 (seventeen) g by mouth once daily 5 Active senna-docusate (Senokot-S) 8.6-50 MG tablet Take 2 (two) tablets by mouth 2 times daily 5 Active Active Problems Problem Noted Date Diagnosed Date Other specified hypothyroidism 03/25/2024 GERD (gastroesophageal reflux disease) 5 Dislocation of right knee, initial encounter Resolved Problems Problem Noted Date Diagnosed Date Resolved Date Constipation 03/25/2024 04/22/2024 Social History Tobacco Use Types Packs/Day Years Used Date Smoking Tobacco: Never Assessed Tobacco Cessation:Counseling Given: Yes AUDIT-C Answer Date Recorded Q1: How often do you have a drink containing alc ohol? Monthly or less 03/21/2024 Q2: How many drinks containi ng alcohol do you have on a typical day when you are drinking? Patient declined 03/21/2024 Q3: How often do you have si x or more drinks on one occasion? Patient declined 03/21/2024 Overall Financial Resource Strain (CARDIA) Answe r Date Recorded How hard is it for you to pa y for the very basics like food, housing, medical care, and heating? Not hard at all 03/21/2024 PHQ-2 Answer Date Recorded Patient Health Questionnaire-2 Score 0 04/10/2024 [facility] [place] [facility] Occupat ional [facility] - Occupational Stress Questionnaire Answer Date Recorded Do you feel stress - tense, restless, nervous, or anxious, or unable to sleep at night because your mind is troubled all the time - these days? Only a little 03/21/2024 Hunger Vital Sign Answer Date Recorded Within the past 12 months, y ou worried that your food would run out before you got the money to buy more. Never true 03/21/19 25 Within the past 12 months, t he food you bought just didn't last and you didn't have money to get more. Never true 03/21/2024 PRAPARE - Transportation Answer Date Re corded In the past 12 months, has l ack of transportation kept you from medical appointments or from getting medications? No 03/06 In the past 12 months, has l ack of transportation kept you from meetings, work, or from getting things needed for daily living? No 03/21/2024 Housing Stability Vital Sign Answer Johan e Recorded In the last 12 months, was t here a time when you were not able to pay the mortgage or rent on time? No 03/21/2024 In the past 12 months, how m any times have you moved where you were living? 0 03/21/2024 At any time in the past 12 m [facility], were you homeless or living in a skilled nursing (including now)? No 03/21/2024 Comments Unknown Sex and Gender Information Value Date Recorded Sex Assigned at Female 03/19/2024 8:48 PM ASSISTANT SALES CENTER MANAGER Legal Sex Female 2:50 PM CDT Gender Identity Not on file Sexual Orientation Not on file Last Filed Vital Signs Vital Sign [place] Time Taken Comments Blood Pressure 122/66 03/25/2024 3:06 PM ASSISTANT SALES CENTER MANAGER Pulse 57 03/25/2024 3:06 PM ASSISTANT SALES CENTER MANAGER Temperature 36.4 C (97.5 F) 03/25/2024 3:06 PM ASSISTANT SALES CENTER MANAGER Respiratory Rate 18 03/25/2024 3:06 PM ASSISTANT SALES CENTER MANAGER Oxygen Saturation 92% 03/25/2024 3:06 PM ASSISTANT SALES CENTER MANAGER Inhaled Oxygen Concentration - - Weight 84.4 kg (186 lb) 03/19/2024 6:43 PM ASSISTANT SALES CENTER MANAGER Height 167.6 cm (5' 6) 03/19/2024 6:43 PM ASSISTANT SALES CENTER MANAGER Body Mass Index 30.02 03/19/2024 6:43 PM ASSISTANT SALES CENTER MANAGER Plan of Treatment Upcoming Encounters Date Type Department Care Team (Late st Contact Info) Description 06/18/2025 12:30 PM CDT Office Visit [facility] [address] [place] [phone] Jimi Boss MD [address] [id number] Health Maintenance Due Date Last Done Comments BONE DENSITY TESTING 1940 MEDICARE AWV 12 MONTHS 1940 DTAP/TDAP/TD VACCINES (1 - Tdap) 1960 PNEUMOCOCCAL VACCINE 50+ (1 of 1 - PCV) 06/06/1991 ZOSTER VACCINE (1 of 2) 06/06/1991 Respiratory Syncytial Virus (RSV) Vaccine Pt: or over 60 yrs (1 - 1-dose 75+ series) 2016 COVID-19 VACCINE ( season) 2024 01/09/2023, 12/25/2021, 07/01/2021, Additional history exists INFLUENZA VACCINE (#1) 2024 , 12/25/2021, 12/18/2020, Additional history exists DEPRESSION SCREENING Completed 03/26/2024 HEPATITIS B VACCINE Aged Out No longe r eligible based on patient's age to complete this topic HIB VACCINE Aged Out No longer eligi ble based on patient's age to complete this topic HPV VACCINE Aged Out No longer eligi ble based on patient's age to complete this topic MENINGOCOCCAL (Group B) VACCINE SHARED DECISION-MAKING Aged Out No longer eligible based on patient's age to complete this topic MENINGOCOCCAL GROUPS A/C/Y/W VACCINE Aged Out No longer eligible based on patient's age to complete this topic Medical Devices Implanted Type Area Charge Attendant Device Identifier Shelf Expiration Date Model / Serial / Lot Brng [id number] Vngrd Arcm Kn Ant Stab Implanted:Qty: 1 on 03/22/2024 by Jimi Boss MD at [facility] Right: Knee [employer] 06/14/2027 [id number] / / [id number] Cmpnt Tibtry Kn Prm Lck Bar Bmt As Mx Implanted:Qty: 1 on 03/22/2024 by Jimi Boss MD at [facility] Right: Knee [employer] 08/06/2033 [id number] / / [id number] Insurance MEDICAID - OUT OF STATE SELF PAY NO INSURANCE Member Subscriber Plan / Payer (Ef fective for All Dates) Name:Nadiya John Member ID:Not on file Relation to Subscriber:Not on file Name:ALVARONADIYA Subscriber ID:Not on file (Home) Address: [address] [place] [id number] Payer ID:Not on file Group ID:Not on file Type:Self Pay Address: [facility] MEDICARE SELF PAY NO INSURANCE Member Subscriber Plan / Payer (Ef fective for All Dates) Name:Nadiya John Member ID:Not on file Relation to Subscriber:Not on file Name:NADIYA JOHN Subscriber ID:Not on file (Home) Address: [address] [place], [place] [phone] Payer ID:Not on file Group ID:Not on file Type:Self Pay Address: [place], [place] SELF PAY NO INSURANCE Member Subscriber Plan / Payer (Ef fective for All Dates) Name:Nadiya John Member ID:Not on file Relation to Subscriber:Not on file Name:NADIYA JOHN Subscriber ID:Not on file (Home) Address: [address] [place] [address] Payer ID:Not on file Group ID:Not on file Type:Self Pay Address: [place], [place] * Guarantor: NADIYA JOHN Account Type Relation to Patient Date of Phone Billing Address Personal/Family Spouse Advance Directives * Full Code (Latest Code Status on File) Date Activated Date Inactivated Comments 03/19/2024 11:14 PM 03/25/2024 7:54 PM Care Teams Underwriting Sales Representative Relationship Specialty Start Date End Date Yosvany Encarnacion MD [address] [place] [address] PCP - General Family Medicine 03/19/24
--- OUTSIDE RECORDS SUMMARY | 2024-11-19 14:05 | XMS_ITS | Clinical Summary ---
Author Organization [facility] Address [address] [facility] [address] [place] [address] Phone Care Team Providers Care Feeder Catcher Name Role Phone Frank Ha Primary Care Provider [phone] Mau Richards Unavailable Allergies No known active allergies Medications atorvastatin (LIPITOR) 40 MG Tablet Take 40 mg by mouth daily. 05/18/2017 Active chlorthalidone (HYGROTON) 25 MG Tablet Take 25 mg by mouth daily. 08/03/2017 Active ferrous sulfate 325 (65 Fe) MG Tablet TK 1 T PO bid 3 06/22/2017 Active levothyroxine (SYNTHROID) 25 MCG Tablet Take 25 mcg by mouth daily. 05/16/2017 Active NIFEdipine CR (PROCARDIA-XL) 60 MG TABLET SR 24 HR Take 60 mg by mouth daily. 05/22/2017 Active pantoprazole (PROTONIX) 40 MG Tablet Delayed Response Take 40 mg by mouth. 05/18/2017 Active ramipril (ALTACE) 10 MG Capsule Take 10 mg by mouth daily. 05/16/2017 Active traMADol (ULTRAM) 50 MG Tablet Take 50 mg by mouth every 6 hours as needed. Active acetaminophen (TYLENOL) 325 MG Tablet Take 325 mg by mouth every 4 hours as needed. Active Cyanocobalamin (VITAMIN B 12 PO) Take 1 Tab by mouth daily. Active Cholecalciferol (VITAMIN D3) 1000 UNIT Tablet Take 1 Tab by mouth daily. 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 Not on file Not on file Not on file Last Filed Vital Signs Vital Sign [place] Time Taken Comments Blood Pressure 129/75 09/08/2017 12:17 PM CDT Pulse 67 09/08/2017 10:54 AM CDT Temperature 36 C (96.8 F) 09/08/2017 12:17 PM CDT Respiratory Rate 13 09/08/2017 12:17 PM CDT Oxygen Saturation 96% 09/08/2017 12:17 PM CDT Inhaled Oxygen Concentration - - Weight 97.5 kg (215 lb) 11/09/2017 1:00 PM CDT Height 172.7 cm (5' 8) 11/09/2017 1:00 PM CDT Body Mass Index 32.69 11/09/2017 1:00 PM CDT Plan of Treatment Health Maintenance Due Date Last Done Comments Hepatitis C Virus (HCV) Screening 1940 TdaP Immunization 1940 Pneumococcal Immunization (5 0+ years) (1 of 1 - PCV) 06/06/1991 Zoster Immunization (1 of 2) 06/06/1991 Respiratory Syncytial Virus (RSV) Immunization (Adult) (1 - 1-dose 75+ series) 2016 Influenza Immunization (#1) 2024 SARS-COV-2 Immunization ( - season) 2024 Hepatitis B Immunization Aged Out No longer eligible based on patient's age to complete this topic Human Papillomavirus (HPV) Immunization Aged Out No longer eligible b ased on patient's age to complete this topic Meningococcal Immunization (ACWY) Aged Out No longer eligible based on patient's age to complete this topic Rotavirus Immunization Aged Out No lo nger eligible based on patient's age to complete this topic Insurance [place]ICAID [place] Care Teams Feeder Catcher Relationship Specialty Start Date End Date Frank Ha DO [address] [facility] [address] [place] [address] PCP - General Internal Medicine 08/11/17 Mau Richards [address] [place] [address] [address] [place] [address] Hematology 08/11/17
--- OUTSIDE RECORDS SUMMARY | 2024-11-19 14:06 | XMS_ITS | Clinical Summary ---
Author Organization [facility] Address [address] [place] [address] Phone Care Team Providers Care Plastic Manager Name Role Phone Frank Ha Primary Care Provider [phone] Allergies No known active allergies Medications ferrous sulfate 325 (65 Fe) MG tablet 1tid 0 12/02/2017 Active traMADol (ULTRAM) 50 MG tablet 1 tid prn 0 12/06/2017 Active atorvastatin (LIPITOR) 40 MG tablet 1 daily 0 12/06/2017 Active acetaminophen (TYLENOL) 500 MG tablet as needed 0 12/06/2017 Active Methylcobalamin (M09-PYOVOG) 1 MG chewable tablet 1 daily 0 12/06/2017 Active NIFEdipine CC (ADALAT CC) 60 MG 24 hr tablet 1 daily 0 12/02/2017 Act zion pantoprazole (PROTONIX) 40 MG EC tablet 1 daily 0 12/02/2017 Active chlorthalidone (HYGROTON) 25 MG tablet 1 daily 0 12/06/2017 Active ramipril (ALTACE) 10 MG capsule 1 daily 0 12/02/2017 Active cholecalciferol (VITAMIN D-3) 125 MCG (5000 UT) capsule Take 10,000 Units by mouth 1 (one) time each day Active levothyroxine sodium (TIROSINT) 50 MCG capsule Take 50 mcg by mouth 1 (one) time each day Active metoprolol succinate XL (TOPROL-XL) 25 MG 24 hr tablet Take 25 mg by mouth 1 (one) time each day 05/27/2021 Active Active Problems Problem Noted Date Diagnosed Date Stage 3a chronic kidney disease 08/22/2018 Essential (primary) hypertension 12/06/2017 Other specified arthritis, unspecified knee 05/2017 Anemia 12/06/2017 Hypothyroidism 12/06/2017 Hyperlipidemia 12/06/2017 Iron deficiency anemia 04/21/2017 Resolved Problems Problem Noted Date Diagnosed Date Resolved Date Abnormal result of kidney function study 12/06/2017 08/13/2020 Immunizations Immunization Administration Dates Next Due Influenza TIV (IM) 12/18/2020 Pneumococcal Conjugate 11/04/2014 Family History Medical History Relation Comments Kidney disease Neg Hx Social History Tobacco Use Types Packs/Day Years Used Date Smoking Tobacco: Never Smokeless Tobacco: Never Alcohol Use Standard Drinks/Week Comments No 0 (1 standard drink = 0.6 oz pur e alcohol) Comments Unknown Sex and Gender Information Value Date Recorded Sex Assigned at Not on file Legal Sex Female 9:00 AM MST Gender Identity Not on file Sexual Orientation Not on file Last Filed Vital Signs Vital Sign [place] Time Taken Comments Blood Pressure 112/50 08/12/2021 11:06 AM CDT Pulse 60 08/12/2021 11:06 AM CDT Temperature 36.8 C (98.3 F) 08/12/2021 11:06 AM CDT Respiratory Rate - - Oxygen Saturation - - Inhaled Oxygen Concentration - - Weight 110 kg (243 lb) 08/12/2021 11:06 AM CDT Height 154.9 cm (5' 1) 08/12/2021 11:06 AM CDT Body Mass Index 45.91 08/12/2021 11:06 AM CDT Plan of Treatment Health Maintenance Due Date Last Done Comments Pneumococcal PPSV23/PCV13 65 + Years / Low and Medium Risk (1 of 2 - PCV) 06/06/1991 Influenza Vaccine (#1) 2024 12/18/2020 Insurance MEDICAID - [place] Member Subscriber Plan / Payer (Ef fective 2018-Present) Name:Nadiya Grimes Relation to Subscriber:Self Name:Nadiya Grimes Payer ID:[id number] Group ID:Not on file Type:Not on file Address: [place] [id number] [employer] MEDICARE ADVANTAGE [place] MED[place] Care Teams Plastic Manager Relationship Specialty Start Date End Date Frank Ha DO [address] [place] [address] PCP - General Internal Medicine 08/22/18
--- OUTSIDE RECORDS SUMMARY | 2024-11-19 14:06 | XMS_ITS | Clinical Summary ---
Author Organization [facility] Address [address] [place] [address] Care Team Providers Care Digital Specialist Name Role Phone Yosvany Encarnacion MD Primary Care Provider [phone] Allergies No known active allergies Medications traMADol (ULTRAM) 50 mg tablet Take 100 mg by mouth every 8 hours as needed for Pain. Active ramipril (ALTACE) 10 mg capsule Take 10 mg by mouth daily. Active chlorthalidone (HYGROTON) 25 mg tablet Take 25 mg by mouth daily. Active levothyroxine 25 mcg tablet Take 25 mcg by mouth daily customer marketing intern. Active NIFEdipine (ADALAT CC) 60 mg Extended Release tablet Take 60 mg by mouth 2 times daily. Active pantoprazole (PROTONIX) 40 mg Tablet, Delayed Release (E.C.) Take 40 mg by mouth 2 times daily. Active ferrous sulfate 325 mg (65 mg iron) tablet Take 325 mg by mouth 2 times daily. Active cyanocobalamin (VITAMIN B-12) 500 mcg tablet Take 1,000 mcg by mouth daily. Active cholecalciferol, vitamin D3, 1,000 unit Take 1,000 Units by mouth daily. Active acetaminophen (TYLENOL) 325 mg tablet Take 325 mg by mouth every 4 hours as needed. Active atorvastatin (LIPITOR) 40 mg tablet Take 40 mg by mouth daily at bedtime. 2 05/18/2017 Active metoprolol succinate (TOPROL XL) 25 mg Extended Release 24 hour tablet Take 25 mg by mouth daily. 08/24/2021 Active sucralfate (CARAFATE) 1 gram tablet Take 1 Tablet by mouth 3 times daily. 06/28/2023 Active Active Problems Problem Noted Date Diagnosed Date Anemia of chronic renal failure, stage 3b 2021 Iron deficiency anemia 04/21/2017 Encounters Date Type Department Care Team Description 11/05/2024 External Device Data [facility] ABSTRACTION Provider, Abstract 10/22/2024 External Device Data [facility] ABSTRACTION Provider, Abstract 10/15/2024 External Device Data [facility] ABSTRACTION Provider, Abstract from Last 3 Months Family History Medical History Relation Name Comments Diabetes Brother 1 Diabetes Brother 2 Heart Disease Brother 2 Cancer Father Heart Disease Mother Other Sister 1 Cancer Sister 2 No Known Problems Sister 3 Healthy Sister 4 No Known Problems Sister 5 Relation Name Status Comments Brother 1 Alive Brother 2 Alive Father Mother Sister 1 Sister 2 Sister 3 Alive Sister 4 Alive Sister 5 Alive Social History Tobacco Use Types Packs/Day Years Used Date Smoking Tobacco: Never Tobacco Cessation:Counseling Given: Not Answered Alcohol Use Standard Drinks/Week Comments No 0 (1 standard drink = 0.6 oz pur e alcohol) Comments No Sex and Gender Information Value Date Recorded Sex Assigned at Not on file Legal Sex Female 10:06 AM CUSTOM APPLICATOR Gender Identity Not on file Sexual Orientation Not on file Last Filed Vital Signs Vital Sign [place] Time Taken Comments Blood Pressure 115/68 01/03/2024 9:42 AM CDT Pulse 81 01/03/2024 9:42 AM CDT Temperature 36.8 C (98.2 F) 01/03/2024 9:42 AM CDT Respiratory Rate 16 01/03/2024 9:42 AM CDT Oxygen Saturation 95% 01/03/2024 9:42 AM CDT Inhaled Oxygen Concentration - - Weight 78.6 kg (173 lb 3.2 oz) 01/03/2024 9:42 A M CDT Height 165.1 cm (5' 5) 09/10/2021 11:57 AM CDT Body Mass Index 28.82 09/10/2021 11:57 AM CDT Plan of Treatment Health Maintenance Due Date Last Done Comments DTAP/TDAP/TD VACCINES (1 - Tdap) 1960 PNEUMOCOCCAL VACCINE 50+ YEA RS (1 of 1 - PCV) 06/06/1991 11/04/2014 ZOSTER VACCINE (1 of 2) 06/06/1991 OSTEOPOROSIS SCREENING 2006 RSV VACCINE (60+ or ) (1 - 1-dose 75+ series) 2016 INFLUENZA VACCINE (#1) 2024 12/18/2020 Colorectal Cancer Screening Discontinued FIT/FOBT Q 1 year Discontinued 09/03/2021, 04/24/2017 COLORECTAL SCREENING Discontinued FIT-DNA Q 3 years Discontinued Flex Sig/CT Colonography Q 5 years Discontinued Procedures Procedure Name Priority Date/Time Associated Diagnosis Comments OCCULT BLOOD IMMUNOASSAY, COLORECTAL SCREEN Routine 09/03/2021 from Last 3 Months or Most Recently Relevant to Health Maintenance Results * OCCULT BLOOD IMMUNOASSAY, COLORECTAL SCREEN (09/03/2021) Stool STOOL SPECIMEN / Unknown us Abstract Provider BODY FLUIDS AND STOOLS Final R esult from Last 3 Months or Most Recently Relevant to Health Maintenance Insurance GENERIC MEDICARE MANAGED CARE [place] GENERIC MEDICARE MANAGED [place]ARE [place] Care Teams Digital Specialist Relationship Specialty Start Date End Date Yosvany Encarnacion MD [address] [place] [phone] PCP - General Family Practice 11/23/22
--- NOTE | 2024-11-19 14:12 | ED_ITS ---
HPI - General Adult General Chief complaint: Recheck/Abnormal Lab/Rx Stated complaint: low H & H Time Seen by Provider: 11/19/24 12:28 Source: patient Mode of arrival: EMS Limitations: no limitations History of Present Illness HPI narrative: 84-year-old with a history of atrial fibrillation not on any anticoagulation, hypertension, hypothyroidism was sent from [facility] with a complains of low hemoglobin of 6.8. Patient states that she had a routine lab work done yesterday and was told her blood count is low. She presently denies having any weakness or shortness of breath or lightheadedness. No history of nausea, vomiting, abdominal pain blood in the stool or black color stool. She gives a remote history of blood transfusion Onset (ago): day(s) (1) Severity: mild Exacerbating factors: none Associated symptoms: denies other symptoms Treatments prior to arrival: none Related Data Home Medications ?Medication ?Instructions ?Recorded ?Confirmed ?Last Taken ?Type atorvastatin 40 mg tablet 40 mg PO HS 03/14/19 4 02/13/24 History ferrous sulfate 325 mg (65 mg 325 mg PO TID 03/14/19 1 04/16/23 02/14/24 History iron) tablet,delayed release nifedipine 60 mg tablet,extended 60 mg PO BID 03/14/19 02/14/24 02/14/24 History release acetaminophen 500 mg tablet 500 mg PO Q6H PRN Pain 12/2302/14/24 06/27/23 History (Tylenol Extra Strength) chlorthalidone 25 mg tablet 25 mg PO DAILY 12/08/23 Unknown History mecobalamin (vitamin B12) 1,000 1,000 mcg PO DAILY 06/2702/14/24 02/14/24 History mcg chewable tablet Allergies Allergy/AdvReac Type Severity Reaction Status Date / Time tramadol AdvReac Intermediate Agitated Verified 11/19/24 11:55 Review of Systems 2 Review of Systems: All systems reviewed & are unremarkable except as noted in HPI and below Constitutional: Constitutional: Reports no additional constitutional complaints Eyes: Eyes: Reports no additional eye complaints ENT: Reports system reviewed and no additional complaints, except as documented Cardiovascular: Cardiovascular: Reports no additional cardiovascular complaints Respiratory: Respiratory: Reports no additional respiratory complaints Gastrointestinal: Gastrointestinal: Reports no additional gastrointestinal complaints Musculoskeletal: Musculoskeletal: Reports no additional musculoskeletal complaints Integumentary/Breasts: Skin/Breast: Reports system reviewed and no additional complaints, except as docu [facility] Past Medical History Medical History FLEX (obstructive sleep apnea) Barretts esophagus Nausea and vomiting in adult Chronic kidney disease, stage 3b Paresthesias in right hand Long toenail Pain of left heel Foot callus Chronic kidney disease, stage 3a Restless legs syndrome Impaired glucose tolerance RED (dyspnea on exertion) Chest pain Hypersomnia Abnormal heart rhythm Impacted cerumen of both ears Right arm fracture Casted Cellulitis of foot, right Patella fracture Discharge planning issues Iron deficiency anemia Arthritis Gastric polyp Hiatal hernia Esophageal ulcer Anemia in chronic kidney disease CKD (chronic kidney disease), stage III Essential (primary) hypertension Hypothyroidism, unspecified Primary osteoarthritis of both knees Pure hypercholesterolemia Vitiligo Surgical History Surgical History H/O right wrist surgery Repair of right wrist fracture S/P carpal tunnel release Left History of esophagogastroduodenoscopy (EGD) Last one 12/[address] Parker. Prior EGD 2013 and 2014 which showed persistent esophageal ulcers, moderate hiatal hernia and gastric polyps S/P colonoscopy with polypectomy At [facility] 09/2017 and reports polypectomy Family History Family History Mother CHF (congestive heart failure) Cerebrovascular accident Family history of arthritis Hypertension Father Leukemia Sibling Family history of malignant neoplasm Sibling Dementia Diabetes mellitus Sibling Dementia Diabetes mellitus Social History Social History Social History: 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 Her last job she worked for the [employer] she was on unemployment for couple years and then just retired. She has never been nor does she have any children. Smoking status: Never smoker Second hand tobacco smoke exposure: No Alcohol intake: never Substance use: never Substance use type: does not use Do You Feel Safe in your Home?: Yes Lack of Transportation: No Lack of Food: Never True Current Housing: I Have Housing Concerned About Future Housing: No Difficulty Paying Gas/Electric Bills: No Difficulty Paying for Meds: No Currently Unemployed: No Education: High School Diploma/GED Difficulty w/ Childcare or Family Care: No Living arrangements: alone Additional living arrangements comments: She lives in [place], [place]. 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 Gender identity (if verbalized by the patient): Female Spiritual care concerns: No Agree to blood products: Yes Exam 2 Narrative: GENERAL: Well-appearing, well-nourished, and in no acute distress. HEAD: Normocephalic, atraumatic. EYES: PERRLA and EOMI. ENT: Nares clear, no rhinorrhea or epistaxis. Mucous membranes moist. NECK: Supple. CHEST: Clear to auscultation. No respiratory distress. HEART: Regular rate and rhythm. No murmur heard. Normal peripheral pulses. ABDOMEN: Soft, nontender, nondistended, normal active bowel sounds. No stool in the rectal vault EXTREMITIES: Normal range of motion. No edema. SKIN: Warm, dry, no rash. NEURO: No focal deficits. Alert and oriented x3. PSYCH: Normal mood and affect. Course Course Emergency Course: Pt has no complaints , her Rpt HB is 6.8 , no evidence of acute GI bleed , will admit and transfuse , pt was updated about her lab and CT findings. Vital Signs Vital signs: Vital Signs Temperature 36.4 C 11/19/24 11:43 Pulse Rate 58 L 11/19/24 11:43 Respiratory Rate 23 H 11/19/24 11:43 Blood Pressure 149/53 H 11/19/24 11:43 Pulse Oximetry 96 11/19/24 11:43 Oxygen Delivery Room Air 11/19/24 11:43 Temperature 36.4 C 11/19/24 11:43 Pulse Rate 58 L 11/19/24 11:49 Respiratory Rate 27 H 11/19/24 11:49 Blood Pressure 149/53 H 11/19/24 11:49 Pulse Oximetry 95 11/19/24 11:49 Oxygen Delivery Room Air 11/19/24 11:43 Medical Decision Making Differential Diagnosis Differential Diagnosis: GI bleed , anemia iron def . Medical Records Medical records reviewed: Yes I reviewed the external patient's medical records. Vital Signs Vital Signs: Vital Signs Temperature 36.4 C 11/19/24 11:43 Pulse Rate 58 L 11/19/24 11:43 Respiratory Rate 23 H 11/19/24 11:43 Blood Pressure 149/53 H 11/19/24 11:43 Pulse Oximetry 96 11/19/24 11:43 Oxygen Delivery Room Air 11/19/24 11:43 Temperature 36.4 C 11/19/24 11:43 Pulse Rate 58 L 11/19/24 11:49 Respiratory Rate 27 H 11/19/24 11:49 Blood Pressure 149/53 H 11/19/24 11:49 Pulse Oximetry 95 11/19/24 11:49 Oxygen Delivery Room Air 11/19/24 11:43 Lab Data Lab results reviewed: Yes I reviewed the patient's lab results. 11/19/24 11:59 11/19/24 11:59 Labs: Lab Results 11/19/24 Range/Units 11:59 WBC 7.9 (4.5-10.0) K/mm3 RBC 3.46 L (4.2-5.4) M/mm3 Hgb 6.8 L* D (12.0-15.0) g/dL Hct 24.6 L (37.0-47.0) % MCV 71.1 L (80-100) fl MCH 19.7 L (26-34) pg MCHC 27.6 L (32-36) g/dl RDW 20.3 H (11.5-14.5) % Plt Count 280 (150-375) k/mm3 MPV 9.7 (7.4-10.4) fl Immature Gran % (Auto) 0.3 (0-0.5) % Neut % (Auto) 70.3 (45.5-73.1) % Lymph % (Auto) 16.0 L (18.3-44.2) % [place] % (Auto) 10.2 H (2.6-8.5) % Eos % (Auto) 2.8 (0-4.4) % Baso % (Auto) 0.4 (0.2-1.2) % Lymph # (Auto) 1.26 (0.9-3.2) K/mm3 [place] # (Auto) 0.8 H (0.1-0.6) K/mm3 Eos # (Auto) 0.2 (0-0.3) K/mm3 Baso # (Auto) 0.0 (0.0-0.1) K/mm3 Abs Immat Gran (auto) 0.02 (0.00-0.031) K/mm3 Absolute Neuts (auto) 5.6 (1.3-6.7) K/mm3 Absolute Nucleated RBC 0.000 (0.0-0.012) K/mm3 Band Neutrophils % Not Reportable Nucleated RBC % 0.0 (0.0-0.2) % Platelet Estimate Adequate (Adequate) Hypochromasia 1+ Anisocytosis 1+ Ovalocytes 1+ Schistocytes None seen Sodium 139 (137-145) mmol/L Potassium 4.1 (3.4-5.0) mmol/L Chloride 105 (98-107) mmol/L Carbon Dioxide 28 (22-30) mmol/L Anion Gap 6 (4-12) mmol/L BUN 16 (7-17) mg/dL Creatinine 1.11 H (0.7-1.0) mg/dL Estim Creat Clear Calc 34 ml/min Estimated GFR 47 L (59 - ) Glucose 108 (65-110) mg/dL Calcium 8.6 (8.4-10.2) mg/dL Iron 27 L (37-170) ug/dL TIBC 368 (261-462) ug/dL % Saturation 7 L (20-50) % Total Bilirubin 0.4 (0.2-1.3) mg/dL AST 33 (14-36) U/L ALT 22 (6-35) U/L Alkaline Phosphatase 136 H (38-126) U/L Total Protein 7.4 (6.3-8.2) g/dL Albumin 3.5 (3.5-5.1) g/dL Blood Type O Positive Antibody Screen Negative Crossmatch See Detail Critical Care Time Critical Care Time Total Critical Care Time: 45 Discharge Plan Discharge Clinical Impression: Anemia Qualifiers: Anemia type: unspecified type Qualified Code(s): D64.9 - Anemia, unspecified Patient Disposition: Still a Patient Condition: Stable Patient Language: Bruneian Prescriptions: No Action ferrous sulfate 325 mg (65 mg iron) tablet,delayed release (DR/EC) 325 mg PO TID atorvastatin 40 mg tablet 40 mg PO HS cholecalciferol (vitamin D3) 250 mcg (10,000 unit) capsule 250 mcg PO DAILY Qty: 30 8RF chlorthalidone 25 mg tablet 25 mg PO DAILY mecobalamin (vitamin B12) 1,000 mcg tablet,chewable 1,000 mcg PO DAILY acetaminophen [Tylenol Extra Strength] 500 mg tablet 500 mg PO Q6H PRN (Reason: Pain) ramipril 10 mg capsule 10 mg PO BID Qty: 180 3RF Rx Instructions: patient will finish her supply on hand then get the new script when running low nifedipine 60 mg tablet extended release 60 mg PO BID pantoprazole 40 mg tablet,delayed release (DR/EC) 40 mg PO Q12H Qty: 180 3RF hydrocodone-acetaminophen 5-325 mg Tablet 1 tablet PO Q4H PRN (Reason: Pain Rated 7-10) Qty: 10 0RF levothyroxine 75 mcg tablet 75 mcg PO DAILY Qty: 90 1RF tramadol 50 mg tablet 50 mg PO Q8H PRN (Reason: pain) Qty: 30 0RF Follow-up/Referrals: Ani Em APRN [Primary Care Provider, Internal Medicine]
[2024-11-19] MEDS: SODIUM CHLORIDE 0.9% IV 250 ML 30 ML IV CONT (14:22)
[2024-11-19] MEDS: TUBING, BLOOD PLUM PUMP TUBING 1 EACH XX (14:22)
--- NOTE | 2024-11-19 14:44 | P.HP_ITS ---
H&P: HPI History of Present Illness Date/Time: 11/19/24 14:44 Chief Complaint: Abnormal labs Narrative: 84-year-old female presents the hospital with hemoglobin of 6.8 on routine labs. Patient denies any complaints. Patient denies lightheadedness, shortness of breath, fatigue, nausea vomiting fever chills. She states that his ileum hospital because her doctor told her do. Lab work in the ED shows a hemoglobin of 6.8 creatinine of 1.11 which is around baseline iron of [address] of 368, saturation 7%. CT abdomen pelvis showed no evidence of active GI bleed. Review of Systems Review of Systems: 12 systems were reviewed and are negativ e except for as per HPI. [facility] Past Medical History Medical History FLEX (obstructive sleep apnea) Barretts esophagus Nausea and vomiting in adult Chronic kidney disease, stage 3b Paresthesias in right hand Long toenail Pain of left heel Foot callus Chronic kidney disease, stage 3a Restless legs syndrome Impaired glucose tolerance RED (dyspnea on exertion) Chest pain Hypersomnia Abnormal heart rhythm Impacted cerumen of both ears Right arm fracture Casted Cellulitis of foot, right Patella fracture Discharge planning issues Iron deficiency anemia Arthritis Gastric polyp Hiatal hernia Esophageal ulcer Anemia in chronic kidney disease CKD (chronic kidney disease), stage III Essential (primary) hypertension Hypothyroidism, unspecified Primary osteoarthritis of both knees Pure hypercholesterolemia Vitiligo Surgical History Surgical History H/O right wrist surgery Repair of right wrist fracture S/P carpal tunnel release Left History of esophagogastroduodenoscopy (EGD) Last one 12/[address] Parker. 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 Her last job she worked for the [employer] she was on unemployment for couple years and then just retired. She has never been nor does she have any children. Smoking status: Never smoker Second hand tobacco smoke exposure: No Alcohol intake: never Substance use: never Substance use type: does not use Do You Feel Safe in your Home?: Yes Lack of Transportation: No Lack of Food: Never True Current Housing: I Have Housing Concerned About Future Housing: No Difficulty Paying Gas/Electric Bills: No Difficulty Paying for Meds: No Currently Unemployed: No Education: High School Diploma/GED Difficulty w/ Childcare or Family Care: No Living arrangements: alone Additional living arrangements comments: She lives in [place], [place]. Occupation/Education: retired Additional occupation/education comments: She had multiple jobs at a [employer], [employer], [employer] which have all since closed down. Gender identity (if verbalized by the patient): Female Spiritual care concerns: No Agree to blood products: Yes Meds Home Medications and Allergies Home Medications ?Medication ?Instructions ?Recorded ?Confirmed ?Type atorvastatin 40 mg tablet 40 mg PO HS 03/14/19 5 History ferrous sulfate 325 mg (65 mg 325 mg PO DAILY 03/14/19 11/19/24 History iron) tablet,delayed release acetaminophen 500 mg tablet 500 mg PO Q6H PRN Pain 12/2311/19/24 History (Tylenol Extra Strength) cholecalciferol (vitamin D3) 250 250 mcg PO DAILY #30 caps 02/01/21 11/19/24 Rx mcg (10,000 unit) capsule ramipril 10 mg capsule 10 mg PO BID #180 caps 09/2611/19/24 Rx pantoprazole 40 mg tablet,delayed 40 mg PO Q12H #180 t abs 06/28/23 11/19/24 Rx release levothyroxine 75 mcg tablet 75 mcg PO DAILY #90 tabs 0 10/25/23 11/19/24 Rx mecobalamin (vitamin B12) 1,000 1,000 mcg PO DAILY 06/2711/19/24 History mcg chewable tablet hydrocodone 5 mg-acetaminophen 325 1 tablet PO HS PRN Pain Rated 7-10 11/19/24 11/19/24 History mg tablet lactulose 10 gram/15 mL oral 20 g PO TID PRN constipat ion 11/19/24 11/19/24 History solution melatonin 5 mg capsule 5 mg PO HS PRN sleep 5 11/19/24 History metoprolol tartrate 25 mg tablet 25 mg PO Q12H 5 11/19/24 History polyethylene glycol 3350 17 17 g PO DAILY PRN constipa tion 11/19/24 11/19/24 History gram/dose oral powder (ClearLax) Allergies Allergy/AdvReac Type Severity Reaction Status Date / Time tramadol AdvReac Intermediate Agitated Verified 11/19/24 15:27 Vital Signs Vital Signs - 24 hr 11/19/24 11:43 11/19/24 11:49 11/19/24 14:14 Temperature 97.6 F 97.8 F Pulse Rate 58 L 58 L 57 L Respiratory Rate 23 H 27 H 25 H Blood Pressure 149/53 H 149/53 H 152/64 H Pulse Oximetry 96 95 99 Oxygen Delivery Room Air 11/19/24 14:31 Temperature 97.9 F Pulse Rate 68 Respiratory Rate 18 Blood Pressure 166/50 H Pulse Oximetry 99 Oxygen Delivery Exam Narrative: General: well appearing, appears stated age. HEENT: normocephalic, atraumatic. Mucous membranes moist. EOMI, PERRLA, bilateral sclera anicteric, no conjunctival injection. Neck supple without JVD, lymphadenopathy, or bruit. Respiratory: clear to ascultation bilaterally. No rales/rhonic/wheezes. Cardiovascular: Regular rate and rhythm, normal S1-S2 upon ascultation. No murmurs, rubs, or clicks. PMI is nondisplaced, capillary refill less than 3 second. Abdomen: Soft, round, no pulsatile masses, nondistended and nontender. No rebound, no guarding. No CVA tenderness, no hepatosplenomegaly. Bowel sounds present to all four quadrants. No high pitch or tinkling sounds, resonant to percussion. Extremities: No cyanosis, clubbing, or edema present. Pulses are palpable 2/2. Active ROM to all four extremities. Neuro: Alert and orientated x 4. PERRLA. Cranial nerves 2-12 intact without focal deficit. Skin: Warm, dry, and intact, without rash, erythema, or lesion. Psych: pleasant, cooperative, normal speech, normal affect, no hallucinations, no dysarthia H&P: Results Labs Labs: Short CBC 11/19/24 Range/Units 11:59 WBC 7.9 (4.5-10.0) K/mm3 Hgb 6.8 L* D (12.0-15.0) g/dL Hct 24.6 L (37.0-47.0) % Plt Count 280 (150-375) k/mm3 BMP 11/19/24 11:59 Sodium 139 Potassium 4.1 Chloride 105 Carbon Dioxide 28 BUN 16 Creatinine 1.11 H Glucose 108 Calcium 8.6 Liver Function 11/19/24 Range/Units 11:59 Total Bilirubin 0.4 (0.2-1.3) mg/dL AST 33 (14-36) U/L ALT 22 (6-35) U/L Alkaline Phosphatase 136 H (38-126) U/L Albumin 3.5 (3.5-5.1) g/dL Assessment and Plan Assessment and plan (1) Anemia: Qualifiers: Anemia type: unspecified type Qualified Code(s): D64.9 - Anemia, unspecified Code(s): D64.9 - Anemia, unspecified Status: Acute Assessment and Plan: CT negative for acute GI bleed Q.6 are H&H Transfuse for hemoglobin less than 7 1 unit RBCs on 11/19/2024 Rectal exam negative for blood (2) Iron deficiency anemia: Qualifiers: Iron deficiency anemia type: unspecified iron deficiency Qualified Code(s): D50.9 - Iron deficiency anemia, unspecified Code(s): D50.9 - Iron deficiency anemia, unspecified Status: Acute Assessment and Plan: Iron 63 mg iron deficiency IV iron x2 followed by oral (3) CKD (chronic kidney disease), stage III: Qualifiers: Chronic kidney disease stage 3 subtype: stage 3a (GFR 45-59) Qualified Code(s): N18.31 - Chronic kidney disease, stage 3a Code(s): N18.3 - Chronic kidney disease, stage 3 (moderate) Status: Chronic Assessment and Plan: Creatinine at baseline BMP in the morning (4) Hypothyroidism, unspecified: Qualifiers: Hypothyroidism type: acquired Qualified Code(s): E03.9 - Hypothyroidism, unspecified Code(s): E03.9 - Hypothyroidism, unspecified Status: Chronic Assessment and Plan: Continue levothyroxine (5) Essential (primary) hypertension: Code(s): I10 - Essential (primary) hypertension Status: Acute Assessment and Plan: Continue home antihypertensives Quality VTE Prophylaxis VTE prophylaxis: mechanical ordered If No VTE Prophylaxis Answer both mechanical and pharmacologic: Reason no mechanical VTE proph: medical contraindication Hospitalist MIPS Advance Care Plan I have confirmed that the patient's Advanced Care Plan is present, code status is documented, or surrogate decision maker is listed in patient medical record.: Yes Medication Reconciliation I have utilized all available resources to obtain, update and review the patients current medications (includes all prescriptions, OTC, herbals, cannabis, and nutritional supplements).: Yes
--- NOTE | 2024-11-19 15:04 | ADMGEN ---
This patient, Nadiya Grimes, was admitted to [facility] Surg Room 302-01. Patient/family oriented to hospital policies and general routines including ID bracelet, bed and alarms, visiting hours, pain management, procedures, bathroom and other care routines, personal items, smoking policy, room service/diet, and visiting hours. Information on how to activate the Rapid Response Team has been discussed. Patient/Family are encouraged to report perceived risks to care and to ask questions if they do not understand what they are told or what they should do.
[2024-11-19] MEDS: IRON SUCROSE COMPLEX 200 MG, IRON SUCROSE COMPLEX 100 MG in SODIUM CHLORIDE 0.9% IV 250 ML 176.67 MG IVPB (16:45)
--- OUTSIDE RECORDS SUMMARY | 2024-11-19 16:46 | XMS_ITS | Clinical Summary ---
Author Organization [facility] Address [address] [place] [address] Care Team Providers Care Spool Hauler Name Role Phone Unavailable Primary Care Provider Unavailabl e Social History Tobacco Use Types Packs/Day Years Used Date Smoking Tobacco: Never Assessed Comments Unknown Sex and Gender Information Value Date Recorded Sex Assigned at Not on file Legal Sex Female 7:15 PM CDT Gender Identity Not on file Sexual Orientation Not on file Plan of Treatment Health Maintenance Due Date Last Done Comments DTaP, Tdap and Td Vaccines ( 1 - Tdap) 1960 Pneumococcal Vaccine: 50+ Ye ars (1 of 1 - PCV) 06/06/1991 Zoster Vaccines (1 of 2) 06/06/1991 Dexa Scan (General) 2006 RSV Immunization or 60+ Years (1 - 1-dose 75+ series) 2016 COVID-19 Vaccine (2023-2 5 season) 2024 Meningococcal B Vaccine Aged Out No l onger eligible based on patient's age to complete this topic Meningococcal Vaccine Aged Out No carrie minesh eligible based on patient's age to complete this topic RSV Immunizations Under 20 Months Aged Out No longer eligible based on patient's age to complete this topic
--- OUTSIDE RECORDS SUMMARY | 2024-11-19 16:46 | XMS_ITS | Clinical Summary ---
Author Organization [facility] Address [address] [place] [address] Phone Care Team Providers Care Superintendent Communications Name Role Phone Frnak Ha Primary Care Provider [phone] Allergies No known active allergies Medications ferrous sulfate 325 (65 Fe) MG tablet 1tid 0 12/02/2017 Active traMADol (ULTRAM) 50 MG tablet 1 tid prn 0 12/06/2017 Active atorvastatin (LIPITOR) 40 MG tablet 1 daily 0 12/06/2017 Active acetaminophen (TYLENOL) 500 MG tablet as needed 0 12/06/2017 Active Methylcobalamin ([id number]) 1 MG chewable tablet 1 daily 0 [...] ID:Not on file Type:Not on file Address: [place] [id number] [employer] [place] MED[employer] Care Teams Superintendent Communications Relationship Specialty Start Date End Date Frank Ha DO [address] [place] [id number] PCP - General Internal Medicine 08/22/18
--- OUTSIDE RECORDS SUMMARY | 2024-11-19 16:46 | XMS_ITS | Clinical Summary ---
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
--- OUTSIDE RECORDS SUMMARY | 2024-11-19 16:46 | XMS_ITS | Clinical Summary ---
Author Organization [facility] [employer] Address [address] [place] [address] Care Team Providers Care Middleware Administrator Name Role Phone Yosvany Encarnacion MD Primary Care Provider [phone] Source Comments [facility] [employer],non-owned Affiliates and Associated Physician Practices is amultiple site organization consisting of ambulatory clinics and hospital sitesin [place], [place], [place] and [place]. This disclosure is being madepursuant to the Care Everywhere program and may not contain all information available regarding this patient. Last updated 17.[employer] Allergies No known active allergies Medications * [...] 24 hours. Active Cholecalcifero l 250 MCG (50416 UT) TABS Take 1 (one) tablet by [...] Recorded Patient Health Questionnaire-2 Score 0 04/10/2024 [facility] [place] of Occupat ional Health - Occupational Stress [...] any time in the past [address] [facility], were you homeless or living in a long-term (including now)? No 03/21/2024 Comments Unknown Sex and Gender Information Value Date Recorded Sex Assigned at Female 03/19/2024 8:48 PM PATCHER HELPER Legal Sex Female 2:50 PM CDT Gender Identity Not on file Sexual Orientation Not on file Last Filed Vital Signs Vital Sign Reading Time Taken Comments Blood Pressure 122/66 03/25/2024 3:06 PM PATCHER HELPER Pulse 57 03/25/2024 3:06 PM PATCHER HELPER Temperature 36.4 C (97.5 F) 03/25/2024 3:06 PM PATCHER HELPER Respiratory Rate 18 03/25/2024 3:06 PM PATCHER HELPER Oxygen Saturation 92% 03/25/2024 3:06 PM PATCHER HELPER Inhaled Oxygen Concentration - - Weight 84.4 kg (186 lb) 03/19/2024 6:43 PM PATCHER HELPER Height 167.6 cm (5' 6) 03/19/2024 6:43 PM PATCHER HELPER Body Mass Index 30.02 03/19/2024 6:43 PM PATCHER HELPER Plan of Treatment Upcoming Encounters Date Type Department Care Team (Late st Contact Info) Description 06/18/2025 12:30 PM CDT Office Visit [facility] - Orthopedic Surgery [address] [place] [phone] Jimi Boss MD [address] [phone] Health Maintenance Due Date Last Done Comments [...] this topic Medical Devices Implanted Type Area Jewel Stringer Device Identifier Shelf Expiration Date Model / Serial / Lot Brng [id number] Vngrd Arcm Kn Ant Stab Implanted:Qty: 1 on 03/22/2024 by Jimi Boss MD at [facility] Right: Knee [employer] 06/14/2027 [id number] / / [id number] Cmpnt Tibtry Kn Prm Lck Bar Bmt As Mx Implanted:Qty: 1 on 03/22/2024 by Jimi Boss MD at [facility] Right: Knee [employer] 08/06/2033 [id number] / / [id number] Insurance MEDICAID - OUT OF STATE SELF PAY NO INSURANCE Member Subscriber Plan / Payer (Ef fective for All Dates) Name:Nadiya John Member ID:Not on file Relation to Subscriber:Not on file Name:ALVARONADIYA Subscriber ID:Not on file (Home) Address: [address] [place] [id number] Payer ID:Not on file Group ID:Not on file Type:Self Pay Address: [facility] MED[facility] SELF PAY NO INSURANCE Member Subscriber Plan / Payer (Ef fective for All Dates) Name:Nadiya John Member ID:Not on file Relation to Subscriber:Not on file Name:NADIYA JOHN Subscriber ID:Not on file (Home) Address: [address] [place], [place] [id number] Payer ID:Not on file Group ID:Not on file Type:Self Pay Address: [place], [place] SELF PAY NO INSURANCE Member Subscriber Plan / Payer (Ef fective for All Dates) Name:Nadiya John Member ID:Not on file Relation to Subscriber:Not on file Name:NADIYA JOHN Subscriber ID:Not on file (Home) Address: [address] [place] [address] Payer ID:Not on file Group ID:Not on file Type:Self Pay Address: [place], [place] * Guarantor: NADIYA JOHN Account Type Relation to Patient Date of Phone Billing Address Personal/Family Spouse Advance Directives * Full Code (Latest Code Status on File) Date Activated Date Inactivated Comments 03/19/2024 11:14 PM 03/25/2024 7:54 PM Care Teams Middleware Administrator Relationship Specialty Start Date End Date Yosvany Encarnacion MD [address] [place] [address] PCP - General Family Medicine 03/19/24
--- OUTSIDE RECORDS SUMMARY | 2024-11-19 16:46 | XMS_ITS | Clinical Summary ---
Author Organization [facility] Address [address] [place] [address] Care Team Providers Care Regional Medical Director Name Role Phone Yosvany Encarnacion MD Primary Care Provider [phone] Allergies No known active allergies Medications traMADol (ULTRAM) 50 mg tablet Take 100 mg by mouth every 8 hours as needed for Pain. Active ramipril (ALTACE) 10 mg capsule Take 10 mg by mouth daily. Active chlorthalidone (HYGROTON) 25 mg tablet Take 25 mg by mouth daily. 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 Active NIFEdipine (ADALAT CC) 60 mg Extended [...] on file Legal Sex Female 10:06 AM HUSBANDRY PERSON Gender Identity Not on file Sexual Orientation [...] MANAGED CARE [place] Care Teams Regional Medical Director Relationship Specialty Start Date End Date Yosvany Encarnacion MD [address] [place] [phone] PCP - General Family Practice 11/23/22
--- NOTE | 2024-11-19 17:35 | PC.NURSE ---
Marlyn Hood POLICE CHIEF notified of bp 177/59.
[2024-11-19] MEDS: SODIUM CHLORIDE 0.9% IV 1,000 ML 125 ML IV CONT (19:47)
[2024-11-19 20:19] LABS: Hematocrit 25.6 % (37.0-47.0); Hemoglobin 7.3 g/dL (12.0-15.0)
[2024-11-19] MEDS: PANTOPRAZOLE 40 MG TABLET PO (21:04)
[2024-11-19] MEDS: ATORVASTATIN 40 MG TABLET PO (21:05)
[2024-11-20] VITALS (7 sets, daily range): BP systolic 135–138; BP diastolic 62–65; PULSE 56–95; RESP 18–20; TEMP 36.2–36.4; O2SAT 96–97
[2024-11-20 02:20] LABS: Hematocrit 25.3 % (37.0-47.0); Hemoglobin 7.2 g/dL (12.0-15.0); Immature Granulocyte Percent A 0.5 % (0-0.5); Lymphocytes Absolute Auto 1.55 K/mm3 (0.9-3.2); Mean Corpuscular HGB Conc 28.5 g/dl (32-36); Mean Corpuscular Hemoglobin 20.2 pg (26-34); Mean Corpuscular Volume 70.9 fl (80-100); Nucleated Red Blood Cells Absolute Auto 0.000 K/mm3 (0.0-0.012); Nucleated Red Blood Cells Perc 0.0 % (0.0-0.2); Platelet Count Result 238 k/mm3 (150-375); Red Blood Count 3.57 M/mm3 (4.2-5.4); White Blood Count 8.9 K/mm3 (4.5-10.0)
[2024-11-20 02:33] LABS: Anion Gap 5 mmol/L (4-12); Blood Urea Nitrogen 14 mg/dL (7-17); Calcium 8.3 mg/dL (8.4-10.2); Carbon Dioxide 25 mmol/L (22-30); Chloride 106 mmol/L (98-107); Estimated CRCL calculation 37 ml/min; Estimated Glomerular Filt Rate 53; Glucose 86 mg/dL (65-110); Potassium 4.1 mmol/L (3.4-5.0); Sodium 136 mmol/L (137-145)
[2024-11-20 02:58] LABS: Anisocytosis 1+; Hypochromasia 1+; Ovalocytes 1+; Schistocytes None Seen
[2024-11-20] MEDS: LEVOTHYROXINE SODIUM 75 MCG TABLET PO (06:03)
--- NOTE | 2024-11-20 07:34 | P.PNIM_ITS ---
Progress Note: A&P Assessment and Plan (1) Anemia: Qualifiers: Anemia type: unspecified type Qualified Code(s): D64.9 - Anemia, unspecified Code(s): D64.9 - Anemia, unspecified Status: Acute Assessment and Plan: - Hgb 6.8 on presentation. Labs consistent with iron deficiency anemia - per notes, guaiac stool negative in ED - EGD 06/2023 with reflux esophagitis,, large hiatal hernia - Hgb stable s/p 1 u PRBCs 11/19. Also given IV Venofer x 2 doses and plan to restart iron supplement - no colonoscopy available to review. GI consulted. - oncology consulted -Transfuse for hemoglobin less than 7 (2) CKD (chronic kidney disease), stage III: Qualifiers: Chronic kidney disease stage 3 subtype: stage 3a (GFR 45-59) Qualified Code(s): N18.31 - Chronic kidney disease, stage 3a Code(s): N18.3 - Chronic kidney disease, stage 3 (moderate) Status: Chronic Assessment and Plan: -Creatinine at baseline -monitor BMP (3) Hypothyroidism, unspecified: Qualifiers: Hypothyroidism type: acquired Qualified Code(s): E03.9 - Hypothyroidism, unspecified Code(s): E03.9 - Hypothyroidism, unspecified Status: Chronic Assessment and Plan: -Continue levothyroxine (4) Essential (primary) hypertension: Code(s): I10 - Essential (primary) hypertension Status: Acute Assessment and Plan: -Continue home antihypertensives Subjective Date/time seen: 11/20/24 07:34 Interval history: Patient seen and examined at bedside. Review of Systems Review of Systems: 12 systems were reviewed and are negativ e except for as per HPI. Exam Narrative: General: NAD Eyes: EOMI ENT: neck supple Cardiovascular: Regular rate and rhythm Respiratory: Clear to auscultation, respirations even and unlabored on RA Gastrointestinal: Soft, non tender Genitourinary: no suprapubic tenderness Musculoskeletal: No edema Skin: warm, dry Neuro: Alert. Psych: Mood appropriate Objective Data Vital Signs Vital Signs: Vital Signs - 24 hr 11/19/24 11:43 11/19/24 11:49 11/19/24 14:14 Temperature 97.6 F 97.8 F Pulse Rate 58 L 58 L 57 L Respiratory Rate 23 H 27 H 25 H Blood Pressure 149/53 H 149/53 H 152/64 H Pulse Oximetry 96 95 99 Oxygen Delivery Room Air 11/19/24 14:31 11/19/24 14:51 11/19/24 15:31 Temperature 97.9 F 97.5 F L 97.3 F L Pulse Rate 68 55 L 59 L Respiratory Rate 18 18 18 Blood Pressure 166/50 H 175/70 H 146/71 H Pulse Oximetry 99 98 97 Oxygen Delivery 11/19/24 15:43 11/19/24 16:00 11/19/24 16:10 Temperature 97.3 F L Pulse Rate 68 63 70 Respiratory Rate 18 18 Blood Pressure 177/59 H Pulse Oximetry 99 98 Oxygen Delivery Room Air 11/19/24 20:00 11/19/24 21:00 11/19/24 21:04 Temperature 97.6 F Pulse Rate 56 L 58 L Respiratory Rate 18 Blood Pressure 146/57 H Pulse Oximetry 98 Oxygen Delivery Room Air 11/19/24 21:09 11/20/24 00:00 11/20/24 04:00 Temperature Pulse Rate 45 L 63 56 L Respiratory Rate Blood Pressure Pulse Oximetry Oxygen Delivery 11/20/24 05:33 Temperature 97.6 F Pulse Rate 95 Respiratory Rate 20 Blood Pressure 135/65 Pulse Oximetry 97 Oxygen Delivery Intake/Output Intake/Output: Intake & Output 11/17/24 11/18/24 11/19/24 11/20/24 23:59 23:59 23:59 23:59 Intake Total 710 Balance 710 Meds/Results Medications: Active Medications Generic Name Dose Route Start Last Admin Trade Name Freq PRN Reason Stop Dose Admin Acetaminophen 650 mg 11/19/24 14:51 Acetaminophen 325 Mg Tablet PO Q4H PRN Mild Pain (1-3) or Fever Hydrocodone Bitart/Acetaminophen 1 tab 11/19/24 18:18 Hydrocodone/Acetaminophen (*Crx) 5-325 Mg Tablet PO HS PRN Pain Rated 7-10 Atorvastatin Calcium 40 mg 11/19/24 21:00 11/19/24 21:05 Atorvastatin 40 Mg Tablet PO 40 mg HS SHAMA Administration Docusate Sodium 100 mg 11/19/24 17:00 11/19/24 16:45 Docusate Sodium 100 Mg Capsule PO Not Given BID SHAMA Iron Sucrose 200 mg/ Iron 265 mls @ 176.667 mls/hr 11/20/24 09:00 Sucrose 100 mg/ Sodium IVPB 11/20/24 10:29 Chloride ONCE ONE Levothyroxine Sodium 75 mcg 11/20/24 06:30 11/20/24 06:03 Levothyroxine Sodium 75 Mcg Tablet PO 75 mcg DAILY@0630 SHAMA Administration Melatonin 5 mg 11/19/24 18:18 Melatonin 5 Mg Tablet PO HS PRN Sleep Metoprolol Tartrate 25 mg 11/19/24 21:00 11/19/24 21:09 Metoprolol Tartrate 25 Mg Tablet PO Not Given Q12H SHAMA Pantoprazole Sodium 40 mg 11/20/24 09:00 Pantoprazole Sodium Iv 40 Mg Vial IV PUSH QAM SHAMA Pantoprazole Sodium 40 mg 11/19/24 21:00 11/19/24 21:04 Pantoprazole 40 Mg Tablet PO 40 mg Q12H SHAMA Administration Polysaccharide Iron Complex 150 mg 11/20/24 17:00 Polysaccharide Iron Complex 150 Mg Capsule PO BIDWM SHAMA Ramipril 10 mg 11/19/24 21:00 11/19/24 21:05 Ramipril 5 Mg Capsule PO 10 mg Q12HR SHAMA Administration Radiology Results: ITS Impressions Abdomen/Pelvis CTA 11/19/24 13:51 IMPRESSION: 1. No evidence of active GI bleed or other acute abnormality. Labs Labs: Laboratory Results - last 24 hr 11/19/24 11/19/24 11/20/24 11:59 20:10 02:14 WBC 7.9 8.9 RBC 3.46 L 3.57 L Hgb 6.8 L* D 7.3 L 7.2 L Hct 24.6 L 25.6 L 25.3 L MCV 71.1 L 70.9 L MCH 19.7 L 20.2 L MCHC 27.6 L 28.5 L RDW 20.3 H 20.2 H Plt Count 280 238 MPV 9.7 9.4 Immature Gran % (Auto) 0.3 0.5 Neut % (Auto) 70.3 67.3 Lymph % (Auto) 16.0 L 17.5 L [place] % (Auto) 10.2 H 12.0 H Eos % (Auto) 2.8 2.6 Baso % (Auto) 0.4 0.1 L Lymph # (Auto) 1.26 1.55 [place] # (Auto) 0.8 H 1.1 H Eos # (Auto) 0.2 0.2 Baso # (Auto) 0.0 0.0 Abs Immat Gran (auto) 0.02 0.04 H Absolute Neuts (auto) 5.6 6.0 Absolute Nucleated RBC 0.000 0.000 Band Neutrophils % Not Reportable Not Reportable Nucleated RBC % 0.0 0.0 Platelet Estimate Adequate Adequate Hypochromasia 1+ 1+ Anisocytosis 1+ 1+ Ovalocytes 1+ 1+ Schistocytes None seen None seen Sodium 139 136 L Potassium 4.1 4.1 Chloride 105 106 Carbon Dioxide 28 25 Anion Gap 6 5 BUN 16 14 Creatinine 1.11 H 1.00 Estim Creat Clear Calc 34 37 Estimated GFR 47 L 53 L Glucose 108 86 Calcium 8.6 8.3 L Iron 27 L TIBC 368 % Saturation 7 L Total Bilirubin 0.4 AST 33 ALT 22 Alkaline Phosphatase 136 H Total Protein 7.4 Albumin 3.5 Blood Type O Positive Antibody Screen Negative Crossmatch See Detail Quality VTE Prophylaxis VTE prophylaxis: mechanical ordered
[2024-11-20] MEDS: IRON SUCROSE COMPLEX 200 MG, IRON SUCROSE COMPLEX 100 MG in SODIUM CHLORIDE 0.9% IV 250 ML 176.67 MG IVPB (08:00)
[2024-11-20 08:19] LABS: Hematocrit 25.5 % (37.0-47.0); Hemoglobin 7.1 g/dL (12.0-15.0)
[2024-11-20 09:07] LABS: Thyroid Stimulating Hormone Reflex 0.520 uIU/mL (0.465-4.68)
[2024-11-20 09:11] LABS: Ferritin 56.50 ng/mL (11.1-264)
[2024-11-20] MEDS: DOCUSATE SODIUM 100 MG CAPSULE PO (09:30)
[2024-11-20] MEDS: METOPROLOL TARTRATE 25 MG TABLET PO (09:30)
[2024-11-20] MEDS: ACETAMINOPHEN 325 MG TABLET 650 MG PO (09:30)
[2024-11-20] MEDS: PANTOPRAZOLE 40 MG TABLET PO (09:30)
[2024-11-20 13:25] LABS: Hematocrit 27.0 % (37.0-47.0); Hemoglobin 7.5 g/dL (12.0-15.0)
--- NOTE | 2024-11-20 14:00 | PM.DS ---
DS: Admitting Diagnosis Discharge Date 11/20/24 Admitting Diagnosis - acute anemia DS: Discharge Diagnosis Discharge Diagnosis (1) Anemia: Qualifiers: Anemia type: unspecified type Qualified Code(s): D64.9 - Anemia, unspecified Code(s): D64.9 - Anemia, unspecified Status: Acute (2) CKD (chronic kidney disease), stage III: Qualifiers: Chronic kidney disease stage 3 subtype: stage 3a (GFR 45-59) Qualified Code(s): N18.31 - Chronic kidney disease, stage 3a Code(s): N18.3 - Chronic kidney disease, stage 3 (moderate) Status: Chronic (3) Hypothyroidism, unspecified: Qualifiers: Hypothyroidism type: acquired Qualified Code(s): E03.9 - Hypothyroidism, unspecified Code(s): E03.9 - Hypothyroidism, unspecified Status: Chronic (4) Essential (primary) hypertension: Code(s): I10 - Essential (primary) hypertension Status: Acute DS: Summary Hospital Course Reason for hospitalization: - acute anemia Hospital Course: Patient is an 84 yo female with PMH of iron deficiency anemia who presented from SNF with abnormal labs. Lab work in the ED showed hemoglobin of 6.8, creatinine of 1.11 which is around baseline, iron of 27, iron saturation 7%. CT abdomen pelvis showed no evidence of active GI bleed. Guaiac stool negative in ED. Patient was given 1u PRBCs and admitted for further evaluation. During admission, patient's hemoglobin improved and remained stable. She was asymptomatic in regards to her anemia and denied any signs of bleeding including melena, hematochezia, coffee-ground emesis, hematuria. Patient has known history of iron deficiency anemia and has had a full GI workup in the last couple of years with Dr. Parra. EGD and colonoscopy did not show any signs of bleeding at that time. She is not on anticogulation or antiplatelets. She is on a PPI due to history of esophagitis. She also follows with Hematology, Dr. Richards and has received iron transfusions in the past. Patient was encouraged to follow up with Hematology for consideration of restarting iron transfusions. Continue PO iron. SNF instructed to repeat CBC in 3 days and weekly. Patient discharged to SNF in stable condition. Time Spent with Patient Time attestation: Total time spent providing and/or coordinating discharge services: Time spent: Greater than 30 minutes Exam Narrative: General: NAD, well-appearing Eyes: EOMI ENT: neck supple Cardiovascular: Regular rate and rhythm Respiratory: Clear to auscultation, respirations even and unlabored on RA Gastrointestinal: Soft, non tender Genitourinary: no suprapubic tenderness Musculoskeletal: No edema Skin: warm, dry Neuro: Alert. Psych: Mood appropriate DS: Data Data Completed and Pending Completed studies during hospitalization: ITS Impressions Abdomen/Pelvis CTA 11/19/24 13:51 IMPRESSION: 1. No evidence of active GI bleed or other acute abnormality. Labs on day of discharge: Labs from last 24 hours 11/20/24 11/20/24 11/20/24 12:45 08:08 02:14 WBC 8.9 RBC 3.57 L Hgb 7.5 L 7.1 L 7.2 L Hct 27.0 L 25.5 L 25.3 L MCV 70.9 L MCH 20.2 L MCHC 28.5 L RDW 20.2 H Plt Count 238 MPV 9.4 Immature Gran % (Auto) 0.5 Neut % (Auto) 67.3 Lymph % (Auto) 17.5 L [place] % (Auto) 12.0 H Eos % (Auto) 2.6 Baso % (Auto) 0.1 L Lymph # (Auto) 1.55 [place] # (Auto) 1.1 H Eos # (Auto) 0.2 Baso # (Auto) 0.0 Abs Immat Gran (auto) 0.04 H Absolute Neuts (auto) 6.0 Absolute Nucleated RBC 0.000 Band Neutrophils % Not Reportable Nucleated RBC % 0.0 Platelet Estimate Adequate Hypochromasia 1+ Anisocytosis 1+ Ovalocytes 1+ Schistocytes None seen Sodium 136 L Potassium 4.1 Chloride 106 Carbon Dioxide 25 Anion Gap 5 BUN 14 Creatinine 1.00 Estim Creat Clear Calc 37 Estimated GFR 53 L Glucose 86 Calcium 8.3 L Ferritin 56.50 TSH (Reflex) 0.520 Blood Type Antibody Screen Crossmatch 11/19/24 11/19/24 20:10 11:59 WBC RBC Hgb 7.3 L Hct 25.6 L MCV MCH MCHC RDW Plt Count MPV Immature Gran % (Auto) Neut % (Auto) Lymph % (Auto) [place] % (Auto) Eos % (Auto) Baso % (Auto) Lymph # (Auto) [place] # (Auto) Eos # (Auto) Baso # (Auto) Abs Immat Gran (auto) Absolute Neuts (auto) Absolute Nucleated RBC Band Neutrophils % Nucleated RBC % Platelet Estimate Hypochromasia Anisocytosis Ovalocytes Schistocytes Sodium Potassium Chloride Carbon Dioxide Anion Gap BUN Creatinine Estim Creat Clear Calc Estimated GFR Glucose Calcium Ferritin TSH (Reflex) Blood Type O Positive Antibody Screen Negative Crossmatch See Detail Discharge Plan Discharge Attending physician on discharge: Akosua Albright Consulting providers: Alisa Sousa Discharging Clinician: Alisa Sousa Anticipated Discharge Date/Time: 11/20/24 13:38 Patient Disposition: NH Chcf/Asst Living Activity: as tolerated Diet: as tolerated and regular Discharge Instructions: Take all medications as prescribed. Continue daily iron supplementation Follow-up with Dr. Richards to discuss iron transfusions as outpatient. Monitor for signs of bleeding including blood in the stool, black/dark stool, blood in the urine. Follow-up with your primary care provider in one week. Recheck CBC in 3 days and weekly x 4 weeks. Return to the emergency department if you develop chest pain, shortness of breath, persistent fever >100.4, confusion, loss of consciousness. Patient Instructions: Antibiotic Form Patient Language: Malawian Stand Alone Forms: General Discharge Information, Penitentiary Discharge Follow-up/Referrals: Mau Richards MD [Physician, Hematology] - Call for Appointment Referral Note: 1 week for iron deficiency anemia Ani Em APRN [Primary Care Provider, Internal Medicine] Discharge Medications: Continued ferrous sulfate 325 mg (65 mg iron) tablet,delayed release (DR/EC) 325 mg PO DAILY atorvastatin 40 mg tablet 40 mg PO HS cholecalciferol (vitamin D3) 250 mcg (10,000 unit) capsule 250 mcg PO DAILY Qty: 30 8RF mecobalamin (vitamin B12) 1,000 mcg tablet,chewable 1,000 mcg PO DAILY acetaminophen [Tylenol Extra Strength] 500 mg tablet 500 mg PO Q6H PRN (Reason: Pain) ramipril 10 mg capsule 10 mg PO BID Qty: 180 3RF Rx Instructions: patient will finish her supply on hand then get the new script when running low metoprolol tartrate 25 mg tablet 25 mg PO Q12H lactulose 10 gram/15 mL solution 20 g PO TID PRN (Reason: constipation) polyethylene glycol 3350 [ClearLax] 17 gram/dose powder 17 g PO DAILY PRN (Reason: constipation) melatonin 5 mg capsule 5 mg PO HS PRN (Reason: sleep) hydrocodone-acetaminophen 5-325 mg Tablet 1 tablet PO HS PRN (Reason: Pain Rated 7-10) pantoprazole 40 mg tablet,delayed release (DR/EC) 40 mg PO Q12H Qty: 180 3RF levothyroxine 75 mcg tablet 75 mcg PO DAILY Qty: 90 1RF Date of admission: 11/20/24 10:08 Primary Care Provider: Ani Em Admitting Provider: Akosua Albright Attending physician on admission: Akosua Albright Condition: Stable
== END 2024-11-20 14:50 | DRG 812 ==
LOC: ANHED 14:18 → ANH3MEDSUR 15:47
PROVIDERS: Emergency Medicine; Nurse Practitioner Gerontology; Admitting Provider General Practice; Emergency Provider Family Medicine; PCP Nurse Practitioner Family; Visit Provider Physician Assistant
DX: D50.9 Iron deficiency anemia, unspecified (principal); N18.31 Chronic kidney disease, stage 3a; D63.1 Anemia in chronic kidney disease; E03.9 Hypothyroidism, unspecified; G47.33 Obstructive sleep apnea (adult) (pediatric); M17.0 Bilateral primary osteoarthritis of knee; I12.9 Hypertensive chronic kidney disease with stage 1 through stage 4 chronic kidney disease, or unspecified chronic kidney disease; Z86.0100 Personal history of colon polyps, unspecified; Z87.19 Personal history of other diseases of the digestive system; L80 Vitiligo
CPT/HCPCS: 36415; 36430; 74174; 80048; 80053; 82728; 83540; 83550; 84443; 85014; 85018; 85025; 86850; 86900; 86901; 86923; 96372; 96374; 99285; A9270; G0378; J1756; J7030; J7050; P9016; Q9967

== ENCOUNTER 2024-12-18 12:32 | Emergency (ER) | payer MEDICARE, MEDICAID, SELFPAY ==
[2024-12-18 12:42] VITALS: BP 132/45; PULSE 70; RESP 18; TEMP 36.7; O2SAT 98
--- NOTE | 2024-12-18 13:14 | ED.SKABFB ---
HPI - Skin/Abscess/Foreign Bdy General Chief complaint: Skin/Abscess/Foreign Body Stated complaint: Bump on nose Time Seen by Provider: 12/18/24 13:14 Source: patient Mode of arrival: ambulatory Limitations: no limitations History of Present Illness HPI narrative: 84 yo F presents with erythema, swelling, pain to R nare extending to R upper lip. Recently had URI symptoms. Blowing and runny nose, wiping with kleenex. Concerned for infection. Related Data Home Medications ?Medication ?Instructions ?Recorded ?Confirmed ?Last Taken ?Type atorvastatin 40 mg tablet 40 mg PO HS 03/14/19 11/21/24 11/18/24 History ferrous sulfate 325 mg (65 mg 325 mg PO DAILY 03/14/19 11/21/24 11/18/24 History iron) tablet,delayed release acetaminophen 500 mg tablet 500 mg PO Q6H PRN Pain 09/13/19 11/21/24 11/18/24 History (Tylenol Extra Strength) mecobalamin (vitamin B12) 1,000 1,000 mcg PO DAILY 12/08/23 11/21/24 11/18/24 History mcg chewable tablet hydrocodone 5 mg-acetaminophen 325 1 tablet PO HS PRN Pain Rated 7-10 11/19/24 11/21/24 Unknown History mg tablet lactulose 10 gram/15 mL oral 20 g PO TID PRN constipation 11/19/24 11/21/24 Unknown History solution melatonin 5 mg capsule 5 mg PO HS PRN sleep 11/19/24 11/21/24 Unknown History metoprolol tartrate 25 mg tablet 25 mg PO Q12H 11/19/24 11/21/24 11/18/24 History polyethylene glycol 3350 17 17 g PO DAILY PRN constipation 11/19/24 11/21/24 Unknown History gram/dose oral powder (ClearLax) Allergies Allergy/AdvReac Type Severity Reaction Status Date / Time tramadol AdvReac Intermediate Agitated Verified 12/18/24 12:54 [facility] Past Medical History Medical History (Updated 12/18/24 @ 13:19 by Libra Leonardo NP) Medication monitoring encounter Obesity Dislocated knee Anemia FLEX (obstructive sleep apnea) Barretts esophagus Nausea and vomiting in adult Chronic kidney disease, stage 3b Paresthesias in right hand Long toenail Pain of left heel Foot callus Chronic kidney disease, stage 3a Restless legs syndrome Impaired glucose tolerance RED (dyspnea on exertion) Chest pain Hypersomnia Abnormal heart rhythm Impacted cerumen of both ears Right arm fracture Casted Cellulitis of foot, right Patella fracture Discharge planning issues Iron deficiency anemia Arthritis Gastric polyp Hiatal hernia Esophageal ulcer Anemia in chronic kidney disease CKD (chronic kidney disease), stage III Essential (primary) hypertension Hypothyroidism, unspecified Primary osteoarthritis of both knees Pure hypercholesterolemia Vitiligo Surgical History Surgical History H/O right wrist surgery Repair of right wrist fracture S/P carpal tunnel release Left History of esophagogastroduodenoscopy (EGD) Last one 12/[address] Parker. 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 Her last job she worked for the [employer] she was on unemployment for couple years and then just retired. She has never been nor does she have any children. Smoking status: Never smoker Second hand tobacco smoke exposure: No Alcohol intake: never Substance use: never Substance use type: does not use Do You Feel Safe in your Home?: Yes Lack of Transportation: No Lack of Food: Never True Current Housing: I Have Housing Concerned About Future Housing: No Difficulty Paying Gas/Electric Bills: No Difficulty Paying for Meds: No Currently Unemployed: No Education: High School Diploma/GED Difficulty w/ Childcare or Family Care: No Living arrangements: alone Additional living arrangements comments: She lives in [place], [place]. Occupation/Education: retired Additional occupation/education comments: She had multiple jobs at a [employer], [employer], [employer] which have all since closed down. Gender identity (if verbalized by the patient): Female Spiritual care concerns: No Agree to blood products: Yes Comments At time of signature, agree with nursing past medical, surgical, social and family history. There is no relevant family history pertinent to the presenting complaint. Exam Narrative: GENERAL: This is a well-nourished, well-developed patient, in no apparent distress. HEAD: normocephalic, atraumatic. EYES: PERRL. Sclera clear/white. Vision is grossly intact. EARS: External ears normal NOSE: External nose normal with erythema, swelling to R nare extending just above R side lip. tender on palpation. no fluctuance or drainage NECK: Neck supple, non-tender without lymphadenopathy, masses or thyromegaly. CARDIOVASCULAR: Regular rate and rhythm without murmurs, gallops, or rubs. RESPIRATORY: Clear to auscultation. Breath sounds equal bilaterally. No wheezes, rales, or rhonchi. SKIN: warm, Dry, intact with no suspicious lesions or rash, good texture and turgor. NEURO: awake, alert, and oriented to person, place and time. There were no obvious focal neurologic abnormalities. EXTREMITIES: No joint tenderness, effusion, or edema noted. Course Course Level of Care: Express Care Visit Vital Signs Vital signs: Vital Signs Temperature 36.7 C 12/18/24 12:42 Pulse Rate 70 12/18/24 12:42 Respiratory Rate 18 12/18/24 12:42 Blood Pressure 132/45 L 12/18/24 12:42 Pulse Oximetry 98 12/18/24 12:42 Oxygen Delivery Room Air 12/18/24 12:42 Temperature 36.7 C 12/18/24 12:42 Pulse Rate 70 12/18/24 12:42 Respiratory Rate 18 12/18/24 12:42 Blood Pressure 132/45 L 12/18/24 12:42 Pulse Oximetry 98 12/18/24 12:42 Oxygen Delivery Room Air 12/18/24 12:42 reviewed MDM - Skin/Abscess/Foreign Bdy MDM Narrative Medical decision making narrative: will treat with cephalexin for cellulitis. Afebrile. Well-appearing, nontoxic. Differential Diagnosis Differential diagnosis: Likely abscess of skin or subcutaneous tissue, cellulitis, insect bites and impetigo Discharge Plan Discharge Clinical Impression: Cellulitis of nose Patient Disposition: Home Condition: Stable Instructions: Antibiotic Form, Cellulitis (ED) Additional Instructions: Take antibiotic as prescribed until gone. Apply Bactroban ointment to Q-tip and apply to right ear twice a day. Follow-up with your primary care physician if not improving. Patient Language: German Prescriptions: New cephalexin 500 mg capsule 500 mg PO QID 7 Days Qty: 28 0RF mupirocin [Centany] 2 % ointment 1 applic topical BID 7 Days Qty: 15 0RF No Action ferrous sulfate 325 mg (65 mg iron) tablet,delayed release (DR/EC) 325 mg PO DAILY atorvastatin 40 mg tablet 40 mg PO HS cholecalciferol (vitamin D3) 250 mcg (10,000 unit) capsule 250 mcg PO DAILY Qty: 30 8RF mecobalamin (vitamin B12) 1,000 mcg tablet,chewable 1,000 mcg PO DAILY acetaminophen [Tylenol Extra Strength] 500 mg tablet 500 mg PO Q6H PRN (Reason: Pain) ramipril 10 mg capsule 10 mg PO BID Qty: 180 3RF Rx Instructions: patient will finish her supply on hand then get the new script when running low cetirizine 10 mg tablet 10 mg PO DAILY Qty: 90 0RF fluticasone propionate 50 mcg/actuation spray,suspension 2 spray intranasal DAILY Qty: 16 0RF Rx Instructions: administer into each nostril metoprolol tartrate 25 mg tablet 25 mg PO Q12H lactulose 10 gram/15 mL solution 20 g PO TID PRN (Reason: constipation) polyethylene glycol 3350 [ClearLax] 17 gram/dose powder 17 g PO DAILY PRN (Reason: constipation) melatonin 5 mg capsule 5 mg PO HS PRN (Reason: sleep) hydrocodone-acetaminophen 5-325 mg Tablet 1 tablet PO HS PRN (Reason: Pain Rated 7-10) pantoprazole 40 mg tablet,delayed release (DR/EC) 40 mg PO Q12H Qty: 180 3RF levothyroxine 75 mcg tablet 75 mcg PO DAILY Qty: 90 1RF Follow-up/Referrals: Yosvany Encarnacion MD [Primary Care Provider, [facility]] Time of Disposition: 13:27
--- OUTSIDE RECORDS SUMMARY | 2024-12-18 14:10 | XMS_ITS | Clinical Summary ---
Author Organization [facility] Address [address] [place] [address] Phone Care Team Providers Care Field Instructor Name Role Phone Frank Ha Primary Care Provider [phone] Allergies No known active allergies Medications ferrous sulfate 325 (65 Fe) MG tablet 1tid 0 12/02/2017 Active traMADol (ULTRAM) 50 MG tablet 1 tid prn 0 12/06/2017 Active atorvastatin (LIPITOR) 40 MG tablet 1 daily 0 12/06/2017 Active acetaminophen (TYLENOL) 500 MG tablet as needed 0 12/06/2017 Active Methylcobalamin (J16-RGLAAK) 1 MG chewable tablet 1 daily 0 [...] ID:Not on file Type:Not on file Address: [place] [id number] [employer] MED[employer]ARE [employer]AGE [place] MEDICARE Care Teams Field Instructor Relationship Specialty Start Date End Date Frank Ha DO [address] [place] [id number] PCP - General Internal Medicine 08/22/18
--- OUTSIDE RECORDS SUMMARY | 2024-12-18 14:10 | XMS_ITS | Clinical Summary ---
Author Organization [facility] Address [address] [place] [address] Care Team Providers Care Hackler Doll Wigs Name Role Phone Yosvany Encarnacion MD Primary Care Provider [phone] Allergies No known active allergies Medications traMADol (ULTRAM) 50 mg tablet Take 100 mg by mouth every 8 hours as needed for Pain. Active ramipril (ALTACE) 10 mg capsule Take 10 mg by mouth daily. Active chlorthalidone (HYGROTON) 25 mg tablet Take 25 mg by mouth daily. Active levothyroxine 25 mcg tablet Take 25 mcg by mouth daily clothing busheler. 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
--- OUTSIDE RECORDS SUMMARY | 2024-12-18 14:10 | XMS_ITS | Clinical Summary ---
Author Organization [facility] Address [address] [place] [address] Care Team Providers Care Cell Phone Repair Technician Name Role Phone Unavailable Primary Care Provider [...] 2016 COVID-19 Vaccine (2023-2 5 season) 2024 Influenza Adult (#1) 2024 Meningococcal B Vaccine Aged Out No l onger eligible based on patient's age to complete this topic Meningococcal Vaccine Aged Out No carrie minesh eligible based on patient's age to complete this topic RSV Immunizations Under 20 Months Aged Out No longer eligible based on patient's age to complete this topic
--- OUTSIDE RECORDS SUMMARY | 2024-12-18 14:10 | XMS_ITS | Clinical Summary ---
Author Organization [facility] [employer] Address [address] [place] [address] Care Team Providers Care Digester Name Role Phone Yosvany Encarnacion MD Primary Care Provider [phone] Source Comments [facility] [employer],non-owned Affiliates and Associated Physician Practices is amultiple site organization consisting of ambulatory clinics and hospital sitesin [place], [place], [place] and [place]. This disclosure is being madepursuant to the Care Everywhere program and may not contain all information available regarding this patient. Last updated [employer] Allergies No known active allergies Medications * [...] 24 hours. Active Cholecalcifero l 250 MCG (85656 UT) TABS Take 1 (one) tablet by [...] Recorded Patient Health Questionnaire-2 Score 0 04/10/2024 [facility] [place] [facility] - Occupational Stress [...] any time in the past 12 m [facility], were you homeless or living in a nursing home (including now)? No 03/21/2024 Comments Unknown Sex and Gender Information Value Date Recorded Sex Assigned at Female 03/19/2024 8:48 PM ELECTRICIAN MARINE Legal Sex Female 2:50 PM CDT Gender Identity Not on file Sexual Orientation Not on file Last Filed Vital Signs Vital Sign Reading Time Taken Comments Blood Pressure 122/66 03/25/2024 3:06 PM ELECTRICIAN MARINE Pulse 57 03/25/2024 3:06 PM ELECTRICIAN MARINE Temperature 36.4 C (97.5 F) 03/25/2024 3:06 PM ELECTRICIAN MARINE Respiratory Rate 18 03/25/2024 3:06 PM ELECTRICIAN MARINE Oxygen Saturation 92% 03/25/2024 3:06 PM ELECTRICIAN MARINE Inhaled Oxygen Concentration - - Weight 84.4 kg (186 lb) 03/19/2024 6:43 PM ELECTRICIAN MARINE Height 167.6 cm (5' 6) 03/19/2024 6:43 PM ELECTRICIAN MARINE Body Mass Index 30.02 03/19/2024 6:43 PM ELECTRICIAN MARINE Plan of Treatment Upcoming Encounters Date Type Department Care Team (Late st Contact Info) Description 06/18/2025 12:30 PM CDT Office Visit [facility] - [facility] [address] [place] [phone] Jimi Boss MD [address] [phone] Health Maintenance Due Date Last Done Comments [...] this topic Medical Devices Implanted Type Area Longitudinal Float Operator Device Identifier Shelf Expiration Date Model / Serial / Lot Brng [id number] [id number] Arcm Kn Ant Stab Implanted:Qty: 1 on 03/22/2024 by Jimi Boss MD at [facility] Right: Knee [employer] 06/14/2027 [id number] / / [id number] Cmpnt Tibtry Kn Prm Lck Bar Bmt As Mx Implanted:Qty: 1 on 03/22/2024 by Jimi Boss MD at [facility] Right: Knee [employer] 08/06/2033 [id number] / / [id number] Insurance MEDICAID - OUT OF STATE SELF PAY NO INSURANCE Member Subscriber Plan / Payer (Ef fective for All Dates) Name:Nadiya John Member ID:Not on file Relation to Subscriber:Not on file Name:ALVARONADIYA Subscriber ID:Not on file (Home) Address: [address] [place] [id number] Payer ID:Not on file Group ID:Not on file Type:Self Pay Address: [facility] MED[facility] SELF PAY NO INSURANCE Member Subscriber Plan / Payer (Ef fective for All Dates) Name:Nadiya John Member ID:Not on file Relation to Subscriber:Not on file Name:NADIYA JOHN Subscriber ID:Not on file (Home) Address: [address] [place], [place] [phone] Payer ID:Not on file Group ID:Not on file Type:Self Pay Address: [place], [place] SELF PAY NO INSURANCE Member Subscriber Plan / Payer (Ef fective for All Dates) Name:Nadiya John Member ID:Not on file Relation to Subscriber:Not on file Name:NADIYA JOHN Subscriber ID:Not on file (Home) Address: [address] [place] [address] Payer ID:Not on file Group ID:Not on file Type:Self Pay Address: [place], [place] * Guarantor: NADIYA JOHN Account Type Relation to Patient Date of Phone Billing Address Personal/Family Spouse Advance Directives * Full Code (Latest Code Status on File) Date Activated Date Inactivated Comments 03/19/2024 11:14 PM 03/25/2024 7:54 PM Care Teams Digester Relationship Specialty Start Date End Date Yosvany Encarnacion MD [address] [place] [address] PCP - General Family Medicine 03/19/24
--- OUTSIDE RECORDS SUMMARY | 2024-12-18 14:10 | XMS_ITS | Clinical Summary ---
Author Organization [facility] Address [address] 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
== END 2024-12-18 13:32 | disposition home or self-care (01) ==
PROVIDERS: Emergency Provider Nurse Practitioner Family; PCP Family Medicine
DX: J34.0 Abscess, furuncle and carbuncle of nose (principal); I12.9 Hypertensive chronic kidney disease with stage 1 through stage 4 chronic kidney disease, or unspecified chronic kidney disease; N18.30 Chronic kidney disease, stage 3 unspecified; D63.1 Anemia in chronic kidney disease; E03.9 Hypothyroidism, unspecified; M17.0 Bilateral primary osteoarthritis of knee; E78.00 Pure hypercholesterolemia, unspecified; G25.81 Restless legs syndrome; E66.9 Obesity, unspecified; Z68.25 Body mass index [BMI] 25.0-25.9, adult; R73.01 Impaired fasting glucose; Z85.01 Personal history of malignant neoplasm of esophagus
CPT/HCPCS: 99213; G0463